=== PATIENT | female | born 1995 | race Caucasian/White ===

== ENCOUNTER 2017-07-14 16:00 | Emergency (ER) | payer OTHER, SELFPAY ==
--- OUTSIDE RECORDS SUMMARY | 2017-07-14 16:02 | XMS REPORT | Clinical Summary ---
:1995 Author Organization [facility] Address [address] [place] [address] Care Team Providers Name Role Phone Asked, No Pcp Primary Care Provider Unavailable Allergies Active Allergy Reactions Severity Noted Date Comments Penicillins Shortness Of Breath High 08/12/2016 Current Medications Prescription Sig. Disp. Refills Start Date End Date Status metFORMIN Take 500 mg by Active (GLUCOPHAGE) 500 mg mouth 2 (two) tablet times a day with meals. ondansetron (ZOFRAN) Take 1 tablet (4 20 tablet 0 08/12/2016 Active 4 MG tablet mg total) by mouth every 8 (eight) hours as needed for nausea or vomiting for up to 20 doses. sulfamethoxazole-trim Take 2 tablets 40 tablet 0 08/12/2016 08/22/2016 ethoprim (BACTRIM DS) by mouth 2 (two) 800-160 mg per tablet times a day for 10 days. Active Problems Not on file Encounters Date Type Specialty Care Team Description 08/12/2016 Emergency Emergency Medicine Elier Torres, Cellulitis of abdominal MD wall (Primary Dx) after 07/13/2016 Social History Tobacco Use Types Packs/Day Years Used Date Current Every Day Smoker Cigarettes 0.5 Alcohol Use Drinks/Week oz/Week Comments No Sex Assigned at Date Recorded Not on file Last Filed Vital Signs Vital Sign Reading Time Taken Blood Pressure 124/70 08/12/2016 9:23 AM CDT Pulse 83 08/12/2016 9:23 AM CDT Temperature 36.6 C (97.9 F) 08/12/2016 9:23 AM CDT Respiratory Rate 18 08/12/2016 9:23 AM CDT Oxygen Saturation 97% 08/12/2016 9:23 AM CDT Inhaled Oxygen Concentration - - Weight 129 kg (285 lb) 08/12/2016 9:22 AM CDT Height 170.2 cm (5' 7") 08/12/2016 9:22 AM CDT Body Mass Index 44.64 08/12/2016 9:22 AM CDT Plan of Treatment Not on file Results Not on fileafter 07/13/2016
[2017-07-14 17:04] LABS: Absolute Lymphocytes (CBC) 2.9 K/uL (0.7-4.9); Absolute Monocytes 0.9 K/uL (0.1-1.3); Absolute Neutrophil 8.8 K/uL (1.8-8.0); Basophils % 0.7 % (0-1.3); Eosinophils % 0.8 % (0-4.4); Hematocrit 40.5 % (36.0-45.0); Lymphocytes % 22.5 % (15.3-44.8); MCH 27.3 pg (27.0-35.0); MCV 82.9 fL (80-100); MPV 8.2 fL (7.6-11.3); RBC Red Blood Cell Count 4.88 M/uL (3.86-4.86)
[2017-07-14 17:14] LABS: Bicarbonate 23 mEq/L (21-31); Glucose Level 85 mg/dL (65-120); Potassium 3.7 mEq/L (3.6-5.0); Sodium Level 134 mEq/L (135-145)
[2017-07-14 17:15] LABS: BUN Blood Urea Nitrogen 15 mg/dL (6-20)
[2017-07-14 18:06] LABS: Urine Blood NEGATIVE (NEG); Urine Glucose NEGATIVE (NEG); Urine Protein NEGATIVE (NEG); Urine pH 6.5 (5.0-7.0)
--- NOTE | 2017-07-14 18:22 | ER ---
Nurse's Notes [facility] Name: Lindsey Aguilar Age: 22 yrs Sex: Female : 1995 Arrival Date: 07/14/2017 Time: 16:03 Bed 26 Private MD: Diagnosis: Palpitations Presentation: 07/14 16:05 Presenting complaint: Patient states: i feel like i have palpitations since this hj morning around 12noon; reports nausea; LMP- 05/27/17; 6 weeks ;. Transition of care: patient was not received from another setting of care. Onset of symptoms was July 14, 2017. Care prior to arrival: None. 16:05 Method Of Arrival: Ambulatory hj 16:05 Acuity: GILBERTO 3 hj Triage Assessment: 16:07 General: Appears in no apparent distress. uncomfortable, Behavior is cooperative, hj appropriate for age, anxious, crying. Pain: Complains of pain in abdomen. MANAGER WOMEN: 16:08 LMP 05/27/2017 hj Historical: - Allergies: 16:07 PENICILLINS; hj - Home Meds: 16:07 Vitamin Oral [Active]; hj - PMHx: 16:07 Endometriosis; Hyperlipidemia; HYPOGLYCEMIA; Thyroid problem; hj - PSHx: 16:07 breast reduction; hj - Social history:: Smoking status: Patient/guardian denies using tobacco, recently quit. Screenin:50 Abuse screen: Denies threats or abuse. Nutritional screening: No deficits noted. kb1 Tuberculosis screening: No symptoms or risk factors identified. Fall Risk None identified. Assessment: 16:50 General: Appears in no apparent distress. Behavior is calm, cooperative. Pain: Denies kb1 pain. Neuro: Level of Consciousness is awake, alert, obeys commands, Oriented to person, place, time, situation. Cardiovascular: Reports syncope, intermittent palpitations, chest heaviness. Respiratory: Reports shortness of breath on exertion Airway is patent. GI: No signs and/or symptoms were reported involving the gastrointestinal system. : No signs and/or symptoms were reported regarding the genitourinary system. 17:42 Reassessment: Patient appears in no apparent distress at this time. Patient and/or kb1 family updated on plan of care and expected duration. Pain level reassessed. Patient is alert, oriented x 3, equal unlabored respirations, skin warm/dry/pink. 18:35 Reassessment: Patient appears in no apparent distress at this time. Patient and/or kb1 family updated on plan of care and expected duration. Pain level reassessed. Patient is alert/active/playful, equal unlabored respirations, skin warm/dry/pink. Vital Signs: 16:08 BP 144 / 91; Pulse 98; Resp 18; Temp 98.2(TE); Pulse Ox 98% on R/A; Weight 137.44 kg; hj Height 5 ft. 7 in. (170.18 cm); Pain 5/10; 17:43 BP 129 / 52; Pulse 89; Resp 18; Pulse Ox 97% on R/A; kb1 19:17 BP 137 / 83; Pulse 84; Resp 18; Pulse Ox 98% ; kb1 16:08 Body Mass Index 47.46 (137.44 kg, 170.18 cm) ED Course: 16:03 Patient arrived in ED. rg4 16:06 Triage completed. 16:07 Arm band placed on right wrist. 16:35 Deshawn Sim NP is [facility]. pm1 16:35 Edwin Nuñez MD is Attending Physician. pm1 16:35 Nora Barraza RN is Primary Nurse. kb1 16:50 Patient has correct armband on for positive identification. Bed in low position. Call kb1 light in reach. Side rails up X 1. patient monitor on. Pulse ox on. NIBP on. 16:50 No provider procedures requiring assistance completed. Inserted saline lock: 20 gauge kb1 in right antecubital area, using aseptic technique. Blood collected. 17:31 EKG done, by pet care technician. reviewed by Deshawn Sim NP. at1 19:18 IV discontinued, intact, bleeding controlled, No redness/swelling at site. Pressure kb1 dressing applied. Administered Medications: No medications were administered Outcome: 18:22 Discharge ordered by MD. pm1 19:18 Discharged to home ambulatory, with friend. kb1 19:18 Condition: stable 19:18 Discharge instructions given to patient, Instructed on discharge instructions, follow up and referral plans. Demonstrated understanding of instructions, follow-up care. 19:19 Patient left the ED. kb1 Signatures: Samantha petty, electron beam welding machine operator EKG Tat1 Cayetano Ramos RN RN Deshawn Sim NP JACKHAMMER OPERATOR pm1 Vale Booker rg4 Nora Barraza RN RN kb1 Corrections: (The following items were deleted from the chart) 16:07 16:05 Presenting complaint: Patient states: i feel like i have palpitations since this hj morning around 12noon; reports nausea; hj 16:10 16:08 Pulse 98bpm; Resp 18bpm; Pulse Ox 98% RA; Temp 98.2F Temporal; 137.44 kg; Height hj 5 ft. 7 in.; BMI: 47.4; Pain 5/10; hj
--- NOTE | 2017-07-14 18:22 | EDPHYS ---
Physician Documentation [facility] Name: Lindesy Aguilar Age: 22 yrs Sex: Female : 1995 Arrival Date: 07/14/2017 Time: 16:03 Bed 26 Private MD: ED Physician Edwin Nuñez HPI: 07/14 17:00 This 22 yrs old Female presents to ER via Ambulatory with complaints of pm1 Palpitations. 17:00 The patient presents with a history of irregular heart beat. Context: The symptoms pm1 occur at rest, with anxiety. Onset: The symptoms/episode began/occurred today, at 12:00. Duration: The patient or guardian reports a single episode, that is now resolved. Modifying factors: The symptoms are aggravated by. Associated signs and symptoms: Pertinent positives: anxiety, nausea, Pertinent negatives: chest pain, cough, fever, SOB, vomiting. Severity of symptoms: in the emergency department the symptoms have resolved. The patient has experienced similar episodes in the past, a few times. PROJECT HIRE: 16:08 LMP 05/27/2017 hj Historical: - Allergies: 16:07 PENICILLINS; hj - Home Meds: 16:07 Vitamin Oral [Active]; hj - PMHx: 16:07 Endometriosis; Hyperlipidemia; HYPOGLYCEMIA; Thyroid problem; hj - PSHx: 16:07 breast reduction; hj - Social history:: Smoking status: Patient/guardian denies using tobacco, recently quit. ROS: 17:00 Constitutional: Negative for fever, chills, and weight loss, Eyes: Negative for injury, pm1 pain, redness, and discharge, ENT: Negative for injury, pain, and discharge, Neck: Negative for injury, pain, and swelling, Respiratory: Negative for shortness of breath, cough, wheezing, and pleuritic chest pain, Back: Negative for injury and pain, : Negative for injury, bleeding, discharge, and swelling, MS/Extremity: Negative for injury and deformity, Skin: Negative for injury, rash, and discoloration, Neuro: Negative for headache, weakness, numbness, tingling, and seizure. 17:00 Cardiovascular: Positive for palpitations. 17:00 Abdomen/GI: Positive for nausea, Negative for abdominal pain, vomiting, diarrhea. Exam: 17:00 Constitutional: This is a well developed, well nourished patient who is awake, alert, pm1 and in no acute distress. Head/Face: Normocephalic, atraumatic. Eyes: Pupils equal round and reactive to light, extra-ocular motions intact. Lids and lashes normal. Conjunctiva and sclera are non-icteric and not injected. Cornea within normal limits. Periorbital areas with no swelling, redness, or edema. ENT: Nares patent. No nasal discharge, no septal abnormalities noted. Tympanic membranes are normal and external auditory canals are clear. Oropharynx with no redness, swelling, or masses, exudates, or evidence of obstruction, uvula midline. Mucous membranes moist. Neck: Trachea midline, no thyromegaly or masses palpated, and no cervical lymphadenopathy. Supple, full range of motion without nuchal rigidity, or vertebral point tenderness. No Meningismus. Chest/axilla: Normal chest wall appearance and motion. Nontender with no deformity. No lesions are appreciated. Cardiovascular: Regular rate and rhythm with a normal S1 and S2. No gallops, murmurs, or rubs. Normal PMI, no JVD. No pulse deficits. Respiratory: Lungs have equal breath sounds bilaterally, clear to auscultation and percussion. No rales, rhonchi or wheezes noted. No increased work of breathing, no retractions or nasal flaring. Abdomen/GI: Soft, non-tender, with normal bowel sounds. No distension or tympany. No guarding or rebound. No evidence of tenderness throughout. Back: No spinal tenderness. No costovertebral tenderness. Full range of motion. Skin: Warm, dry with normal turgor. Normal color with no rashes, no lesions, and no evidence of cellulitis. MS/ Extremity: Pulses equal, no cyanosis. Neurovascular intact. Full, normal range of motion. Neuro: Awake and alert, GCS 15, oriented to person, place, time, and situation. Cranial nerves II-XII grossly intact. Motor strength 5/5 in all extremities. Sensory grossly intact. Cerebellar exam normal. Normal gait. Vital Signs: 16:08 BP 144 / 91; Pulse 98; Resp 18; Temp 98.2(TE); Pulse Ox 98% on R/A; Weight 137.44 kg; hj Height 5 ft. 7 in. (170.18 cm); Pain 5/10; 17:43 BP 129 / 52; Pulse 89; Resp 18; Pulse Ox 97% on R/A; kb1 19:17 BP 137 / 83; Pulse 84; Resp 18; Pulse Ox 98% ; kb1 16:08 Body Mass Index 47.46 (137.44 kg, 170.18 cm) hj MDM: 16:35 Patient medically screened. pm1 18:21 Data reviewed: vital signs. Data interpreted: Pulse oximetry: on room air is 97 %. pm1 Interpretation: normal. Counseling: I had a detailed discussion with the patient and/or guardian regarding: the historical points, exam findings, and any diagnostic results supporting the discharge/admit diagnosis, lab results, radiology results, the need for outpatient follow up, to return to the emergency department if symptoms worsen or persist or if there are any questions or concerns that arise at home. 07/14 16:43 Order name: CBC with Diff; Complete Time: 17:17 pm1 07/14 16:43 Order name: Basic Metabolic Panel; Complete Time: 17:17 pm1 07/14 16:43 Order name: EKG; Complete Time: 16:43 pm1 07/14 17:16 Order name: TSH; Complete Time: 18:21 pm1 07/14 17:40 Order name: Urine Dipstick--Ancillary (enter results); Complete Time: 18:21 ag 07/14 17:40 Order name: Urine --Ancillary (enter results); Complete Time: 18:21 ag 07/14 16:43 Order name: Urine Test (obtain specimen); Complete Time: 17:40 pm1 07/14 16:43 Order name: Cardiac monitoring; Complete Time: 16:48 pm1 07/14 16:43 Order name: EKG - Nurse/Tech; Complete Time: 17:20 pm1 07/14 16:43 Order name: IV Saline Lock; Complete Time: 16:48 pm1 07/14 16:43 Order name: Labs collected and sent; Complete Time: 16:48 pm1 07/14 16:43 Order name: O2 Per Protocol; Complete Time: 16:48 pm1 07/14 16:43 Order name: O2 Sat Monitoring; Complete Time: 16:48 pm1 07/14 16:43 Order name: Urine Dipstick-Ancillary (obtain specimen); Complete Time: 17:42 pm1 Administered Medications: No medications were administered Disposition: 07/15 10:34 Co-signature as Attending Physician, Edwin Nuñez MD I agree with the assessment and carson plan of care. Disposition: 07/14/17 18:22 Discharged to Home. Impression: Palpitations. - Condition is Stable. - Discharge Instructions: Palpitations. - Medication Reconciliation Form, Thank You Letter form. - Follow up: Emergency Department; When: As needed; Reason: Worsening of condition. Follow up: Private Physician; When: 2 - 3 days; Reason: Recheck today's complaints, Continuance of care, Re-evaluation by your physician. - Problem is new. - Symptoms have improved. Signatures: Dispatcher [employer] EDMS Edwin Nuñez MD MD cha Joaquin, Henry, RN RN Deshawn Qureshi NP INSPECTOR [employer]SEM[employer] pm1 Nora Barraza RN RN kb1
--- NOTE | 2017-07-14 19:06 | EKG ---
Test Date: 2017-07-14 Test Time: 17:12:34 Barrel Dedenting Machine Operator: JAD MEASUREMENT RESULTS: Intervals: Rate: 75 TX: 166 QRSD: 88 QT: 392 QTc: 437 [place]: P: 57 TX: 166 QRS: 37 T: 25 INTERPRETIVE STATEMENTS: Normal sinus rhythm with sinus arrhythmia Cannot rule out Anterior infarct, age undetermined Abnormal ECG Compared to ECG 04/26/2017 02:05:18 Myocardial infarct finding now present Electronically Signed On 07-14-17 19:05:43 CDT by Duncan Guerra
== END 2017-07-14 19:19 | disposition home or self-care (01) ==
LOC: ER 16:00
DX: R00.2 Palpitations (principal); Z3A.01 Less than 8 weeks gestation of pregnancy; Z88.0 Allergy status to penicillin
CPT/HCPCS: 36415; 80048; 81003; 81025; 84443; 85025; 93005; 99284

== ENCOUNTER 2018-04-04 12:51 | Observation (INO) | payer OTHER ==
--- OUTSIDE RECORDS SUMMARY | 2018-04-04 12:53 | XMS REPORT | Summary of Care ---
:1995 Author Name KARINA Rios, BRANDEN Address Unavailable Unavailable , Care Team Providers Name Role Phone KARINA Rios, DANNIE Unavailable Unavailable MAXIM Rios, MERYL Unavailable Unavailable SAHIL Rios, GLORIA Unavailable Unavailable SUE Rios, YARELY Badillo Unavailable Unavailable Mateusz SHUKLA, Troy Unavailable Unavailable KARINA SHUKAL [place], [facility] Unavailable Unavailable Unavailable Unavailable Unavailable Functional Status Name Dates Details Functional status health issues are not documented Status: Name Dates Details Cognitive status health issues are not documented Status: Problems Name Dates Details Swelling of knee (719.06, M25.469) Status: Active Nutritional counseling (V65.3, Z71.3) Status: Active Abnormal glucose tolerance in (648.80, O99.810) Status: Active Chronic headache (784.0, R51) Status: Active Knee pain, left (719.46, M25.562) Status: Active Biceps tendinitis of right shoulder (726.12, M75.21) Status: Active RAVI positive (795.79, R76.8) Status: Active (V22.2, Z34.90) Status: Active Post-traumatic osteoarthritis of right knee (715.26, M17.31) Status: Active Chronic pain of right knee (719.46, M25.561) Status: Active Elevated BP without diagnosis of hypertension (796.2, R03.0) Status: Active Encounter for supervision of normal (V22.1, Z34.90) Status: Active Obese (278.00, E66.9) Status: Active Chronic right shoulder pain (719.41, M25.511) Status: Active Impingement syndrome of right shoulder (726.2, M75.41) Status: Active exam (V24.2, Z39.2) Status: Active Post-operative state (V45.89, Z98.890) Status: Active Depression (311, F32.9) Status: Active Medications Name Dates Details Albuterol Sulfate (2.5 MG/3ML) 0.083% Inhalation Nebulization Solution Refills: 0 R.N. Start : 02-Nov-2017 Active Butalbital-Acetaminophen 50-325 MG Oral Tablet TAKE 1 TABLET EVERY 3-4 HOURS NEEDED FOR COMFORT. Quantity: 30 Refills: 2 MAXIM Rios SHETH Start : 02-Nov-2017 Active Vitafol Ultra 29-0.6-0.4-200 MG Oral Capsule TAKE 1 CAPSULE BY MOUTH DAILY Quantity: 30 Refills: 6 GLORIA BAXTER M.D. Start : 02-Dec-2017 Active PredniSONE 5 MG Oral Tablet TAKE 1 TABLET BY MOUTH EVERY DAY PRN JOINT PAIN IF OKAY WITH YOUR CLINICAL ATHLETIC INSTRUCTOR. Quantity: 30 Refills: 0 BRANDEN FONSECA M.D. Start : 30-Jan-2018 Active Sertraline HCl - 25 MG Oral Tablet TAKE 1 TABLET DAILY. Quantity: 30 Refills: 3 YARELY ROGERS M.D. Start : 18-Jan-2018 Active Plus Iron 29-1 MG Oral Tablet TAKE 1 TABLET DAILY. Quantity: 30 Refills: 6 YARELY ROGERS M.D. Start : 13-Mar-2018 Active Citalopram Hydrobromide 10 MG Oral Tablet TAKE 1 TABLET DAILY. Quantity: 30 Refills: 3 YARELY ROGERS M.D. Start : 27-Mar-2018 Active Allergies and Adverse Reactions Name Dates Details Penicillins (Allergy) Status: Active Past Medical History Name Dates Details History of asthma (V12.69, Z87.09) Status: Resolved History of Gastric ulcer (531.90, K25.9) Status: Resolved History of type 2 diabetes mellitus (V12.29, Z86.39) Status: Resolved Procedures Procedure Dates Details History of Breast reduction Completed Immunization Name Dates Details Tdap (Boostrix) #1 on: 15-Dec-2017 Lot #: [id number] Fluzone Quadrivalent 0.5 ML Intramuscular Suspension #1 on: Jan-2018 Lot #: [id number] Family History Name Dates Details Family history of hypertension (V17.49, Z82.49) Status: Active Name Dates Details Family history of cerebrovascular accident (CVA) (V17.1, Z82.3) Status: Active Family history of diabetes mellitus (V18.0, Z83.3) Status: Active Family history of hypertension (V17.49, Z82.49) Status: Active Social History Name Dates Details - Status: Name Dates Details Never smoker Vital Signs Date Test Result Details [id number] BP Systolic 129 mm[Hg] Status: Comments: Location: RUE; Position: Sitting BP Diastolic 86 mm[Hg] Status: Comments: Location: RUE; Position: Sitting Height 67 in Status: Weight 333.25 lb Status: Body Mass Index Calculated 52.19 kg/m2 Status: Body Surface Area Calculated 2.51 m2 Status: Heart Rate 105 /min Status: Results Date Description Value Details [id number] XRAY Shoulder series [id number] Shoulder series SEE NOTES Comments: Exam: Right Shoulder series DXClinical Indication: - m25.511 chronic right shoulder pain.Comparison: None.FINDINGS:The 3 views of the shoulder show normal alignment at the glenohumeral joint.There are no fractures or dislocations. Mild degenerative changes areappreciated along the distal aspect of the dorsal surface of the right acromionprocess, lateral to the right acromioclavicular joint.The acrom ioclavicular joint and coracoclavicular spaces are intact. Theacromion and coracoid processes appear unremarkable. The subacromial space isunremarkable. The visualized scapula and clavicle are unremarka ble. There areno radiopaque foreign bodies or soft tissue swelling.If there is further concern, MRI of the shoulder may be performed for completeassessment.IMPRESSION:1. No radiographic evidence of acut e fractures or dislocations of the rightshoulder.2. Mild degenerative changes appreciated along the distal aspect of the dorsalsurface of the right acromion process, lateral to the right acromioclavicul arjoint. This may be secondary to tendinous injury of the right deltoid and/ortrapezius muscles. Correlate clinically and with patient history. Consider MRIevaluation of the shoulder for further evaluat ion, as clinically indicated.SL: [id number]--Ueiu by: Michael Camacho DODictated Date/time: 03/27/18 15:25Electronically Signed by: Michael Camacho DO 03/27/1815:30FINAL REPORT [id number] XRAY Knee 1-2 Views Bilateral [id number] Knee 1-2 Views Bilateral SEE NOTES Comments: Clinical Indication: - m25.561 chronic pain of right knee;Comparison: NoneFINDINGS:The 4 views of the bilateral knees show normal alignment without fractures ordislocations. Vacuum phenomenon is noted within the right lateral tibiofemoralknee compartment.The medial and lateral tibiofemoral compartments and patellofemoral compartmentare unremarkable. There is no knee region soft tissue swelling. Hoffa 's fat padregion is unremarkable. There are no joint bodies. There is no joint effusion.There are no radiopaque foreign bodies.If there is further concern, recommend MRI for complete assessment.IMPRESSI ON:1. No radiographic evidence of acute fractures or dislocation of the bilateralknees.2. Vacuum phenomenon within the right lateral tibiofemoral knee compartment.This is of no clinical significance and considered a normal variant.SL: [id number]--Anpp by: Michael Camacho DODictated Date/time: 03/27/18 15:31Electronically Signed by: Michael Camacho DO 03/27/1815:36FINAL REPORT Plan of Care Name Dates Details Planned Observations Planned Goals not documented Planned Encounters Appointment; BRANDEN FONSECA M.D. On: 26-Apr-2018 14:30 Interventions Provided Discussion/SummaryDear Ms. JIANG, Your studies look pretty good. You have mild degenerative changes along one of the bones of your shoulder, possibly from prior trauma. Sincerely, Dr. Fonseca Instructions Name Dates Details Instructions not documented Encounters Appointment; SHAKILA THOMPSON M.D. On: 02-Nov-2017 14:00 Encounter Diagnosis: Problem not documented Appointment; CLINICAL ATHLETIC INSTRUCTOR, ROOM3 On: 23-Nov-2017 13:00 Encounter Diagnosis: Problem not documented Appointment; MERYL PAN M.D. On: 23-Nov-2017 14:00 Encounter Diagnosis: Problem not documented Appointment; EDUCATION, CLINICAL ATHLETIC INSTRUCTOR On: 15-Dec-2017 13:30 Encounter Diagnosis: Problem not documented Appointment; TROY BUTTS M.D. On: 15-Dec-2017 14:30 Encounter Diagnosis: Problem not documented Appointment; , PROVIDER On: 15-Dec-2017 15:30 Encounter Diagnosis: Problem not documented Appointment; GLORIA BAXTER M.D. On: 23-Dec-2017 13:00 Encounter Diagnosis: Problem not documented Appointment; BRANDEN FONSECA M.D. On: 26-Dec-2017 13:00 Encounter Diagnosis: Problem not documented Appointment; FEDERICO RAMIREZ M.D. On: 03-Jan-2018 9:30 Encounter Diagnosis: Problem not documented Appointment; CLINICAL ATHLETIC INSTRUCTOR, ROOM3 On: 06-Jan-2018 13:00 Encounter Diagnosis: Problem not documented Appointment; GLORIA BAXTER M.D. On: 06-Jan-2018 13:30 Encounter Diagnosis: Problem not documented Appointment; FEDERICO RAMIREZ M.D. On: 10-Jan-2018 9:30 Encounter Diagnosis: Problem not documented Appointment; , PROVIDER On: 18-Jan-2018 13:00 Encounter Diagnosis: Problem not documented Appointment; ELDON WELLER M.D. On: 18-Jan-2018 14:00 Encounter Diagnosis: Problem not documented Appointment; ELDON WELLER M.D. On: 01-Feb-2018 14:30 Encounter Diagnosis: Problem not documented Appointment; CLINICAL ATHLETIC INSTRUCTOR, ROOM3 On: 06-Feb-2018 13:30 Encounter Diagnosis: Problem not documented Appointment; CLINICAL ATHLETIC INSTRUCTOR, ROOM4 On: 13-Feb-2018 11:30 Encounter Diagnosis: Problem not documented Appointment; LUIS MCGARRY M.D. On: 13-Feb-2018 13:30 Encounter Diagnosis: Problem not documented Appointment; CLINICAL ATHLETIC INSTRUCTOR, ROOM1 On: 20-Feb-2018 13:45 Encounter Diagnosis: Problem not documented Appointment; LUIS MCGARRY M.D. On: 20-Feb-2018 15:45 Encounter Diagnosis: Problem not documented Appointment; EDUCATION, POST On: 13-Mar-2018 11:00 Encounter Diagnosis: Problem not documented
--- OUTSIDE RECORDS SUMMARY | 2018-04-04 12:53 | XMS REPORT | Continuity of Care Document ---
:1995 Author Organization Interface Problems Problem Status Onset Classification Date Comments Source Date Reported INDUCTION Active [address] ELEVATED Active [address] [facility] LABOR Active [address] [facility] Discharge 09/11/2015 [facility] Diagnosis: 6 Acute vaginitis OTHER Active [place] [id number] [facility] Discharge 08/24/2014 [facility] Diagnosis: 5 Cough Discharge 08/24/2014 [facility] Diagnosis: 5 Fever SOB, COUGHING Active [facility] 5 Medications Medication Details Route Status Patient Ordering Order Source Instructions Provider Date Metronidazole 500 mg=1 Active 500 MG Oral tab, PO, 016 [place] Tablet [Flagyl] BID, X 7 day, # 14 tab, 0 Refill(s) Zithromax 1,000 mg, 1 Inactive pkt, Route: 016 [place] PO, Drug form: PCKT, ONCE, Dosing Weight 127.273, kg, Priority: STAT, Start date: 09/08/15 14:37:00 CDT, Stop date: 09/08/15 14:37:00 CDTNotes: (Same As: Zithromax) Take 1 hour before or 2 hours after meal Rocephin 250 mg, Inactive Route: IM, 016 [place] Drug form: PDR/INJ, ONCE, Dosing Weight 127.273, kg, Priority: STAT, Start date: 09/08/15 14:36:00 CDT, Stop date: 09/08/15 14:36:00 CDTNotes: (Same As: Rocephin) Tramadol 50 mg, 1 Inactive tab, Route: 016 [place] PO, Drug form: TAB, ONCE, Dosing Weight 127.273, kg, > 50 kg, Priority: STAT, Start date: 09/08/15 14:30:00 CDT, Stop date: 09/08/15 14:30:00 CDTNotes: Not to exceed 400mg/day. (Same As: Ultram) Morphine 4 mg, 2 mL, Inactive Route: IVP, 016 [place] Drug form: INJ, ONCE, Dosing Weight 127.273, kg, Priority: STAT, Start date: 09/08/15 13:39:00 CDT, Stop date: 09/08/15 13:39:00 CDTNotes: (Same as:MORPhine Sulfate) Ondansetron 4 mg, 2 mL, Inactive Route: IVP, 016 [place] Drug form: INJ, ONCE, Dosing Weight 127.273, kg, Priority: STAT, Start date: 09/08/15 13:39:00 CDT, Stop date: 09/08/15 13:39:00 CDTNotes: (Same as: Zofran) MEDICATION WASTE Product Size: 4 mg Product Wasted: ___ mg Saline Flush 10 mL, Inactive 0.9% Route: IVP, [address] [place] [address] Drug Form: INJ, Dosing Weight 127.273, kg, PRN, PRN Line Flush, Start date: 09/08/15 13:39:00 CDT, Duration: 30 day, Stop date: 10/08/15 13:38:00 CDTNotes: (Same as: BD Posiflush) Azithromycin 5 250 mg, PO, Active Day Dose Pack Daily, Take 015 [place] 250 mg oral 2 tablets by tablet mouth the first day then 1 tablet by mouth days 2-5, X 5 day, # 6 tab, 0 Refill(s)Spe cial Instructions : Take 2 tablets by mouth the first day then 1 tablet by mouth days 2-5 Allergies, Adverse Reactions, Alerts Substance Category Reaction Severity Reaction Status Date Comments Source type Reported penicillins Assertion Drug Active allergy [place] Immunizations Immunization Date Given Site Status Last Updated Comments Source Results Order Name Results Value Reference Date Interpretation Comments Source Range Shoulder Shoulder Exam: Right Shoulder series DX 03/27 - OPID series DX series - [place] Clinical Indication: - m25.511 chronic right shoulder pain. Comparison: None. Read by: Michael Camacho DO Dictated Date/time: 03/27/18 15:25 Electronically Signed by: Michael Camacho DO 03/27/18 15:30 FINAL REPORT FINDINGS: The 3 views of the shoulder show normal alignment at the glenohumeral joint. There are no fractures or dislocations. Mild degenerative changes are appreciated along the distal aspect of the dorsal surfa ce of the right acromion process, lateral to the right acromioclavicular joint. The acromioclavicular joint and coracoclavicular spaces are intact. The acromion and coracoid processes appear unremarkable. The subacromial space is unremarkable. The visualized scapula and clavicle ar e unremarkable. There are no radiopaque foreign bodies or soft tissue swelling. If there is further concern, MRI of the shoulder may be performed for complete assessment. IMPRESSION: 1. No radiographic evidence of acute fractures or dislocations of the right shoulder. 2. Mild degenerative changes appreciated along the distal aspect of the dorsal surface of the right acromion process, lateral to the right acromioclavicular joint. This may be secondary to tendinous inj ury of the right deltoid and/or trapezius muscles. Correlate clinically and with patient history. Consider MRI evaluation of the shoulder for further evaluation, as clinically indicated. SL: [id number] Knee 1-2 Knee 1-2 Clinical Indication: - m25.561 chronic pain of right knee ; 03/27 - OPID Views Views /2018 - [place] Bilateral Bilateral DX DX Comparison: None Read by: Michael Camacho DO Dictated Date/time: 03/27/18 15:31 Electronically Signed by: Michael Camacho DO 03/27/18 15:36 FINAL REPORT FINDINGS: The 4 views of the bilateral knees show normal alignment without fractures or dislocations. Vacuum phenomenon is noted within the right lateral tibiofemoral knee compartment. The medial and lateral tibiofemoral compartments and patellofemoral compartment are unremarkable. There is no knee region soft tissue swelling. Hoffa's fat pad region is unremarkable. There are no joint bodies. There is no joint effusion. There are no radiopaque foreign bodies. If there is further concern, recommend MRI for complete assessment. IMPRESSION: 1. No radiographic evidence of acute fractures or dislocation of the bilateral knees. 2. Vacuum phenomenon within the right lateral tibiofemoral knee compartment. This is of no clinical significance and considered a normal variant. SL: [id number] MOLECULAR C Negative Negative 09/07 DIAGNOSTIC trachomatis [place] by Amp Det *NA* (APTIMA) (09/08/15 2:19 PM) MOLECULAR Source Endocervix 09/07 DIAGNOSTIC APTIMA [place] *NA* (09/08/15 2:19 PM) MOLECULAR Source Endocervix 09/07 DIAGNOSTIC APT [place] *NA* (09/08/15 2:19 PM) MOLECULAR N gonorrhea Negative Negative 09/07 DIAGNOSTIC by Amp Det [place] (APTIMA) *NA* (09/08/15 2:19 PM) URINE AND UA Color Yellow Yellow 09/07 STOOL [place] *NA* (09/08/15 2:19 PM) URINE AND UA Leuk Est Negative Negative 09/07 STOOL [place] (09/08/15 2:19 PM) URINE AND UA Protein Negative Negative 09/07 STOOL [place] (09/08/15 2:19 PM) URINE AND UA pH 6.0 5.0 - 8.0 09/07 STOOL [place] URINE AND UA 0.2 EU/dL 0.1 - 1.0 09/07 STOOL Urobilinogen [place] URINE AND UA Glucose Negative Negative 09/07 STOOL [place] (09/08/15 2:19 PM) URINE AND UA Spec Grav >=1.030 <=1.030 09/07 STOOL [place] *ABN* (09/08/15 2:19 PM) URINE AND UA Turbidity Clear Clear 09/07 STOOL [place] (09/08/15 2:19 PM) URINE AND UA Nitrite Negative Negative 09/07 STOOL [place] (09/08/15 2:19 PM) URINE AND UA Blood Small Negative 09/07 STOOL [place] *ABN* (09/08/15 2:19 PM) URINE AND UA Bili Negative Negative 09/07 STOOL [place] *NA* (09/08/15 2:19 PM) URINE AND UA Ketones Trace Negative 09/07 STOOL [place] *ABN* (09/08/15 2:19 PM) URINE AND UA WBC None Seen None Seen 09/07 STOOL [place] (09/08/15 2:19 PM) URINE AND UA Sq Epi Few /LPF Few /LPF 09/07 [place] URINE AND UA RBC 0-2 /HPF 0 - 2 09/07 [place] URINE AND UA Bacteria None Seen None Seen 09/07 STOOL [place] (09/08/15 2:19 PM) URINE CHEM U Preg Negative Negative 09/07 [place] (09/08/15 2:19 PM) Vital Signs Vital Sign Value Date Comments Source Systolic (mm Hg) 148 09/08/2015 [facility] Diastolic (mm Hg) 88 09/08/2015 [facility] Respitory Rate 18 09/08/2015 [facility] Heart Rate 72 09/08/2015 [facility] Temperature Oral (F) 98.2 F 09/08/2015 [facility] Systolic (mm Hg) 154 09/08/2015 [facility] Diastolic (mm Hg) 90 09/08/2015 [facility] Heart Rate 74 09/08/2015 [facility] Respitory Rate 18 09/08/2015 [facility] Temperature Oral (F) 98.0 F 09/08/2015 [facility] Height 167.64 cm 09/08/2015 [facility] Weight 127.273 09/08/2015 [facility] BMI Calculated 45.29 09/08/2015 [facility] Systolic (mm Hg) 132 08/21/2014 [facility] Diastolic (mm Hg) 74 08/21/2014 [facility] Heart Rate 70 08/21/2014 [facility] Respitory Rate 14 08/21/2014 [facility] Temperature Oral (F) 98.4 F 08/21/2014 [facility] Systolic (mm Hg) 141 08/21/2014 [facility] Diastolic (mm Hg) 86 08/21/2014 [facility] Respitory Rate 16 08/21/2014 [facility] Heart Rate 87 08/21/2014 [facility] Temperature Oral (F) 98.4 F 08/21/2014 [facility] Weight 124.091 08/21/2014 [facility] Encounters Location Location Encounter Encounter Reason Attending ADM DC Status Source Details Type Number For Provider Date Date Visit [facility] [place] [id number] Dick Cesta 08/21 08/21 [facility] [facility] [place] [id number] Nadim 09/07 09/07 [facility] Mandaen /2015 [facility] Procedures Procedure Code Date Perfomer Comments Source
--- OUTSIDE RECORDS SUMMARY | 2018-04-04 12:53 | XMS REPORT | Clinical Summary ---
:1995 Author Organization [facility] Address [address] [place] [address] Care Team Providers Name Role Phone Asked, No Pcp Primary Care Provider Unavailable Allergies Active Allergy Reactions Severity Noted Date Comments Penicillins Shortness Of Breath High 08/12/2016 Medications Medication Sig Dispensed Refills Start Date End Date Status metFORMIN (GLUCOPHAGE) Take 500 mg by 0 Active 500 mg tablet mouth 2 (two) times a day with meals. ondansetron (ZOFRAN) 4 Take 1 tablet (4 20 tablet 0 08/12/2016 Active MG tablet mg total) by mouth every 8 (eight) hours as needed for nausea or vomiting for up to 20 doses. Active Problems Not on file Social History Tobacco Use Types Packs/Day Years Used Date Current Every Day Smoker Cigarettes 0.5 Alcohol Use Drinks/Week oz/Week Comments No Sex Assigned at Date Recorded Not on file Job Start Date Occupation Industry Not on file Not on file Not on file Travel History Travel Start Travel End No recent travel history available. Last Filed Vital Signs Not on file Plan of Treatment Not on file Results Not on fileafter 04/03/2017 Advance Directives Patient has advance care planning documents on file. For more information, please contact:[facility] [place] [address]
[2018-04-04 14:19] LABS: Absolute Lymphocytes (CBC) 1.9 K/uL (0.7-4.9); Absolute Monocytes 0.5 K/uL (0.1-1.3); Absolute Neutrophil 5.9 K/uL (1.8-8.0); Basophils % 0.9 % (0-1.3); Hematocrit 37.3 % (36.0-45.0); Lymphocytes % 22.5 % (15.3-44.8); MPV 8.7 fL (7.6-11.3); Monocytes % 5.6 % (3.3-12.3); RBC Red Blood Cell Count 4.67 M/uL (3.86-4.86)
[2018-04-04] MEDS ORDERED: ONDANSETRON 4 MG/2 ML VIAL ONE (14:22)
[2018-04-04] MEDS ORDERED: MORPHINE 4 MG/ML SYR ONE ×2 (14:22→14:45)
[2018-04-04 14:34] LABS: ALT/SGPT 39 U/L (12-78); AST/SGOT 28 U/L (15-37); Albumin 3.7 g/dL (3.4-5.0); Alkaline Phosphatase 94 U/L (45-117); BUN Blood Urea Nitrogen 13 mg/dL (7-18); Bicarbonate 24 mmol/L (21-32); Bilirubin Direct 0.1 mg/dL (0-0.2); Bilirubin Total 0.3 mg/dL (0.2-1.0); Glucose Level 100 mg/dL (74-106); Lipase 125 U/L (73-393); Protein, Total 7.1 g/dL (6.4-8.2); Sodium Level 141 mmol/L (136-145)
[2018-04-04 14:57] LABS: Urine Bacteria >50 /HPF (<20); Urine RBC <5 /HPF (NONE SEEN)
[2018-04-04 14:58] LABS: Urine Culture Reflex Order NOT NEEDED
--- NOTE | 2018-04-04 15:50 | RAD REPORT ---
EXAM DESCRIPTION: CT - Abdomen Pelvis W Contrast - 04/04/2018 3:36 pm CLINICAL HISTORY: Abdominal pain with vomiting COMPARISON: none. TECHNIQUE: Computed axial tomography of the abdomen pelvis was obtained. 100 cc Isovue-300 was admin istered intravenously. Oral contrast was not requested which limits evaluation of bowel. All CT scans are performed using dose optimization technique as appropriate and may include automated exposure control or mA/KV adjustment according to patient size. FINDINGS: The liver, spleen, pancreas, adrenal and kidneys appear unremarkable. There is no evidence of diverticulitis. Appendix is borderline enlarged. Stranding within the adjacent fat is not seen 5.4 centimeter left ovarian cyst without significant free fluid. Tiny umbilical hernia IMPRESSION: 5.4 centimeter left ovarian cyst without significant free fluid. Follow up ultrasound in couple months recommended to assess stability/resolution Borderline enlargement of the appendix is equivocal for early appendicitis
[2018-04-04] MEDS ORDERED: LIDOCAINE VISCOUS 2% SOLN 15 ML UDC ONE (16:19)
[2018-04-04] MEDS ORDERED: MAGNE/ALUM HYDROXD 30 ML UCUP ONE (16:19)
--- NOTE | 2018-04-04 16:37 | EDPHYS ---
Physician Documentation [facility] Name: Lindsey Aguilar Age: 22 yrs Sex: Female : 1995 Arrival Date: 04/04/2018 Time: 12:59 Bed 16 Private MD: ED Physician Alex Lundy HPI: 04/04 21:25 This 22 yrs old Female presents to ER via Wheelchair with complaints of tw4 Abdominal Pain. 21:25 The patient presents with abdominal pain in the periumbilical area. Onset: The tw4 symptoms/episode began/occurred today. The symptoms do not radiate. Associated signs and symptoms: Pertinent positives: vomiting. The symptoms are described as sharp. Modifying factors: The symptoms are alleviated by nothing, the symptoms are aggravated by nothing. The patient has not experienced similar symptoms in the past. 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 - Social history:: Smoking status: Patient/guardian denies using tobacco. - Ebola Screening: : Patient negative for fever greater than or equal to 101.5 degrees Fahrenheit, and additional compatible Ebola Virus Disease symptoms Patient denies exposure to infectious person Patient denies travel to an Ebola-affected area in the 21 days before illness onset No symptoms or risks identified at this time. ROS: 21:25 Constitutional: Negative for fever, chills, and weight loss, Eyes: Negative for injury, tw4 pain, redness, and discharge, Cardiovascular: Negative for chest pain, palpitations, and edema, Respiratory: Negative for shortness of breath, cough, wheezing, and pleuritic chest pain. 21:25 MS/Extremity: Negative for injury and deformity, Skin: Negative for injury, rash, and discoloration, Neuro: Negative for headache, weakness, numbness, tingling, and seizure. 21:25 Abdomen/GI: Positive for abdominal pain, nausea and vomiting, nausea, vomiting, and diarrhea, nausea, vomiting, Negative for diarrhea, constipation, anorexia, dysphagia, rectal pain. Exam: 21:25 Head/Face: Normocephalic, atraumatic. Chest/axilla: Normal chest wall appearance and tw4 motion. Nontender with no deformity. No lesions are appreciated. Cardiovascular: Regular rate and rhythm with a normal S1 and S2. No gallops, murmurs, or rubs. Normal PMI, no JVD. No pulse deficits. Respiratory: Lungs have equal breath sounds bilaterally, clear to auscultation and percussion. No rales, rhonchi or wheezes noted. No increased work of breathing, no retractions or nasal flaring. 21:25 MS/ Extremity: Pulses equal, no cyanosis. Neurovascular intact. Full, normal range of motion. Neuro: Awake and alert, GCS 15, oriented to person, place, time, and situation. Cranial nerves II-XII grossly intact. Motor strength 5/5 in all extremities. Sensory grossly intact. Cerebellar exam normal. Normal gait. 21:25 Constitutional: The patient appears in obvious distress, moderately distressed, in obvious pain. 21:25 Abdomen/GI: Inspection: abdomen appears normal, Bowel sounds: diminished, Palpation: moderate abdominal tenderness, in all quadrants, Liver: no appreciated palpable abnormalities. Vital Signs: 13:46 BP 134 / 72; Pulse 79; Resp 20 S; Temp 97.6; Pulse Ox 99% on R/A; Weight 151.95 kg; iw Height 5 ft. 4 in. (162.56 cm); Pain 10/10; 14:33 BP 151 / 117; Pulse 81; Resp 20; Temp 98.9; Pulse Ox 99% ; mh5 14:46 BP 130 / 73; sv 16:18 BP 132 / 65; Pulse 74; Resp 20; Temp 97.9; Pulse Ox 100% ; mh5 13:46 Body Mass Index 57.50 (151.95 kg, 162.56 cm) iw MDM: 13:47 Patient medically screened. tw4 21:25 Differential diagnosis: appendicitis, bowel obstruction, Cholelithiasis, tw4 diverticulitis, Dysmenorrhea, Ectopic , Endometriosis, gastritis, GI Bleed, non-specific abd pain, Ovarian Torsion. Data reviewed: vital signs, nurses notes. Counseling: I had a detailed discussion with the patient and/or guardian regarding: the historical points, exam findings, and any diagnostic results supporting the discharge/admit diagnosis, lab results, radiology results. Physician consultation: Champ Dawson MD regarding admission, to the operating room, need to come to ED to see patient, and will see patient in ED, immediately. ED course: Pt underwent lap appy in the OR by Dr Yanez. 04/04 13:25 Order name: Basic Metabolic Panel; Complete Time: 15:56 tw 04/04 15:56 Interpretation: Normal except: CL 109. [facility] 04/04 13:25 Order name: CBC with Diff; Complete Time: 15:56 [facility] 04/04 15:56 Interpretation: Normal except: MCV 79.9; RDW 16.6. [facility] 04/04 13:25 Order name: Creatinine for Radiology [facility] 04/04 13:25 Order name: Hepatic Function; Complete Time: 15:56 [facility] 04/04 15:56 Interpretation: Within normal limits. [facility] 04/04 13:25 Order name: Lipase; Complete Time: 15:56 [facility] 04/04 15:56 Interpretation: Within normal limits: LIP 125. [facility] 04/04 13:38 Order name: Urine Microscopic Only [facility] 04/04 13:25 Order name: IV Saline Lock; Complete Time: 14:11 [facility] 04/04 13:38 Order name: Urine Microscopic Only; Complete Time: 15:56 EDOH 04/04 15:56 Interpretation: Normal except: UBACT >50; SQEPI 20-50; UWBC 10-20. [facility] 04/04 14:09 Order name: CT Abd/Pelvis - W/Contrast; Complete Time: 15:56 [facility] 04/04 16:39 Order name: Urine Dipstick--Ancillary (enter results) 04/04 16:39 Order name: Urine --Ancillary (enter results) 04/04 13:25 Order name: Labs collected and sent; Complete Time: 14:12 [facility] 04/04 13:38 Order name: Urine Test (obtain specimen); Complete Time: 14:40 tw4 Administered Medications: 14:33 Drug: Zofran 4 mg Route: IVP; Site: left antecubital; sv 15:00 Follow up: Response: No adverse reaction sv 14:40 Drug: morphine 2 mg Route: IVP; Site: left antecubital; sv 15:00 Follow up: Response: No adverse reaction sv 15:25 Drug: morphine 2 mg Route: IVP; Site: left antecubital; sv 15:30 Follow up: Response: No adverse reaction sv 16:17 Drug: GI Cocktail without - (Maalox Suspension 30 ml, Lidocaine Liquid 2 % 15 sv ml) Route: PO; 16:30 Follow up: Response: No adverse reaction sv Disposition: 04/04/18 16:36 Hospitalization ordered by Champ Dawson for Inpatient Admission. Preliminary diagnosis is Acute appendicitis with generalized peritonitis. - Bed requested for Telemetry/MedSurg (Inpatient). - Status is Inpatient Admission. sv - Condition is Fair. - Problem is new. - Symptoms have improved. UTI on Admission? No Signatures: Dispatcher [employer] EDDiann García RN RN sv Williams, Irene, RN RN Alex Lundy MD MD tw4 Corrections: (The following items were deleted from the chart) 17: 16:36 Hospitalization Ordered by Champ Dawson MD for Inpatient Admission. Preliminary sv diagnosis is Acute appendicitis with generalized peritonitis. Bed requested for Telemetry/MedSurg (Inpatient). Status is Inpatient Admission. Condition is Fair. Problem is new. Symptoms have improved. UTI on Admission? No. tw4
--- NOTE | 2018-04-04 16:37 | ER ---
Nurse's Notes [facility] Name: Lindsey Aguilar Age: 22 yrs Sex: Female : 1995 Arrival Date: 04/04/2018 Time: 12:59 Bed 16 Private MD: Diagnosis: Acute appendicitis with generalized peritonitis Presentation: 04/04 13:39 Presenting complaint: Patient states: abd pain today, vomiting. Transition of care: iw patient was not received from another setting of care. Onset of symptoms was April 04, 2018. Risk Assessment: Do you want to hurt yourself or someone else? Patient reports no desire to harm self or others. Initial Sepsis Screen: Does the patient meet any 2 criteria? Does the patient have a suspected source of infection? No. Patient's initial sepsis screen is negative. Care prior to arrival: None. 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 - Social history:: Smoking status: Patient/guardian denies using tobacco. - Ebola Screening: : Patient negative for fever greater than or equal to 101.5 degrees Fahrenheit, and additional compatible Ebola Virus Disease symptoms Patient denies exposure to infectious person Patient denies travel to an Ebola-affected area in the 21 days before illness onset No symptoms or risks identified at this time. Screenin:05 Abuse screen: Denies threats or abuse. Denies injuries from another. Nutritional sv screening: No deficits noted. Tuberculosis screening: No symptoms or risk factors identified. Fall Risk None identified. Assessment: 14:00 General: Appears in no apparent distress. uncomfortable, obese, well developed, sv Behavior is cooperative, appropriate for age, anxious, restless. Pain: Complains of pain in epigastric area Pain currently is 10 out of 10 on a pain scale. Neuro: Level of Consciousness is awake, alert, obeys commands, Oriented to person, place, time, situation, Moves all extremities. Full function Gait is steady. Respiratory: Respiratory effort is even, unlabored, Respiratory pattern is regular, symmetrical. GI: Abdomen is obese, Abd is soft X 4 quads Abdomen is tender to palpation in epigastric area. Derm: Skin is pink, warm \T\ dry. 14:33 Reassessment: Patient appears in no apparent distress at this time. No changes from sv previously documented assessment. Patient and/or family updated on plan of care and expected duration. Pain level reassessed. Patient is alert, oriented x 3, equal unlabored respirations, skin warm/dry/pink. 15:25 Reassessment: Patient appears in no apparent distress at this time. No changes from sv previously documented assessment. Patient and/or family updated on plan of care and expected duration. Pain level reassessed. Patient is alert, oriented x 3, equal unlabored respirations, skin warm/dry/pink. 16:15 Reassessment: Patient appears in no apparent distress at this time. Patient and/or sv family updated on plan of care and expected duration. Pain level reassessed. Patient is alert, oriented x 3, equal unlabored respirations, skin warm/dry/pink. Pain has returned. 17:24 Reassessment: Patient appears in no apparent distress at this time. No changes from sv previously documented assessment. Patient and/or family updated on plan of care and expected duration. Pain level reassessed. Patient is alert, oriented x 3, equal unlabored respirations, skin warm/dry/pink. Vital Signs: 13:46 BP 134 / 72; Pulse 79; Resp 20 S; Temp 97.6; Pulse Ox 99% on R/A; Weight 151.95 kg; iw Height 5 ft. 4 in. (162.56 cm); Pain 10/10; 14:33 BP 151 / 117; Pulse 81; Resp 20; Temp 98.9; Pulse Ox 99% ; mh5 14:46 BP 130 / 73; sv 16:18 BP 132 / 65; Pulse 74; Resp 20; Temp 97.9; Pulse Ox 100% ; mh5 13:46 Body Mass Index 57.50 (151.95 kg, 162.56 cm) iw ED Course: 12:59 Patient arrived in ED. mr 13:25 Alex Lundy MD is Attending Physician. tw4 13:39 Triage completed. iw 13:42 Diann Cedeno, CESIA is Primary Nurse. sv 13:48 Arm band placed on. iw 14:05 Patient has correct armband on for positive identification. Placed in gown. Bed in low sv position. Call light in reach. Side rails up X 1. Adult w/ patient. Door closed. Head of bed elevated. 14:05 Initial lab(s) drawn, by me, sent to lab. Inserted saline lock: 20 gauge in left sv antecubital area, using aseptic technique. Blood collected. Flushed left antecubital with 5 ml normal saline. 14:40 Urine Microscopic Only Sent. sv 15:36 CT Abd/Pelvis - W/Contrast In Process Unspecified. EDMS 16:35 Champ Dawson MD is Hospitalizing Provider. tw4 16:41 No provider procedures requiring assistance completed. Patient admitted, IV remains in sv place. intact. Administered Medications: 14:33 Drug: Zofran 4 mg Route: IVP; Site: left antecubital; sv 15:00 Follow up: Response: No adverse reaction sv 14:40 Drug: morphine 2 mg Route: IVP; Site: left antecubital; sv 15:00 Follow up: Response: No adverse reaction sv 15:25 Drug: morphine 2 mg Route: IVP; Site: left antecubital; sv 15:30 Follow up: Response: No adverse reaction sv 16:17 Drug: GI Cocktail without - (Maalox Suspension 30 ml, Lidocaine Liquid 2 % 15 sv ml) Route: PO; 16:30 Follow up: Response: No adverse reaction sv Outcome: 16:36 Decision to Hospitalize by Provider. tw4 17:25 Admitted to OR accompanied by nurse, family with patient, via stretcher, with chart. sv 17:25 Condition: stable 17:25 Instructed on the need for admit. 17:25 Patient left the ED. sv Signatures: Dispatcher [employer] EDMS Diann Cedeno RN RN sv Rivera, Mary mr Williams, Irene, CESIA CALLAWAY Jenny Beard [facility] Alex Lundy MD MD tw4 Corrections: (The following items were deleted from the chart) 16:29 15:25 morphine 4 mg IVP in left antecubital sv sv
[2018-04-04] MEDS ORDERED: Ringers Lactate 1,000 ML IV ONE ×2 (17:37→18:21)
[2018-04-04] MEDS ORDERED: BUPIVACA 0.25%/EPI 0.0005% MDV 50 ML VIAL ONE (17:39)
--- NOTE | 2018-04-04 17:40 | HP ---
Date of Admission: 04/04/2018 Brief History Of Present Illness: The patient is a 22-year-old female, who presents to [facility] with 1-day history of periumbilical abdominal pain, which is sharp, stabbing, and very severe. It is associated with some nausea and vomiting and subjective fever and chills. She states she has n ot had similar episodes before in the past. She is post in February for her first child. She had no complications related to this. She was in her normal state of health until this occurred. The pain was 10/10 in intensity. She is unable to tolerate any p.o. Her last p.o. was approximate ly 9 a.m. attempted, but she states she vomited up immediately and was unable to tolerate. As such, she came to the hospital with the above-stated complaints. Past Medical History: Significant for endometriosis, hyperlipidemia, hypoglycemia, thyroid problems, depression, asthma. Past Surgical History: Includes , breast reduction. Allergies: PENICILLIN, WHICH CAUSES HIVES. Home Medications: Citalopram only and occasional albuterol inhaler p.r.n. Social History: She denies smoking, alcohol, recreational drug use. She is currently breast-feeding . Review of Systems: A 10-point review of systems other than HPI, denies. Physical Examination: Vital Signs: At the time of my examination, her blood pressure 134/72, pulse 79, respiratory rate 20 , temperature 97.9. She is 5 feet 4 inches, 151 kg. General: She is awake, alert, oriented. Psychiatric: She is appropriate, conversive. HEENT: She is normocephalic. Sclerae anicteric. Mucous membranes moist. Oropharynx clear. She ap pears to be in some [id number]-[id number]-iluxvrnx distress. Chest: Normal expansion and excursion. Cardiovascular: Regular rate and rhythm. Pulmonary: Clear to auscultation bilaterally. Abdomen: Soft with positive right lower quadrant and suprapubic tenderness to palpation. Her abdome n is very obese and focality of exam is difficult due to her body habitus. Extremities: No clubbing, cyanosis, or edema. Skin: Warm and dry. Laboratory Data: Reveals a white blood count of 8.4, hemoglobin of 12.6, hematocrit of 37.3, platele t count is 282. Her sodium 141, potassium 4.0, chloride 109, carbon dioxide 24, BUN 13, creatinine 0 .6, glucose is 100, total bilirubin 0.3, direct component 0.1, AST 28, ALT 39, alkaline phosphatase i s 94, and lipase 125. Her UA showed 10-20 white blood cells, 20-50 squamous cells, and urine bacteri a greater than 50. She had a CT scan performed of the abdomen and pelvis, which was officially read as a 5.4 cm left ovarian cyst without significant free fluid, tiny umbilical hernia, and borderline e nlargement of the appendix was equivocal for early appendicitis. The appendix is borderline large, i s stranding within the adjacent fat, not seen currently. Assessment And Plan: This is a 22-year-old female who comes in with possible early appendicitis. 1.IV fluid hydration. 2.Antibiotic coverage. 3.I have explained risks, benefits, and alternatives of diagnostic laparoscopy with appendectomy, po ssible open, and associated procedures. I have included the risks, benefits, alternatives of this, i ncluding but not limited to bleeding, infection, damage to surrounding tissue, need for further opera ting procedures. The patient agrees to proceed as indicated. MARCIE/TREE Voice ID: [id number]
[2018-04-04] MEDS ORDERED: SUCCINYLCHOLINE 20 MG/ML (10 ML) IV ONE (17:41)
[2018-04-04] MEDS ORDERED: MIDAZOLAM HCL 2 MG/2 ML INJ ONE (17:43)
[2018-04-04] MEDS ORDERED: ROCURONIUM 50 MG/5 ML VIAL IV ONE (17:43)
[2018-04-04] MEDS ORDERED: PROPOFOL 200 MG/20 ML VIAL IV ONE (17:43)
[2018-04-04] MEDS ORDERED: FENTANYL CITR 100 MCG/2 ML ONE (17:43)
--- NOTE | 2018-04-04 18:47 | P.OP ---
Preoperative diagnosis: Appendicitis Postoperative diagnosis: Appendicitis Primary procedure: Laparoscopic Appendectomy Secondary procedure: Excision of Endometrioma Anesthesia: GETA + Local Estimated blood loss: <2cc Specimen: Endometrioma from LLQ abdominal wall, vermiform appendix Findings: severe endometriosis, mild appendicits, endometriomas of abd wall, L ovary Complications: None Transferred to: Recovery Room Condition: Good
[2018-04-04] MEDS ORDERED: ERTAPENEM SODIUM 1 GM VIAL ONE (18:48)
[2018-04-04] MEDS ORDERED: NEOSTIGMINE 1 MG/ML -5 ML SYRINGE ONE (18:51)
[2018-04-04] MEDS ORDERED: GLYCOPYRROLATE 0.2 MG/ML SYR ONE (18:51)
[2018-04-04] MEDS ORDERED: ONDANSETRON 4 MG/2 ML VIAL IV PRN (18:52)
[2018-04-04] MEDS ORDERED: HYDROCODONE/APAP 10/325 TAB PO PRN (18:52)
[2018-04-04] MEDS ORDERED: NA CHLORIDE 0.9% 100 ML IV ONE (19:08)
[2018-04-04] MEDS ORDERED: KETOROLAC 30 MG/ML INJ ONE (19:17)
--- NOTE | 2018-04-04 19:19 | OP ---
Date of Procedure: 04/04/2018 Surgeon: Champ Dawson MD, Preoperative Diagnosis: Acute appendicitis. Postoperative Diagnosis: Acute appendicitis. Procedures Performed: 1.Laparoscopic appendectomy. 2.Excision of endometrioma from left lower abdominal wall. Anesthesia: General endotracheal plus local with 0.25% Marcaine. Estimated Blood Loss: Less than 2 cc. Specimen: Endometrial from left lower quadrant abdominal wall and vermiform appendix. Findings: 1.Severe endometriosis covering the abdominal wall, ovaries, and much of the adnexa bilaterally in a ddition to the uterus. 2.Additionally, there was mild appendicitis. 3.There were small endometriomas of the abdominal wall, particularly on the left lower quadrant. 4.The left ovary appeared enlarged and somewhat cystic. Complications: None. Disposition: Transferred to recovery room in good condition. Procedure In Detail: After informed consent was obtained, the patient was brought to the operating r oom, prepped in the usual sterile fashion. After adequate anesthesia was achieved, an infraumbilical area was anesthetized with 0.25% Marcaine, sharply incised, and a 5-mm optical trocar was introduced in the abdomen without evidence of complication. Insufflation was obtained to 15 mmHg at this time. There was no injury to vital structures upon entry of the abdomen. The abdomen was then inspected for another area of entry. The suprapubic region was identified. There were some scar tissues to th e anterior abdominal wall stuck to an endometrioma from the omentum. This was not in the direct path of the midline. It was slightly off to the left of midline. I therefore placed a suprapubic port a fter appropriate anesthetizing, incising the skin under direct visualization without evidence of comp lication. The umbilical trocar was then up-sized to 12 mm under direct visualization without evidenc e of complication. Additional trocar was chosen to left lower quadrant. This was similarly anesthet ized and sharply incised and a 5-mm trocar was introduced in the abdomen without evidence of complica tion. The LigaSure device was then used to take the omentum off the endometrioma, which was stuck to the anterior abdominal wall. There was some hemorrhagic component to this. I therefore removed the endometrioma and sent it off for pathologic examination of the left lower quadrant of the abdominal wall. It was less than 1 cm in size. I then turned my attention to the appendix, after the patient was placed in the head down, right side up position. I grasped the appendix, which was found to be m ild early appendicitis. I created a mesoappendiceal window with the [place] retractor and fired an Endo BLAIR 35 blue load across the base of the appendix with good approximation of tissues. The LigaSu re was then used to take the mesoappendix down without evidence of complication. Good hemostasis was achieved at this time. The appendix was then placed in an EndoCatch bag and removed through the umb ilical trocar. Reinsufflation was obtained at this time and the area was inspected. There was no bl eeding from the surgical sites and the staple line appeared to be good and intact without any leakage . The abdomen was then copiously irrigated and suctioned out until completely dry until all murky fl uid was removed. There was some free pelvic fluid and in the perihepatic spaces, and these were all suctioned out until completely clear, and the abdomen was inspected once again, and there was good he mostasis. No additional hemostatic maneuvers were required, and the endometriosis was once again vis ualized at this time and found to be quite significant. I then put the patient in neutral position a nd removed the umbilical trocar, closed the umbilical trocar site with an 0 Vicryl in interrupted fas hion with a Sonu-Shanthi suture passer with good approximation of tissues. All skin incisions wer e then irrigated at this time, and the abdomen was completely desufflated under direct visualization without evidence of complication. All trocars were then removed. Skin incisions were copiously irri gated once again and dried completely and all skin incisions were closed with a 4-0 Monocryl in a run jael fashion. Dermabond placed over the top. The patient tolerated the procedure well without evidence of complications, transferred to the PACU in good condition. All counts were c orrect at the end of the case. MARCIE/TREE Voice ID: [id number] Report ID: [id number]
[2018-04-04] MEDS: MORPHINE 2 MG/ML SYR IV PRN (22:02)
[2018-04-04 22:14] LABS: Urine Blood TRACE (NEG); Urine Glucose NEGATIVE (NEG); Urine Protein NEGATIVE (NEG); Urine Specific Gravity 1.015 (1.005-1.030); Urine pH 5.5 (5.0-7.0)
[2018-04-05] MEDS: MORPHINE 2 MG/ML SYR IV PRN (02:18)
[2018-04-05] MEDS ORDERED: MORPHINE 4 MG/ML SYR IV PRN (08:34)
== END 2018-04-05 10:55 | disposition home or self-care (01) ==
LOC: ER 12:51 → 4TH 18:16
PROVIDERS: ADMIT Surgery; ATTEND Surgery
PROC: 0UDB8ZX Extraction of Endometrium, Via Natural or Artificial Opening Endoscopic, Diagnostic (ICD-10-PCS; 2018-04-04)
PROC: 0DTJ4ZZ Resection of Appendix, Percutaneous Endoscopic Approach (ICD-10-PCS; principal; 2018-04-04 18:00)
DX: K35.80 Unspecified acute appendicitis (principal); N80.1 Endometriosis of ovary; N80.0 Endometriosis of uterus; N80.8 Other endometriosis; E78.5 Hyperlipidemia, unspecified; F32.9 Major depressive disorder, single episode, unspecified; Z88.0 Allergy status to penicillin
CPT/HCPCS: 36415; 74177; 80048; 80076; 81003; 81015; 81025; 83690; 85025; 88304; 88305; 96374; 96375; 99285; G0378; J0330; J1335; J2250; J2270; J2405; J2704; J2710; J3010; Q9967

== ENCOUNTER 2018-04-28 19:35 | Emergency (ER) | payer OTHER ==
--- OUTSIDE RECORDS SUMMARY | 2018-04-28 19:37 | XMS REPORT | Clinical Summary ---
:1995 Author Organization [facility] Address [address] [place] [address] Care Team Providers Name Role Phone Asked, [...] Not on file Results Not on fileafter 04/27/2017 Advance Directives Patient has advance care planning documents on file. For more information, please contact:[facility] [place] [address]
--- OUTSIDE RECORDS SUMMARY | 2018-04-28 19:38 | XMS REPORT | Continuity of Care Document ---
:1995 Author Organization Interface Problems Problem Status Onset Classification Date Comments Source Date Reported INDUCTION Active [address] ELEVATED Active [address] Center LABOR Active [address] Center Discharge 09/11/2015 [facility] Diagnosis: 6 Acute vaginitis OTHER Active [place] [id number] [facility] Discharge 08/24/2014 [facility] Diagnosis: 5 Cough Discharge 08/24/2014 [facility] Diagnosis: 5 Fever SOB, COUGHING Active [facility] 5 Medications Medication Details Route Status Patient Ordering Order Source Instructions Provider Date Metronidazole 500 mg=1 Active 500 MG Oral tab, PO, 016 [place] Tablet [Flagyl] BID, X 7 day, # 14 tab, 0 Refill(s) Zithromax 1,000 mg, 1 Inactive pkt, Route: 016 [place] PO, Drug form: PCKT, ONCE, Dosing Weight 127.273, kg, Priority: STAT, Start date: 09/08/15 14:37:00 CDT, Stop date: 09/08/15 14:37:00 CDTNotes: (Same As: Zithromax) Take 1 hour before or 2 hours after meal Rocephin 250 mg, Inactive Route: IM, 016 [place] Drug form: PDR/INJ, ONCE, Dosing Weight 127.273, kg, Priority: STAT, Start date: 09/08/15 14:36:00 CDT, Stop date: 09/08/15 14:36:00 CDTNotes: (Same As: Rocephin) Tramadol 50 mg, 1 Inactive tab, Route: 016 [place] PO, Drug form: TAB, ONCE, Dosing Weight 127.273, kg, > 50 kg, Priority: STAT, Start date: 09/08/15 14:30:00 CDT, Stop date: 09/08/15 14:30:00 CDTNotes: Not to exceed 400mg/day. (Same As: Ultram) Morphine 4 mg, 2 mL, Inactive Route: IVP, 016 [place] Drug form: INJ, ONCE, Dosing Weight 127.273, kg, Priority: STAT, Start date: 09/08/15 13:39:00 CDT, Stop date: 09/08/15 13:39:00 CDTNotes: (Same as:MORPhine Sulfate) Ondansetron 4 mg, 2 mL, Inactive Route: IVP, 016 [place] Drug form: INJ, ONCE, Dosing Weight 127.273, kg, Priority: STAT, Start date: 09/08/15 13:39:00 CDT, Stop date: 09/08/15 13:39:00 CDTNotes: (Same as: Zofran) MEDICATION WASTE Product Size: 4 mg Product Wasted: ___ mg Saline Flush 10 mL, Inactive 0.9% Route: IVP, [address] [place] [address] Drug Form: INJ, Dosing Weight 127.273, kg, [...] 03/27 - [facility] series DX series - [place] Clinical Indication: - m25.511 chronic right shoulder [...] for further evaluation, as clinically indicated. SL: [id number] Knee 1-2 Knee 1-2 Clinical Indication: - m25.561 chronic pain of right knee ; 03/27 - [facility] Views Views /2018 - [place] Bilateral Bilateral DX DX Comparison: None Read [...] significance and considered a normal variant. SL: [id number] MOLECULAR C Negative Negative 09/07 DIAGNOSTIC trachomatis [place] by Amp Det *NA* (APTIMA) (09/08/15 2:19 PM) MOLECULAR Source Endocervix 09/07 DIAGNOSTIC APTIMA [place] *NA* (09/08/15 2:19 PM) MOLECULAR Source Endocervix 09/07 DIAGNOSTIC APT [place] *NA* (09/08/15 2:19 PM) MOLECULAR N gonorrhea Negative Negative 09/07 DIAGNOSTIC by Amp Det [place] (APTIMA) *NA* (09/08/15 2:19 PM) URINE AND UA Color Yellow Yellow 09/07 STOOL [place] *NA* (09/08/15 2:19 PM) URINE AND UA Leuk Est Negative Negative 09/07 STOOL [place] (09/08/15 2:19 PM) URINE AND UA Protein Negative Negative 09/07 STOOL [place] (09/08/15 2:19 PM) URINE AND UA pH 6.0 5.0 - 8.0 09/07 STOOL [place] URINE AND UA 0.2 EU/dL 0.1 - 1.0 09/07 STOOL Urobilinogen [place] URINE AND UA Glucose Negative Negative 09/07 STOOL [place] (09/08/15 2:19 PM) URINE AND UA Spec Grav >=1.030 <=1.030 09/07 STOOL [place] *ABN* (09/08/15 2:19 PM) URINE AND UA Turbidity Clear Clear 09/07 STOOL [place] (09/08/15 2:19 PM) URINE AND UA Nitrite Negative Negative 09/07 STOOL [place] (09/08/15 2:19 PM) URINE AND UA Blood Small Negative 09/07 STOOL [place] *ABN* (09/08/15 2:19 PM) URINE AND UA Bili Negative Negative 09/07 STOOL [place] *NA* (09/08/15 2:19 PM) URINE AND UA Ketones Trace Negative 09/07 STOOL [place] *ABN* (09/08/15 2:19 PM) URINE AND UA WBC None Seen None Seen 09/07 STOOL [place] (09/08/15 2:19 PM) URINE AND UA Sq Epi Few /LPF Few /LPF 09/07 [place] URINE AND UA RBC 0-2 /HPF 0 - 2 09/07 [place] URINE AND UA Bacteria None Seen None Seen 09/07 STOOL [place] (09/08/15 2:19 PM) URINE CHEM U Preg Negative Negative 09/07 [place] (09/08/15 2:19 PM) Vital Signs Vital Sign Value Date Comments Source Systolic (mm Hg) 148 09/08/2015 [facility] Diastolic (mm Hg) 88 09/08/2015 [facility] Respitory Rate 18 09/08/2015 [facility] Heart Rate 72 09/08/2015 [facility] Temperature Oral (F) 98.2 F 09/08/2015 [facility] Systolic (mm Hg) 154 09/08/2015 [facility] Diastolic (mm Hg) 90 09/08/2015 [facility] Heart Rate 74 09/08/2015 [facility] Respitory Rate 18 09/08/2015 [facility] Temperature Oral (F) 98.0 F 09/08/2015 [facility] Height 167.64 cm 09/08/2015 [facility] Weight 127.273 09/08/2015 [facility] BMI Calculated 45.29 09/08/2015 [facility] Systolic (mm Hg) 132 08/21/2014 [facility] Diastolic (mm Hg) 74 08/21/2014 [facility] Heart Rate 70 08/21/2014 [facility] Respitory Rate 14 08/21/2014 [facility] Temperature Oral (F) 98.4 F 08/21/2014 [facility] Systolic (mm Hg) 141 08/21/2014 [facility] Diastolic (mm Hg) 86 08/21/2014 [facility] Respitory Rate 16 08/21/2014 [facility] Heart Rate 87 08/21/2014 [facility] Temperature Oral (F) 98.4 F 08/21/2014 [facility] Weight 124.091 08/21/2014 [facility] Encounters Location Location Encounter Encounter Reason Attending ADM DC Status Source Details Type Number For Provider Date Date Visit [facility] [place] [id number] Dick Cesta 08/21 08/21 [facility]2014 [facility] [place] [id number] Nadim 09/07 09/07 [facility] Procedures Procedure Code Date Perfomer Comments Source
--- OUTSIDE RECORDS SUMMARY | 2018-04-28 19:38 | XMS REPORT ---
:1995 Author Organization [facility] Address [address] [place] [address] Care Team Providers Name Role Phone Unavailable Unavailable Unavailable Payers Payer Name Policy Type Policy Number Effective Date Expiration Date Problems This patient has no known problems. Allergies, Adverse Reactions, Alerts Allergy Name Allergy Status Severity Reaction(s) Onset Inactive Treating Comments Type Date Date Clinician Penicillins DA Active SV 2018-03 00:00:0 0 No Known DA Active U 2015-09 -02 00:00:0 0 Medications This patient has no known medications.
--- OUTSIDE RECORDS SUMMARY | 2018-04-28 19:38 | XMS REPORT | Summary of Care ---
:1995 Author Name KIRSTIE Rios, JIA Hernandez [place] Physicians Unavailable , Care Team Providers Name Role Phone KARINA Rios, BRANDEN Unavailable Unavailable MAXIM Rios, SHETH Unavailable Unavailable SAHIL Rios, GLORIA Unavailable Unavailable BECKIE Rios, TROY Unavailable Unavailable SUE Rios, YARELY Badillo Unavailable Unavailable Beckie SHUKLA, Troy Unavailable Unavailable KARINA SHUKLA [place], BRANDEN Unavailable Unavailable TRACY SHUKLA [place], JIA Ta Unavailable Unavailable Unavailable Unavailable Unavailable Functional Status [...] of right shoulder (726.2, M75.41) Status: Active Post-operative state (V45.89, Z98.890) Status: Active Depression (311, F32.9) Status: Active Follow up (V67.9, Z09) Status: Active Endometriosis (617.9, N80.9) Status: Active Medications Name Dates Details Albuterol Sulfate (2.5 MG/3ML) 0.083% Inhalation Nebulization Solution Refills: 0 Start : 02-Nov-2017 Active Butalbital-Acetaminophen 50-325 MG Oral Tablet TAKE 1 TABLET EVERY 3-4 HOURS NEEDED FOR COMFORT. Quantity: 30 Refills: 2 MERYL PAN M.D. Start : 02-Nov-2017 Active Vitafol Ultra 29-0.6-0.4-200 MG Oral Capsule TAKE 1 CAPSULE BY MOUTH DAILY Quantity: 30 Refills: 6 GLORIA BAXTER M.D. Start : 02-Dec-2017 Active PredniSONE 5 MG Oral Tablet TAKE 1 TABLET BY MOUTH EVERY DAY PRN JOINT PAIN IF OKAY WITH YOUR ECOSYSTEM ECOLOGY PROFESSOR. Quantity: 30 Refills: 0 BRANDEN COLLINS M.D. Start : 30-Jan-2018 Active Sertraline HCl [...] YARELY ROGERS M.D. Start : 27-Mar-2018 Active Lupron Depot (3-Month) 11.25 MG Intramuscular Kit USE DIRECTED. Quantity: 1 Refills: 0 TROY BUTTS M.D. Start : 27-Apr-2018 Active Allergies and Adverse Reactions Name Dates Details Penicillins (Allergy) Status: Active Past Medical History Name Dates Details History of asthma (V12.69, Z87.09) Status: Resolved History of Gastric ulcer (531.90, K25.9) Status: Resolved History of exam (V24.2, Z39.2) Status: Resolved History of type 2 diabetes mellitus (V12.29, Z86.39) Status: Resolved Procedures Procedure Dates Details History of Breast reduction Completed Immunization Name Dates Details Tdap (Boostrix) #1 on: 15-Dec-2017 Lot #: [id number] Fluzone Quadrivalent 0.5 ML Intramuscular Suspension #1 on: Jan-2018 Lot #: [id number] Family History Name Dates Details Family history of hypertension (V17.49, Z82.49) Status: Active Name Dates Details Family history of cerebrovascular accident (CVA) (V17.1, Z82.3) Status: Active Family history of diabetes mellitus (V18.0, Z83.3) Status: Active Family history of hypertension (V17.49, Z82.49) Status: Active Social History Name Dates Details - Status: Name Dates Details Never smoker Vital Signs Date Test Result Details [id number] BP Systolic 132 mm[Hg] Status: Comments: Location: RUE; Position: Sitting BP Diastolic 93 mm[Hg] Status: Comments: Location: RUE; Position: Sitting Heart Rate 96 /min Status: Height 67 in Status: Weight 324 lb Status: Body Mass Index Calculated 50.75 kg/m2 Status: Body Surface Area Calculated 2.48 m2 Status: Temperature 98.6 f Status: Comments: Method: Oral Results Date Description Value Details Results not documented Plan of Care Name Dates Details Planned Observations Planned Goals not documented Planned Encounters Appointment; BRANDEN COLLINS M.D. On: 01-May-2018 11:00 Interventions Provided Medication ChangesLupron Depot (3-Month) 11.25 MG Intramuscular Kit - StartDiscussion/SummaryPt is a 22yo PMH of endometriosis, Depression, and ASCUS.1. Endometriosis- dxed in 2011, has not improved after trial of depo and OCPs- patient with documented endometriosis and endometrioma seen during C/ S and after appendectomy on 04/09- during appendectomy on 04/09 endometrioma removed, she was found to have residual disease after resection- she continues to endorse daily pain despite using T4 and ibuprofen- recommend treatment with 6 months of Lupron and then consider add back therapy with norethindrone after 6 months if pain is improved- counseled patient on side effects of Lupron including mood swings, hot flashes, bone loss, hair loss, vaginal dryness, patient understood risk and would like to move forward with plan- patient is not currently breast feeding- will send rx for Lupron and inbox Summer2. ASCUS- ASCUS HPV neg-For repeat + cotesting in 3 yrs.Dispo: RTC in 4 weeks fu of JENIFER TaveraGY2. Instructions Name Dates Details Instructions not documented Encounters Appointment; SHAKILA THOMPSON M.D. On: 02-Nov-2017 14:00 Encounter Diagnosis: Problem not documented Appointment; ECOSYSTEM ECOLOGY PROFESSOR, ROOM3 On: 23-Nov-2017 13:00 Encounter Diagnosis: Problem not documented Appointment; MERYL PAN M.D. On: 23-Nov-2017 14:00 Encounter Diagnosis: Problem not documented Appointment; EDUCATION, ECOSYSTEM ECOLOGY PROFESSOR On: 15-Dec-2017 13:30 Encounter Diagnosis: Problem not documented Appointment; TROY BUTTS M.D. On: 15-Dec-2017 14:30 Encounter Diagnosis: Problem not documented Appointment; , PROVIDER On: 15-Dec-2017 15:30 Encounter Diagnosis: Problem not documented Appointment; GLORIA BAXTER M.D. On: 23-Dec-2017 13:00 Encounter Diagnosis: Problem not documented Appointment; BRANDEN COLLINS M.D. On: 26-Dec-2017 13:00 Encounter Diagnosis: Problem not documented Appointment; FEDERICO RAMIREZ M.D. On: 03-Jan-2018 9:30 Encounter Diagnosis: Problem not documented Appointment; ECOSYSTEM ECOLOGY PROFESSOR, ROOM3 On: 06-Jan-2018 13:00 Encounter Diagnosis: Problem [...] 14:30 Encounter Diagnosis: Problem not documented Appointment; ECOSYSTEM ECOLOGY PROFESSOR, ROOM3 On: 06-Feb-2018 13:30 Encounter Diagnosis: Problem not documented Appointment; ECOSYSTEM ECOLOGY PROFESSOR, ROOM4 On: 13-Feb-2018 11:30 Encounter Diagnosis: Problem not documented Appointment; LUIS MCGARRY M.D. On: 13-Feb-2018 13:30 Encounter Diagnosis: Problem not documented Appointment; ECOSYSTEM ECOLOGY PROFESSOR, ROOM1 On: 20-Feb-2018 13:45 Encounter Diagnosis: Problem not documented Appointment; LUIS MCGARRY M.D. On: 20-Feb-2018 15:45 Encounter Diagnosis: Problem not documented Appointment; EDUCATION, POST On: 13-Mar-2018 11:00 Encounter Diagnosis: Problem not documented Appointment; BRANDEN COLLINS M.D. On: 26-Apr-2018 14:30 Encounter Diagnosis: Problem not documented Appointment; ELDON WELLER M.D. On: 27-Apr-2018 15:00 Encounter Diagnosis: Problem not documented
[2018-04-28 20:19] LABS: Urine Blood NEGATIVE (NEG); Urine Glucose NEGATIVE (NEG); Urine Protein NEGATIVE (NEG)
--- NOTE | 2018-04-28 20:34 | ER ---
Nurse's Notes [facility] Name: Lindsey Aguilar Age: 22 yrs Sex: Female : 1995 Arrival Date: 04/28/2018 Time: 19:37 Bed 30 Private MD: Diagnosis: Cutaneous abscess of abdominal wall Presentation: 04/28 19:43 Presenting complaint: Patient states: pt had c-secion on 02/22/18 then appy on 04/04/18 ak1 with the wound "opening up" from the appy on Tuesday. pt called Dr. Dawson office, he was unable to see her until Tuesday. Transition of care: patient was not received from another setting of care. Onset of symptoms is unknown. Risk Assessment: Do you want to hurt yourself or someone else? Patient reports no desire to harm self or others. Initial Sepsis Screen: Does the patient meet any 2 criteria? No. Patient's initial sepsis screen is negative. Does the patient have a suspected source of infection? No. Patient's initial sepsis screen is negative. Care prior to arrival: None. 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 - Social history:: Smoking status: Patient/guardian denies using tobacco. - Ebola Screening: : No symptoms or risks identified at this time. Screenin:07 Abuse screen: Denies threats or abuse. Denies injuries from another. Nutritional mg2 screening: No deficits noted. Tuberculosis screening: No symptoms or risk factors identified. Fall Risk None identified. Assessment: 20:04 General: Appears in no apparent distress. comfortable, Behavior is calm, cooperative. mg2 Pain: Complains of pain in periumbilical area Pain does not radiate. Pain currently is 2 out of 10 on a pain scale. Quality of pain is described as aching, Pain began gradually, Is intermittent. Neuro: Level of Consciousness is awake, alert, obeys commands, Oriented to person, place, time, situation. Cardiovascular: Capillary refill < 3 seconds Patient's skin is warm and dry. Respiratory: Airway is patent Respiratory effort is even, unlabored, Respiratory pattern is regular, symmetrical. GI: No signs and/or symptoms were reported involving the gastrointestinal system. : Urine is clear. EENT: No signs and/or symptoms were reported regarding the EENT system. Derm: Skin is intact, is healthy with good turgor, Skin is pink, warm \\T\\ dry. normal, Wound noted periumbilical area Wound is post-op wound. Musculoskeletal: No signs and/or symptoms reported regarding the musculoskeletal system. 20:51 Reassessment: Patient appears in no apparent distress at this time. Patient and/or mg2 family updated on plan of care and expected duration. Pain level reassessed. Patient is alert, oriented x 3, equal unlabored respirations, skin warm/dry/pink. Vital Signs: 19:45 BP 139 / 79; Pulse 96; Resp 18; Temp 97.9(TE); Pulse Ox 97% on R/A; Weight 147.42 kg ak1 (R); Height 5 ft. 6 in. (167.64 cm) (R); Pain 7/10; 20:51 BP 129 / 78; Pulse 90; Resp 18; Pulse Ox 100% on R/A; Pain 0/10; mg2 19:45 Body Mass Index 52.46 (147.42 kg, 167.64 cm) ak1 ED Course: 19:37 Patient arrived in ED. am2 19:44 Triage completed. ak1 19:45 Arm band placed on Patient placed in an exam room, on a stretcher, Patient notified of ak1 wait time. 19:51 Jey Negrete MD is Attending Physician. gs 19:56 Zane Albarran, CESIA is Primary Nurse. mg2 20:08 No provider procedures requiring assistance completed. Patient did not have IV access mg2 during this emergency room visit. 20:10 Patient has correct armband on for positive identification. mg2 20:33 Champ Dawson MD is Referral Physician. gs Administered Medications: No medications were administered Outcome: 20:33 Discharge ordered by . gs 20:52 Discharged to home ambulatory, with family. mg2 20:52 Condition: stable 20:52 Discharge instructions given to patient, family, Instructed on discharge instructions, follow up and referral plans. medication usage, Demonstrated understanding of instructions, follow-up care, medications, Prescriptions given X 1. 20:54 Patient left the ED. mg2 Signatures: Janet Bermudez, RN RN ak1 Samantha Sethi am2 Jey Negrete MD MD Zane Albarran RN RN mg2
--- NOTE | 2018-04-28 20:34 | EDPHYS ---
Physician Documentation [facility] Name: Lindsey Aguilar Age: 22 yrs Sex: Female : 1995 Arrival Date: 04/28/2018 Time: 19:37 Bed 30 Private MD: ED Physician Jey Negrete HPI: 04/28 20:13 This 22 yrs old Female presents to ER via Ambulatory with complaints of gs Incisional Pain, Incisional Drainage. 20:13 the patient presents with a swollen area of the umbilical area. Description: The gs affected area is small, draining, erythematous. Onset: The symptoms/episode began/occurred gradually. Possible cause(s): surgical incision. Associated signs and symptoms: Pertinent negatives: fever. Modifying factors: the symptoms are aggravated by touching. Severity of symptoms: At their worst the symptoms were mild, in the emergency department the symptoms are unchanged. The patient has experienced a previous episode. 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 - Social history:: Smoking status: Patient/guardian denies using tobacco. - Ebola Screening: : No symptoms or risks identified at this time. ROS: 20:13 All other systems are negative. gs Exam: 20:13 Constitutional: The patient appears alert, awake, uncomfortable. gs 20:23 Chest/axilla: Normal chest wall appearance and motion. Nontender with no deformity. gs No lesions are appreciated. Cardiovascular: Regular rate and rhythm with a normal S1 and S2. No gallops, murmurs, or rubs. Normal PMI, no JVD. No pulse deficits. Respiratory: Lungs have equal breath sounds bilaterally, clear to auscultation and percussion. No rales, rhonchi or wheezes noted. No increased work of breathing, no retractions or nasal flaring. Back: No spinal tenderness. No costovertebral tenderness. Full range of motion. 20:23 Abdomen/GI: Palpation: abdomen is soft and non-tender, in all quadrants. 20:23 Skin: umbilical incision small opening at bottom clear drainage, minimal cellulitis. Vital Signs: 19:45 BP 139 / 79; Pulse 96; Resp 18; Temp 97.9(TE); Pulse Ox 97% on R/A; Weight 147.42 kg ak1 (R); Height 5 ft. 6 in. (167.64 cm) (R); Pain 7/10; 20:51 BP 129 / 78; Pulse 90; Resp 18; Pulse Ox 100% on R/A; Pain 0/10; mg2 19:45 Body Mass Index 52.46 (147.42 kg, 167.64 cm) ak1 MDM: 20:05 Patient medically screened. 20:23 Data reviewed: vital signs, nurses notes. 04/28 20:13 Order name: Urine Dipstick--Ancillary (enter results); Complete Time: 20:22 mw2 04/28 20:13 Order name: Urine --Ancillary (enter results); Complete Time: 20:22 mw2 Administered Medications: No medications were administered Disposition: 04/28/18 20:33 Discharged to Home. Impression: Cutaneous abscess of abdominal wall. - Condition is Stable. - Discharge Instructions: Skin Abscess. - Prescriptions for Keflex 500 mg Oral Capsule - take 1 capsule by ORAL route every 8 hours for 7 days; 28 capsule. - Medication Reconciliation Form, Thank You Letter, Antibiotic Education, Prescription Opioid Use form. - Follow up: Champ Dawson MD; When: 2 - 3 days; Reason: Re-evaluation by your physician. Signatures: Dispatcher [employer] EDID Janet Bermudez RN RN ak1 Jey Negrete MD MD Zane Albarran RN RN mg2 Corrections: (The following items were deleted from the chart) 20:54 20:33 04/28/2018 20:33 Discharged to Home. Impression: Cutaneous abscess of abdominal mg2 wall. Condition is Stable. Forms are Medication Reconciliation Form, Thank You Letter, Antibiotic Education, Prescription Opioid Use. Follow up: Champ Dawson; When: 2 - 3 days; Reason: Re-evaluation by your physician.
== END 2018-04-28 20:54 | disposition home or self-care (01) ==
LOC: ER 19:35
DX: L02.211 Cutaneous abscess of abdominal wall (principal); E07.9 Disorder of thyroid, unspecified; Z88.0 Allergy status to penicillin
CPT/HCPCS: 81003; 81025

== ENCOUNTER 2018-09-13 20:04 | Emergency (ER) | payer OTHER, SELFPAY ==
--- OUTSIDE RECORDS SUMMARY | 2018-09-13 20:07 | XMS REPORT | Clinical Summary ---
:1995 Author Organization [facility] Address [address] [place] [address] Care Team Providers Name Role Phone Asked, [...] Not on file Results Not on fileafter 09/12/2017 Advance Directives Patient has advance care planning documents on file. For more information, please contact:[facility] [place] [address]
--- OUTSIDE RECORDS SUMMARY | 2018-09-13 20:08 | XMS REPORT | Continuity of Care Document ---
:1995 Author Organization Interface Problems Problem Status Onset Classification Date Comments Source Date Reported M25.561 - PAIN Active 05/04/19 [facility] IN RIGHT KNEE 19 Fabio [facility] INDUCTION Active 02/21/[address] Center Other specified 12/22/19 07/04/2018 [facility] Medical related Center conditions, third trimester Elevated blood 12/16/19 07/04/2018 [facility] pressure reading [address] [place] [address] Center ELEVATED BLOOD Active 12/16/19 [facility] PRESSURES Medical Center ELEVATED BLOOD Active 12/16/[address] Center LABOR Active 10/10/[address] Resolved 05/27/19 Problem 07/04/2018 [facility] 09/08/19 09/11/2015 Maira Diagnosis: Acute 16 vaginitis OTHER Active 09/08/19 [facility] 16 [place] Discharge 08/22/19 08/24/2014 Diagnosis: Cough [address] [place] Discharge 08/22/19 08/24/2014 Diagnosis: Fever [address] [place] SOB, COUGHING Active 08/18/19 [address] [place] Elevated 07/04/2018 [facility] blood-pressure Medical reading, without Center diagnosis of hypertension Maternal care 07/04/2018 [facility] for transverse Medical and oblique lie, Center not applicable or unspecified Diseases of the 07/04/2018 [facility] respiratory Medical system Center complicating , third trimester Mild persistent 07/04/2018 [facility] asthma, Medical uncomplicated Center Obesity 07/04/2018 [facility] complicating Medical , third Center trimester Morbid obesity 07/04/2018 [facility] due to excess Medical calories Center Body mass index 07/04/2018 [facility] 50-59.9 , adult Medical Center Personal history 07/04/2018 [facility] nicotine Medical dependence Center 28 weeks 07/04/2018 [facility] gestation of Medical Center Asthma Resolved Problem 07/04/2018 [facility] Root canal space Resolved Problem 07/04/2018 OPIKeyon [facility] Morbid obesity Resolved Problem 07/04/2018 [facility] Medications Medication Details Route Status Patient Ordering Order Source Instructions Provider Date Acetaminophen 1 tab, Inactive [place] 325 MG / Route: PO, 018 Medical butalbital 50 Drug Form: Center MG / Caffeine TAB, Dosing 40 MG Oral Weight 155, Tablet [Esgic] kg, ONCE, Start date: 12/15/17 18:53:00 CDT, Stop date: 12/15/17 18:53:00 CDTNotes: (acetaminoph en-butalbita l-caffeine 325-50-40mg) Do not exceed 4 gm/day of acetaminophe n. (Same as: Esgic, Fioricet) 1 Plus 1 tab, PO, No Longer [facility] 1 oral tablet Daily, # 30 Active 018 Medical tab, 0 Center Refill(s) Metronidazole 500 mg=1 Active 500 MG Oral tab, PO, 016 [place] Tablet [Flagyl] BID, X 7 day, # 14 tab, 0 Refill(s) Zithromax 1,000 mg, 1 Inactive pkt, Route: 016 [facility] PO, Drug form: PCKT, ONCE, Dosing Weight 127.273, kg, Priority: STAT, Start date: 09/08/15 14:37:00 CDT, Stop date: 09/08/15 14:37:00 CDTNotes: (Same As: Zithromax) Take 1 hour before or 2 hours after meal Rocephin 250 mg, Inactive Route: IM, 016 [facility] Drug form: PDR/INJ, ONCE, Dosing Weight 127.273, kg, Priority: STAT, Start date: 09/08/15 14:36:00 CDT, Stop date: 09/08/15 14:36:00 CDTNotes: (Same As: Rocephin) Tramadol 50 mg, 1 Inactive tab, Route: 016 [facility] PO, Drug form: TAB, ONCE, Dosing Weight 127.273, kg, > 50 kg, Priority: STAT, Start date: 09/08/15 14:30:00 CDT, Stop date: 09/08/15 14:30:00 CDTNotes: Not to exceed 400mg/day. (Same As: Ultram) Morphine 4 mg, 2 mL, Inactive Route: IVP, 016 [facility] Drug form: INJ, ONCE, Dosing Weight 127.273, kg, Priority: STAT, Start date: 09/08/15 13:39:00 CDT, Stop date: 09/08/15 13:39:00 CDTNotes: (Same as:MORPhine Sulfate) Ondansetron 4 mg, 2 mL, Inactive Route: IVP, 016 [facility] Drug form: INJ, ONCE, Dosing Weight 127.273, kg, Priority: STAT, Start date: 09/08/15 13:39:00 CDT, Stop date: 09/08/15 13:39:00 CDTNotes: (Same as: Zofran) MEDICATION WASTE Product Size: 4 mg Product Wasted: ___ mg Saline Flush 10 mL, Inactive 0.9% Route: IVP, [employer] [facility] Drug Form: INJ, Dosing Weight 127.273, kg, [...] Reaction Status Date Comments Source type Reported penicillins< Assertion Drug Active pt states [facility] sup>1</sup> allergy her Medical reaction=y Center [place] infection penicillins Assertion Drug Active allergy [place] Immunizations Immunization Date Given Site Status Last Comments Source Updated pneumococcal 02/26/2018 Left completed [place] [facility] 23-valent vaccine [facility]id [facility] Results Order Name Results Value Reference Date Interpretation Comments Source Range Shoulder Shoulder Exam: Right Shoulder series DX 03/27 - [facility] series DX series DX /2018 - [place] Clinical Indication: - m25.511 chronic right shoulder [...] for further evaluation, as clinically indicated. SL: [id number] Knee 1-2 Knee 1-2 Clinical Indication: - m25.561 chronic pain of right knee ; 03/27 - [facility] Views Views /2017 - [place] Bilateral Bilateral DX DX Comparison: None Read [...] significance and considered a normal variant. SL: [id number] URINE AND UA Bacteria Few /HPF None Seen 12/15 [facility] /[address] [place] [address] URINE AND UA RBC null 0 - 2 12/[address] URINE AND UA WBC 2 /HPF 0 - 5 12/[address] URINE AND UA Nitrite Negative Negative 12/[address] (12/15/17 6:38 PM) [place] URINE AND UA Leuk Est Negative Negative 12/[address] (12/15/17 6:38 PM) [place] URINE AND UA Sq Epi Many /LPF Few /LPF 12/[address] URINE AND UA Blood Negative Negative 12/[address] (12/15/17 6:38 PM) [place] URINE AND UA Bili Negative Negative 12/15 [facility] [address] [place] [address] *NA* [place] (12/15/17 6:38 PM) URINE AND UA Mucus Few /LPF None Seen 12/15 [facility] /[facility] /[address] [place] [address] URINE AND UA Glucose Negative Negative 12/15 [facility] mg/dL mg/dL [address] [place] [address] URINE AND UA Ketones Negative Negative 12/15 [facility] mg/dL mg/dL /[address] [place] [address] URINE AND UA Protein Negative Negative 12/15 [facility] mg/dL mg/dL [address] [place] [address] URINE AND UA Spec Grav 1.010 <=1.030 12/[address] URINE AND UA pH 6.0 5.0 - 8.0 12/[address] URINE AND UA Color Yellow Yellow 12/[address] *NA* [place] (12/15/17 6:38 PM) URINE AND UA Turbidity Slight Clear 12/[address] *ABN* [place] (12/15/17 6:38 PM) URINE AND UA <=1.0 0.1 - 1.0 12/15 [facility] Urobilinogen mg/dL /[address] [place] [address] URINE CHEM U Prot/Creat 0.14 12/[address] URINE CHEM U Protein 9.6 mg/dL 12/[address] URINE CHEM U Creatinine 70.90 12/15 [facility] mg/dL [address] CHEM PANEL eGFR 151 12/15 Result Comment: The eGFR is calculated using the CKD-EPI formula. In most young, healthy individuals the eGFR will be >90 mL/ min/1.73m2. The eGFR declines with age. An eGFR of 60-89 may be normal in [facility] mL/min/1.7 some populations, particularly the elderly, for whom the CKD-EPI formula has not been extensively validated. Use of the eGFR is not recommended in the following populations: [address] Individuals with unstable creatinine concentrations, including patients and those with serious co-morbid conditions. Patients with extremes in muscle mass or diet. The data above are obtained from the National Kidney Disease Education Program (NKDEP) which additionally recommends that when the eGFR is used in patients with extremes of body mass index for purposes of drug dosing, the eGFR should be multiplied by the estimated BMI. CHEM PANEL Potassium 3.7 meq/L 3.5 - 5.1 12/15 [facility] [address] [place] [address] CHEM PANEL Chloride Lvl 105 meq/L 95 - 109 12/[address] CHEM PANEL CO2 22 meq/L 24 - 32 12/[address] CHEM PANEL Sodium Lvl 138 meq/L 135 - 145 12/[address] CHEM PANEL Bili Total 0.2 mg/dL 0.2 - 1.3 12/[address] CHEM PANEL AST 9 unit/L 0 - 37 12/[address] CHEM PANEL Alk Phos 78 unit/L 39 - 136 12/[address] CHEM PANEL Total 6.6 g/dL 6.4 - 8.4 12/15 [facility] Protein [address] CHEM PANEL Albumin Lvl 2.8 g/dL 3.5 - 5.0 12/[address] CHEM PANEL Calcium Lvl 8.4 mg/dL 8.5 - 10.5 12/[address] CHEM PANEL ALT 16 unit/L 0 - 65 12/[address] CHEM PANEL BUN 6 mg/dL 7 - 22 12/[address] CHEM PANEL Creatinine 0.37 mg/dL 0.50 - 12/15 [facility] Lvl 1.40 [facility] CHEM PANEL Glucose Lvl 66 mg/dL 70 - 99 12/15 [facility] CHEM PANEL Globulin 3.8 g/dL 2.7 - 4.2 12/15 [facility] CHEM PANEL A/G Ratio 0.7 0.7 - 1.6 12/15 [facility] CHEM PANEL AGAP 14.7 meq/L 10.0 - 12/15 20.0 [facility] CHEM PANEL B/C Ratio 16 6 - 25 12/[address] [place] [address] HEMATOLOGY Platelet 261 K/CMM 133 - 450 12/15 [facility] HEMATOLOGY MPV 9.7 fL 7.4 - 10.4 12/[address] [place] [address] HEMATOLOGY Hct 34.8 % 36.0 - 12/15 [facility] 48.0 [facility] HEMATOLOGY MCH 26.6 pg 27.0 - 12/15 [facility] 31.0 [facility] HEMATOLOGY MCV 81.5 fL 80.0 - 12/15 [facility] 98.0 [facility] HEMATOLOGY WBC 14.4 K/CMM 3.7 - 10.4 12/15 [facility] HEMATOLOGY Hgb 11.4 g/dL 12.0 - 12/15 [facility] 16.0 [facility] HEMATOLOGY RBC 4.27 M/CMM 4.20 - 12/15 [facility] 5.40 [facility] HEMATOLOGY RDW 15.2 % 11.5 - 12/15 [facility] 14.5 [facility] HEMATOLOGY MCHC 32.7 g/dL 32.0 - 12/15 36.0 [facility] HEMATOLOGY Neutrophils 10.7 K/CMM 1.5 - 8.1 12/15 [facility] # [facility] HEMATOLOGY Segs 74.7 % 45.0 - 12/15 [facility] 75.0 [facility] HEMATOLOGY Monocytes 6.7 % 2.0 - 12.0 12/15 [facility] [address] [place] [address] HEMATOLOGY Eosinophils 0.6 % 0.0 - 4.0 12/15 [facility] [address] [place] [address] HEMATOLOGY Lymphocytes 17.5 % 20.0 - 09 [facility] 40.0 [facility] HEMATOLOGY Basophils 0.5 % 0.0 - 1.0 12/15 [facility] /[address] [place] [address] HEMATOLOGY Eosinophils 0.1 K/CMM 0.0 - 0.5 12/[address] HEMATOLOGY Basophils # 0.1 K/CMM 0.0 - 0.2 12/[address] HEMATOLOGY Lymphocytes 2.5 K/CMM 1.0 - 5.5 12/[address] HEMATOLOGY Monocytes # 1.0 K/CMM 0.0 - 0.8 12/[address] MOLECULAR C Negative Negative 09/07 DIAGNOSTIC trachomatis [place] by Amp Det *NA* (APTIMA) (09/08/15 2:19 PM) MOLECULAR Source [employer]ix 09/07 DIAGNOSTIC APTIMA [facility] *NA* (09/08/15 2:19 PM) MOLECULAR Source [employer] 09/07 DIAGNOSTIC APTIMA [facility] *NA* (09/08/15 2:19 PM) MOLECULAR N gonorrhea Negative Negative 09/07 DIAGNOSTIC by Amp Det [place] (APTIMA) *NA* (09/08/15 2:19 PM) URINE AND UA Color Yellow Yellow 09/07 STOOL [facility] *NA* (09/08/15 2:19 PM) URINE AND UA Leuk Est Negative Negative 09/07 [facility] [place] (09/08/15 2:19 PM) URINE AND UA Protein Negative Negative 09/07 [facility] (09/08/15 2:19 PM) URINE AND UA pH 6.0 5.0 - 8.0 09/07 [facility] URINE AND UA 0.2 EU/dL 0.1 - 1.0 09/07 [facility] Urobilinogen [place] URINE AND UA Glucose Negative Negative 09/07 [facility] (09/08/15 2:19 PM) URINE AND UA Spec Grav >=1.030 <=1.030 09/07 [facility] *ABN* (09/08/15 2:19 PM) URINE AND UA Turbidity Clear Clear 09/07 [facility] (09/08/15 2:19 PM) URINE AND UA Nitrite Negative Negative 09/07 [facility] [place] (5/30/16 2:19 PM) URINE AND UA Blood Small Negative 09/07 [place] *ABN* (09/08/15 2:19 PM) URINE AND UA Bili Negative Negative 09/07 [place] *NA* (09/08/15 2:19 PM) URINE AND UA Ketones Trace Negative 09/07 [place] *ABN* (09/08/15 2:19 PM) URINE AND UA WBC None Seen None Seen 09/07 [place] (09/08/15 2:19 PM) URINE AND UA Sq Epi Few /LPF Few /LPF 09/07 [place] URINE AND UA RBC 0-2 /HPF 0 - 2 09/07 [facility] URINE AND UA Bacteria None Seen None Seen 09/07 [place] (09/08/15 2:19 PM) URINE CHEM U Preg Negative Negative 09/07 [place] (09/08/15 2:19 PM) Vital Signs Vital Sign Value Date Comments Source Respitory Rate 20 12/16/2017 [facility] Systolic (mm Hg) 133 12/16/2017 [facility] Diastolic (mm Hg) 89 12/16/2017 [facility] Temperature Oral (F) 98 F 12/16/2017 [facility] BMI Calculated 53.52 12/15/2017 [facility] Weight 155 12/15/2017 [facility] Height 170.18 cm 12/15/2017 [facility] Respitory Rate 20 12/15/2017 [facility] Systolic (mm Hg) 123 12/15/2017 [facility] Diastolic (mm Hg) 80 12/15/2017 [facility] Temperature Oral (F) 99.0 F 12/15/2017 [facility] Respitory Rate 20 12/15/2017 [facility] Systolic (mm Hg) 115 12/15/2017 [facility] Diastolic (mm Hg) 80 12/15/2017 [facility] Height 170.18 cm 12/15/2017 [facility] BMI Calculated 53.52 12/15/2017 [facility] Weight 155 12/15/2017 [facility] Systolic (mm Hg) 148 09/08/2015 [facility] Diastolic (mm Hg) 88 09/08/2015 [facility] Respitory Rate 18 09/08/2015 [facility] Heart Rate 72 09/08/2015 [facility] Temperature Oral (F) 98.2 F 09/08/2015 [facility] Systolic (mm Hg) 154 09/08/2015 [facility] Diastolic (mm Hg) 90 09/08/2015 [facility] Heart Rate 74 09/08/2015 [facility] Respitory Rate 18 09/08/2015 [facility] Temperature Oral (F) 98.0 F 09/08/2015 [facility] Height 167.64 cm 09/08/2015 [facility] Weight 127.273 09/08/2015 [facility] BMI Calculated 45.29 09/08/2015 [facility] Systolic (mm Hg) 132 08/21/2014 [facility] Diastolic (mm Hg) 74 08/21/2014 [facility] Heart Rate 70 08/21/2014 [facility] Respitory Rate 14 08/21/2014 [facility] Temperature Oral (F) 98.4 F 08/21/2014 [facility] Systolic (mm Hg) 141 08/21/2014 [facility] Diastolic (mm Hg) 86 08/21/2014 [facility] Respitory Rate 16 08/21/2014 [facility] Heart Rate 87 08/21/2014 [facility] Temperature Oral (F) 98.4 F 08/21/2014 [facility] Weight 124.091 08/21/2014 [facility] Encounters Location Location Encounter Encounter Reason Attending ADM DC Status Source Details Type Number For Provider Date Date Visit [facility] [place] [id number] Dick Thurstonta 08/21 08/21 [facility] Emergency /2014 [facility] [place] [id number] Abiodun Cheondoism 09/07 09/07 [facility] Emergency /2015 [facility] Emergency [id number] Karina Ocasio 12/15 12/16 [facility] /2017 [facility] Outpt Diag [id number] Farok 05/11 05/12 [facility] [place]aly[place] /2018 [facility] Procedures Procedure Code Date Perfomer Comments Source Breast reduction [id number] [facility] Root canal [id number] [facility] procedure [facility] Breast reduction [id number] [facility] Root canal [id number] [facility]
--- OUTSIDE RECORDS SUMMARY | 2018-09-13 20:08 | XMS REPORT | Summary of Care ---
:1995 Author Organization [facility] Address [address] [place] [id number] Encounter HQ Kelin(VON) [phone] Date(s): 12/15/17 - 12/15/[address] Professional Services provided by [facility] [place] [address]- Encounter Diagnosis Elevated blood pressure reading (Discharge Diagnosis) - 12/15/17 Other specified related conditions, third trimester (Final) - 12/20/17 Elevated blood-pressure reading, without diagnosis of hypertension (Final) - Maternal care for transverse and oblique lie, not applicable or unspecified ( Final) - Diseases of the respiratory system complicating , third trimester ( Final) - Mild persistent asthma, uncomplicated (Final) - Obesity complicating , third trimester (Final) - Morbid (severe) obesity due to excess calories (Final) - Body mass index (BMI) 50-59.9 , adult (Final) - Personal history of nicotine dependence (Final) - 28 weeks gestation of (Final) - Discharge Disposition: Home or Self Care Attending Physician: Karina Ocasio MD Vital Signs Most recent to oldest [Reference 1 2 3 Range]: Height 170.18 cm 170.18 cm (12/15/17 6:37 PM) (12/15/17 5:29 PM) Temperature Oral [96.4-99.1 DegF] 98 DegF 99.0 DegF (12/15/17 8:25 PM) (12/15/17 6:00 PM) Blood Pressure [90-140/60-90 mmHg] 133/89 mmHg 123/80 mmHg 115/80 mmHg (12/15/17 8:25 PM) (12/15/17 6:00 PM) (12/15/17 5:45 PM) Respiratory Rate [14-20 BRMIN] 20 BRMIN 20 BRMIN 20 BRMIN (12/15/17 8:25 PM) (12/15/17 6:00 PM) (12/15/17 5:45 PM) Weight 155 kg 155 kg (12/15/17 6:37 PM) (12/15/17 5:29 PM) Body Mass Index 53.52 m2 53.52 m2 (12/15/17 6:37 PM) (12/15/17 5:29 PM) Problem List Condition Effective Dates Status Health Status Informant Asthma(Confirmed) Resolved Root canal space Resolved perforation(Confirmed) Morbid obesity(Confirmed) Resolved (Confirmed) 05/27/17 - 02/22/18 Resolved Allergies, Adverse Reactions, Alerts Substance Reaction Severity Status penicillins1 Active 1pt states her reaction=yeast infection Medications Esgic 325 mg-50 mg-40 mg oral tablet 1 tab, Route: PO, Drug Form: TAB, Dosing Weight 155, kg, ONCE, Start date: 12/15 18:53:00 CDT, Stop date: 12/15/17 18:53:00 CDT Notes: (mltsgcjniilue-fqifwupavb-oxhzbycs 325-50-40mg) Do not exceed 4 gm/day of acetaminophen. (Same as: Esgic, Fioricet) Start Date: 12/15/17 Stop Date: 12/15/17 Status: CompletedPrenatal 1 Plus 1 oral tablet 1 tab, PO, Daily, # 30 tab, 0 Refill(s) Start Date: 12/15/17 Stop Date: 02/25/18 Status: Discontinued Results ELECTROLYTES Most recent to oldest [Reference Range]: 1 Sodium Lvl [135-145 mEq/L] 138 mEq/L (12/15/17 6:26 PM) Potassium Lvl [3.5-5.1 mEq/L] 3.7 mEq/L (12/15/17 6:26 PM) Chloride Lvl [95-109 mEq/L] 105 mEq/L (12/15/17 6:26 PM) CO2 [24-32 mEq/L] 22 mEq/L *LOW* (12/15/17 6:26 PM) AGAP [10.0-20.0 mEq/L] 14.7 mEq/L (12/15/17 6:26 PM) CHEM PANEL Most recent to oldest [Reference Range]: 1 Creatinine Lvl [0.50-1.40 mg/dL] 0.37 mg/dL *LOW* (12/15/17 6:26 PM) eGFR 151 mL/min/1.73m2 1 *NA* (12/15/17 6:26 PM) BUN [7-22 mg/dL] 6 mg/dL *LOW* (12/15/17 6:26 PM) B/C Ratio [6-25] 16 (12/15/17 6:26 PM) Glucose Lvl [70-99 mg/dL] 66 mg/dL *LOW* (12/15/17:26 PM) Total Protein [6.4-8.4 g/dL] 6.6 g/dL (12/15/17 6:26 PM) Albumin Lvl [3.5-5.0 g/dL] 2.8 g/dL *LOW* (12/15/17 6:26 PM) Globulin [2.7-4.2 g/dL] 3.8 g/dL (12/15/17 6:26 PM) A/G Ratio [0.7-1.6] 0.7 (12/15/17 6:26 PM) Calcium Lvl [8.5-10.5 mg/dL] 8.4 mg/dL *LOW* (12/15/17 6:26 PM) ALT [0-65 unit/L] 16 unit/L (12/15/17 6:26 PM) AST [0-37 unit/L] 9 unit/L (12/15/17 6:26 PM) Alk Phos [39-136 unit/L] 78 unit/L (12/15/17 6:26 PM) Bili Total [0.2-1.3 mg/dL] 0.2 mg/dL (12/15/17 6:26 PM) 1Result Comment: The eGFR is calculated using the CKD-EPI formula. In most young , healthy individualsthe eGFR will be >90 mL/min/1.73m2. The eGFR declines with age. An eGFR of 60-89 may be normal insome populations, particularly the elderly, for whom the CKD-EPI formula has not been extensively validated. Use of the eGFR is not recommended in the following populations: Individuals with unstable creatinine concentrations, including patients and those with serious co-morbid conditions. Patients with extremes in muscle mass or diet. The data above are obtained from the National Kidney Disease Education Program ( NKDEP) which additionally recommends that when the eGFR is used in patients with extremes of body mass index for purposesof drug dosing, the eGFR should be multiplied by the estimated BMI.URINE CHEM Most recent to oldest [Reference Range]: 1 U Creatinine 70.90 mg/dL *NA* (12/15/17 6:38 PM) U Protein 9.6 mg/dL *NA* (12/15/17 6:38 PM) U Prot/Creat 0.14 *NA* (12/15/17 6:38 PM) URINE AND STOOL Most recent to oldest [Reference Range]: 1 UA Turbidity [Clear] Slight *ABN* (12/15/17 6:38 PM) UA Color [Yellow] Yellow *NA* (12/15/17 6:38 PM) UA pH [5.0-8.0] 6.0 (12/15/17 6:38 PM) UA Spec Grav [<=1.030] 1.010 (12/15/17 6:38 PM) UA Glucose [Negative mg/dL] Negative mg/dL *NA* (12/15/17 6:38 PM) UA Blood [Negative] Negative (12/15/17 6:38 PM) UA Ketones [Negative mg/dL] Negative mg/dL *NA* (12/15/17 6:38 PM) UA Protein [Negative mg/dL] Negative mg/dL (12/15/17 6:38 PM) UA Urobilinogen [0.1-1.0 mg/dL] <=1.0 mg/dL *NA* (12/15/17 6:38 PM) UA Bili [Negative] Negative *NA* (12/15/17 6:38 PM) UA Leuk Est [Negative] Negative (12/15/17 6:38 PM) UA Nitrite [Negative] Negative (12/15/17 6:38 PM) UA WBC [0-5 /HPF] 2 /HPF (12/15/17 6:38 PM) UA RBC [0-2 /HPF] <1 /HPF (12/15/17 6:38 PM) UA Bacteria [None Seen /HPF] Few /HPF *NA* (12/15/17 6:38 PM) UA Sq Epi [Few /LPF] Many /LPF *ABN* (12/15/17 6:38 PM) UA Mucus [None Seen /LPF] Few /LPF *NA* (12/15/17 6:38 PM) HEMATOLOGY Most recent to oldest [Reference Range]: 1 WBC [3.7-10.4 K/CMM] 14.4 K/CMM *HI* (12/15/17 6:26 PM) RBC [4.20-5.40 M/CMM] 4.27 M/CMM (12/15/17 6:26 PM) Hgb [12.0-16.0 g/dL] 11.4 g/dL *LOW* (12/15/17 6:26 PM) Hct [36.0-48.0 %] 34.8 % *LOW* (12/15/17 6:26 PM) MCV [80.0-98.0 fL] 81.5 fL (12/15/17 6:26 PM) MCH [27.0-31.0 pg] 26.6 pg *LOW* (12/15/17 6:26 PM) MCHC [32.0-36.0 g/dL] 32.7 g/dL (12/15/17 6:26 PM) RDW [11.5-14.5 %] 15.2 % *HI* (12/15/17 6:26 PM) MPV [7.4-10.4 fL] 9.7 fL (12/15/17 6:26 PM) Platelet [133-450 K/CMM] 261 K/CMM (12/15/17 6:26 PM) Segs [45.0-75.0 %] 74.7 % (12/15/17 6:26 PM) Lymphocytes [20.0-40.0 %] 17.5 % *LOW* (12/15/17 6:26 PM) Monocytes [2.0-12.0 %] 6.7 % (12/15/17 6:26 PM) Eosinophils [0.0-4.0 %] 0.6 % (12/15/17 6:26 PM) Basophils [0.0-1.0 %] 0.5 % (12/15/17 6:26 PM) Neutrophils # [1.5-8.1 K/CMM] 10.7 K/CMM *HI* (12/15/17 6:26 PM) Lymphocytes # [1.0-5.5 K/CMM] 2.5 K/CMM (12/15/17 6:26 PM) Monocytes # [0.0-0.8 K/CMM] 1.0 K/CMM *HI* (12/15/17 6:26 PM) Eosinophils # [0.0-0.5 K/CMM] 0.1 K/CMM (12/15/17 6:26 PM) Basophils # [0.0-0.2 K/CMM] 0.1 K/CMM (12/15/17 6:26 PM) Immunizations Given and Recorded Vaccine Date Status Refusal Reason pneumococcal 23-valent vaccine 02/25/18 Given Procedures Procedure Date Related Diagnosis Body Site Status Breast reduction Completed Root canal procedure Completed Social History Social History Type Response Smoking Status Never smoker; Exposure to Tobacco Smoke None; Cigarette Smoking Last 365 Days No; Reg Smoking Cessation Counseling No entered on: 02/20/18 Assessment and Plan No data available for this section
--- OUTSIDE RECORDS SUMMARY | 2018-09-13 20:09 | XMS REPORT | Summary of Care ---
:1995 Author Name KARINA Rios, CARENANTHONY Address Unavailable Unavailable , Care Team Providers Name Role Phone KARINA Rios, DANNIE Unavailable Unavailable SAHIL Rios, GLORIA Unavailable Unavailable BECKIE Rios, TROY Unavailable Unavailable SUE Rios, YARELY Badillo Unavailable Unavailable Beckie SHUKLA, Troy Unavailable Unavailable KARINA SHUKLA ME, BRANDEN Unavailable Unavailable TRACY SHUKLA ME, JIA Ta Unavailable Unavailable Unavailable Unavailable Unavailable [...] R76.8) Status: Active (V22.2, Z34.90) Status: Active Elevated BP without diagnosis of hypertension (796.2, R03.0) Status: Active Encounter for supervision of normal (V22.1, Z34.90) Status: Active Obese (278.00, E66.9) Status: Active Post-operative state (V45.89, Z98.890) Status: Active Depression (311, F32.9) Status: Active Follow up (V67.9, Z09) Status: Active Endometriosis (617.9, N80.9) Status: Active Chronic pain of right knee (719.46, M25.561) Status: Active Chronic right shoulder pain (719.41, M25.511) Status: Active Anemia (285.9, D64.9) Status: Active Post-traumatic osteoarthritis of right knee (715.26, M17.31) Status: Active Impingement syndrome of right shoulder (726.2, M75.41) Status: Active Medications Name Dates Details Albuterol Sulfate (2.5 MG/3ML) 0.083% Inhalation Nebulization Solution Refills: 0 R.N. Start : 02-Nov-2017 Active Vitafol Ultra 29-0.6-0.4-200 MG Oral Capsule TAKE 1 CAPSULE BY MOUTH DAILY Quantity: 30 Refills: 6 GLORIA BAXTER M.D. Start : 02-Dec-2017 Active Plus Iron 29-1 MG Oral Tablet TAKE 1 TABLET DAILY. Quantity: 30 Refills: 6 YARELY ROGERS M.D. Start : 13-Mar-2018 Active Citalopram Hydrobromide 10 MG Oral Tablet TAKE 1 TABLET DAILY. Quantity: 30 Refills: 3 YARELY ROGERS M.D. Start : 27-Mar-2018 Active Lupron Depot (3-Month) 11.25 MG Intramuscular Kit USE DIRECTED. Quantity: 1 Refills: 0 TROY BUTTS M.D. Start : 27-Apr-2018 Active TraMADol HCl - 50 MG Oral Tablet TAKE 1 TABLET EVERY 8 HOURS NEEDED. Quantity: 90 Refills: 0 KARINA Rios, BRANDEN Start : 04-May-2018 Active Naproxen 500 MG Oral Tablet TAKE 1 TABLET EVERY 12 HOURS WITH FOOD NEEDED. Quantity: 60 Refills: 0 KARINA Rios, CARENOKDenis Start : 05-May-2018 Active Allergies and Adverse Reactions Name Dates Details Penicillins (Allergy) Status: Active Past Medical History Name Dates Details History of asthma (V12.69, Z87.09) Status: Resolved History of Gastric ulcer (531.90, K25.9) Status: Resolved History of exam (V24.2, Z39.2) Status: Resolved History of type 2 diabetes mellitus (V12.29, Z86.39) Status: Resolved Procedures Procedure Dates Details MR Knee wo contrast [id number] Date: 02-May-2018 MR Shoulder wo contrast [id number] Date: 02-May-2018 History of Breast reduction Completed Immunization Name Dates Details Tdap (Boostrix) #1 on: 15-Dec-2017 Lot #: [id number] Fluzone Quadrivalent 0.5 ML Intramuscular Suspension #1 on: Jan-2018 Lot #: [id number] Family History Name Dates Details Family history of hypertension (V17.49, Z82.49) Status: Active Name Dates Details Family history of cerebrovascular accident (CVA) (V17.1, Z82.3) Status: Active Family history of diabetes mellitus (V18.0, Z83.3) Status: Active Family history of hypertension (V17.49, Z82.49) Status: Active Social History Name Dates Details - Status: Name Dates Details Never smoker Vital Signs Date Test Result Details [id number] BP Systolic 125 mm[Hg] Status: Comments: Location: E; Position: Sitting BP Diastolic 84 mm[Hg] Status: Comments: Location: E; Position: Sitting Weight 326 lb Status: Temperature 98.2 f Status: Comments: Method: Oral Heart Rate 91 /min Status: Respiration Rate 16 /min Status: [id number] BP Systolic 132 mm[Hg] Status: Comments: Location: E; Position: Sitting BP Diastolic 93 mm[Hg] Status: Comments: Location: [facility]; Position: Sitting Weight 324 lb Status: Temperature 98.6 f Status: Comments: Method: Oral Heart Rate 96 /min Status: Height 67 in Status: Body Mass Index Calculated 50.75 kg/m2 Status: Body Surface Area Calculated 2.48 m2 Status: Results Date Description Value Details [id number] [QLH] CBC (INCLUDES DIFF/PLT) WBC 7.6 {K/CMM} Range: 3.7-10.4 RBC 4.70 {M/CMM} Range: 4.20-5.40 Hgb 12.4 g/dl Range: 12.0-16.0 Hct 38.3 % Range: 36.0-48.0 MCV 81.4 fL Range: 80.0-98.0 MCH 26.4 pg (Below low threshold) Range: 27.0-31.0 MCHC 32.4 g/dl Range: 32.0-36.0 RDW 15.9 % (Above high threshold) Range: 11.5-14.5 Platelet 341 {K/CMM} Range: 133-450 Mean Platelet Volume 9.5 fL Range: 7.4-10.4 [id number] [QL] Differential Segmented Neutrophils 62.5 % Range: 45.0-75.0 Monocytes 6.5 % Range: 2.0-12.0 Lymphocytes 29.5 % Range: 20.0-40.0 Eosinophils 1.3 % Range: 0.0-4.0 Basophils 0.2 % Range: 0.0-1.0 Segs-Bands # 4.7 {K/CMM} Range: 1.5-8.1 Lymphocytes # 2.2 {K/CMM} Range: 1.0-5.5 Monocytes # 0.5 {K/CMM} Range: 0.0-0.8 Eosinophils # 0.1 {K/CMM} Range: 0.0-0.5 Plan of Care Name Dates Details Planned Observations Planned Goals not documented Planned Encounters Appointment; BRANDEN FONSECA M.D. On: 01-Jun-2018 15:00 Interventions Provided Medication ChangesNaproxen 500 MG Oral Tablet - StartDiscussion/SummaryDear Ms. JIANG, The following studies were unremarkable. Your anemia has resolved, which is good news. I've ordered naproxen, but be careful with it: stop it JEY in case of any signs of bleeding or black stools or stomach pain or other concerning symptoms. Sincerely, Dr. Fonseca Instructions Name Dates Details Instructions not documented Encounters Appointment; SHAKILA THOMPSON M.D. On: 02-Nov-2017 14:00 Encounter Diagnosis: Problem not documented Appointment; D[facility]ETING CONSULTANT, ROOM3 On: 23-Nov-2017 13:00 Encounter Diagnosis: Problem not documented Appointment; MERYL PAN M.D. On: 23-Nov-2017 14:00 Encounter Diagnosis: Problem not documented Appointment; EDUCATION, D[facility] MARK[facility]ING CONSULTANT On: 15-Dec-2017 13:30 Encounter Diagnosis: Problem not [...] 9:30 Encounter Diagnosis: Problem not documented Appointment; DIG[facility] MARKETING CONSULTANT, ROOM3 On: 06-Jan-2018 13:00 Encounter Diagnosis: Problem [...] 14:30 Encounter Diagnosis: Problem not documented Appointment; DIGITAL MARKETING CONSULTANT, ROOM3 On: 06-Feb-2018 13:30 Encounter Diagnosis: Problem not documented Appointment; DIGITAL MARKETING CONSULTANT, ROOM4 On: 13-Feb-2018 11:30 Encounter Diagnosis: Problem not documented Appointment; LUIS MCGARRY M.D. On: 13-Feb-2018 13:30 Encounter Diagnosis: Problem not documented Appointment; DIGITAL MARKETING CONSULTANT, ROOM1 On: 20-Feb-2018 13:45 Encounter Diagnosis: Problem not documented Appointment; LUIS MCGARRY M.D. On: 20-Feb-2018 15:45 Encounter Diagnosis: Problem not documented Appointment; EDUCATION, POST On: 13-Mar-2018 11:00 Encounter Diagnosis: Problem not documented Appointment; BRANDEN FONSECA M.D. On: 26-Apr-2018 14:30 Encounter Diagnosis: Problem not documented Appointment; ELDON WELLER M.D. On: 27-Apr-2018 15:00 Encounter Diagnosis: Problem not documented Appointment; BRANDEN FONSECA M.D. On: 02-May-2018 9:30 Encounter Diagnosis: Problem not documented
--- OUTSIDE RECORDS SUMMARY | 2018-09-13 20:09 | XMS REPORT ---
:1995 [facility] Address [address] [place] [address] Care Team Providers Name Role Phone Unavailable [...]
[2018-09-13 21:07] LABS: Urine Blood NEGATIVE (NEG); Urine Glucose NEGATIVE (NEG); Urine Protein NEGATIVE (NEG)
[2018-09-13 21:27] LABS: Urine Bacteria <20 /HPF (<20); Urine Culture Reflex Order NOT NEEDED; Urine RBC NONE SEEN /HPF (NONE SEEN)
[2018-09-13 21:27] LABS: Absolute Lymphocytes (CBC) 1.9 K/uL (0.7-4.9); Absolute Monocytes 0.4 K/uL (0.1-1.3); Basophils % 0.5 % (0-1.3); Eosinophils % 1.4 % (0-4.4); Hematocrit 39.4 % (36.0-45.0); Lymphocytes % 29.5 % (15.3-44.8); MPV 8.6 fL (7.6-11.3); Monocytes % 5.8 % (3.3-12.3)
[2018-09-13] MEDS ORDERED: DIPHENHYDRAMINE 50 MG/ML VIAL ONE (21:30)
[2018-09-13] MEDS ORDERED: KETOROLAC 30 MG/ML INJ ONE (21:30)
[2018-09-13] MEDS ORDERED: METOCLOPRAMIDE 10 MG/2mL INJ ONE (21:30)
[2018-09-13] MEDS ORDERED: NA CHLORIDE 0.9% 1,000 ML ONE (21:31)
[2018-09-13 21:44] LABS: ALT/SGPT 28 U/L (12-78); AST/SGOT 15 U/L (15-37); Albumin 3.6 g/dL (3.4-5.0); Alkaline Phosphatase 86 U/L (45-117); BUN Blood Urea Nitrogen 9 mg/dL (7-18); Bicarbonate 27 mmol/L (21-32); Bilirubin Direct < 0.1 mg/dL (0-0.2); Bilirubin Total 0.3 mg/dL (0.2-1.0); Glucose Level 104 mg/dL (74-106); Lipase 140 U/L (73-393); Protein, Total 7.1 g/dL (6.4-8.2); Sodium Level 142 mmol/L (136-145)
--- NOTE | 2018-09-13 22:02 | ER ---
Nurse's Notes [facility] Name: Lindsey Aguilar Age: 23 yrs Sex: Female : 1995 Arrival Date: 09/13/2018 Time: 20:07 Bed 6 Private MD: Diagnosis: Diarrhea, unspecified;Generalized abdominal pain;flank pain Presentation: 09/13 20:22 Presenting complaint: Patient states: I think I am having kidney problems. I had blood ed1 in my urine about 3 days ago. I also have a headache. Pt presents phone with long list of symptoms. Transition of care: patient was not received from another setting of care. Onset of symptoms was September 10, 2018. Risk Assessment: Do you want to hurt yourself or someone else? Patient reports no desire to harm self or others. Initial Sepsis Screen: Does the patient meet any 2 criteria? No. Patient's initial sepsis screen is negative. Does the patient have a suspected source of infection? No. Patient's initial sepsis screen is negative. Care prior to arrival: None. 20:22 Method Of Arrival: Ambulatory ed1 20:22 Acuity: GILBERTO 3 ed1 Triage Assessment: 20:25 General: Appears uncomfortable, Behavior is calm, cooperative. Pain: Complains of pain ed1 in low back area Pain currently is 6 out of 10 on a pain scale. at worst was 8 out of 10 on a pain scale. Musculoskeletal: Circulation, motion, and sensation intact. Range of motion: intact in all extremities, Swelling absent. ASPARAGUS CUTTER: 20:25 LMP N/A - Irregular menses ed1 Historical: - Allergies: 20:25 PENICILLINS; ed1 - Home Meds: 20:25 Vitamin Oral once daily [Active]; ed1 - PMHx: 20:25 "Liver Problems"; Depression; Endometriosis; Hyperlipidemia; HYPOGLYCEMIA; Thyroid ed1 problem; - PSHx: 20:25 Appendectomy; ; Breast reduction; ed1 - Immunization history:: Adult Immunizations up to date. - Social history:: Smoking status: Patient/guardian denies using tobacco. - Ebola Screening: : Patient negative for fever greater than or equal to 101.5 degrees Fahrenheit, and additional compatible Ebola Virus Disease symptoms Patient denies exposure to infectious person Patient denies travel to an Ebola-affected area in the 21 days before illness onset No symptoms or risks identified at this time. Screenin:37 Abuse screen: Denies threats or abuse. Denies injuries from another. Nutritional cc3 screening: No deficits noted. Tuberculosis screening: No symptoms or risk factors identified. Fall Risk Ambulatory Aid- None/Bed Rest/Nurse Assist (0 pts). Gait- Normal/Bed Rest/Wheelchair (0 pts) Mental Status- Oriented to own ability (0 pts). Assessment: 20:37 General: Appears in no apparent distress. uncomfortable, Behavior is calm, cooperative, cc3 appropriate for age. Pain: Complains of pain in back and low back area, headache Quality of pain is described as aching. Neuro: Level of Consciousness is awake, alert, obeys commands, Oriented to person, place, time, situation, Appropriate for age Reports headache in entire. Cardiovascular: Denies chest pain, Patient's skin is warm and dry. Respiratory: Airway is patent Respiratory effort is even, unlabored, Respiratory pattern is regular, symmetrical. GI: Abdomen is round obese. : Reports urinary problem. EENT: No signs and/or symptoms were reported regarding the EENT system. Derm: generalized dry wound scars. Musculoskeletal: Circulation, motion, and sensation intact. Range of motion: intact in all extremities. 21:18 Reassessment: Patient appears in no apparent distress at this time. Patient and/or cc3 family updated on plan of care and expected duration. Pain level reassessed. Patient is alert, oriented x 3, equal unlabored respirations, skin warm/dry/pink. 22:10 Reassessment: Patient appears in no apparent distress at this time. Patient and/or cc3 family updated on plan of care and expected duration. Pain level reassessed. Patient is alert, oriented x 3, equal unlabored respirations, skin warm/dry/pink. JESSIE Burns discharged the patient home, no prescription given. IV cannula removed and patient left ER vitally stable and ambulatory with her . Patient denies pain at this time. Patient states feeling better. Patient states symptoms have improved. Vital Signs: 20:25 BP 140 / 99; Pulse 94; Resp 17; Temp 98.4; Pulse Ox 95% on R/A; Weight 158.76 kg; ed1 Height 5 ft. 6 in. (167.64 cm); Pain 6/10; 21:49 BP 133 / 99; Pulse 72; Resp 17 S; Pulse Ox 100% on R/A; cc3 22:05 BP 130 / 87; Pulse 75; Resp 16 S; Pulse Ox 98% on R/A; Pain 0/10; cc3 20:25 Body Mass Index 56.49 (158.76 kg, 167.64 cm) ed1 ED Course: 20:07 Patient arrived in ED. mr 20:24 Triage completed. ed1 20:25 Estef[facility] Burns [facility] kb 20:25 Alex Lundy MD is Attending Physician. kb 20:25 Arm band placed on left wrist. ed1 20:37 Vanessa Rodriguez is Primary Nurse. cc3 20:37 Patient has correct armband on for positive identification. Placed in gown. Bed in low cc3 position. Call light in reach. Side rails up X 1. Pulse ox on. NIBP on. 21:18 Inserted saline lock: 20 gauge in right antecubital area, using aseptic technique. ar5 Blood collected. 22:10 No provider procedures requiring assistance completed. IV discontinued, intact, cc3 bleeding controlled, No redness/swelling at site. Pressure dressing applied. Administered Medications: 21:20 Drug: NS 0.9% 1000 ml Route: IV; Rate: 1000 ml; Site: right antecubital; cc3 22:10 Follow up: Response: No adverse reaction; IV Status: Completed infusion; IV Intake: cc3 1000ml 21:20 Drug: Reglan 10 mg Route: IVP; Site: right antecubital; cc3 22:10 Follow up: Response: No adverse reaction; Pain is decreased; Nausea is decreased cc3 21:24 Drug: TORadol 30 mg Route: IVP; Site: right antecubital; cc3 22:10 Follow up: Response: No adverse reaction; Pain is decreased cc3 21:28 Drug: Benadryl 12.5 mg Route: IVP; Site: right antecubital; cc3 22:10 Follow up: Response: No adverse reaction; Marked relief of symptoms cc3 Intake: 22:10 IV: 1000ml; Total: 1000ml. cc3 Outcome: 22:01 Discharge ordered by . kb 22:10 Discharged to home ambulatory, with family. cc3 22:10 Condition: stable 22:10 Discharge instructions given to patient, Instructed on discharge instructions, follow up and referral plans. Demonstrated understanding of instructions, follow-up care. 22:12 Patient left the ED. cc3 Signatures: Estefany Burns, KANNAN JENKINS-Karen Cannon Erika RN RN ed1 Vanessa Rodriguez cc3 Misty [place] ar5
--- NOTE | 2018-09-13 22:02 | EDPHYS ---
Physician Documentation [facility] Name: Lindsey Aguilar Age: 23 yrs Sex: Female : 1995 Arrival Date: 09/13/2018 Time: 20:07 Bed 6 Private MD: ED Physician Alex Lundy HPI: 09/13 22:21 This 23 yrs old Female presents to ER via Ambulatory with complaints of Back kb Pain, Abdominal Pain, Urinary Problem. 22:21 The patient complains of pain in the left flank and right flank. The pain does not kb radiate. Onset: The symptoms/episode began/occurred 4 day(s) ago. Modifying factors: The symptoms are alleviated by nothing. the symptoms are aggravated by nothing. Associated signs and symptoms: Pertinent positives: diarrhea, dizziness, urinary frequency, headache, nausea. Severity of pain: At its worst the pain was moderate in the emergency department the pain is unchanged. The patient has not experienced similar symptoms in the past. The patient has not recently seen a physician. Pt reports abd pain, diarrhea, nausea, headache, photophobia, urinary frequency, and flank pain since Tuesday. States "My grandpa had kidney problems so I think that is what it is." Pt denies any medical history. 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 - Social history:: Smoking status: Patient/guardian denies using tobacco. - Ebola Screening: : Patient negative for fever greater than or equal to 101.5 degrees Fahrenheit, and additional compatible Ebola Virus Disease symptoms Patient denies exposure to infectious person Patient denies travel to an Ebola-affected area in the 21 days before illness onset No symptoms or risks identified at this time. ROS: 22:20 ENT: Negative for injury, pain, and discharge, Neck: Negative for injury, pain, and kb swelling, Cardiovascular: Negative for chest pain, palpitations, and edema, Respiratory: Negative for shortness of breath, cough, wheezing, and pleuritic chest pain, MS/Extremity: Negative for injury and deformity, Skin: Negative for injury, rash, and discoloration. 22:20 Constitutional: Positive for chills, fatigue, malaise. 22:20 Abdomen/GI: Positive for abdominal pain, nausea, diarrhea. 22:20 : Positive for flank pain, urinary frequency. 22:20 Neuro: Positive for headache. Exam: 22:20 Constitutional: This is a well developed, well nourished patient who is awake, alert, kb and in no acute distress. Head/Face: Normocephalic, atraumatic. ENT: Nares patent. No nasal discharge, no septal abnormalities noted. Tympanic membranes are normal and external auditory canals are clear. Oropharynx with no redness, swelling, or masses, exudates, or evidence of obstruction, uvula midline. Mucous membranes moist. Neck: Trachea midline, no thyromegaly or masses palpated, and no cervical lymphadenopathy. Supple, full range of motion without nuchal rigidity, or vertebral point tenderness. No Meningismus. Chest/axilla: Normal chest wall appearance and motion. Nontender with no deformity. No lesions are appreciated. Cardiovascular: Regular rate and rhythm with a normal S1 and S2. No gallops, murmurs, or rubs. Normal PMI, no JVD. No pulse deficits. Respiratory: Lungs have equal breath sounds bilaterally, clear to auscultation and percussion. No rales, rhonchi or wheezes noted. No increased work of breathing, no retractions or nasal flaring. Abdomen/GI: Soft, non-tender, with normal bowel sounds. No distension or tympany. No guarding or rebound. No evidence of tenderness throughout. Skin: Warm, dry with normal turgor. Normal color with no rashes, no lesions, and no evidence of cellulitis. MS/ Extremity: Pulses equal, no cyanosis. Neurovascular intact. Full, normal range of motion. Neuro: Awake and alert, GCS 15, oriented to person, place, time, and situation. Cranial nerves II-XII grossly intact. Motor strength 5/5 in all extremities. Sensory grossly intact. Cerebellar exam normal. Normal gait. 22:20 Back: CVA tenderness, that is moderate, is noted bilaterally. Vital Signs: 20:25 BP 140 / 99; Pulse 94; Resp 17; Temp 98.4; Pulse Ox 95% on R/A; Weight 158.76 kg; ed1 Height 5 ft. 6 in. (167.64 cm); Pain 6/10; 21:49 BP 133 / 99; Pulse 72; Resp 17 S; Pulse Ox 100% on R/A; cc3 22:05 BP 130 / 87; Pulse 75; Resp 16 S; Pulse Ox 98% on R/A; Pain 0/10; cc3 20:25 Body Mass Index 56.49 (158.76 kg, 167.64 cm) ed1 MDM: 20:34 Patient medically screened. kb 22:19 Data reviewed: vital signs, nurses notes. Data interpreted: Pulse oximetry: on room air kb is 98 %. Interpretation: normal. Counseling: I had a detailed discussion with the patient and/or guardian regarding: the historical points, exam findings, and any diagnostic results supporting the discharge/admit diagnosis, lab results, the need for outpatient follow up, a family practitioner, to return to the emergency department if symptoms worsen or persist or if there are any questions or concerns that arise at home. 09/13 21:01 Order name: Urine Dipstick--Ancillary (enter results); Complete Time: 21:07 mw2 09/13 21:01 Order name: Urine --Ancillary (enter results); Complete Time: 21:07 mw2 09/13 21:02 Order name: Basic Metabolic Panel; Complete Time: 21:47 kb 09/13 21:02 Order name: CBC with Diff; Complete Time: 21:27 kb 09/13 21:02 Order name: Hepatic Function; Complete Time: 21:47 kb 09/13 20:16 Order name: Urine Dipstick-Ancillary (obtain specimen); Complete Time: 20:57 tw4 09/13 20:16 Order name: Urine Test (obtain specimen); Complete Time: 20:57 tw4 09/13 21:02 Order name: Lipase; Complete Time: 21:47 kb 09/13 21:16 Order name: Urine Microscopic Only; Complete Time: 21:27 kb 09/13 21:02 Order name: IV Saline Lock; Complete Time: 21:25 kb 09/13 21:02 Order name: Labs collected and sent; Complete Time: 21:26 kb Administered Medications: 21:20 Drug: NS 0.9% 1000 ml Route: IV; Rate: 1000 ml; Site: right antecubital; cc3 22:10 Follow up: Response: No adverse reaction; IV Status: Completed infusion; IV Intake: cc3 1000ml 21:20 Drug: Reglan 10 mg Route: IVP; Site: right antecubital; cc3 22:10 Follow up: Response: No adverse reaction; Pain is decreased; Nausea is decreased cc3 21:24 Drug: TORadol 30 mg Route: IVP; Site: right antecubital; cc3 22:10 Follow up: Response: No adverse reaction; Pain is decreased cc3 21:28 Drug: Benadryl 12.5 mg Route: IVP; Site: right antecubital; cc3 22:10 Follow up: Response: No adverse reaction; Marked relief of symptoms cc3 Disposition: 09/14 04:15 Co-signature as Attending Physician, Alex Lundy MD I agree with the assessment and tw4 plan of care. Disposition: 09/13/18 22:01 Discharged to Home. Impression: Diarrhea, unspecified, Generalized abdominal pain, flank pain. - Condition is Stable. - Discharge Instructions: Food Choices to Help Relieve Diarrhea, Adult, Abdominal Pain, Adult, [id number], Diarrhea, Adult, [id number], Flank Pain, [id number]. - Medication Reconciliation Form, Thank You Letter, Antibiotic Education, Prescription Opioid Use form. - Follow up: Emergency Department; When: As needed; Reason: Worsening of condition. Follow up: Private Physician; When: 2 - 3 days; Reason: Recheck today's complaints, Continuance of care, Re-evaluation by your physician. Signatures: Dispatcher [employer] [facility] Estefany Burns, RAG COLLECTOR-C RAG COLLECTOR-Ree Ryan RN RN ed1 Alex Lundy MD MD tw4 Vanessa Rodriguez cc3 Corrections: (The following items were deleted from the chart) 09/13 21:06 20:19 URINALYSIS+U.LAB.BRZ ordered. [facility] 22:12 22:01 09/13/2018 22:01 Discharged to Home. Impression: Diarrhea, unspecified; cc3 Generalized abdominal pain; flank pain. Condition is Stable. Forms are Medication Reconciliation Form, Thank You Letter, Antibiotic Education, Prescription Opioid Use. Follow up: Emergency Department; When: As needed; Reason: Worsening of condition. Follow up: Private Physician; When: 2 - 3 days; Reason: Recheck today's complaints, Continuance of care, Re-evaluation by your physician. kb
== END 2018-09-13 22:12 | disposition home or self-care (01) ==
LOC: ER 20:04
DX: R19.7 Diarrhea, unspecified (principal); R10.84 Generalized abdominal pain; Z88.0 Allergy status to penicillin
CPT/HCPCS: 36415; 80048; 80076; 81003; 81015; 81025; 83690; 85025; 96361; 96374; 96375; 99284; J2765; J7030

== ENCOUNTER 2019-09-25 22:46 | Emergency (ER) | payer SELFPAY ==
--- OUTSIDE RECORDS SUMMARY | 2019-09-25 22:48 | XMS REPORT | Clinical Summary ---
:1995 Author Organization [facility] Address [address] [place] [address] Care Team Providers Name Role Phone Asked, Pcp Primary Care Provider Unavailable Allergies Active [...] Not on file Results Not on fileafter 09/24/2018 Advance Directives For more information, please contact: [phone] Type Date Recorded Patient Manager Membership Explanati on Advance Directives, Living Will and Medical Power of Editor [employer]
--- OUTSIDE RECORDS SUMMARY | 2019-09-25 22:50 | XMS REPORT | Continuity of Care Document ---
:1995 Author Organization [employer] Care Team Providers Name Role Phone [employer] Unavailable Un available Problems Problem Status Onset Classification Date Comments Sourc e Date Reported M25.561 - PAIN Active 05/04/19 OP ID IN RIGHT KNEE 19 Geoff curiel, WES Mccarthy Other specified 04/01/20 10/15/2018 [facility] 18 [place] related conditions, unspecified trimester Gestational 03/04/20 09/14/2018 [place] [facility] [-induc 18 Med ical ed] hypertension Oli ter without significant proteinuria, complicating childbirth INDUCTION Active 02/21/[address] Other specified 12/22/19 07/04/2018 [facility] Medical related Center conditions, third trimester Elevated 12/16/19 07/04/2018 [facility] blood-pressure 18 Medic al reading, without Oli ter diagnosis of hypertension ELEVATED BLOOD [place] 12/16/19 [place] [address] [place] [address] LABOR Active 10/10/[address] Patient Resolved 05/27/19 Problem 11/29/2018 [place] [id number] [facility], (finding) Speedy Woodward Discharge 09/08/19 09/11/2015 Geoff curiel Diagnosis: Acute 16 vaginitis OTHER Active 09/08/19 [facility] 16 [place] Discharge 08/22/19 08/24/2014 Diagnosis: Cough 15 Garima theast Discharge 08/22/19 08/24/2014 Diagnosis: Fever 15 [place] the[place] SOB, COUGHING Active 08/18/19 [address] Asthma Resolved Problem 11/29/2018 [facility] (disorder) [facility], Speedy Woodward Disease of Resolved Problem 11/29/2018 [facility] periapical Medical tissues of tooth Oli ter, (disorder) Speedy Woodward Morbid obesity Resolved Problem 11/29/2018 Kiera velasquez (disorder) Medical [place], Speedy [place] Pain in right 10/15/2018 OP ID knee [place] Bicipital 10/15/2018 OPID tendinitis, [place] right shoulder Pain in right 10/15/2018 OP ID shoulder [place] 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 Other chronic 10/15/2018 OP ID pain [place] Abnormal 10/15/2018 OPID findings on [place] diagnostic imaging of limbs Weeks of 10/15/2018 OPID gestation of [place] not specified Maternal care 07/04/2018 [place] for transverse Medic al and oblique lie, Oli ter not applicable or unspecified Diseases of the 07/04/2018 [facility] respiratory Medical system Center complicating , third trimester Mild persistent 07/04/2018 [facility] asthma, Medical uncomplicated Center Obesity 07/04/2018 [facility] complicating Medical , third Oli ter trimester Morbid (severe) 09/14/2018 [facility] obesity due to Medic al excess calories Cent er Body mass index 07/04/2018 [facility] (BMI) 50-59.9 , [facility] adult Center Personal history 09/14/2018 [facility] of nicotine Medical dependence Center 28 weeks 07/04/2018 [facility] gestation of Medical Center 38 weeks 09/14/2018 [facility] gestation of Medical Center Single live [facility]/14[facility] Obesity 09/14/2018 [facility] complicating Medical childbirth Center Other mental 09/14/2018 [facility] as disorders Medical complicating Center childbirth Major depressive 09/14/2018 [facility] disorder, single Med ical episode, Center unspecified Abnormality in 09/14/2018 [place] heart rate Med ical and rhythm Center complicating labor and delivery Mild 09/14/2018 [facility] intermittent Medical asthma, Center uncomplicated Diseases of the 09/14/2018 [facility] respiratory Medical system Center complicating childbirth Maternal care 09/14/2018 [place] for high head at Med ical term, not Center applicable or unspecified Maternal 09/14/2018 [facility] exhaustion Medical complicating Center labor and delivery Other immediate 09/14/2018 [facility] Medical hemorrhage Center Maternal care 09/14/2018 [place] for other Medical abnormalities of Oli ter pelvic organs, third trimester Endometriosis of 09/14/2018 [facility] ovary Medical Center Medications Medication Details Route Status Patient Ordering Order Source Instructions Provider Date Docusate Sodium 100 mg = 1 cap, Active [place] 100 MG Oral PO, BID, PRN 2018 Medical Capsule Constipation, # Center 60 cap, 3 Refill(s) 1 tab, PO, Active [place] Multivitamins Daily, # 30 2018 Medica l with Folic Acid tab, 3 Center 0.8 mg oral Refill(s) tablet ferrous sulfate 325 mg = 1 tab, Active [place] 325 MG Oral PO, BID, # 60 2018 Medica l Tablet tab, 3 Center Refill(s) tramadol 100 mg = 2 tab, [place] Longer [place] hydrochloride 50 PO, Q6H, PRN Active 2018 Me dical MG Oral Tablet Pain Score Center 7-10, # 20 tab, 0 Refill(s) ibuprofen 600 mg 600 mg = 1 tab, No Longer 02/25 [place] oral tablet PO, Q6Hnow, # Active 2018 Medica l 40 tab, 0 Center Refill(s) 1 tab, Route: No Longer [facility] loren Multivitamins PO, Drug Form: Active 2017 Med ical oral tablet TAB, Dosing Center Weight 159.545, kg, Daily, Start date: 02/23/18 9:00:00 ASSURANCE ASSOCIATE, Duration: 30 day, Stop date: 03/24/18 9:00:00 ASSURANCE ASSOCIATE Ancef 3 gm, 150 mL, No Longer [place] Route: IV, Drug Active 2017 Medical form: INJ, Center [id number], Dosing Weight 159.545, kg, Start date: 02/22/18 19:30:00 ASSURANCE ASSOCIATE, Duration: 3 doses or times, Stop date: 02/23/18 11:30:00 ASSURANCE ASSOCIATE, ABX Indication: Surgical Prophylaxis sugammadex (ANES) Route: IV, Drug Inactive 02/22 [place] form: BRANDIN, 2018 Medical ONCE, Stop Center date: 02/22/18 13:02:00 ASSURANCE ASSOCIATE M-M-R II Notes: (Same No Longer [place] as: M-M-R II) Active 2018 Medical (measles-mumps- Center rubella virus vaccine 0.5 ml INJ VL) WASTE: F/P - Red; E -Red GIVE PRIOR TO DISCHARGE Ibuprofen Notes: (Same No Longer Andreaa s as: Motrin) "Do Active 2018 Medical Not Crush" Center Take with food. Methergine Notes: (Same No Longer [place] as as:Methergine) Active 2017 Medical [place] acetaminophen Route: IV, Drug Inactive [facility] (ANES) form: INJ, 2017 Medical ONCE, Stop Center date: 02/22/18 12:34:00 ASSURANCE ASSOCIATE hydromorphone Route: IV, Drug Inactive [facility] (ANES) + sodium form: INJ, 2017 Medic al chloride (ANES) ONCE, Stop Cente r 10 mL date: 02/22/18 12:34:00 ASSURANCE ASSOCIATE fentaNYL (ANES) Route: IV, Drug Inactive [facility] form: INJ, 2017 Medical ONCE, Stop Center date: 02/22/18 12:24:00 ASSURANCE ASSOCIATE sodium citrate Route: PO, Drug Inactive [facility] (ANES) Form: INJ, 2017 Medical ONCE, Stop Center date: 02/22/18 12:24:00 ASSURANCE ASSOCIATE famotidine (ANES) Route: IV, Drug Inactive 02/22 [facility] form: INJ, 2017 Medical ONCE, Stop Center date: 02/22/18 12:24:00 ASSURANCE ASSOCIATE metoclopramide Route: IV, Drug Inactive [facility] (ANES) form: INJ, 2017 Medical ONCE, Stop Center date: 02/22/18 12:24:00 ASSURANCE ASSOCIATE ondansetron Route: IV, Drug Inactive [facility] (ANES) form: INJ, 2017 Medical ONCE, Stop Center date: 02/22/18 12:24:00 ASSURANCE ASSOCIATE midazolam (ANES) Route: IV, Drug Inactive [facility] form: SOLN, 2017 Medical ONCE, Stop Center date: 02/22/18 12:24:00 ASSURANCE ASSOCIATE rocuronium (ANES) Route: IV, Drug Inactive 02/22 [facility] form: INJ, 2017 Medical ONCE, Stop Center date: 02/22/18 12:19:00 ASSURANCE ASSOCIATE albuterol (ANES) Route: Inactive [place] as INHALATION, 2017 Medical Drug form: Center AERO/A, ONCE, Stop date: 02/22/18 12:19:00 ASSURANCE ASSOCIATE Cytotec Notes: (Same Inactive [facility] as:Cytotec) 2018 Medical Take with food Center tranexamic acid Route: IV, Drug Inactive [place] (ANES) 100 mg form: INJ, 2018 Medical Start date: Center 02/22/18 12:11:00 ASSURANCE ASSOCIATE, Stop date: 02/22/18 13:11:00 ASSURANCE ASSOCIATE Naloxone Notes: Same as No Longer [place] as Narcan Active [address] [place] [address] Center Hydromorphone Notes: (Same No Longer [place] as: Dilaudid) Active 2018 Medical conc = 0.5 Center mg/ml Hydromorphone PALEOBOTANIST Dose: ;Delay: ;Basal: zolpidem Notes: (Same No Longer [place] As: Ambien) Active 2018 Medical Center Tramadol Notes: Not to [place] exceed Active 2017 Medical 400mg/day. Center (Same As: Ultram) Docusate Notes: (Same No Longer [place] as: Colace) (Do Active 2017 Medical Not Crush) Center Bisacodyl Notes: (Same [place] Longer [place] As: Dulcolax, Active 2017 [facility]) Center Oxytocin 30 unit, 500 No Longer [place] mL, Rate: 42 Active 2017 Medical ml/hr, Infuse Center over: 11.9 hr, Dosing Weight 159.545, kg, Route: IV, Total Volume: 500 mL, Start date: 02/22/18 12:01:00 ASSURANCE ASSOCIATE, Duration: 2 day, Stop date: 02/24/18 12:00:00 ASSURANCE ASSOCIATE, Replace Every: 11.9 hr Benzocaine / Notes: Cepacol No Longer [place] Menthol lozenges Active 2018 Medical Dispense 1 box Center = 16 lozenges (Same As: Cepacol Lozenges) lanolin topical Notes: (Same No Longer H [place] cream as:Lanolin) Active 2018 Medical Center Simethicone Notes: (Same [place] as: Mylicon) Active 2018 Medical Center Acetaminophen Notes: Do not No Longer [place] exceed 4 Active 2018 Medical gm/day. (Same Center as: Tylenol) Lactated Ringers 1,000 mL, Rate: No Longer 02/22 [place] IV 1,000 mL 100 ml/hr, Active 2017 Medical Infuse over: 10 Center hr, Route: IV, Dosing Weight 159.545 kg, Total Volume: 1,000, Start date: 02/22/18 12:01:00 ASSURANCE ASSOCIATE, Duration: 30 day, Stop date: 03/24/18 12:00:00 ASSURANCE ASSOCIATE, 2.82, m2 succinylcholine Route: IV, Drug Inactive [place] (ANES) form: INJ, 2017 Medical ONCE, Stop Center date: 02/22/18 11:49:00 ASSURANCE ASSOCIATE lidocaine (ANES) Route: IV, Drug Inactive [place] form: INJ, 2017 Medical ONCE, Stop Center date: 02/22/18 11:49:00 ASSURANCE ASSOCIATE propofol (ANES) Route: IV, Drug Inactive [place] form: INJ, 2017 Medical ONCE, Stop Center date: 02/22/18 11:49:00 ASSURANCE ASSOCIATE azithromycin Route: IV, Drug Inactive [place] (ANES) 500 mg form: INJ, 2017 Medical Start date: Center 02/22/18 11:46:00 ASSURANCE ASSOCIATE, Stop date: 02/22/18 12:46:00 ASSURANCE ASSOCIATE tranexamic acid Route: IV, Drug Inactive [place] (ANES) form: INJ, 2017 Medical ONCE, Stop Center date: 02/22/18 11:44:00 ASSURANCE ASSOCIATE dexamethasone Route: IV, Drug Inactive H [place] (ANES) form: INJ, 2017 Medical ONCE, Stop Center date: 02/22/18 11:44:00 ASSURANCE ASSOCIATE phenylephrine Route: IV, Drug Inactive H [place] (ANES) form: INJ, 2017 Medical ONCE, Stop Center date: 02/22/18 11:44:00 ASSURANCE ASSOCIATE ceFAZolin (ANES) Route: IV, Drug Inactive [place] form: INJ, 2017 Medical ONCE, Stop Center date: 02/22/18 11:23:00 ASSURANCE ASSOCIATE methylergonovine Route: IM, Drug Inactive [place] (ANES) form: INJ, 2017 Medical ONCE, Stop Center date: 02/22/18 11:03:00 ASSURANCE ASSOCIATE carboprost (ANES) Route: IM, Drug Inactive 02/22 [place] form: INJ, 2017 Medical ONCE, Stop Center date: 02/22/18 11:03:00 ASSURANCE ASSOCIATE Lactated Ringers Route: IV, Inactive Tess Injection IV Total Volume: 2018 Medic al (ANES) 1000 mL 1,000, Start Cent er date: 02/22/18 10:29:00 ASSURANCE ASSOCIATE, Stop date: 02/22/18 11:29:00 ASSURANCE ASSOCIATE Cefazolin 3 gm, 150 mL, Inactive [place] pimentel Route: IVPB, 2017 Medical Drug form: INJ, Center ONCALL, Dosing Weight 159.545, kg, Start date: 02/22/18 10:00:00 ASSURANCE ASSOCIATE, Duration: 1 doses or times, ABX Indication: Surgical Prophylaxis Azithromycin Notes: (Same In[place] As: Zithromax 2018 Medical IV) Center Morphine Notes: (Same Inactive [place] as:MORPhine 2018 Medical Sulfate) Center Ondansetron Notes: (Same Inactive [place] as as: Zofran) 2018 Medical MEDICATION Center WASTE Product Size: 4 mg Product Wasted: ___ mg Pepcid Notes: (Same No Longer [place] as: Pepcid) Can Active 2018 Medical be dilute in Center 5-10cc NS IVP: Slow IV push over at least 2 minutes. Acetaminophen 650 mg, Route: Inactive [place] PO, ONCE, 2018 Medical Dosing Weight Center 159.545, kg, Priority: STAT, Start date: 02/21/18 20:23:00 ASSURANCE ASSOCIATE, Stop date: 02/21/18 20:23:00 ASSURANCE ASSOCIATE, .. Oxytocin 30 unit, 500 No Longer [place] mL, Rate: Active [facility] Medical Titrate, Dosing Center Weight 159.545, kg, Route: IV, Total Volume: 500 mL, Start date: 02/21/18 9:26:00 ASSURANCE ASSOCIATE, Duration: 2 day, Stop date: 02/23/18 9:25:00 ASSURANCE ASSOCIATE, Replace Every: 24 hr Remove - Notes: Vaginal Inactive [place] pimentel dinoprostone insert: to be 2018 Medic al (Cervidil) insert removed 1 hour Center prior to oxytocin administration or 12 hours after insertion. [place] Notes: (Same No Longer [place] As: Ambien) Active 2018 Medical Center Tylenol Notes: Do not Inactive [place] exceed 4 2018 Medical gm/day. (Same Center as: Tylenol) Cervidil Notes: (Same Inactive [place] as: Cervidil) 2018 [facility] Center Famotidine Notes: (Same No Longer [place] as as: Pepcid) Can Active [facility] Medical be dilute in Center 5-10cc NS IVP: Slow IV push over at least 2 minutes. Misoprostol Notes: (Same [place] Long[place] as:Cytotec) Active 2018 Medical Take with food Center Methylergonovine Notes: (Same No Longer [place] as:Methergine) Active [address] [place] [address] Citric Acid / Notes: (Same No Longer [place] sodium citrate As: Bicitra, Active [address] [place] [address] Cytra-2) Sodium Center citrate-citric acid (500-334 mg/5 mL): 1 mL contains sodium 1 mEq/mL and bicarbonate 1 mEq/mL Carboprost Notes: (Same No Longer [place] as As: Hemabate) Active [address] [place] [address] Center Lidocaine Notes: No Longer [place] Hydrochloride 10 Preservative Active [address] [place] [address] dical MG/ML Injectable free. 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 Calcium Chloride 1,000 mL, 1,000 Inactive [place] 0.0014 MEQ/ML / ml/hr, Infuse 2018 Me dical Potassium Over: 1 hr, Center Chloride 0.004 Route: IV, MEQ/ML / Sodium 1,000, Drug Chloride 0.103 form: INJ, MEQ/ML / Sodium ONCE, Dosing Lactate 0.028 Weight 159.545 MEQ/ML Injectable kg, Start date: Solution 02/20/18 17:18:00 ASSURANCE ASSOCIATE, Stop date: 02/20/18 17:18:00 ASSURANCE ASSOCIATE, Bolus for regional anesthesia per unit routine Lactated Ringers 1,000 mL, Rate: No Longer 02/20 [place] IV 1,000 mL 125 ml/hr, Active 2017 Medical Infuse over: 8 Center hr, Route: IV, Dosing Weight 159.545 kg, Total Volume: 1,000, Start date: 02/20/18 17:18:00 ASSURANCE ASSOCIATE, Duration: 30 day, Stop date: 03/22/18 17:17:00 ASSURANCE ASSOCIATE, 2.82, m2 Oxytocin 30 unit, 500 No Longer [place] mL, Rate: 42 Active 2017 Medical ml/hr, Infuse Center over: 11.9 hr, Dosing Weight 159.545, kg, Route: IV, Total Volume: 500 mL, Start date: 02/20/18 17:18:00 ASSURANCE ASSOCIATE, Duration: 2 day, Stop date: 02/22/18 17:17:00 ASSURANCE ASSOCIATE, Replace Every: 11.9 hr Acetaminophen 325 Notes: In[place] MG / butalbital (acetaminophen- 2018 Medical 50 MG / Caffeine butalbital-caff Center 40 MG Oral Tablet eine [Esgic] 325-50-40mg) Do not exceed 4 gm/day of acetaminophen. (Same as: Esgic, Fioricet) 1 Plus 1 1 tab, PO, No Longer 09/06/ M H [place] oral tablet Daily, # 30 Active 2017 Medical tab, 0 Center Refill(s) Metronidazole 500 500 mg = 1 tab, Active [place] Oral Tablet PO, BID, X 7 2015 [place] [Flagyl] day, # 14 tab, 0 Refill(s) Zithromax Notes: (Same Inactive As: Zithromax) [place] Take 1 hour before or 2 hours after meal Rocephin Notes: (Same Inactive 09/07/ As: Rocephin) 2015 [place] Tramadol Notes: Not to Inactive exceed 2015 [place] 400mg/day. (Same As: Ultram) Morphine Notes: (Same Inactive as:MORPhine 2015 [place] Sulfate) Ondansetron Notes: (Same Inactive as: Zofran) 2015 [place] MEDICATION WASTE Product Size: 4 mg Product Wasted: ___ mg Saline Flush 0.9% Notes: (Same Inactive as: BD 2015 [place] Posiflush) Azithromycin 5 Special Active Day Dose Pack 250 Instructions: 2014 [place] mg oral tablet Take 2 tablets by mouth the first day then 1 tablet by mouth days 2-5 Allergies, Adverse Reactions, Alerts Substance Category Reaction Severity Reaction Status Date Comments S ource type Reported penicillins< Assertion Drug Active pt states OPID sup>1</sup> allergy her [place] reaction = yeast infection penicillins Assertion Drug Active allergy [place] Immunizations Immunization Date Site Status Last Comments Source Given Updated pneumococcal Left completed Madi [facility] s 23-valent vaccine 8 deltoid [facility], Speedy Woodward WES Mccarthy Results Order Name Results Value Reference Date Interpretation Comments Garima rce Range HEMATOLOGY Hct 26.8 36.0 - 02/24 [place] 48.0 [facility] HEMATOLOGY MCV 79.3 80.0 - 02/24 [place] 98.0 [facility] HEMATOLOGY MPV 9.2 7.4 - 10.4 02/24 [facility] HEMATOLOGY MCH 26.1 27.0 - 02/24 [place] 31.0 [facility] HEMATOLOGY Platelet 221 133 - 450 02/24 [facility] HEMATOLOGY MCHC 33.0 32.0 - 02/24 [place] 36.0 [facility] HEMATOLOGY RDW 16.2 11.5 - 02/24 [place] 14.5 [facility] HEMATOLOGY Hgb 8.8 12.0 - 02/24 [place] 16.0 2018 [facility] HEMATOLOGY WBC 12.5 3.7 - 10.4 02/24 [facility] HEMATOLOGY RBC 3.38 4.20 - 02/24 [place] 5.40 /2018 [facility] HEMATOLOGY Neutrophils 9.5 1.5 - 8.1 02/24 [place] # [facility] HEMATOLOGY Eosinophils 1.4 0.0 - 4.0 02/24 [place] /2017 [facility] HEMATOLOGY Lymphocytes 2.1 1.0 - 5.5 02/24 [place] [facility] HEMATOLOGY Monocytes # 0.6 0.0 - 0.8 02[place] [facility] HEMATOLOGY Eosinophils 0.2 0.0 - 0.5 02/24 [place] # [facility] HEMATOLOGY Basophils 0.4 0.0 - 1.0 02/24 [facility] HEMATOLOGY Monocytes 4.6 2.0 - 12.0 02/24 [facility] HEMATOLOGY Segs 76.4 45.0 - 02/24 [place] 75.0 2018 [facility] HEMATOLOGY Lymphocytes 17.2 20.0 - 02/24 [place] 40.0 [facility] HEMATOLOGY Hgb 9.4 12.0 - 02/23 [place] 16.0 [facility] HEMATOLOGY WBC 19.7 3.7 - 10.4 02/23 [facility] HEMATOLOGY RBC 3.73 4.20 - 02/23 [place] 5.40 [facility] HEMATOLOGY MCHC 31.8 32.0 - 02/23 [place] 36.0 [facility] HEMATOLOGY Platelet 203 133 - 450 02/23 [facility] HEMATOLOGY RDW 16.0 11.5 - 02/23 [place] 14.5 [facility] HEMATOLOGY MPV 9.9 7.4 - 10.4 02/23 [facility] HEMATOLOGY Hct 29.5 36.0 - 02/23 [place] 48.0 [facility] HEMATOLOGY MCV 79.2 80.0 - 02/23 [place] 98.0 /2018 [facility] HEMATOLOGY MCH 25.2 27.0 - 02/23 [place] 31.0 2018 [facility] HEMATOLOGY Lymphocytes 2.3 1.0 - 5.5 02/[place] [facility] HEMATOLOGY Basophils 0.1 0.0 - 1.0 02/23 [facility] HEMATOLOGY Neutrophils 16.0 1.5 - 8.1 02/23 [place] # [facility] HEMATOLOGY Monocytes # 1.4 0.0 - 0.8 02/23 [place] [facility] HEMATOLOGY Segs 81.5 45.0 - 02/23 [place] 75.0 2018 Medical Center HEMATOLOGY Lymphocytes 11.4 20.0 - 02/23 [place] 40.0 2018 [facility] HEMATOLOGY Plt Morph Normal 02/23 [facility] (02/23/18 5:23 AM) [facility] HEMATOLOGY Monocytes 7.0 2.0 - 12.0 02/23 [facility] HEMATOLOGY Hypochrom 1+ None Seen 02/22 [facility] (02/22/18 4:04 PM) [facility] HEMATOLOGY Segs 93.1 45.0 - 02/22 [place] 75.0 [facility] HEMATOLOGY Lymphocytes 3.4 20.0 - 02/22 [place] 40.0 [facility] HEMATOLOGY Monocytes 3.4 2.0 - 12.0 02/22 [facility] HEMATOLOGY Basophils 0.1 0.0 - 1.0 02/22 [facility] HEMATOLOGY Monocytes # 0.9 0.0 - 0.8 02/22 [place] /2017 [facility] HEMATOLOGY Lymphocytes 0.9 1.0 - 5.5 02/22 [place] # /2017 [facility] HEMATOLOGY Neutrophils 23.7 1.5 - 8.1 02/22 [place] # /2017 [facility] HEMATOLOGY Plt Morph Normal 02/22 [facility] (02/22/18 4:04 PM) [facility] HEMATOLOGY MPV 9.9 7.4 - 10.4 02/22 [facility] HEMATOLOGY MCHC 32.3 32.0 - 02/22 [place] 36.0 [facility] HEMATOLOGY RDW 15.8 11.5 - 02/22 [place] 14.5 [facility] HEMATOLOGY Platelet 198 133 - 450 02/22 [facility] HEMATOLOGY MCH 25.7 27.0 - 02/22 [place] 31.0 [facility] HEMATOLOGY MCV 79.3 80.0 - 02/22 [place] 98.0 [facility] HEMATOLOGY Hct 34.1 36.0 - 02/22 [place] 48.0 [facility] HEMATOLOGY WBC 25.4 3.7 - 10.4 02/22 [facility] HEMATOLOGY Hgb 11.0 12.0 - 02/22 [place] 16.0 [facility] HEMATOLOGY RBC 4.30 4.20 - 02/22 [place] 5.40 [facility] URINE CHEM U Prot/Creat 0.18 02/21 [facility] URINE CHEM U Protein 17.6 02/21 [facility] URINE CHEM U Creatinine 98.00 02/21 [facility] [address] [place] [address] CHEM PANEL eGFR 134 02/20 Result [facility] Comment: The Medical eGFR is Center calculated using the CKD-EPI formula. In most young, healthy individuals the eGFR will be >90 mL/min/1.73m2 . The eGFR declines with age. An eGFR of 60-89 may be normal in some populations, particularly the elderly, for whom the CKD-EPI formula has not been extensively validated. Use of the eGFR is not recommended in the following populations:< br/>
Lisa viduals with unstable creatinine concentration s, including patients and those with serious co-morbid conditions.<b r/>
Patie nts with extremes in muscle mass or diet.

The data above are obtained from the National Kidney Disease Education Program (NKDEP) which additionally recommends that when the eGFR is used in patients with extremes of body mass index for purposes of drug dosing, the eGFR should be multiplied by the estimated BMI. CHEM PANEL B/C Ratio 15 6 - 25 02/[address] CHEM PANEL Globulin 3.9 2.7 - 4.2 02/[address] CHEM PANEL A/G Ratio 0.8 0.7 - 1.6 02/[address] CHEM PANEL Creatinine 0.53 0.50 - 02/20 [facility] Lvl 1.40 [facility] CHEM PANEL Potassium 4.1 3.5 - 5.1 02/20 [facility] CHEM PANEL Sodium Lvl 139 135 - 145 02/[address] CHEM PANEL ALT 17 0 - 65 02/[address] CHEM PANEL Alk Phos 153 39 - 136 02/[address] CHEM PANEL AST 21 0 - 37 02/[address] CHEM PANEL AGAP 15.1 10.0 - 02/20 [place] 20.0 [facility] CHEM PANEL Bili Total 0.2 0.2 - 1.3 02/[address] CHEM PANEL Calcium Lvl 8.6 8.5 - 10.5 02/20 [facility] CHEM PANEL CO2 21 24 - 32 02/[address] CHEM PANEL Albumin Lvl 3.0 3.5 - 5.0 02/20 [facility] CHEM PANEL Total 6.9 6.4 - 8.4 02/20 [facility] Protein [facility] CHEM PANEL Chloride Lvl 107 95 - 109 02/20 [place] [facility] CHEM PANEL Glucose Lvl 64 70 - 99 02/20 [place] [facility] CHEM PANEL BUN 8 7 - 22 02/20 [facility] [address] [place] [address] BLOOD BANK ABO/Rh O POS 02/20 [facility] RESULTS [facility] BLOOD BANK Antibody Negative 02/20 [facility] RESULTS Scrn (02/20/18 5:43 PM) /2017 [facility] HEMATOLOGY Eosinophils 0.2 0.0 - 4.0 02/20 [place] [facility] IMMUNOLOGY HIV. Negative Negative 02/20 [place] *NA* [facility] [facility] (02/20/18 5:43 PM) Cente r IMMUNOLOGY Treponemal Non-Reactive Non 02/20 [place] [facility] (02/20/18 5:43 PM) Cente r IMMUNOLOGY Hep Bs Ag Negative Negative 02/20 [place] *NA* [facility] (02/20/18 5:43 PM) Cente r URINE AND UA Bacteria Few /HPF None [place]en 12[place] /2017 [facility] URINE AND UA RBC <1 0 - 2 12/15 [facility] STOOL /[address] [place] [address] URINE AND UA WBC 2 0 - 5 12/15 [facility] STOOL /[address] [place] [address] URINE AND UA Nitrite Negative Negative 12/15 [facility] STOOL (12/15/17 6:38 PM) /[address] [place] [address] URINE AND UA Leuk Est Negative Negative 12/15 [facility] STOOL (12/15/17 6:38 PM) /[address] [place] [address] URINE AND UA Sq Epi Many /LPF Few /LPF 12/15 [facility] STOOL [address] [place] [address] URINE AND UA Blood Negative Negative 12/15 [facility] STOOL (12/15/17 6:38 PM) /[address] [place] [address] URINE AND UA Bili Negative Negative 12/15 [facility] STOOL *NA* [facility] (12/15/17 6:38 PM) Center URINE AND UA Mucus Few /LPF None Seen 12/15 [place] STOOL /LPF /[address] [place] [address] URINE AND UA Glucose Negative Negative 12/15 [facility] STOOL mg/dL mg/dL /2017 [facility] URINE AND UA Ketones Negative Negative 12/15 [facility] mg/dL mg/dL /2017 [facility] URINE AND UA Protein Negative Negative 12/15 [facility] mg/dL mg/dL [facility] URINE AND UA Spec Grav 1.010 <=1.030 12/15 [facility] URINE AND UA pH 6.0 5.0 - 8.0 12/15 [facility] [address] [place] [address] URINE AND UA Color Yellow Yellow 12/15 [facility] *NA* /2017 [facility] (12/15/17 6:38 PM) [place] URINE AND UA Turbidity Slight Clear 12/15 [facility] *ABN* /2017 [facility] (12/15/17 6:38 PM) [place] URINE AND UA <=1.0 0.1 - 1.0 12/15 [facility] Urobilinogen mg/dL [facility] URINE CHEM U Prot/Creat 0.14 12/15 [facility] URINE CHEM U Protein 9.6 12/15 [facility] URINE CHEM U Creatinine 70.90 12/15 [facility] CHEM PANEL eGFR 151 12/15 [facility] Comment: [facility] eGFR is Center calculated using the CKD-EPI formula. In most young, healthy individuals the eGFR will be >90 mL/min/1.73m2 . The eGFR declines with age. An eGFR of 60-89 may be normal in some populations, particularly the elderly, for whom the CKD-EPI formula has not been extensively validated. Use of the eGFR is not recommended in the following populations:< br/>
Lisa viduals with unstable creatinine concentration s, including patients and those with serious co-morbid conditions.<b r/>
Patie nts with extremes in muscle mass or diet.

The data above are obtained from the National Kidney Disease Education Program (NKDEP) which additionally recommends that when the eGFR is used in patients with extremes of body mass index for purposes of drug dosing, the eGFR should be multiplied by the estimated BMI. CHEM PANEL Potassium 3.7 3.5 - 5.1 12/15 [facility] CHEM PANEL Chloride Lvl 105 95 - 109 12[place] [facility] CHEM PANEL CO2 22 24 - 32 12/15 [facility] CHEM PANEL Sodium Lvl 138 135 - 145 12/[address] [place] [address] CHEM PANEL Bili Total 0.2 0.2 - 1.3 12/[address] CHEM PANEL AST 9 0 - 37 12/[address] CHEM PANEL Alk Phos 78 39 - 136 12/[address] CHEM PANEL Total 6.6 6.4 - 8.4 12/15 [facility] Protein [facility] CHEM PANEL Albumin Lvl 2.8 3.5 - 5.0 12[place]2017 [facility] CHEM PANEL Calcium Lvl 8.4 8.5 - 10.5 12/15 [place] /2017 [facility] CHEM PANEL ALT 16 0 - 65 12/[address] CHEM PANEL BUN 6 7 - 22 12/[address] CHEM PANEL Creatinine 0.37 0.50 - 12/15 [place] Lvl 1.40 /2017 [facility] CHEM PANEL Glucose Lvl 66 70 - 99 12/[address] CHEM PANEL Globulin 3.8 2.7 - 4.2 12/[address] CHEM PANEL A/G Ratio 0.7 0.7 - 1.6 12/[address] CHEM PANEL AGAP 14.7 10.0 - 12/15 [place] 20.0 [facility] CHEM PANEL B/C Ratio 16 6 - 25 12/[address] HEMATOLOGY Platelet 261 133 - 450 12/[address] HEMATOLOGY MPV 9.7 7.4 - 10.4 12/[address] HEMATOLOGY Hct 34.8 36.0 - 12/15 [place] 48.0 [facility] HEMATOLOGY MCH 26.6 27.0 - 12/15 [place] 31.0 [facility] HEMATOLOGY MCV 81.5 80.0 - 12/15 [place] 98.0 [facility] HEMATOLOGY WBC 14.4 3.7 - 10.4 12/[address] HEMATOLOGY Hgb 11.4 12.0 - 12/15 [place] 16.0 [facility] HEMATOLOGY RBC 4.27 4.20 - 12/15 [place] 5.40 /2017 [facility] HEMATOLOGY RDW 15.2 11.5 - 12/15 [place] 14.5 [facility] HEMATOLOGY MCHC 32.7 32.0 - 09/06 [place] 36.0 /2017 [facility] HEMATOLOGY Neutrophils 10.7 1.5 - 8.1 12/15 [place] # /2018 [facility] HEMATOLOGY Segs 74.7 45.0 - 12/15 [place] 75.0 /2017 [facility] HEMATOLOGY Monocytes 6.7 2.0 - 12.0 12/15 [facility] /2018 [facility] HEMATOLOGY Eosinophils 0.6 0.0 - 4.0 12/15 [facility] HEMATOLOGY Lymphocytes 17.5 20.0 - 12/15 [place] 40.0 /2018 [facility] HEMATOLOGY Basophils 0.5 0.0 - 1.0 12/15 [facility] /2018 [facility] HEMATOLOGY Eosinophils 0.1 0.0 - 0.5 12/15 [facility] # /2018 [facility] HEMATOLOGY Basophils # 0.1 0.0 - 0.2 12/15 [facility] s /2018 [facility] HEMATOLOGY Lymphocytes 2.5 1.0 - 5.5 12/15 [facility] s # /2018 [facility] HEMATOLOGY Monocytes # 1.0 0.0 - 0.8 12/15 [facility] s /2018 [facility] MOLECULAR C Negative Negative 09/07 DIAGNOSTIC trachomatis *NA* /2015 [place] by [facility] (09/08/15 2:19 PM) (APTIMA) MOLECULAR Source Endocervix 09/07 DIAGNOSTIC [place]TIMA *NA* /2015 [place] (09/08/15 2:19 PM) MOLECULAR Source Endocervix 09/07 DIAGNOSTIC APTIMA *NA* /2015 [place] (09/08/15 2:19 PM) MOLECULAR N gonorrhea Negative Negative 09/07 DIAGNOSTIC by [facility] *NA* /2015 [place] (APTIMA) (09/08/15 2:19 PM) URINE AND UA Color Yellow Yellow 09/07 STOOL *NA* /2015 [place] (09/08/15 2:19 PM) URINE AND UA Leuk Est Negative Negative 09/07 [place] (09/08/15 2:19 PM) /[place] URINE AND UA Protein Negative Negative 09/07 STOOL (09/08/15 2:19 PM) /2015 [place] URINE AND UA pH 6.0 5.0 - 8.0 09/07 STOOL /2015 [place] URINE AND UA 0.2 0.1 - 1.0 09/07 STOOL Urobilinogen /2015 [place] URINE AND UA Glucose Negative Negative 09/07 [place] (09/08/15 2:19 PM) [place] URINE AND UA Spec Grav >=1.030 <=1.030 09/07 STOOL *ABN* /2015 [place] (09/08/15 2:19 PM) URINE AND UA Turbidity Clear Clear 09/07 STO[place] (09/08/15 2:19 PM) [place] URINE AND UA Nitrite Negative Negative 09/07 [facility] (09/08/15 2:19 PM) [place] URINE AND UA Blood Small Negative 09/07 STOOL *ABN* /2015 [place] (09/08/15 2:19 PM) URINE AND UA Bili Negative Negative 09/07 [facility] *NA* /2015 [place] (09/08/15 2:19 PM) URINE AND UA Ketones Trace Negative 09/07 [facility] *ABN* /2015 [place] (09/08/15 2:19 PM) URINE AND UA WBC None Seen None Seen 09/07 [facility] (09/08/15 2:19 PM) [place] URINE AND UA Sq Epi Few /LPF Few /LPF 09/07 STOOL /2015 [place] URINE AND UA RBC 0-2 /HPF 0 - 2 09/07 STOOL /2015 [place] URINE AND UA Bacteria None Seen None Seen 09/07 STOOL (09/08/15 2:19 PM) [place] URINE CHEM U Preg Negative Negative 09/07 (09/08/15 2:19 PM) [place] Pathology Reports No Data Provided for This Section Diagnostic Reports Report Value Date Source Knee 1-2 Views Clinical Indication: - m25.561 chronic pain of right knee; 03/27/2018 [facility] [place] Bilateral DX Comparison: None FINDINGS: The 4 views of the bilateral knees show normal alignment without fractures or dislocations. Vacuum phenomenon is noted within the right lateral tibiofemoral knee compartment. The medial and lateral tibio femoral compartments and patellofemoral compartment are unremarkable. There is no knee region soft tissue swelling. Hoffa's fat pad region is unremarkable. There are no joint bodies. There is n o joint effusion. There are no radiopaque foreign bodies. If there is further concern, recommend MRI for c omplete assessment. IMPRESSION: 1. No radiographic evidence of acute fractures or dislocation of the bilateral knees. 2. Vacuum phenomenon within the right lateral tibiofemoral knee compartment. This is of no clinical significance and considered a normal variant. SL: [id number] Shoulder series DX Exam: Right Shoulder series DX 03/27/2018 [facility] Clinical Indication: - m25.511 chronic right sh oulder pain. Comparison: None. FINDINGS: The 3 views of the shoulder show normal alignment at the glenohumeral joint. There are no fractures or dislocations. Mild degenerative changes are appreciated along the distal aspect of the dorsal surfa ce of the right acromion pro cess, lateral to the right acromioclavicular joint. The [...] tendinous inj ury of the right deltoid and /or trapezius muscles. Correlate clinically and with patient history. Consider MRI evaluation of the shoulder for further evaluation, as clinically indicated. SL: [id number] Consultation Notes No Data Provided for This Section Discharge Summaries No Data Provided for This Section History and Physicals No Data Provided for This Section Vital Signs Vital Sign Value Date Comments Source Respitory Rate 18 02/25/2018 [facility] Heart Rate 88 02/25/2018 [facility] Temperature Oral (F) 98.7 F 02/25/2018 [facility] Systolic (mm Hg) 105 02/25/2018 [facility] Diastolic (mm Hg) 71 02/25/2018 [facility] Respitory Rate 18 02/25/2018 [facility] Systolic (mm Hg) 112 02/25/2018 [facility] Diastolic (mm Hg) 78 02/25/2018 [facility] [place] [facility] Temperature Oral (F) 98.0 F 02/25/2018 [facility] Heart Rate 75 02/25/2018 [facility] Systolic (mm Hg) 122 02/25/2018 [facility] Diastolic (mm Hg) 83 02/25/2018 [facility] Temperature Oral (F) 97.7 F 02/25/2018 [facility] Respitory Rate 18 02/25/2018 [facility] Heart Rate 88 02/25/2018 [facility] Height 172.72 cm 02/20/2018 [facility] BMI Calculated 53.48 02/20/2018 [facility] Weight 159.545 02/20/2018 [facility] Respitory Rate 20 12/16/2017 [facility] Systolic (mm Hg) 133 12/16/2017 [facility] Diastolic (mm Hg) 89 12/16/2017 [facility] Temperature Oral (F) 98 F 12/16/2017 [facility] BMI Calculated 53.52 12/15/2017 [facility] Weight 155 12/15/2017 [facility] Height 170.18 cm 12/15/2017 [facility] Respitory Rate 20 12/15/2017 [facility] Systolic (mm Hg) 123 12/15/2017 [facility] Center Diastolic (mm Hg) 80 12/15/2017 [facility] Temperature Oral (F) 99.0 F 12/15/2017 [facility] Respitory Rate 20 12/15/2017 [facility] Center Systolic (mm Hg) 115 12/15/2017 [facility] Center Diastolic (mm Hg) 80 12/15/2017 [facility] [place] [facility] Height 170.18 cm 12/15/2017 [facility] BMI Calculated 53.52 12/15/2017 [facility] Weight 155 12/15/2017 [facility] Systolic (mm Hg) 148 09/08/2015 [facility] Diastolic (mm Hg) 88 09/08/2015 [place] Respitory Rate 18 09/08/2015 [place] Heart Rate 72 09/08/2015 [place] Temperature Oral (F) 98.2 F 09/08/2015 [facility] [place] Systolic (mm Hg) 154 09/08/2015 [facility] Diastolic (mm Hg) 90 09/08/2015 [place] Heart Rate 74 09/08/2015 [facility] Respitory Rate 18 09/08/2015 [facility] Temperature Oral (F) 98.0 F 09/08/2015 [facility] Height 167.64 cm 09/08/2015 [facility] Weight 127.273 09/08/2015 [facility] BMI Calculated 45.29 09/08/2015 [place] Systolic (mm Hg) 132 08/21/2014 [place] Diastolic (mm Hg) 74 08/21/[address] Heart Rate 70 08/21/2014 [place] Respitory Rate 14 08/21/2014 [facility] Temperature Oral (F) 98.4 F 08/21/2014 [place] Systolic (mm Hg) 141 08/21/2014 [place] Diastolic (mm Hg) 86 08/21/[address] Respitory Rate 16 08/21/2014 [place] Heart Rate 87 08/21/2014 [facility] Temperature Oral (F) 98.4 F 08/21/2014 [place] Weight 124.091 08/21/2014 [facility] Encounters Location Location Encounter Encounter Reason Attending ADM DC Stat us Source Details Type Number For Provider Date Date Visit [facility] [place] [id number] Dick Odell 08/21 08/21 [facility] Emergency /2014 Natacha as [facility] [place] [id number] Abiodun Moravian 09/07 09/07 [facility] Emergency /[address] [facility] Emergency [id number] Karina Ocasio 12/15 12/16 [facility] [place] /2017 [facility] Inpatient [id number] Justine 02/20 02/26 [facility] [place] Hilaria /2017 [facility] Outpt Diag [id number] [facility] 03/27 03/28 [facility] [place] /2017 [facility] Outpt Diag [id number] [facility] 05/11 05/12 [facility] [place] /2018 [facility] Procedures Procedure Code Date Perfomer Comments Source Breast reduction [id number] [facility], [facility] Root canal [id number] [facility], [facility], [facility] Assessment and Plan Assessment and Plan Date Source Extracted from:Title: OB Inpatient Progress Note * 02/26/2018 [facility] Author: Claribel Wetzel MD Date: 02/25/18 Impression and Plan Assessment: 22 yo with morbid obesity, gHTN, mild intermittent asthma, on POD#2 s/p PLTCS 2/2 AOD, c/b PPH doing well. Plan: 1. POD#2 - AFVSS - GI/: Roc[place] regular diet. Voiding Freely, UOP adequate - SCDs in place - Pain well controlled 2. PPH - etiology: uterine atony - Heme: Hgb 11.8 EBL 1300 cc 11.0 (4 hr post-op)-->9.4-->8.8, stable, no s/sx of anemia; DC home on Fe+colace - Medications given: 2g TXA, methergine 0.2 mg, misoprostol 1000 mcg LA - s/p Bakri balloon, minimal lochia 3.Rh+ / Rb imm /Br Urban/ BCM: considering Mirena IUD, s/p counseling/ Male desires circ 4. gHTN - 1 mild range BP in clinic and 2 mild range BPs during labo r - preE panel neg, UPCR 0.18 - BP normal to mild range. 5. Mild intermittent asthma - well controlled - Albuterol PRN - No h/o hospitalization or intubation 6. Arthralgias - s/p consult by rheum - suspect biceps tendontits/plantar fascitis and knee swelli ng - On prednisone 5mg PRN, pt has only used this once - +RAVI - other serologies negative - Complement neg 7. Depression - diagnosed this - On Sertraline 25 mg QD - mood stable - No SI/HI - For SW pp - 1 wk mood check - states she is followed by psych 8. ASCUS Pap - ASCUS HPV neg -For repeat + cotesting in 3 yrs. Dispo: Plan for DC home Claribel Wetzel PGY-1 OBGYN Extracted from:Title: APMS Consult Note Author: Carie Barraza MD Date: 02/23/18 Basic Information Referral source: Juana Mckinney MD. Reason for consultation: Complex Acute Pain Chief Complaint c/s, abdominal pain History of Present Illness 22yo woman G1PO @ 38w3d w/ morbid obesit y, depression, chronic TODD, and HTN at term, who received b/l QL single shot blocks for a primary c/s on 02/22/18. APMS consulted for block management and post-op pain management. Histories Past Medical History: Resolved Asthma ([id number]): Resolved. Morbid obesity (045470435): Resolved. Root canal space perforation (6950166830): Resolved. Family History: Hypertension Grandparent Type 2 diabetes mellitus Grandparent Procedure history: Breast reduction ([id number]). Root canal procedure ([id number]). Social History Social and Psychosocial Habits Tobacco 12/15/2017 Use: Former smoker Exposure to Tobacco Smoke None Cigarette Smoking Last 365 Days No Reg Smoking Cessation Counseling No 02/20/2018 Use: Never smoker Exposure to Tobacco Smoke None Cigarette Smoking Last 365 Days No Reg Smoking Cessation Counseling No . Health Status Allergies: Allergic Reactions (Selected) Severity Not Documented Penicillins- No reactions were documented., Allergies (1) Active Reaction penicillins None Documented Current medications: (Selected) Inpatient Medications Ordered Lactated Ringers IV 1,000 mL: 100 ml/hr, IV, Stop: 03/24/18 12:00:00 ASSURANCE ASSOCIATE M-M-R II: 0.5 mL, SUB-Q, ONCALL Methergine: 0.2 mg, 1 mL, IM, ONCALL Pepcid: 10 mg, 1 mL, IVP, Q12H, PRN: Heartburn Multivitamins oral tablet: 1 tab, PO, Daily acetaminophen: 650 mg, 2 tab, PO, Q4H, PRN: Other -See Comme nt benzocaine-menthol topical: 1 lozenge, PO, PRN, PRN: Sore Th roat bisacodyl: 10 mg, 1 supp, LA, PRN, PRN: Other -See Comment docusate: 100 mg, 1 cap, PO, BID, PRN: Constipation ibuprofen: 600 mg, 1 tab, PO, Q6Hnow lanolin topical cream: 1 appl, TOP, PRN, PRN: Other -See Com ment naloxone: 0.04 mg, 0.1 mL, IVP, Q2MIN, PRN: Narcotic Reversa l oxytocin 30 units in NS 500ml (Titrate) IV 30 unit: 42 ml/hr, IV, Stop: 02/24/18 12:00:00 ASSURANCE ASSOCIATE simethicone: 160 mg, 2 tab, PO, Q8H, PRN: Gas tramadol: 100 mg, 2 tab, PO, Q6H, PRN: Pain Score 7-10 tramadol: 50 mg, 1 tab, PO, Q4H, PRN: Pain Score 4-6 zolpidem: 5 mg, 1 tab, PO, Bedtime, PRN: Insomnia Documented Medications Documented 1 Plus 1 oral tablet: 1 tab, PO, Daily, 30 tab, 0 R efill(s), Medications (17) Active Scheduled: (4) ibuprofen 600 mg TAB 600 mg 1 tab, PO, Q6Hnow lalxmjx-smfsu-rulnxjn virus vaccine 0.5 ml INJ 0.5 mL, SUB- Q, ONCALL methylergonovine 0.2 mg/1 ml INJ AMP 0.2 mg 1 mL, IM, ONCAL L multivitamin w/FA 0.8 mg Tab 1 tab, PO, Daily Continuous: (2) Lactated Ringers 1,000 mL 1,000 mL, IV, 100 ml/hr oxytocin 30 units/NS 500 ml 30 unit 30 unit 500 mL, IV, 42 ml/hr PRN: (11) acetaminophen 325 mg TABLET 650 mg 2 tab, PO, Q4H benzocaine-menthol 15 mg-3.6 mg Lozenges 16's 1 lozenge, PO , PRN bisacodyl 10 mg rect SUPP 10 mg 1 supp, LA, PRN docusate sodium 100 mg CAP 100 mg 1 cap, PO, BID famotidine 20 mg/2 ml INJ VL 10 mg 1 mL, IVP, Q12H lanolin - 30 gm top OIN 1 appl, TOP, PRN naloxone 0.4 mg/ml 1ml INJ vial 0.04 mg 0.1 mL, IVP, Q2MIN simethicone 80 mg CHEW 160 mg 2 tab, PO, Q8H traMADol 50 mg TAB 50 mg 1 tab, PO, Q4H traMADol 50 mg TAB 100 mg 2 tab, PO, Q6H zolpidem 5 mg TAB 5 mg 1 tab, PO, Bedtime Problem list: All Problems / SNOMED CT [id number] / Confirmed, Active Problems (1) Review of Systems Constitutional: Negative. Cardiovascular: Negative. Ear/Nose/Mouth/Throat: Negative. Respiratory: Negative. Gastrointestinal: Negative. Musculoskeletal: Muscle pain. Neurologic: Alert and oriented X4. Psychiatric: Negative except as documented in history of pr esent illness. Endocrine: Negative except as documented in history of pres ent illness. Hematology/Lymphatics: Negative. Physical Examination VS/Measurements Vital Signs (last 24 hrs) Last Charted _ Temp Oral 97.5 DegF (FEB 23:) Heart Rate Peripheral 84 bpm (FEB 23) Resp Rate 18 BRMIN (FEB 23) SBP 114 mmHg (FEB 23) DBP 75 mmHg (FEB 23:) SpO2 98 % (FEB 23:) General: Alert and oriented, No acute distress. Eye: Pupils are equal, round and reactive to light. HENT: Normocephalic. Respiratory: Respirations are non-labored, Symmetrical ches t wall expansion. Cardiovascular: Normal peripheral perfusion. Musculoskeletal Normal range of motion. Normal strength. Integumentary: Warm, [place]. Neurologic: Alert, Oriented, Normal sen jessica, Normal motor function, No focal deficits. Cognition and Speech: Oriented, Speech clear and coherent. Psychiatric: Cooperative, Appropriate mood and affect. Review / Management Results review: Labs (Last four charted values) WBC H 19.7 (FEB 09 5) H 25.4 (FEB 22) H 13.1 (FEB 20) Hgb L 9.4 (FEB 23 ) L 11.0 (FEB 22) L 11.8 (FEB 20) Hct L 29.5 (FEB 09 5) L 34.1 (FEB 22) 36.2 (FEB 20) Plt 203 (FEB 23) 198 (FEB 22) 228 (FEB 20) Na 139 (FEB 20) K 4.1 (FEB 20) CO2 L 21 (FEB 20) Cl 107 (FEB 20) Cr 0.53 (FEB 20) BUN 8 (FEB 20) Glucose Random L 64 (FEB 20) Ca 8.6 (FEB 20) . Chest x-ray results ECG interpretation Impression and Plan Diagnosis Orders Education and Follow-up: Counseled : Regarding treatment, Regarding medications. 22yo woman G1PO @ 38w3d w/ morbid obesit y, depression, chronic TODD, and HTN at term, who received b/l QL single shot blocks for a primary c/s on 02/22/18. APMS consulted for block management and post-op pain management. APMS recs: -Blocks have worn off appropriately without residual motor or sensory deficits -Pain well controlled -Continue pain management per primary team -APMS will sign off at this time Please call [phone] with questions/concerns. Addendum by Eyal Peralta MD on 02/23/2018 12:56 I have personally evaluated this patient and discussed the plan of care with this resident. I have reviewed the note below and agree with the history, examination findings, assessment and plan. Extracted from:Title: Clinical Document Author: Dorothy Cabrera MD Date: 02/20/18 CC: Here for delivery LMP: 05/27/17 CONNIE: 03/03/18 GA: 38w3d HPI: 22 yo at 38w3d by rep 18 wk so no c/w 25w ISAAC [place] with morbid obesity, depression, chronic TODD, h/o ASCUS pap who was sent from clinic for IOL 2/2 elevated BP at term. PNC: [facility]WC since PNLs: O+/neg, H/H 11.4/33.1, Rub Imm, RP R NR, Hpe B neg, HIV neg, GCT 131/ 111, 3T HIV neg, GBS neg, 3T Hgb 11.0/33.0 U/S: ISAAC [place] @ 25w: Br/Post/DVP 6.9/EFW 22%ile, Anatomy wnl, mal e. 32w: C/Post/ DVP 5.1: EFW 38%ile. 36w: C/Post/ DVP 4.3/ EFW 2978g 87%ile. BPP 88 ObHx: G1 GynHx: 8/irreg q2-3mo/ 7d. Denies STIs +ASCUS pap, HPV neg PMH: Chronic joint pain, Asthma, Obesity, Depression PSH: Denies Meds: Sertraline, Prednisone prn, PNV, Albuterol Prn All: PCN SHx: Neg x3 FHx: T2DM/Htn- Mat GF Vitals and Temp: Vitals Tmp(F) Pulse BP RR SpO2 FIO2 02/20 16:45 98.3 93 130/72 -- --- --- 24 Hr Tmax: 98.3F (36.83c) at 02/20 16:4 5 Vital Signs are the last 5 in the past 48 hours. SVE: fi/th/hi FHTs: 130/ mod shawn/+ accels/-decels [place]: q2-3 min BSUS: c/ right lat/ 3170g A/P: 22 yo at 38w3d by rep 18 wk so no c/w 25w MFM sono with morbid obesity, depression, chronic TODD, h/o ASCUS pap who was sent from clinic for IOL 2/2 elevated BP and TODD at term. 1. IOL MBS 0, pelvis adequate - proceed with IOL. method differed to night teaam 2. GBS neg/3THIV neg 3. FHT Cat 1 4. Elevated BP - Mild range BP with TODD not resolved with PO tylenol or Mg. - has had TODD's throughout 2nd trimester of - meds previously helped but not now - denies blurry vision, N/V or RUQ pain - preE panel sent 4. c/ right lat/ 3170g BSUS 36 wk M sono: C/post EFW 2978g 57%ile 5. Mild intermittent asthma - well controlled - Albuterol PRN - No h/o hospitalizaiton or intubation 6. Arthralgias - s/p consult by rheum - suspect biceps tendontits/plantar fascitis and knee swelli ng - On prednisone 5mg PRN, pt has only used this once - +RAVI - other serologies negative - Complement neg 7. Depression - diagnosed this - On Sertraline 25 mg QD - mood stable - No SI/HI - For SW pp - 1 wk mood check - states she is followed by psych 8. ASCUS Pap - ASCUS HPV neg -For repeat + cotesting in 3 yrs. 9. Br/Epi/ BCM- Declines/ Accepts Transfusion/ Circ- Ye s Pedro Beyer PGY1 OBGYN [place] [facility] FELLOW ADDENDUM I agree with the above H&P as written by Dr. Priya pimentel A/P: Ms. Aguilar is a 22 yo at 38w3d b y rep 18 wk sono c/w 25w MFM sono with morbid obesity, depression, chronic TODD for IOL 2/2 elevated BP . 1. IOL: Pt with adequate pelvis, walker score of 0. Would recommend ripening cervix with cervidil. 2. Elevated BP: Pt noted tohave mild ran ge BP in clinic, and reported previous mild range BP in prior visit per documentation in allscript. denies preE symptoms, except reports minimal headache, will administer pain medications and reevaluate. 3. Mild intermittent asthma: Denies any hx of intubations/ho spitalizations. 4. Depression: on sertraline. Dx in . Denies any SI /HI. 5. C/post placenta/2978 g 6. GBS neg/3THIV neg Dispo: Admit to L&D for IOL 2/2 mild ran ge BP and headache (concern for ghtn vs pree w SF) D/W and dispositioned with Dr. Nellie Garay MD, PGYV Labor Attending Note Pt seen and discussed with [facility] Fellow Dr Ashleigh Garay, agree with above. Will admit pt for IOL. -Dorothy Sanderson mD Plan of Care No Data Provided for This Section Social History Social History Date Source Social History TypeResponse 02/20/2018 [facility] [place] Smoking Status Never smoker; Exposure to Tobacco Smoke None; Cigarette Smoking Last 365 Days No; Reg Smoking Cessation Counseling No entered on: 02/20/18 Social History TypeResponse 02/20/2018 [facility] [place] Smoking Status Never smoker; Exposure to Tobacco Smoke None; Cigarette Smoking Last 365 Days No; Reg Smoking Cessation Counseling No entered on: 02/20/18 Social History TypeResponse 02/20/2018 [facility] Smoking Status Never smoker; Exposure to Tobacco Smoke None; Cigarette Smoking Last 365 Days No; Reg Smoking Cessation Counseling No entered on: 02/20/18 Social History TypeResponse 09/08/2015 [facility] Smoking Status Never smoker; Exposure to Tobacco Smoke None; Cigarette Smoking Last 365 Days No; Reg Smoking Cessation Counseling No Social History TypeResponse 08/21/2014 [facility] Smoking Status Never smoker; Exposure to Tobacco Smoke None; Cigarette Smoking Last 365 Days No; Reg Smoking Cessation Counseling No Family History No Data Provided for This Section Advance Directives No Data Provided for This Section Functional Status No Data Provided for This Section
--- OUTSIDE RECORDS SUMMARY | 2019-09-25 22:53 | XMS REPORT | Continuity of Care Document ---
:1995 Author Organization [facility] t Address [address] [place] [address] Care Team Providers Name Role Phone Asked, Pcp Primary Care Physician Unavailable MARIAN Attending Clinician Unavailable Marian Attending Clinician NITHIN Attending Clinician Unavailable EDUCATION Attending Clinician Unavailable Eneida Manrique Attending Clinician MALGORZATA Attending Clinician Unavailable VESSEL SLAGMAN Attending Clinician Unavailable VESSEL SLAGMAN Attending Clinician Unavailable VESSEL SLAGMAN Attending Clinician Unavailable Attending Clinician Unavailable RAMIREZ Attending Clinician Unavailable BAXTER Attending Clinician Unavailable Maciej Ocasio Attending Clinician FRAN Attending Clinician Unavailable EDUCATION Attending Clinician Unavailable LE Attending Clinician Unavailable DONNA Attending Clinician Unavailable Jamal Snow Attending Clinician Israel Odell Attending Clinician Eneida Manrique Admitting Clinician Payers Payer Name Policy Type Policy Number Effective Date Expiration Date S ource Problems Condition Condition Condition Status Onset Resolution Last Treating Co mments Source Name Details Category Date Date Treatment Clinician Date M25.561 - Diagnosis Active 2018-07-22 Memoria PAIN IN -24 15:50:00 l RIGHT KNEE M25.561 00:01: Her perez - PAIN IN 00 RIGHT KNEE Active 05/04/2018 Spe[facility] Whaley INDUCTION Diagnosis Active 2017-042018-02-21 Memoria 1-12 15:09:00 l 00:00: Sonu INDUCTION 00 Active 02/20/2018 [facility] ELEVATED Diagnosis Active 2018-07-05 Speedy tsai BLOOD 12-15 15:44:00 l PRESSURES ELEVATED 00:00: Her perez BLOOD 00 PRESSURES Active 12/15/2017 [facility] LABOR Diagnosis Active 2018-02-18 Mem oria 10-09 23:12:00 l LABOR 00:00: [place] 00 Active 10/09/2017 [facility] OTHER Diagnosis Active 2015-09-08 Mem oria 09-07 14:25:00 l OTHER 00:00: [place] 00 Active 09/08/2015 [facility] [place] SOB, Diagnosis Active 2014-08-21 Mem oria COUGHING 08-17 18:25:00 l SOB, 19:00: [place] COUGHING 00 Active 08/17/2014 [place] Problem Active [facility] [place] [facility] ans Abnormal Abnormal Problem Active Unive rs glucose glucose [place] tolerance tolerance [place] Chronic Chronic Problem Active Univers headache headache [facility] [place] [facility] ans Chronic Chronic Problem Active Univers pain of pain of [place] right [place] right knee [place] Swelling Swelling Problem Active Unive rs of knee of knee [facility] [place] [facility] ans Obese Obese Problem Active Univers [facility] [place] [facility] ans Elevated Elevated Problem Active Unive rs BP without BP without it y of diagnosis diagnosis [place] of of Physici hypertensi hypertensi an s on on History of History of Problem Resolve Univers asthma asthma d [facility] [place] [facility] ans History of History of Problem Resolve Univers Gastric Gastric d ity of ulcer ulcer [place] Physici ans History of History of Problem Resolve Univers type 2 type 2 d ity of diabetes diabetes [place] mellitus mellitus Physic i ans Biceps Biceps Problem Active Univers tendinitis tendinitis it y of of right of right [place] shoulder shoulder Physic i ans Chronic Chronic Problem Active Univers right right ity of shoulder shoulder [place] pain pain Physici ans RAVI RAVI Problem Active Univers positive positive [facility] [place] [facility] ans 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 [place]oarthr [place] it[place] of [place] of Physici right knee right knee an s Impingemen Impingemen Problem Active U nivers t syndrome t syndrome it y of of right of right [place] shoulder shoulder Physic i ans History of History of Problem Resolve Univers d it y of exam exam [place] Physici ans Post-opera Post-opera Problem Active U nivers tive state tive state it y of [place] [facility] ans Depression Depression Problem Active U nivers [facility] [place] [facility] Endometrio Endometrio Problem Active U nivers sis sis [facility] [place] [facility] Anemia Anemia Problem Active [facility] [place] [facility] Follow up Follow up Problem Active Uni [facility] [place] [facility] Pain in Problem 2018-10-15 Papi ata right knee 11:13:33 l Pain in Sonu right knee 10/15/2018 [facility] B[facility] Problem 2018-10-15 Me moria tendinitis 11:13:33 l , right Sonu shoulder Bicipital tendinitis , right shoulder 10/15/2018 [facility] Pain in Problem 2018-10-15 Papi ata right 11:13:33 l shoulder Pain in Sandra nn right shoulder 10/15/2018 [facility] Impingemen Problem 2018-10-15 M emoria t syndrome 11:13:33 l of right Sonu shoulder Impingemen t syndrome of right shoulder 10/15/2018 [facility] Other Problem 2018-10-15 Memor ia chronic 11:13:33 l pain Other [place] chronic pain 9 MARYANKeyon Rao Abnormal Problem 2018-10-15 Mem oria findings 11:13:33 l on Abnormal Tal n diagnostic findings imaging of on limbs diagnostic imaging of limbs 10/15/2018 [facility] Weeks of Problem 2018-10-15 Mem oria gestation 11:13:33 l of Weeks of Tal n gestation not of specified not specified 10/15/2018 [facility] Maternal Problem 2018-07-04 Mem oria care for 15:45:36 l transverse Maternal He rmann and care for oblique transverse lie, not and applicable oblique or lie, not unspecifie applicable d or unspecifie d 07/04/2018 [facility] Diseases Problem 2018-07-04 Mem oria of the 15:45:36 l respirator Diseases He rmann y system of the complicati respirator ng y system , complicati third ng trimester , third trimester 07/04/2018 [facility] 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:36 l asthma, Mild Sonu uncomplica persistent henrietta asthma, uncomplica henrietta 07/04/2018 [facility] Obesity Problem 2018-07-04 Papi ata complicati 15:45:36 l ng Obesity [place] , complicati third ng trimester , third trimester 07/04/2018 [facility] Morbid Problem 2018-09-14 Memor ia (severe) 14:08:49 l obesity Morbid [place] due to (severe) excess obesity calories due to excess calories 09/14/2018 [facility] Body mass Problem 2018-07-04 Me moria index 15:45:36 l (BMI) Body [place] 50-59.9 , mass index adult (BMI) 50-59.9 , adult 07/04/2018 [facility] Personal Problem 2018-09-14 Mem oria history of 14:08:49 l nicotine Personal Herm feliberto dependence history of nicotine dependence 09/14/2018 [facility] 28 weeks Problem 2018-07-04 Mem oria gestation 15:45:36 l of 28 weeks Tal n gestation of 07/04/2018 [facility] 38 weeks Problem 2018-09-14 Mem oria gestation 14:08:49 l of 38 weeks Tal n gestation of 09/14/2018 [facility] Single Problem 2018-09-14 Memor ia live 14:08:49 l Single Sonu live 09/14/2018 [facility] Obesity Problem 2018-09-14 Papi ata complicati 14:08:49 l ng Obesity [place] childbirth complicati ng childbirth 09/14/2018 [facility] Other Problem 2018-09-14 Memor ia mental 14:08:49 l disorders Other Tal n complicati mental ng disorders childbirth complicati ng childbirth 09/14/2018 [facility] Major Problem 2018-09-14 Memor ia depressive 14:08:49 l disorder, Major Tal n single depressive episode, disorder, unspecifie single d episode, unspecifie d 09/14/2018 [facility] Abnormalit Problem 2018-09-14 M emoria y in 14:08:49 l heart rate Tal n and rhythm Abnormalit complicati y in ng labor heart rate and and rhythm delivery complicati ng labor and delivery 09/14/2018 [facility] Mild Problem 2018-09-14 Memor ia intermitte 14:08:49 l nt asthma, Mild Tal n uncomplica intermitte henrietta nt asthma, uncomplica henrietta 09/14/2018 [facility] Diseases Problem 2018-09-14 Mem oria of the 14:08:49 l respirator Diseases He rmann y system of the complicati respirator ng y system childbirth complicati ng childbirth 09/14/2018 [facility] Maternal Problem 2018-09-14 Mem oria care for 14:08:49 l high head Maternal Her perez at term, care for not high head applicable at term, or not unspecifie applicable d or unspecifie d 09/14/2018 [facility] Maternal Problem 2018-09-14 Mem oria exhaustion 14:08:49 l complicati Maternal He rmann ng labor exhaustion and complicati delivery ng labor and delivery 09/14/2018 [facility] Other Problem 2018-09-14 Memor ia immediate 14:08:49 l Other Sandra nn hemorrhage immediate hemorrhage 09/14/2018 [facility] Maternal Problem 2018-09-14 Mem oria care for 14:08:49 l other Maternal Tal n abnormalit care for ies of other pelvic abnormalit organs, ies of third pelvic trimester organs, third trimester 09/14/2018 [facility] Endometrio Problem 2018-09-14 M emoria sis of 14:08:49 l ovary [place] Endometrio sis of ovary 09/14/2018 [facility] Asthma Problem Resolve 2018-11-29 Papi ata (disorder) d 11:49:16 l Asthma Sonu (disorder) Resolved Problem 11/29/2018 [facility] Spe[facility] [place] Disease of Problem Resolve 2018-11-29 Memoria periapical d 11:49:16 l tissues of Disease Her perez tooth of (disorder) periapical tissues of tooth (disorder) Resolved Problem 11/29/2018 [facility] Speedy [place] Morbid Problem Resolve 2018-11-29 Papi ata obesity d 11:49:16 l (disorder) Morbid Herm feliberto obesity (disorder) Resolved Problem 11/29/2018 [facility], Speedy [place] [facility] Other Problem 2017-042018-10-15 2018-10-15 M emoria specified 06-02 11:13:33 11:13:33 l Other 05:08: Tal n related specified 26 conditions , related unspecifie conditions d , trimester unspecifie d trimester 04/01/2018 10/15/2018 [facility] Gestationa Problem 2017-042018-09-14 2018-09-14 Memoria l -24 14:08:49 14:08:49 l [ 03:47: Tal n -induced] Gestationa 33 hypertensi l on without [ significan -induced] t hypertensi proteinuri on without a, significan complicati t ng proteinuri childbirth a, complicati ng childbirth 03/04/2018 09/14/2018 [facility] Other Problem 2018-07-04 2018-07-04 M emoria specified 12-21 15:45:36 15:45:36 l Other 03:23: Tal n related specified 36 conditions , third related trimester conditions , third trimester 12/21/2017 07/04/2018 [facility] Elevated Problem 2018-07-04 2018-07-04 Memoria blood-pres 12-15 15:45:36 15:45:36 l sure Elevated 05:00: Tal n reading, blood-pres 00 without sure diagnosis reading, of without hypertensi diagnosis on of hypertensi on 12/15/2017 07/04/2018 [facility] Discharge Problem 2015-09-11 2015-09-11 Memoria Diagnosis: 09-07 00:35:57 00:35:57 l Acute 05:00: [place] vaginitis Discharge 00 Diagnosis: Acute vaginitis 09/08/2015 09/11/2015 [facility] Discharge Problem 2014-08-24 2014-08-24 Memoria Diagnosis: 08-21 05:56:49 05:56:49 l Cough 05:00: [place] Discharge 00 Diagnosis: Cough 08/21/2014 08/24/2014 [facility] Discharge Problem 2014-08-24 2014-08-24 Memoria Diagnosis: 08-21 05:56:49 05:56:49 l Fever 05:00: Sonu Discharge 00 Diagnosis: Fever 08/21/2014 08/24/2014 [facility] Allergies, Adverse Reactions, Alerts Allergy Allergy Status Severity Reaction(s) Onset Inactive Treating Comm ents Source Name Type Date Date Clinician Penicill DA Active SV 2017-04 [facility] [place] Penicill Propensi Active [facility] [place] ins ty to Breath 04 Methodi adverse 00:00: st reaction 00 s to drug No Known DA Active U [facility] Allergie 6 [facility] 00:[facility]: [facility] [place] Penicill drug Active Univers ins allergy [facility] [place] [facility] penicill penicill Active Memori a ins<sup> ins<sup> l 1</sup> 1</sup> Sonu penicill penicill Active Memori a ins ins l Sonu Family History Family Member Diagnosis Comments Start Date Stop Date Source Grandfather Family history of Univer sity of cerebrovascular [place] Phy s[facility] accident (CVA) Grandfather Family history of Univer sity of diabetes mellitus [place] P hys[facility] Grandfather Family history of Univer sity of hypertension [place] Phys[facility] ians Grandmother Family history of Univer sity of hypertension [place] [facility] i[facility] Social History Social Habit Start Date Stop Date Quantity Comments Source History of tobacco Cigarette Smoker [place] use [facility] [place] [facility] Cigarettes smoked 2016-08-12 2016-08-12 [place] current (pack per 00:00:00 00:00:[address] ) - Reported Alcohol intake 2016-08-12 2016-08-12 [facility] 00:00:00 00:00:00 non-drinker of [facility] alcohol (finding) Smoking Status Start Date Stop Date Source Current every day smoker 2016-08-12 00:00:00 Alex hein [facility] Social History [facility] Medications Ordered Filled Start Stop Current Ordering Indication Dosage Frequency Signature Comments Components Source Medication Medication Date Date Medication? Clinician (SIG) Name Name Naproxen Naproxen Yes FAROKH Q12H TAKE 1 U nivers 500 MG Oral 500 MG Oral 1-25 JAMALYARIA TABLET ity of Tablet Tablet 00:00: M.D. EVERY 12 [place] 00 HOURS WITH Physici FOOD ans NEEDED. traMADol traMADol Yes FAROKH Q8H TAKE 1 U nivers HCl - 50 MG HCl - 50 MG 1-24 JAMALYARIA TABLET ity of Oral Tablet Oral Tablet 00:00: M.D. EVERY 8 [place] 00 HOURS Physici NEEDED. ans Lupron Lupron Yes CHIKARA USE Univ ers Depot Depot -17 FOSTER-RET DIRECTED. it y of (3-Month) (3-Month) 00:00: TIG M.D. [place] 11.25 MG 11.25 MG 00 Physici Intramuscul Intramuscul a ns ar Kit ar Kit Citalopram Citalopram 2017-04 Yes YARELY 1 QD TAKE 1 Univers Hydrobromid Hydrobromid 2-17 SUE M.D. TABLET ity of e 10 MG e 10 MG 00:00: DAILY. [place] Oral Tablet Oral Tablet 00 P hysici ans 2017-04 Yes YARELY 1 QD TAKE 1 Univers Plus Iron Plus Iron 2-03 SUE M.D. TABLET ity of 29-1 MG 29-1 MG 00:00: DAILY. [place] Oral Tablet Oral Tablet 00 P hysici ans Docusate 2017-04 Yes 100 mg = 1 Mem oria Sodium 100 1-17 cap, PO, l MG Oral 13:26: BID, PRN Tal n Capsule 00 Constipati on, # 60 cap, 3 Refill(s) 2017-04 Yes 1 tab, PO, Mem oria Multivitami 1-17 Daily, # l ns with 13:26: 30 tab, 3 Sandra nn Folic Acid 00 Refill(s) 0.8 mg oral tablet ferrous 2017-04 Yes 325 mg = 1 Papi ata sulfate 325 1-17 tab, PO, l MG Oral 13:26: BID, # 60 Sandra nn Tablet 00 tab, 3 Refill(s) tramadol 2017-04 No 100 mg = 2 Mem oria hydrochlori 1-17 tab, PO, l de 50 MG 13:26: Q6H, PRN Sandra nn Oral Tablet 00 Pain Score 7-10, # 20 tab, 0 Refill(s) ibuprofen 2017-04 No 600 mg = 1 Me moria 600 mg oral 1-17 tab, PO, l tablet 13:26: Q6Hnow, # Tal n 00 40 tab, 0 Refill(s) 2017-04 No 1 tab, Memoria Multivitami 1-15 Route: PO, l ns oral 15:00: Drug Form: Herm feliberto tablet 00 TAB, Dosing Weight 159.545, kg, Daily, Start date: 02/23/18 9:00:00 [employer], Duration: 30 day, Stop date: 03/24/18 9:00:00 [employer] Ancef 2017-04 No 3 gm, 150 Memoria 1-15 mL, Route: l 01:30: IV, Drug [place] 00 form: INJ, ABXQ8H, Dosing Weight 159.545, kg, Start date: 02/22/18 19:30:00 [employer], Duration: 3 doses or times, Stop date: 02/23/18 11:30:00 [employer], ABX Indication : Surgical Prophylaxi s sugammadex 2017-04 No Route: IV, M emoria (ANES) -14 Drug form: l 19:02: SOLN, [place] 00 ONCE, Stop date: 02/22/18 13:02:00 [employer] M-M-R II 2017-04 No Notes: Memoria 1-14 (Same as: l 19:00: M-M-R II) [place] 00 (measles-m umps-rubel la virus vaccine 0.5 ml INJ VL) WASTE: F/P - Red; E -Red GIVE PRIOR TO DISCHARGE Ibuprofen 2017-04 No Notes: Memori a -14 (Same as: l 19:00: Motrin) [place] 00 "Do Not Crush" Take with food. Methergine 2017-04 No Notes: Memor ia -14 (Same l 19:00: as:Metherg Sonu 00 ine) acetaminoph 2017-04 No Route: IV, Memoria en (ANES) -14 Drug form: l 18:34: INJ, ONCE, Sonu 00 Stop date: 02/22/18 12:34:00 [employer] hydromorpho 2017-04 No Route: IV, Memoria ne (ANES) + -14 Drug form: l sodium 18:34: INJ, ONCE, Sandra nn chloride 00 Stop date: (ANES) 10 02/22/18 mL 12:34:00 [employer] fentaNYL 2017-04 No Route: IV, Mem oria (ANES) -14 Drug form: l 18:24: INJ, ONCE, Sonu 00 Stop date: 02/22/18 12:24:00 [employer] sodium 2017-04 No Route: PO, Memor ia citrate -14 Drug Form: l (ANES) 18:24: INJ, ONCE, Sandra Stop date: 02/22/18 12:24:00 [employer] famotidine 2017-04 No Route: IV, M emoria (ANES) 1-14 Drug form: l 18:24: INJ, ONCE, Sonu 00 Stop date: 02/22/18 12:24:00 [employer] metoclopram 2017-04 No Route: IV, Memoria kylie (ANES) -14 Drug form: l 18:24: INJ, ONCE, Sonu 00 Stop date: 02/22/18 12:24:00 [employer] ondansetron 2017-04 No Route: IV, Memoria (ANES) -14 Drug form: l 18:24: INJ, ONCE, Stop date: 02/22/18 12:24:00 [employer] midazolam 2017-04 No Route: IV, Me moria (ANES) -14 Drug form: l 18:24: SOLN, ONCE, Stop date: 02/22/18 12:24:00 [employer] rocuronium 2017-04 No Route: IV, M emoria (ANES) 1-14 Drug form: l 18:19: INJ, ONCE, Stop date: 02/22/18 12:19:00 [employer] albuterol 2017-04 No Route: Memori a (ANES) -14 INHALATION l 18:19: , Drug form: AERO/A, ONCE, Stop date: 02/22/18 12:19:00 [employer] Cytotec 2017-04 No Notes: Memoria -14 (Same l 18:12: as:Cytotec [place] 00 ) Take with food tranexamic 2017-04 No Route: IV, M emoria acid (ANES) 1-14 Drug form: l 100 mg 18:11: INJ, Start Sandra date: 02/22/18 12:11:00 [employer], Stop date: 02/22/18 13:11:00 [employer] Naloxone 2017-04 No Notes: Memoria 1-14 Same as l 18:08: Narcan Hydromorpho 2017-04 No Notes: Papi ata ne -14 (Same as: l 18:08: Dilaudid) conc = 0.5 mg/ml Hydromorph one [employer] Dose: ;Delay: ;Basal: zolpidem 2017-04 No Notes: Memoria -14 (Same As: l 18:01: Ambien) Tramadol 2017-04 No Notes: Not Mem oria 04-24 to exceed l 18:01: 400mg/day. [place] 00 (Same As: Ultram) Docusate 2017-04 No Notes: Memoria 14 (Same as: l 18:01: Colace) (Do Not Crush) Bisacodyl 2017-04 No Notes: Memori a -14 (Same As: l 18:01: Dulcolax, Bisco-Lax) Oxytocin 2017-04 No 30 unit, Memor ia -14 500 mL, l 18:01: Rate: 42 Sonu 00 ml/hr, Infuse over: 11.9 hr, Dosing Weight 159.545, kg, Route: IV, Total Volume: 500 mL, Start date: 02/22/18 12:01:00 [employer], Duration: 2 day, Stop date: 02/24/18 12:00:00 [employer], Replace Every: 11.9 hr Benzocaine 2017-04 No Notes: Memor ia / Menthol 04-24 Cepacol l 18:01: lozenges Dispense 1 box = 16 lozenges (Same As: Cepacol Lozenges) lanolin 2017-04 No Notes: Memoria topical 04-24 (Same l cream 18:01: as:Lanolin Tal n ) Simethicone 2017-04 No Notes: Papi ata -14 (Same as: l 18:01: Mylicon) Acetaminoph 2017-04 No Notes: Do M emoria en 04-24 not exceed l 18:01: 4 gm/day. Sonu (Same as: Tylenol) Lactated 2017-04 No 1,000 mL, Papi ata Ringers IV 04-24 Rate: 100 l 1,000 mL 18:01: ml/hr, Infuse over: 10 hr, Route: IV, Dosing Weight 159.545 kg, Total Volume: 1,000, Start date: 02/22/18 12:01:00 [employer], Duration: 30 day, Stop date: 03/24/18 12:00:00 [employer], 2.82, m2 succinylcho 2017-04 No Route: IV, Memoria line (ANES) - Drug form: l 17:49: INJ, ONCE, Stop date: 02/22/18 11:49:00 [employer] lidocaine 2017-04 No Route: IV, Me moria (ANES) 1-14 Drug form: l 17:49: INJ, ONCE, Stop date: 02/22/18 11:49:00 [employer] propofol 2017-04 No Route: IV, Mem oria (ANES) 1-14 Drug form: l 17:49: INJ, ONCE, Stop date: 02/22/18 11:49:00 [employer] azithromyci 2017-04 No Route: IV, Memoria n (ANES) - Drug form: l 500 mg 17:46: INJ, Start date: 02/22/18 11:46:00 [employer], Stop date: 02/22/18 12:46:00 [employer] tranexamic 2017-04 No Route: IV, M emoria acid (ANES) 1-14 Drug form: l 17:44: INJ, ONCE, Stop date: 02/22/18 11:44:00 [employer] dexamethaso 2017-04 No Route: IV, Memoria ne (ANES) 1-14 Drug form: l 17:44: INJ, ONCE, Stop date: 02/22/18 11:44:00 [employer] phenylephri 2017-04 No Route: IV, Memoria ne (ANES) 1-14 Drug form: l 17:44: INJ, ONCE, Stop date: 02/22/18 11:44:00 [employer] ceFAZolin 2017-04 No Route: IV, Me moria (ANES) 1-14 Drug form: l 17:23: INJ, ONCE, Stop date: 02/22/18 11:23:00 [employer] methylergon 2017-04 No Route: IM, Memoria ovine 1-14 Drug form: l (ANES) 17:03: INJ, ONCE, Sandra nn 00 Stop date: 02/22/18 11:03:00 [employer] carboprost 2017-04 No Route: IM, M emoria (ANES) 1-14 Drug form: l 17:03: INJ, ONCE, Sonu 00 Stop date: 02/22/18 11:03:00 [employer] Lactated 2017-04 No Route: IV, Mem oria Ringers 1-14 Total l Injection 16:29: Volume: Sandra nn IV (ANES) 00 1,000, 1000 mL Start date: 02/22/18 10:29:00 [employer], Stop date: 02/22/18 11:29:00 [employer] Cefazolin 2017-04 No 3 gm, 150 Mem oria 1-14 mL, Route: l 16:00: IVPB, Drug Sonu form: INJ, ONCALL, Dosing Weight 159.545, kg, Start date: 02/22/18 10:00:00 [employer], Duration: 1 doses or times, ABX Indication : Surgical Prophylaxi s Azithromyci 2017-04 No Notes: Papi ata n -14 (Same As: l 16:00: Zithromax Sonu 00 IV) Morphine 2017-04 No Notes: Memoria 1-14 (Same l 15:53: as:MORPhin [place] 00 e Sulfate) Ondansetron 2017-04 No Notes: Papi ata 1-14 (Same as: l 15:53: Zofran) [place] 00 MEDICATION WASTE Product Size: 4 mg Product Wasted: ___ mg Pepcid 2017-04 No Notes: Memoria 1-14 (Same as: l 06:43: Pepcid) Sonu 00 Can be dilute in 5-10cc NS IVP: Slow IV push over at least 2 minutes. Acetaminoph 2017-04 No 650 mg, Mem oria en 1-14 Route: PO, l 02:23: ONCE, [place] 00 Dosing Weight 159.545, kg, Priority: STAT, Start date: 02/21/18 20:23:00 [employer], Stop date: 02/21/18 20:23:00 [employer], .. Oxytocin 2017-04 No 30 unit, Memor ia 1-13 500 mL, l 15:26: Rate: [place] 00 Titrate, Dosing Weight 159.545, kg, Route: IV, Total Volume: 500 mL, Start date: 02/21/18 9:26:00 [employer], Duration: 2 day, Stop date: 02/23/18 9:25:00 [employer], Replace Every: 24 hr Remove - 2017-04 No Notes: Memoria dinoproston 1-13 Vaginal l e 14:00: insert: to [place] (Cervidil) 00 be removed insert 1 hour prior to oxytocin administra tion or 12 hours after insertion. Ambien 2017-04 No Notes: Memoria 1-13 (Same As: l 04:10: Ambien) Sonu 00 Tylenol 2017-04 No Notes: Do Memor ia 1-13 not exceed l 02:41: 4 gm/day. Sonu (Same as: Tylenol) Cervidil 2017-04 No Notes: Memoria 1-13 (Same as: l 01:36: Cervidil) Famotidine 2017-04 No Notes: Memor ia 1-13 (Same as: l 00:00: Pepcid) Can be dilute in 5-10cc NS IVP: Slow IV push over at least 2 minutes. Misoprostol 2017-04 No Notes: Papi ata 1-13 (Same l 00:00: as:Cytotec ) Take with food Methylergon 2017-04 No Notes: Papi ata ovine 1-13 (Same l 00:00: as:Metherg ine) Citric Acid 2017-04 No Notes: Papi ata / sodium 1-13 (Same As: l citrate 00:00: Tal [place] 00 Cytra-2) Sodium citrate-ci tric acid (500-334 mg/5 mL): 1 mL contains sodium 1 mEq/mL and bicarbonat e 1 mEq/mL Carboprost 2017-04 No Notes: Memor ia 1-13 (Same As: l 00:00: Hemabate) Lidocaine 2017-04 No Notes: Memori a Hydrochlori 1-12 Preservati l de 10 MG/ML 23:18: ve free. He rmann Injectable 00 (Same as: Solution Xylocaine MPF) Terbutaline 2017-04 No Notes: Papi ata 1-12 DO NOT l 23:18: USE IN VESSEL [place]AG[place] AREA (Same As: Brethine) Ondansetron 2017-04 No Notes: Papi ata -12 (Same as: l 23:18: Zofran) MEDICATION WASTE Product Size: 4 mg Product Wasted: ___ mg Butorphanol 2017-04 No Notes: Papi ata -12 (Same As: l 23:18: Stadol) Ibuprofen 2017-04 No Notes: Memori a -12 (Same as: l 23:18: Motrin) "Do Not Crush" Take with food. Calcium 2017-04 No 1,000 mL, Memor ia Chloride -12 1,000 l 0.0014 23:18: ml/hr, [place] MEQ/ML / 00 Infuse Potassium Over: 1 Chloride hr, Route: 0.004 IV, 1,000, MEQ/ML / Drug form: Sodium INJ, ONCE, Chloride Dosing 0.103 Weight MEQ/ML / 159.545 Sodium kg, Start Lactate date: 0.028 02/20/18 MEQ/ML 17:18:00 Injectable [employer], Stop Solution date: 02/20/18 17:18:00 [employer], Bolus for regional anesthesia per unit routine Lactated 2017-04 No 1,000 mL, Papi ata Ringers IV 12 Rate: 125 l 1,000 mL 23:18: ml/hr, [place] 00 Infuse over: 8 hr, Route: IV, Dosing Weight 159.545 kg, Total Volume: 1,000, Start date: 02/20/18 17:18:00 [employer], Duration: 30 day, Stop date: 03/22/18 17:17:00 [employer], 2.82, m2 Oxytocin 2017-04 No 30 unit, Memor ia 1-12 500 mL, l 23:18: Rate: 42 Sonu 00 ml/hr, Infuse over: 11.9 hr, Dosing Weight 159.545, kg, Route: IV, Total Volume: 500 mL, Start date: 02/20/18 17:18:00 [employer], Duration: 2 day, Stop date: 02/22/18 17:17:00 [employer], Replace Every: 11.9 hr Acetaminoph No Notes: Papi ata en 325 MG / 9-06 (acetamino l butalbital 23:53: phen-butal H ermann 50 MG / 00 bital-caff Caffeine 40 eine MG Oral 325-50-40m Tablet g) Do not [Esgic] exceed 4 gm/day of acetaminop hen. (Same as: Esgic, Fioricet) 1 No 1 tab, PO, M emoria Plus 1 oral -06 Daily, # l tablet 23:36: 30 tab, 0 Tal n 00 Refill(s) Vitafol Vitafol Yes GLORIA TAKE 1 Univ ers Ultra Ultra 8-24 BAXTER CAPSULE BY ity of 29-0.6-0.4- 29-0.6-0.4- 00:00: M.D. MOUTH [place] 200 MG Oral 200 MG Oral 00 DAILY Physici Capsule Capsule ans Albuterol Albuterol Yes Uni vers Sulfate Sulfate 7-25 ity of (2.5 (2.5 00:00: [place] MG/3ML) MG/3ML) 00 Physici 0.083% 0.083% ans Inhalation Inhalation Nebulizatio Nebulizatio n Solution n Solution metFORMIN Yes 500mg Q.5D Take 500 Alex ston (GLUCOPHAGE 5-04 mg by Methodi ) 500 mg 09:25: mouth 2 st tablet 02 (two) times a day with meals. ondansetron Yes 4mg Q8H Take 1 [place] (ZOFRAN) 4 5-04 tablet (4 Meth melvin MG tablet 00:00: mg total) st 00 by mouth every 8 (eight) hours as needed for nausea or vomiting for up to 20 doses. Metronidazo Yes 500 mg = 1 Memoria le 500 MG 5-30 tab, PO, l Oral Tablet 19:53: BID, X 7 He rmann [Flagyl] 00 day, # 14 tab, 0 Refill(s) Zithromax No Notes: Memori a 5-30 (Same As: l 19:37: Zithromax) Sonu 00 Take 1 hour before or 2 hours after meal Rocephin No Notes: Memoria 5-30 (Same As: l 19:36: Rocephin) [place] 00 Tramadol No Notes: Not Mem oria 5-30 to exceed l 19:30: 400mg/day. Sonu 00 (Same As: Ultram) Morphine No Notes: Memoria 5-30 (Same l 18:39: as:MORPhin e Sulfate) Ondansetron No Notes: Papi ata -30 (Same as: l 18:39: Zofran) Sonu 00 MEDICATION WASTE Product Size: 4 mg Product Wasted: ___ mg Saline No Notes: Memoria Flush 0.9% -30 (Same as: l 18:39: BD Sonu 00 Posiflush) Azithromyci Yes Special Mem oria n 5 Day 08-21 Instructio l Dose Pack 23:46: ns: Take 2 He rmann 250 mg oral 00 tablets by tablet mouth the first day then 1 tablet by mouth days 2-5 Immunizations Ordered Filled Date Status Comments Source Immunization Name Immunization Name Tdap (Boostrix) 2017-12-[address] [facility] y of 16:47:00 [place] [facility] ns Fluzone Unknown Completed [facility] Quadrivalent 0.5 ML [place] [facility] Intramuscular Suspension Vital Signs Vital Name Observation Time Observation Value Comments Source BP Systolic 2018-05-02 125 mm[Hg] Location: [facility] :36:00 Position: [place] Physician s Sitting BP Diastolic 2018-05-02 84 mm[Hg] Location: [facility] :36:00 Position: [place] Physician s Sitting Weight 2018-05-02 326 [lb_av] :36:00 [place] Physician s Temperature 2018-05-02 98.2 [degF] Method: Oral of :36:00 [place] Physician s Heart Rate 2018-05-02 91 /min [facility] 09:36:00 [place] Physician s Respiration Rate 2018-05-02 16 /min [facility] 09:36:00 [place] Physician s BP Systolic 2018-04-27 132 mm[Hg] Location: [facility] 14:40:00 Position: [place] Physician s Sitting BP Diastolic 2018-04-27 93 mm[Hg] Location: [facility] 14:40:00 Position: [place] Physician s Sitting Heart Rate 2018-04-27 96 /min [facility] 14:40:00 [place] Physician s Height 2018-04-27 67 [in_us] University 14:40:00 [place] Physician s Weight 2018-04-27 324 [lb_av] University of 14:40:00 [place] Physician s Body Mass Index 2018-04-27 50.75 kg/m2 University o f Calculated 14:40:00 [place] Physician s Temperature 2018-04-27 98.6 [degF] Method: Oral University 14:40:00 [place] Physician s BP Systolic 2018-03-13 129 mm[Hg] Location: [facility]; [facility] 11:41:00 Position: [place] Physician s Sitting BP Diastolic 2018-03-13 86 mm[Hg] Location: [facility]; [facility] 11:41:00 Position: [place] Physician s Sitting Height 2018-03-13 67 [in_us] University 11:41:00 [place] Physician s Weight 2018-03-13 333.25 [lb_av] University 11:41:00 [place] Physician s Body Mass Index 2018-03-13 52.19 kg/m2 University o f Calculated 11:41:00 [place] Physician s Heart Rate 2018-03-13 105 /min University 11:41:00 [place] Physician s Respitory Rate 2018-02-25 [facility] 22:30:00 Heart Rate 2018-02-25 [facility] 22:30:00 Temperature Oral 2018-02-25 98.7 F [facility] (F) 22:30:00 Systolic (mm Hg) 2018-02-25 [facility] 22:30:00 Diastolic (mm Hg) 2018-02-25 [facility] 22:30:00 Respitory Rate 2018-02-25 [facility] 18:46:00 Systolic (mm Hg) 2018-02-25 [facility] 18:46:00 Diastolic (mm Hg) 2018-02-25 [facility] 18:46:00 Temperature Oral 2018-02-25 98.0 F [facility] (F) 18:46:00 Heart Rate 2018-02-25 [facility] 18:46:00 Systolic (mm Hg) 2018-02-25 [facility] 14:02:00 Diastolic (mm Hg) 2018-02-25 [facility] 14:02:00 Temperature Oral 2018-02-25 97.7 F [facility] (F) 14:02:00 Respitory Rate 2018-02-25 [facility] 14:02:00 Heart Rate 2018-02-25 Olamide Parada n 14:02:00 Height 2018-02-20 172.72 cm Olamide Parada n 22:05:00 BMI Calculated 2018-02-20 [facility] Herm [place] 22:05:00 Weight 2018-02-20 Olamide Parada n 22:05:00 BP Systolic 2018-02-20 105 mm[Hg] Location: [facility]; [facility] 14:01:00 Position: [place] Physician s Sitting BP Diastolic 2018-02-20 61 mm[Hg] Location: [facility]; [facility] 14:01:00 Position: [place] Physician s Sitting Height 2018-02-20 67 [in_us] University of 14:01:00 [place] Physician s Weight 2018-02-20 351 [lb_av] University of 14:01:00 [place] Physician s Body Mass Index 2018-02-20 54.97 kg/m2 University o f Calculated 14:01:00 [place] Physician s Heart Rate 2018-02-20 96 /min University of 14:01:00 [place] Physician s BP Systolic 2018-02-13 94 mm[Hg] Location: [facility]; [place] of 13:15:00 Position: [place] Physician s Sitting BP Diastolic 2018-02-13 62 mm[Hg] Location: [facility]; [facility] 13:15:00 Position: [place] Physician s Sitting Height 2018-02-13 67 [in_us] University of 13:15:00 [place] Physician s Weight 2018-02-13 344.375 [lb_av] University o f 13:15:00 [place] Physician s Body Mass Index 2018-02-13 53.94 kg/m2 University o f Calculated 13:15:00 [place] Physician s Heart Rate 2018-02-13 97 /min University of 13:15:00 [place] Physician s BP Systolic 2018-02-01 113 mm[Hg] University of 14:48:00 [place] Physician s BP Diastolic 2018-02-01 71 mm[Hg] University of 14:48:00 [place] Physician s Height 2018-02-01 67 [in_us] University of 14:48:00 [place] Physician s Weight 2018-02-01 346 [lb_av] University of 14:48:00 [place] Physician s Body Mass Index 2018-02-01 54.19 kg/m2 University o f Calculated 14:48:00 [place] Physician s Heart Rate 2018-02-01 93 /min University of 14:48:00 [place] Physician s BP Systolic 2018-01-18 107 mm[Hg] Location: [facility]; [facility] :17:00 Position: [place] Physician s Sitting BP Diastolic 2018-01-18 72 mm[Hg] Location: [facility]; [facility] 14:17:00 Position: [place] Physician s Sitting Height 2018-01-18 67 [in_us] University of 14:17:00 [place] Physician s Weight 2018-01-18 340.25 [lb_av] University of 14:17:00 [place] Physician s Body Mass Index 2018-01-18 53.29 kg/m2 University o f Calculated 14:17:00 [place] Physician s Heart Rate 2018-01-18 108 /min [place] of 14:17:00 [place] Physician s BP Systolic 2018-01-10 124 mm[Hg] Location: [facility]; [facility] 09:53:00 Position: [place] Physician s Sitting BP Diastolic 2018-01-10 75 mm[Hg] Location: [facility]; [facility] 09:53:00 Position: [place] Physician s Sitting Height 2018-01-10 67 [in_us] University of 09:53:00 [place] Physician s Weight 2018-01-10 345.0 [lb_av] University of 09:53:00 [place] Physician s Body Mass Index 2018-01-10 54.03 kg/m2 University o f Calculated 09:53:00 [place] [facility]ician s Heart Rate 2018-01-10 103 /min Location: [facility] 09:53:00 Carotid; [place] Physician s BP Systolic 2018-01-06 124 mm[Hg] [facility] 13:55:00 [place] Physician s BP Diastolic 2018-01-06 77 mm[Hg] University 13:55:00 [place] [facility] s Height 2018-01-06 67 [in_us] University of 13:55:00 [place] [facility] s Weight 2018-01-06 344 [lb_av] University of 13:55:00 [place] Physician s Body Mass Index 2018-01-06 53.88 kg/m2 University o f Calculated 13:55:00 [place] [facility] s Heart Rate 2018-01-06 94 /min University of 13:55:00 [place] Physician s BP Systolic 2018-01-03 122 mm[Hg] Location: [facility]; [facility] 09:53:00 Position: [place] Physician s Sitting BP Diastolic 2018-01-03 80 mm[Hg] Location: [place]; [facility] 09:53:00 Position: [place] Physician s Sitting Height 2018-01-03 67 [in_us] [facility] 09:53:00 [place] [facility]ician s Weight 2018-01-03 345.3 [lb_av] [facility] 09:53:00 [place] [facility]ician s Body Mass Index 2018-01-03 54.08 kg/m2 University o f Calculated 09:53:00 [place] Physician s Heart Rate 2018-01-03 102 /min Location: R [facility] 09:53:00 Carotid; [place] Physician s BP Systolic 2017-12-26 135 mm[Hg] Location: [place]; [facility] 13:06:00 Position: [place] Physician s Sitting BP Diastolic 2017-12-26 76 mm[Hg] Location: [facility]; [facility] 13:06:00 Position: [place] Physician s Sitting Weight 2017-12-26 347 [lb_av] [facility] 13:06:00 [place] Physician s Temperature 2017-12-26 97.9 [degF] Method: Oral University 13:06:00 [place] [facility] s Heart Rate 2017-12-26 93 /min [facility] 13:06:00 [place] [facility]ician s Respiration Rate 2017-12-26 21 /min [facility] 13:06:00 [place] Physician s BP Systolic 2017-12-23 121 mm[Hg] Location: [facility]; [facility] 13:10:00 Position: [place] Physician s Sitting BP Diastolic 2017-12-23 81 mm[Hg] Location: [place]; [facility] 13:10:00 Position: [place] Physician s Sitting Height 2017-12-23 67 [in_us] [facility] 13:10:00 [place] [facility]ician s Weight 2017-12-23 339 [lb_av] [facility] 13:10:00 [place] [facility]ician s Body Mass Index 2017-12-23 53.1 kg/m2 University o f Calculated 13:10:00 [place] [facility] s Heart Rate 2017-12-23 114 /min [facility] 13:10:00 [place] [facility] s Respitory Rate 2017-12-16 [facility] 01:25:00 Systolic (mm Hg) 2017-12-16 [facility] 01:25:00 Diastolic (mm Hg) 2017-12-16 [facility] 01:25:00 Temperature Oral 2017-12-16 98 F [facility] (F) 01:25:00 BMI Calculated 2017-12-15 [facility] 23:37:00 Weight 2017-12-15 [facility] 23:37:00 Height 2017-12-15 170.18 cm [facility] 23:37:00 Respitory Rate 2017-12-15 [facility] 23:00:00 Systolic (mm Hg) 2017-12-15 [facility] 23:00:00 Diastolic (mm Hg) 2017-12-15 [facility] 23:00:00 Temperature Oral 2017-12-15 99.0 F [facility] (F) 23:00:00 Respitory Rate 2017-12-15 [facility] 22:45:00 Systolic (mm Hg) 2017-12-15 [facility] 22:45:00 Diastolic (mm Hg) 2017-12-15 [facility] 22:45:00 Height 2017-12-15 170.18 cm Olamide Beltranan n 22:29:00 BMI Calculated 2017-12-15 [facility] 22:29:00 Weight 2017-12-15 Olamide Beltranan n 22:29:00 BP Systolic 2017-12-15 133 mm[Hg] Location: [facility] 15:25:00 Position: [place] Physician s Sitting BP Diastolic 2017-12-15 82 mm[Hg] Location: [facility] 15:25:00 Position: [place] Physician s Sitting Height 2017-12-15 67 [in_us] University of 15:25:00 [place] [facility] s Weight 2017-12-15 343 [lb_av] University of 15:25:00 [place] [facility] s Body Mass Index 2017-12-15 53.72 kg/m2 University o f Calculated 15:25:00 [place] [facility] s Heart Rate 2017-12-15 103 /min University of 15:25:00 [place] [facility]ician s BP Systolic 2017-11-23 132 mm[Hg] Location: [facility] 14:19:00 Position: [place] Physician s Sitting BP Diastolic 2017-11-23 81 mm[Hg] Location: [facility] 14:19:00 Position: [place] Physician s Sitting Height 2017-11-23 67 [in_us] University of 14:19:00 [place] [facility]ician s Weight 2017-11-23 337 [lb_av] [facility] :19:00 [place] [facility] s Body Mass Index 2017-11-23 52.78 kg/m2 University o f Calculated 14:19:00 [place] [facility] s Heart Rate 2017-11-23 109 /min [facility] 14:19:00 [place] Physician s BP Systolic 2017-11-02 110 mm[Hg] [facility] :11:00 [place] Physician s BP Diastolic 2017-11-02 69 mm[Hg] [facility] :11:00 [place] [facility] s Height 2017-11-02 67 [in_us] [facility] :11:00 [place] Physician s Weight 2017-11-02 332 [lb_av] [facility] :11:00 [place] [facility]ician s Body Mass Index 2017-11-02 52 kg/m2 University o f Calculated 14:11:00 [place] [facility] s Heart Rate 2017-11-02 89 /min [facility] :11:00 [place] [facility] s Systolic (mm Hg) 2015-09-08 [facility] 20:55:00 Diastolic (mm Hg) 2015-09-08 [facility] 20:55:00 Respitory Rate 2015-09-08 [facility] 20:55:00 Heart Rate 2015-09-08 [facility] 20:55:00 Temperature Oral 2015-09-08 98.2 F [facility] (F) 20:55:00 Systolic (mm Hg) 2015-09-08 [facility] 17:36:00 Diastolic (mm Hg) 2015-09-08 [facility] 17:36:00 Heart Rate 2015-09-08 [facility] 17:36:00 Respitory Rate 2015-09-08 [facility] 17:36:00 Temperature Oral 2015-09-08 98.0 F [facility] (F) 17:36:00 Height 2015-09-08 167.64 cm [facility] 17:36:00 Weight 2015-09-08 [facility] 17:36:00 BMI Calculated 2015-09-08 [facility] 17:36:00 Systolic (mm Hg) 2014-08-21 [facility] 23:55:00 Diastolic (mm Hg) 2014-08-21 [facility] 23:55:00 Heart Rate 2014-08-21 [facility] 23:55:00 Respitory Rate 2014-08-21 [facility] 23:55:00 Temperature Oral 2014-08-21 98.4 F [facility] (F) 23:55:00 Systolic (mm Hg) 2014-08-21 [facility] 22:36:00 Diastolic (mm Hg) 2014-08-21 [facility] 22:36:00 Respitory Rate 2014-08-21 Olamide Beltran feliberto 22:36:00 Heart Rate 2014-08-21 Olamide Beltranan n 22:36:00 Temperature Oral 2014-08-21 98.4 F Olamide Pisano rmann (F) 22:36:00 Weight 2014-08-21 Olamide Parada n 22:36:00 Procedures Procedure Date / Time Performing Clinician Source Performed [QLH] CBC (INCLUDES 2018-05-02 00:00:00 [facility] DIFF/PLT) Physicians MR Knee wo contrast 2018-05-02 00:00:00 [facility] [id number] Physicians MR Shoulder wo contrast 2018-05-02 00:00:00 [facility] [id number] Physicians XRAY Shoulder series 2018-03-24 00:00:00 [facility] [id number] Physicians [QH] HIV AB, HIV 1/2, 2018-02-01 00:00:00 [facility] EIA, WITH REFLEXES Physicians [QH] STREPTOCOCCUS, 2018-02-01 00:00:00 [facility] GROUP B CULTURE (Genital Physici ans Strep Screen) [QLH] CBC (INCLUDES 2018-02-01 00:00:00 [facility] DIFF/PLT) Physicians [QLH] RPR 2018-02-01 00:00:00 [place] [facility] [place] [facility] [QLH] THYROID PEROXIDASE 2017-12-28 00:00:00 [facility] ANTIBODIES Physicians [QLH] COMPLEMENT 2017-12-28 00:00:00 [facility] COMPONENT C4C Physicians [QLH] COMPLEMENT 2017-12-28 00:00:00 [facility] COMPONENT C3C Physicians [QLH] RAVI PANEL, 2017-12-26 00:00:00 [facility] COMPREHENSIVE Physicians [QLH] RHEUMATOID FACTOR 2017-12-26 00:00:00 [facility] Physicians [QH] CYCLIC 2017-12-26 00:00:00 [place] [facility] [place] CITRULLINATED PEPTIDE Physicians (CCP) AB (IGG) [QLH] CBC (INCLUDES 2017-12-26 00:00:00 [facility] DIFF/PLT) Physicians [QLH] C-REACTIVE PROTEIN 2017-12-26 00:00:00 [facility] Physicians [QLH] SED RATE BY 2017-12-26 00:00:00 [facility] MODIFIED WESTERGREN Physicians [QLH] URIC ACID 2017-12-26 00:00:00 [facility] Physicians [QLH] HEPATITIS C 2017-12-26 00:00:00 [facility] ANTIBODY Physicians [QH] HEPATITIS B SURFACE 2017-12-26 00:00:00 [facility] ANTIGEN W/REFL CONFIRM Physician s XRAY Knee 1-2 Views 2017-12-26 00:00:00 [facility] Bilateral [id number] Physicians [QLH] URINALYSIS, 2017-12-23 00:00:00 [facility] COMPLETE Physicians [QLH] CULTURE, URINE, 2017-12-23 00:00:00 [facility] ROUTINE Physicians [QLH] CBC (INCLUDES 2017-12-15 00:00:00 [facility] DIFF/PLT) Physicians [QLH] GLUCOSE, 2017-12-15 00:00:00 [facility] GESTATIONAL SCREEN Physicians (50G)-130 CUTOFF [QH] PROTEIN, TOTAL 2017-12-15 00:00:00 [facility] W/CREAT, RANDOM URINE Physicians [QLH] CMP W/EGFR 2017-12-15 00:00:00 [facility] Physicians [QLH] GLUCOSE TOLERANCE 2017-11-07 00:00:00 [facility] TEST, 4 SPECIMENS Physicians [QLH] GLUCOSE, 2017-11-02 00:00:00 [facility] GESTATIONAL SCREEN Physicians (50G)-130 CUTOFF . [facility] - PAP w/reflex 2017-11-02 00:00:00 [facility] HPV Physicians . [facility] - Affirm VPIII 2017-11-02 00:00:00 [facility] (BV Panel) Physicians [H] Obstetrics Panel 2017-11-02 00:00:00 [facility] (includes CBCw/Diff,RPR, Physici ans HbsAg,RubIgG,Type and Screen) [QH] HIV AB, HIV 1/2, 2017-11-02 00:00:00 [facility] EIA, WITH REFLEXES Physicians [QLH] CULTURE, URINE, 2017-11-02 00:00:00 [facility] ROUTINE Physicians [QLH] URINALYSIS, 2017-11-02 00:00:00 [facility] COMPLETE Physicians History of Breast [facility] [place] reduction Physicians Root canal procedure [facility] Plan of Care Planned Activity Planned Date Details Comments Source Diagnostic Test 2018-05-02 MR Knee wo contrast [facility] Pending 00:00:00 [id number] [code = Physicians 83788] Diagnostic Test 2018-05-02 MR Shoulder wo [facility] Pending 00:00:00 contrast 69905 Physicians [code = 67031] Diagnostic Test 2018-05-02 MR Knee wo contrast [facility] Pending 00:00:00 95169 [code = Physicians 49797] Diagnostic Test 2018-05-02 MR Shoulder wo [facility] Pending 00:00:00 contrast 76425 Physicians [code = 84701] Diagnostic Test 2017-11-09 [[facility]] GLUCOSE [facility] Pending 00:00:00 TOLERANCE TEST, 4 Physicians SPECIMENS [code = [QL] GLUCOSE TOLERANCE TEST, 4 SPECIMENS] Encounters Start End Encounter Admission Attending Care Care Encounter Source Date/Time Date/Time Type Type Clinicians Facility Department ID 2018-06-01 2018-06-01 AppointSIMON Herrera [facility] [id number] Univers 15:00:00 15:00:00 t; Zuly OTERO M.D., FAROKH, Physic i M.D. ans 2018-05-11 2018-05-11 Outpatient Jamalyaria, [id number] 1. [id number] 17:00:00 23:59:00 Branden [id number] 5.35 2018-05-11 2018-05-11 Outpatient Jamalyaria, [id number]. [id number]. 1. [id number] 17:00:00 23:59:00 Branden [id number] 5.35 2018-05-02 2018-05-02 AppointSIMON Herrera [place] [id number] Univers 09:30:00 09:30:00 t; Kayla OTERO M.D. Specialty Andrea as , eZ OTERO i MAngel ans 2018-04-27 2018-04-27 Appointmen SIMON WELLERaire [id number] Univers 15:00:00 15:00:00 t; ELDON WELLER, Women's ity Blanca COLÓN [place] Tess Rios Physici ans 2018-04-26 2018-04-26 Appointmen MARIAN, SIMON UTP [id number] Univers 14:30:00 14:30:00 t; Zuly OTERO M.D., FAROKH, Physic i M.D. ans 2018-03-27 2018-03-27 Outpatient Marian, MHOIP OIP [id number] 14:37:00 23:59:00 [facility] 00 2018-03-13 2018-03-13 Appointmen SIMON GREENE [place] [id number] Univers 11:00:00 11:00:00 t; POST ity of EDUCATION, [place] POST Physici ans 2018-02-20 2018-02-25 Outpatient Hilaria, [facility] [id number] 14:55:00 19:00:00 Justine Monique 13 2018-02-20 2018-02-20 Appointmen SIMON MCGARRY [place] [id number] Univers 15:45:00 15:45:00 t; jassi SMITH M.D. [place] Shara SMITH M.[facility]. [facility] 2018-02-20 2018-02-20 Appointmen VESSEL SLAGMAN, SIMON MONTES [id number] Univers 13:45:00 13:45:00 t; VESSEL SLAGMAN, ROOM1 ity of ROOM1 [place] Physici ans 2018-02-13 2018-02-13 AppointSIMON Myles [place] [id number] Univers 13:30:00 13:30:00 t; jassi SMITH M.D. [place] Shara SMITH M.D. ans 2018-02-13 2018-02-13 Appointjacob VESSEL SLAGMAN, SIMON MONTES [id number] Univers 11:30:00 11:30:00 t; VESSEL SLAGMAN, ROOM4 ity of ROOM4 [place] Physici ans 2018-02-06 2018-02-06 Appointmen VESSEL SLAGMAN, SIMON MONTES [id number] Univers 13:30:00 13:30:00 t; VESSEL SLAGMAN, ROOM3 ity of ROOM3 [place] Physici ans 2018-02-01 2018-02-01 Appointmen SIMON WELLER [place] [id number] Univers 14:30:00 14:30:00 t; ELDON WELLER ity of RACHEL, M.D. [facility].Bipin Physici ans 2018-01-18 2018-01-18 Appointmen SIMON WELLER [place] [id number] Univers 14:00:00 14:00:00 t; ELDON WELLER ity of RACHEL, M.D. [facility].D. Physici ans 2018-01-18 2018-01-18 Appointmen , [facility] Women's [id number] Univers 13:00:00 13:00:00 t; PROVIDER Center jassi lujan , [facility] Physici ans 2018-01-10 2018-01-10 Appointmen SIMON RAMIREZ Rheumatolog [id number] Univers 09:30:00 09:30:00 t; FEDERICO RAMIREZ y ity o f FILEMON, M.D. [place] Blanca Physici ans 2018-01-06 2018-01-06 Appointmen SIMON BAXTER [place] [id number] Univers 13:30:00 13:30:00 t; Blanca CASTRO y of Tess BAXTER Physici M.D. ans 2018-01-06 2018-01-06 Appointmen VESSEL SLAGMAN [facility] [id number] Univers 13:00:00 13:00:00 t; VESSEL SLAGMAN, ROOM3 ity of ROOM3 [place] Physici ans 2018-01-03 2018-01-03 Appointmen SIMON RAMIREZ Rheumatolog [id number] Univers 09:30:00 09:30:00 t; FEDERICO RAMIREZ y ity o f FILEMON, M.D. [facility] ans 2017-12-26 2017-12-26 Appointmen SIMON COLLINS Milmay [id number] Univers 13:00:00 13:00:00 t; Kayla OTERO-Speci it y of MARIAN Rios [address] BRANDEN velasquez Physic i M.D. ans 2017-12-23 2017-12-23 Appointmen [facility] Womens [id number] Univers 13:00:00 13:00:00 t; Blanca CASTRO [place] it y [place], [place] Shara CASTRO M.D. ans 2017-12-15 2017-12-15 Outpatient [facility] [id number] 17:26:00 20:42:00 Karina 02 Tynese 2017-12-15 2017-12-15 Appointmen , [facility] [id number] Univers 15:30:00 15:30:00 t; PROVIDER Women's ity o f , [facility] PROVIDER Physic ans 2017-12-15 2017-12-15 Appointmen FOSTER-RETT [facility] [place] [id number] Univers 14:30:00 14:30:00 t; , ity of FOSTER-RET Taylor SIMMONS M.D. Physici CHIKARA, ans M.D. 2017-12-15 2017-12-15 Appointmen EDUCATION, [facility] [place] [id number] Univers 13:30:00 13:30:00 t; VESSEL SLAGMAN ity of [place], [place] [facility] 2017-11-23 2017-11-23 Appointmen MERYL PAN [facility] [place] [id number] Univers 14:00:00 14:00:00 t; Blanca PAN Blanca SHETH [facility] [place] 2017-11-23 2017-11-23 Appointmen VESSEL SLAGMAN, [facility] [id number] Univers 13:00:00 13:00:00 t; VESSEL SLAGMAN, ROOM3 ity of ROOM3 [facility] [place] 2017-11-02 2017-11-02 Appointmen SHAKILA THOMPSON [facility] [place] [id number] Univers 14:00:00 14:00:00 t; Blanca THOMPSON Tess JHAVERI M.D. [facility] 2015-09-08 2015-09-08 Outpatient ZOILA SnowPL [id number] 12:29:00 17:00:00 Abiodun Berry 2014-08-21 2014-08-21 Outpatient Dick Odell IE [id number] 17:33:00 18:59:00 [place] 00 Results Test Description Test Time Test Comments Results Result Comments Source [[facility]] CBC (INCLUDES DIFF/PLT) 2018-05-02 10:20:01 Test Item Value Reference Range Interpretation Comme nts WBC (test code = 6690-2) 7.6 {K/CMM} 3.7-10.4 RBC (test code = 789-8) 4.70 {M/CMM} 4.20-5.40 Hgb (test code = 718-7) 12.4 g/dl 12.0-16.0 Hct (test code = 53146-0) 38.3 % 36.0-48.0 MCV (test code = 787-2) 81.4 fL 80.0-98.0 MCH; Below Low Threshold (test code = 785-6) 26.4 pg 27.0-31.0 MCHC (test code = 786-4) 32.4 g/dl 32.0-36.0 RDW; Above High Threshold (test code = 788-0) 15.9 % 11.5-14. 5 Platelet (test code = 88500-3) 341 {K/CMM} 133-450 Mean Platelet Volume (test code = 95018-2) 9.5 fL 7.4-10.4 [facility]] Ddyitovsuvvt2489-01-05 10:20:01 Test Item Value Reference Range Interpretation Comments Segmented Neutrophils (test code 62.5 % 45.0-75.0 = 80419-9) Monocytes (test code = 35585-3) 6.5 % 2.0-12.0 Lymphocytes (test code = 09793-4) 29.5 % 20.0-40.0 Eosinophils (test code = 58948-1) 1.3 % 0.0-4.0 Basophils (test code = 706-2) 0.2 % 0.0-1.0 Segs-Bands # (test code = 4.7 {K/CMM} 1.5-8.1 73287-7) Lymphocytes # (test code = 2.2 {K/CMM} 1.0-5.5 27605-1) Monocytes # (test code = 66158-8) 0.5 {K/CMM} 0.0-0.8 Eosinophils # (test code = 0.1 {K/CMM} 0.0-0.5 05174-3) [facility] [id number] 14:54:00Exam: Right Shoulder series DXClinical Indication: - m25.511 chronic right shoulder pain.Comparison: None.FINDINGS:The 3 views of the shoulder show normal alignment at the glenohumeral joint.There are no fractures or dislocations. Mild degenerative changes areappreciated along the distal aspect of the dorsal surface of the right acromionprocess, lateral to the right acromioclavicular joint.The acromioclavicular joint and coracoclavicular spaces are intact. Theacromion and coracoid processes appearunremarkable. The subacromial space isunremarkable. The visualized scapula and clavicle are unremarkable. There areno radiopaque foreign bodies or soft tissue swelling.If there is further concern, MRI of the shoulder may be performed for completeassessment.IMPRESSION:1. No radiographic evidence of acute fractures or dislocations of the rightshoulder.2. Mild degenerative changes appreciated along the distal aspect of the dorsalsurface of the right acromion process, lateral to the right acromioclavicularjoint. This may be secondary to tendinous injury of the right deltoid and/ortrapezius muscles. Correlate clinically and with patient history. Consider MRIevaluation of the shoulder for further evaluation, as clinically indicated.SL: [id number]--Tmlw by: Michael Camacho DODictated Date/time: 03/27/18 15:25Electronically Signed by: Michael Camacho DO 03/27/1815:30FINAL REPORTUnU[facility] PhysiciansXRAY Knee 1-2 Views Bilateral [id number] 14:54:00Clinical Indication: - m25.561 chronic pain of right knee;Comparison: NoneFINDINGS:The 4 views of the bilateral knees show normal alignment without fractures ordislocations. Vacuum phenomenon is notedwithin the right lateral tibiofemoralknee compartment.The medial and lateral tibiofemoral compartments and patellofemoral compartmentare unremarkable. There is no knee region soft tissue swelling. Hoffa's fat padregion is unremarkable. There are no joint bodies. There is no joint effusion.There are noradiopaque foreign bodies.If there is further concern, recommend MRI for complete assessment.IMPRESSION:1. No radiographic evidence of acute fractures or dislocation of the bilateralknees.2. Vacuum phenomenon within the right lateral tibiofemoral knee compartment.This is of no clinical significance and considered a normal variant.SL: [id number]--Csge by: Michael Camacho DODictated Date/time: 03/27/18 15:31Electronically Signed by: Michael Camacho DO 03/27/1815:36FINAL REPORTUnUtah Valley Hospital SejgtvesktTKDKGYBVTA3751-69-46 21:49:0026.8[facility] DuzkkalNUVDGJOPNH2228-05-43 21:49:0079.3[facility] QkncjgySSEVXOZBYU3313-35-83 21:49:009.2[facility] XUIPKLKCXO8818-11-97 21:49:00 Test Item Value Reference Range Interpretation Comments MCH (test code = MCH) 26.1 pg 27.0-31.0 [facility] BlfizhrZGWHDXAKJC4028-84-18 21:49:22781Xqwimobj HermannHEMATOLOGY 2018-02-24 21:49:0033.0[facility] EtqekqkTOCEUMIEIS9809-83-79 21:49:0016.2[facility] EbuqrzxLERUASPUYC2263-64-57 21:49:008.8[facility] HeuejuhJROZSKCKER7797-39-45 21:49:0012.5[facility] QylgdvaOIASJEJVKL0274-52-81 21:49:003.38[facility] EGBIOUZWXX5528-37-78 21:49:009.5[facility] PrgyixlMACMUWGMFI0916-82-84 21:49:001.4 [facility] FvwxuhyGCRSVAMMWX5464-87-82 21:49:002.1[facility] HermannHEMATOLOGY 2018-02-24 21:49:000.6[facility] UnkvoflCZTQNDUKVR8840-52-55 21:49:000.2[facility] IemamqcWDWFLMVFLI1390-07-92 21:49:000.4[facility] MgfywwaKXJQNMPSTD0812-87-06 21:49:004.6[facility] YbwnbetKLMPFQQUDL9854-43-99 21:49:0076.4[facility] TRLTUGYKYY5300-93-57 21:49:0017.2[facility] PvpgwwvTPGUBRRWND9387-49-25 11:23:00 9.4[facility] IgdawkpEQPUQSPARI9337-93-48 11:23:0019.7[facility] HermannHEMATOLOGY 2018-02-23 11:23:003.73[facility] BrhankbXDIZVLNSPY6962-94-45 11:23:0031.8[facility] GdskwbhCCCVPCKTXZ5732-18-38 11:23:32169Ytsqjser XukvkspKIQCXFFVAQ1026-37-27 11:23:0016.0[facility] RzuwchsTTOWVEFEYX0544-31-20 11:23:009.9[facility] BZQIHLJQJV9695-08-76 11:23:0029.5[facility] QvfjefbEIALXFJBUV3036-71-26 11:23:00 79.2[facility] XleebmxYSLDIRVLCK8885-10-68 11:23:00 Test Item Value Reference Range Interpretation Comments MCH (test code = MCH) 25.2 pg 27.0-31.0 [facility] PqxtfogFECMOMJYPO4594-62-60 11:23:002.3[facility] HermannHEMATOLOGY 2018-02-23 11:23:000.1[facility] KujajkvYPZNZPDYIS0330-45-99 11:23:0016.0[facility] XhnegmaOIQRULOESG6010-01-55 11:23:001.4[facility] MbjvgnfWBJUFTKIRP3959-80-38 11:23:0081.5[facility] BnnrolbXXHMBHRDIY1517-13-49 11:23:0011.4[facility] KXKYOQOWDH9275-20-03 11:23:00Normal (02/23/18 5:23 AM)[facility]annHEMATOLOGY 2018-02-23 11:23:007.0[facility] OqoxwubYEKMLRWBTU9378-58-62 22:04:001+ (02/22/18 4:04 PM)[facility] GdsxnseJVWSAWELUB9919-45-91 22:04:0093.1[facility] BYYPLUTJCU3229-64-37 22:04:003.4[facility] DpdyroeRDTTPVXASD6757-09-80 22:04:003.4 [facility] ClscdaqJSKKRNBPYF3443-97-97 22:04:000.1[facility] HermannHEMATOLOGY 2018-02-22 22:04:000.9[facility] XrsyyehLFIOKGXNFS2473-16-07 22:04:000.9[facility] BttbneqYGYXLDFREQ3454-66-05 22:04:0023.7[facility] TtqdikqWGSHXXRWJY0964-37-80 22:04:00Normal (02/22/18 4:04 PM)[facility] OgdggsvDALQHUHSSM1466-20-13 22:04:00 9.9[facility] QzxbgxbWFAVZPPROT2351-55-03 22:04:0032.3[facility] HermannHEMATOLOGY 2018-02-22 22:04:0015.8[facility] EbtuhthYAZCLOVQCH3794-38-87 22:04:73051Opvfwjwr WkqkvxvOMUYTRUMUC1773-61-17 22:04:00 Test Item Value Reference Range Interpretation Comments MCH (test code = MCH) 25.7 pg 27.0-31.0 [facility] WoaudpdDPVDWNMOGO7880-35-32 22:04:0079.3[facility] HermannHEMATOLOGY 2018-02-22 22:04:0034.1[facility] SvyuzoiDFEXIMHNLY7322-92-73 22:04:0025.4[facility] UilhxiaRGDZZTHSAV8976-07-02 22:04:0011.0[facility] WqdjnvtCXMYAGMPFU1754-20-09 22:04:004.30[facility] HermannURINE XQHG4638-50-21 00:23:00 Test Item Value Reference Range Interpretation Comments U Prot/Creat (test code = U 0.18 1 Prot/Creat) [facility]ann[facility] WHVD8328-64-72 00:23:0017.6[facility]annURINE CHEM 2018-02-21 00:23:0098.00[facility] HermannCHEM OLUHA5852-94-08 23:44:03057Rvmwgjcc HermannCHEM SWYCS4623-96-29 23:44:00 Test Item Value Reference Range Interpretation Comments B/C Ratio (test code = B/C Ratio) 15 1 6-25 [facility] HermannCHEM CCUTL9674-53-06 23:44:003.9[facility] HermannCHEM PANEL 2018-02-20 23:44:00 Test Item Value Reference Range Interpretation Comments A/G Ratio (test code = A/G Ratio) 0.8 1 0.7-1.6 [facility]annCHEM SQAGP3798-29-40 23:44:000.53[facility] HermannCHEM PANEL 2018-02-20 23:44:004.1[facility] HermannCHEM BFWLL6053-76-55 23:44:92521Ooukvacv HermannCHEM ROAZG7117-17-08 23:44:0017[facility] HermannCHEM DFVGW8534-33-81 23:44:55910Dxjmoomz HermannCHEM MVUBN9168-01-54 23:44:0021[facility] HermannCHEM KNUJQ8082-50-26 23:44:0015.1[facility] HermannCHEM GCRUC7639-72-06 23:44:000.2 [facility] HermannCHEM NPSVD2559-20-60 23:44:008.6[facility] HermannCHEM PANEL 2018-02-20 23:44:0021[facility] HermannCHEM AUNSF1191-40-78 23:44:003.0[facility] HermannCHEM RHFBJ9100-61-33 23:44:006.9[facility] HermannCHEM JVFSM3437-23-01 23:44:56619Wmpdzjug HermannCHEM JLJTG0388-63-13 23:44:0064[facility] HermannCHEM SAPQZ7435-13-76 23:44:008[facility] HermannBLOOD BANK NLCQRYB4581-32-83 23:43:00 Negative (02/20/18 5:43 PM)[facility] LztfkekYMQMKBMFNK0350-23-02 23:43:000.2 [facility] GhxqzrzAJWCNECZOI1598-05-05 23:43:00Negative *NA*(02/20/18 5:43 PM) [facility] ZlkiqauGQFXPLLTVL0641-43-55 23:43:00Non-Reactive *NA*(02/20/18 5:43 PM) [facility] HjourlaBQODTYTYQT9241-81-37 23:43:00Negative *NA*(02/20/18 5:43 PM) [facility]] CBC (INCLUDES DIFF/PLT)2018-02-01 15:17:01 Test Item Value Reference Range Interpretation Comments WBC; Above High Threshold (test 10.6 {K/CMM} 3.7-10.4 code = 6690-2) RBC; Below Low Threshold (test 4.11 {M/CMM} 4.20-5.40 code = 789-8) Hgb; Below Low Threshold (test 11.0 g/dl 12.0-16.0 code = 718-7) Hct; Below Low Threshold (test 33.0 % 36.0-48.0 code = 15322-0) MCV (test code = 787-2) 80.3 fL 80.0-98.0 MCH; Below Low Threshold (test 26.8 pg 27.0-31.0 code = 785-6) MCHC (test code = 786-4) 33.4 g/dl 32.0-36.0 RDW; Above High Threshold (test 15.5 % 11.5-14.5 code = 788-0) Platelet (test code = 05009-0) 237 {K/CMM} 133-450 Mean Platelet Volume (test code 9.9 fL 7.4-10.4 = 26199-8) [facility][] HIV AB, HIV 1/2, EIA, WITH CQFIYRGW2035-88-80 15:17:01 Test Item Value Reference Range Interpretation Comments HIV Ag/Ab 4th Gen Negative Negative HIV test r esults should be (test code = considered posi tive only 20246-5) when both the s creening andthe confirma tory tests are positive. A negative confirmatory te st in patientswith a positive screening test does not exclude HIV inf ection. If clincallywarran henrietta, an HIV RNA quantitativ e test should be order ed. [facility]] [id number] 15:17:01 Test Item Value Reference Range Interpretation Comments RPR (test code = 53145-8) Non-Reactive Non-Reactive [facility][] STREPTOCOCCUS, GROUP B CULTURE (Genital Strep Screen)2018-02-01 15:17:01 Test Item Value Reference Range Interpretation Comments FINAL REPORT (test No Beta-Hemolytic code = FINAL REPORT) Streptococci Isolated [facility]] Phjszfutvcyp0262-24-91 15:17:01 Test Item Value Reference Range Interpretation Comments Segmented Neutrophils; Above High 77.8 % 45.0-75.0 Threshold (test code = 00053-2) Monocytes (test code = 80686-4) 5.8 % 2.0-12.0 Lymphocytes; Below Low Threshold 15.6 % 20.0-40.0 (test code = 24830-2) Eosinophils (test code = 04285-5) 0.6 % 0.0-4.0 Basophils (test code = 706-2) 0.2 % 0.0-1.0 Segs-Bands #; Above High 8.2 {K/CMM} 1.5-8.1 Threshold (test code = 37246-8) Lymphocytes # (test code = 1.7 {K/CMM} 1.0-5.5 84136-8) Monocytes # (test code = 27842-0) 0.6 {K/CMM} 0.0-0.8 Eosinophils # (test code = 0.1 {K/CMM} 0.0-0.5 65797-3) [facility]] CBC (INCLUDES DIFF/PLT)2017-12-26 14:43:01 Test Item Value Reference Range Interpretation Comments WBC; Above High Threshold (test 14.3 {K/CMM} 3.7-10.4 code = 6690-2) RBC; Below Low Threshold (test 4.10 {M/CMM} 4.20-5.40 code = 789-8) Hgb; Below Low Threshold (test 11.0 g/dl 12.0-16.0 code = 718-7) Hct; Below Low Threshold (test 33.4 % 36.0-48.0 code = 09132-2) MCV (test code = 787-2) 81.3 fL 80.0-98.0 MCH; Below Low Threshold (test 26.8 pg 27.0-31.0 code = 785-6) MCHC (test code = 786-4) 33.0 g/dl 32.0-36.0 RDW; Above High Threshold (test 15.1 % 11.5-14.5 code = 788-0) Platelet (test code = 16896-8) 267 {K/CMM} 133-450 Mean Platelet Volume (test code 9.7 fL 7.4-10.4 = 57425-6) [facility]] Vtbvlicqgsls1141-34-82 14:43:01 Test Item Value Reference Range Interpretation Comments Segmented Neutrophils (test code 75.0 % 45.0-75.0 = 49414-1) Monocytes (test code = 78440-3) 7.4 % 2.0-12.0 Lymphocytes; Below Low Threshold 16.8 % 20.0-40.0 (test code = 74875-7) Eosinophils (test code = 0.6 % 0.0-4.0 67645-6) Basophils (test code = 706-2) 0.2 % 0.0-1.0 Segs-Bands #; Above High 10.7 {K/CMM} 1.5-8.1 Threshold (test code = 95254-0) Lymphocytes # (test code = 2.4 {K/CMM} 1.0-5.5 44011-4) Monocytes #; Above High 1.1 {K/CMM} 0.0-0.8 Threshold (test code = 84863-4) Eosinophils # (test code = 0.1 {K/CMM} 0.0-0.5 90088-0) [facility]] SED RATE BY MODIFIED TUXDGFDXGO1527-46-44 14:43:01 Test Item Value Reference Range Interpretation Comments Sedimentation Rate; Above High 28 {mm/hr} 0-20 Threshold (test code = 64526-5) [facility][] HEPATITIS B SURFACE ANTIGEN W/REFL CONFIRM 2017-12-26 14:43:01 Test Item Value Reference Range Interpretation Comments Hepatitis B Surface Antigen (test Negative Negative code = 5195-3) [facility]] HEPATITIS C EBDZHORF1753-31-70 14:43:01 Test Item Value Reference Range Interpretation Comments Hepatitis C Antibody (test code = Negative 12940-6) [facility]] RHEUMATOID RUNAHX2136-70-90 14:43:01 Test Item Value Reference Range Interpretation Comments Rheumatoid Factor Quantitative (test <10 0-20 code = 77551-0) [facility]] URIC [id number] 14:43:01 Test Item Value Reference Range Interpretation Comments Uric Acid (test code = 3084-1) 2.6 mg/dl 2.5-7.0 [facility]] C-REACTIVE YGPIHNU8695-01-27 14:43:01 Test Item Value Reference Range Interpretation Comments CRP (test code = CRP) 19.6 mg/L <=2.9 [facility][] CYCLIC CITRULLINATED PEPTIDE (CCP) AB (IGG) 2017-12-26 14:43:01 Test Item Value Reference Range Interpretation Comments Cyclic Citrulline Peptide Antibody <0.5 <=2.9 (test code = 49399-2) [facility]] RAVI PANEL, EQRTVOBSRMBCE3522-40-09 14:43:01 Test Item Value Reference Range Interpretation Comments Antinuclear Antibody Screen; Positive Negative A Abnormal (test code = 08795-7) [facility][] Antinuclear Antibody Zrpcb6991-66-86 14:43:01 Test Item Value Reference Range Interpretation Comments RAVI Titer; Abnormal (test code = 1:40 Negative A 5048-4) [facility]] SJOGRENS ANTIBODIES (SS-A,SS-B)2017-12-26 14:43:01 Test Item Value Reference Range Interpretation Comments SS-A (Ro) Antibody (test code = 5351-2) <0.2 <=0.9 SS-b (La) Antibody (test code = 5353-8) <0.2 <=0.9 [facility][] RURAL SOCIOLOGIST JQXBOHSN1109-79-34 14:43:01 Test Item Value Reference Range Interpretation Comments RURAL SOCIOLOGIST Ab (test code = RURAL SOCIOLOGIST Ab) <0.2 <=0.9 [facility]] SM OUBLYIJE5054-81-79 14:43:01 Test Item Value Reference Range Interpretation Comments Sm Ab (test code = 21431-9) <0.2 <=0.9 [facility]] DNA (DS) [id number] 14:43:01 Test Item Value Reference Range Interpretation Comments DNA Antibody (Double-stranded) (test Negative Negative code = 5131-8) [facility] THYROID PEROXIDASE AYCZGPTCLI3927-86-30 14:43:01 Test Item Value Reference Range Interpretation Comments Thyroid Peroxidase (TPO) Antibody (test <28 <=60 code = 81109-8) [facility]] COMPLEMENT COMPONENT [id number] 14:43:01 Test Item Value Reference Range Interpretation Comments C3 Complement (test code = 4485-9) 155 mg/dl 88-201 [facility]] COMPLEMENT COMPONENT [id number] 14:43:01 Test Item Value Reference Range Interpretation Comments C4 Complement (test code = 4498-2) 29 mg/dl 16-47 [facility][] Antinuclear Antibody Idocohdssujkaz3676-52-87 14:43:01Pattern appears Mixed Speckled and [facility]olarUn[facility]] URINALYSIS, [id number] 14:17:01 Test Item Value Reference Range Interpretation Comments UA Turbidity; Abnormal (test code Slight Clear A = 62167-0) UA Spec Grav (test code = 5810-7) 1.012 <=1.030 UA pH (test code = 5803-2) 6.0 5.0-8.0 UA Protein (test code = 74543-8) Negative Negative UA Glucose (test code = 56260-8) Negative Negative UA Ketones (test code = 14482-8) Negative Negative UA Bili (test code = 5770-3) Negative Negative UA Blood (test code = 5794-3) Negative Negative UA Nitrite (test code = 5802-4) Negative Negative UA Leuk Est; Abnormal (test code = Trace Negative A 5799-2) UA RBC (test code = 89918-8) <1 0-2 UA WBC (test code = 51960-9) 1 {/HPF} 0-5 UA Bacteria (test code = 15598-8) Occasional None Seen UA Mucus (test code = 8247-9) Few None Seen UA Sq Epi; Abnormal (test code = Many Few A 46544-0) UA Color (test code = 5778-6) Yellow UROBILINOGEN (test code = 51135-1) <=1.0 0.1-1.0 [facility]] CULTURE, URINE, [id number] 14:17:01 Test Item Value Reference Range Interpretation Comments FINAL REPORT (test code <10,000 CFU/mL Skin = FINAL REPORT) K[facility] AND [id number] 23:38:00<1[facility] BIHTG8959-22-27 23:38:002[facility] AND STOOL 2017-12-15 23:38:00Negative (12/15/17 6:38 PM)[facility] STOOL 2017-12-15 23:38:00Negative (12/15/17 6:38 PM)[facility] STOOL 2017-12-15 23:38:00Negative (12/15/17 6:38 PM)[facility] STOOL 2017-12-15 23:38:00Negative *NA*(12/15/17 6:38 PM)[facility] STOOL 2017-12-15 23:38:00 Test Item Value Reference Range Interpretation Comments UA Spec Grav (test code = UA Spec 1.010 1 Grav) [facility] AND [id number] 23:38:00 Test Item Value Reference Range Interpretation Comments UA pH (test code = UA pH) 6.0 1 5.0-8.0 [facility] AND CIUSL1832-66-16 23:38:00Yellow *NA*(12/15/17 6:38 PM) [facility] AND IXGRV5838-93-47 23:38:00Slight *ABN*(12/15/17 6:38 PM) [facility] [id number] 23:38:00 Test Item Value Reference Range Interpretation Comments U Prot/Creat (test code = U 0.14 1 Prot/Creat) [facility] VEPE1819-81-60 23:38:009.6[facility] CHEM 2017-12-15 23:38:0070.90[facility] HermannCHEM EOGUA2942-74-96 23:26:50951Pytbfkez HermannCHEM CSTLU9438-08-74 23:26:003.7[facility] HermannCHEM BWOPM0840-02-42 23:26:54334Rfwksesr HermannCHEM OLSFI1214-06-64 23:26:0022[facility] HermannCHEM YVIDQ8183-28-29 23:26:93893Uettsydj HermannCHEM BWQPQ1136-72-03 23:26:000.2 [facility]annCHE[facility] YEPUU7832-53-31 23:26:009[facility]annCHEM PANEL 2017-12-15 23:26:0078[facility] HermannCHEM ORQBM7300-14-41 23:26:006.6[facility]annCHEM FZCGS5754-35-50 23:26:002.8[facility]annCHEM CFOKK3350-27-24 23:26:008.4[facility]annCHEM DAETQ1000-36-05 23:26:0016[facility] HermannCHEM DNEXC8418-90-75 23:26:006[facility]annCHEM RYFYJ6933-35-29 23:26:000.37 [facility] HermannCHEM GBSPL0261-22-08 23:26:0066[facility] HermannCHEM PANEL 2017-12-15 23:26:003.8[facility]annCHEM RJKYP3588-29-00 23:26:00 Test Item Value Reference Range Interpretation Comments A/G Ratio (test code = A/G Ratio) 0.7 1 0.7-1.6 [facility] HermannCHEM UGCNE2508-89-42 23:26:0014.7[facility] HermannCHEM PANEL 2017-12-15 23:26:00 Test Item Value Reference Range Interpretation Comments B/C Ratio (test code = B/C Ratio) 16 1 6-25 [facility] GdwdheaGOEGEXEXIH7374-89-57 23:26:94092Dnvmxfif HermannHEMATOLOGY 2017-12-15 23:26:009.7[facility] NwonfnaGWRASARBEW0173-26-45 23:26:0034.8[facility] EvzmrtaORTQIIVUTA4467-18-98 23:26:00 Test Item Value Reference Range Interpretation Comments MCH (test code = MCH) 26.6 pg 27.0-31.0 [facility] RmmtcrbSUFDMAVXXK8790-73-43 23:26:0081.5[facility] HermannHEMATOLOGY 2017-12-15 23:26:0014.4[facility] DeymtcwKUTCDYHHUS2829-00-10 23:26:0011.4[facility] GkdzpctZLWXSNBBXL9211-11-14 23:26:004.27[facility] NnvhnchKBWXEAJLSE4534-30-35 23:26:0015.2[facility] UylxegpSXZVDINQJO4081-30-32 23:26:0032.7[facility] IKUFKWXZSO9014-55-15 23:26:0010.7[facility] LlhymzkGNRSLBOJOL5927-55-89 23:26:00 74.7[facility] AbdflpnEVJUDOQLJJ6291-27-84 23:26:006.7[facility] HermannHEMATOLOGY 2017-12-15 23:26:000.6[facility] KgpmadbNBISHEAAZU2991-13-60 23:26:0017.5[facility] DzrwzdzYEDSTGIYDO4535-55-12 23:26:000.5[facility] QzwogabDJFFVVOOTR5136-20-53 23:26:000.1[facility] IweoocfFSTHOFDXLY8589-83-18 23:26:000.1[facility] HLQHXTISMA7286-74-36 23:26:002.5[facility] LckhsfhAPIFRQTGKH7174-30-99 23:26:001.0 [facility]] CBC (INCLUDES DIFF/PLT)2017-12-15 17:02:01 Test Item Value Reference Range Interpretation Comments WBC; Above High Threshold (test 14.8 {K/CMM} 3.7-10.4 code = 6690-2) RBC (test code = 789-8) 4.22 {M/CMM} 4.20-5.40 Hgb; Below Low Threshold (test 11.2 g/dl 12.0-16.0 code = 718-7) Hct; Below Low Threshold (test 34.3 % 36.0-48.0 code = 06885-1) MCV (test code = 787-2) 81.3 fL 80.0-98.0 MCH; Below Low Threshold (test 26.6 pg 27.0-31.0 code = 785-6) MCHC (test code = 786-4) 32.7 g/dl 32.0-36.0 RDW; Above High Threshold (test 14.6 % 11.5-14.5 code = 788-0) Platelet (test code = 55285-9) 327 {K/CMM} 133-450 Mean Platelet Volume (test code 9.6 fL 7.4-10.4 = 30596-7) [facility]] CMP [id number] 17:02:01 Test Item Value Reference Range Interpretation Comments Glucose Lvl; 111 mg/dl 70-99 Adult reference range Above High values reflect the Threshold (test clinical neo delinesof the code = 2345-7) [employer]. Sodium Level 138 {mEq/l} 135-145 (test code = 2951-2) Potassium Level 3.9 {mEq/l} 3.5-5.1 (test code = 2823-3) Chloride Level 105 {mEq/l} 95-109 (test code = 2075-0) Carbon Dioxide; 21 {mEq/l} 24-32 Below Low Threshold (test code = 8-9) AGAP (test code = 15.9 {mEq/l} 10.0-20.0 53205-4) Creatinine Lvl; 0.40 mg/dl 0.50-1.40 Below Low Threshold (test code = 2160-0) Blood Urea 8 mg/dl 7-22 Nitrogen (test code = 3094-0) BUN/Creatinine 20 6-25 Ratio (test code = 3097-3) Total Protein; 6.2 g/dl 6.4-8.4 Below Low Threshold (test code = 2885-2) Albumin Lvl; 3.0 g/dl 3.5-5.0 Below Low Threshold (test code = 1751-7) Globulin (test 3.2 g/dl 2.7-4.2 code = 21259-4) A/G Ratio (test 0.9 0.7-1.6 code = 1759-0) Calcium Level 8.7 mg/dl 8.5-10.5 Total (test code = 57347-6) ALT (test code = 17 u/l 0-65 3-4) AST (test code = 10 u/l 0-37 41788-5) Bili Total (test 0.2 mg/dl 0.2-1.3 code = 1974-2) Alk Phos (test 82 u/l 39-136 code = 1783-0) eGFR (test code = 147 The eGFR i s calculated 26673-7) {ML/MIN/1.7} using the CKD-E PI formula. In mos t young, healthyindividu als the eGFR will be >9 0 mL/min/1.73m2. The eGFR declines with a ge. AneGFR of 60-89 may be normal in some population s, particularly th e elderly, forwhom the CKD -EPI formula has not been extensively rozina idated. Use of the eGFR isnot recommended in the following populations:Ind ividuals with unstable c reatinine concentrations, including patient s and those with seri ous co-morbid conditions.Tata ents with extremes in mus junior mass or diet.The rachid a above are obtained fr om the National Kidney Disease Education Progr am(NKDEP) which linh corrigan recommends that when the eGFR is used in patientswith ex tremes of body mass index for purposes of camron g dosing, the eGFR should be multiplied by t he estimated BMI. [facility]] GLUCOSE, GESTATIONAL SCREEN (50G)-130 CUTOFF 2017-12-15 17:02:01 Test Item Value Reference Range Interpretation Comments Glucose Challenge (test code = 111.0 mg/dl <=140.0 1504-0) [facility]] [id number] 17:02:01 Test Item Value Reference Range Interpretation Comments Segmented Neutrophils; Above 76.9 % 45.0-75.0 High Threshold (test code = 73276-3) Monocytes (test code = 39109-9) 6.7 % 2.0-12.0 Lymphocytes; Below Low Threshold 15.7 % 20.0-40.0 (test code = 98924-9) Eosinophils (test code = 0.6 % 0.0-4.0 29835-7) Basophils (test code = 706-2) 0.1 % 0.0-1.0 Segs-Bands #; Above High 11.4 {K/CMM} 1.5-8.1 Threshold (test code = 32177-0) Lymphocytes # (test code = 2.3 {K/CMM} 1.0-5.5 85190-7) Monocytes #; Above High 1.0 {K/CMM} 0.0-0.8 Threshold (test code = 12015-1) Eosinophils # (test code = 0.1 {K/CMM} 0.0-0.5 49716-7) [facility][H] Obstetrics Panel (includes CBCw/Diff,RPR, HbsAg,RubIgG,Type and Screen)2017-11-02 15:52:01 Test Item Value Reference Range Interpretation Comments WBC; Above High 11.4 {K/CMM} 3.7-10.4 Threshold (test code = 6690-2) RBC; Below Low 4.08 {M/CMM} 4.20-5.40 Threshold (test code = 789-8) Hgb; Below Low 11.4 g/dl 12.0-16.0 Threshold (test code = 717-9) Hct; Below Low 33.1 % 36.0-48.0 Threshold (test code = 26308-5) MCV (test code = 81.2 fL 80.0-98.0 787-2) MCH (test code = 28.1 pg 27.0-31.0 30721-0) MCHC (test code = 34.5 g/dl 32.0-36.0 786-4) RDW; Above High 14.6 % 11.5-14.5 Threshold (test code = 788-0) Platelet (test code = 293 {K/CMM} 133-450 777-3) MPV (test code = 9.2 fL 7.4-10.4 27823-4) Segs; Above High 77.0 % 45.0-75.0 Threshold (test code = 89306-8) Monocytes # (test 0.5 {K/CMM} 0.0-0.8 code = 32791-1) Lymphocytes (test 17.9 % 20.0-40.0 code = Lymphocytes) Eosinophils (test 0.6 % 0.0-4.0 code = Eosinophils) Basophils (test code 0.2 % 0.0-1.0 = 81442-4) Segs-Bands #; Above 8.8 {K/CMM} 1.5-8.1 High Threshold (test code = 57143-5) Lymphocytes # (test 2.0 {K/CMM} 1.0-5.5 code = 54970-4) Eosinophils # (test 0.1 {K/CMM} 0.0-0.5 code = 60288-1) ABORH (test code = O POS 882-1) AB Screen (test code Negative = 890-4) Hep Bs Ag (test code Negative Negative = 5195-3) Rubella IgG (test 133.2 {IU/ml} >=10.0 Reference Range: code = 46232-2) Immune >= 10 IU/mL RPR (test code = Non-Reactive Non-Reactive 66760-9) [facility]] GLUCOSE, GESTATIONAL SCREEN (50G)-130 CUTOFF 2017-11-02 15:52:01 Test Item Value Reference Range Interpretation Comments Glucose Challenge (test code = 131.0 mg/dl <=140.0 1504-0) [facility][] HIV AB, HIV 1/2, EIA, WITH [id number] 15:52:01 Test Item Value Reference Range Interpretation Comments HIV Ag/Ab 4th Gen Negative Negative HIV test r esults should be (test code = considered posi tive only 99304-1) when both the s creening andthe confirma tory tests are positive. A negative confirmatory te st in patientswith a positive screening test does not exclude HIV inf ection. If clincallywarran henrietta, an HIV RNA quantitativ e test should be order ed. [facility]] URINALYSIS, [id number] 15:52:01 Test Item Value Reference Range Interpretation Comments UA Turbidity (test code = 20711-5) Clear Clear UA Spec Grav (test code = 5810-7) 1.010 <=1.030 UA pH (test code = 5803-2) 8.0 5.0-8.0 UA Protein (test code = 41598-2) Negative Negative UA Glucose (test code = 20168-2) Negative Negative UA Ketones (test code = 29300-5) Negative Negative UA Bili (test code = 5770-3) Negative Negative UA Blood (test code = 5794-3) Negative Negative UA Nitrite (test code = 5802-4) Negative Negative UA Leuk Est; Abnormal (test code = Small Negative A 5799-2) UA WBC (test code = 69910-4) <1 0-5 UA Bacteria (test code = 64796-1) Occasional None Seen UA Mucus (test code = 8247-9) Few None Seen UA Sq Epi; Abnormal (test code = Many Few A 94758-1) UA Color (test code = 5778-6) Ltyellow UROBILINOGEN (test code = 62847-8) <=1.0 0.1-1.0 [facility]] CULTURE, URINE, [id number] 15:52:01 Test Item Value Reference Range Interpretation Comments FINAL REPORT (test code 50,000 - 100,000 = FINAL REPORT) CFU/mL Skin Kira [facility]. [facility] - PAP w/reflex [id number] 00:00:00 Test Item Value Reference Range Interpretation Comments PAP w/reflex HPV REPORT (test See Comment code = PAP w/reflex HPV REPORT) [facility] [id number] 19:19:00Negative *NA*(09/08/15 2:19 PM)[facility] [id number] 19:19:00 Endocervix *NA*(09/08/15 2:19 PM)[facility] [id number] 19:19:00Endocervix *NA*(09/08/15 2:19 PM)[facility] 2015-09-08 19:19:00Negative *NA*(09/08/15 2:19 PM)[facility] 2015-09-08 19:19:00Yellow *NA*(09/08/15 2:19 PM)[facility] 2015-09-08 19:19:00Negative (09/08/15 2:19 PM)[facility] 2015-09-08 19:19:00Negative (09/08/15 2:19 PM)[facility] 2015-09-08 19:19:00 Test Item Value Reference Range Interpretation Comments UA pH (test code = UA pH) 6.0 1 5.0-8.0 [facility] [id number] 19:19:000.2[facility] [id number] 19:19:00Negative (09/08/15 2:19 PM)[facility] [id number] 19:19:00>=1.030 *ABN*(09/08/15 2:19 PM)[facility] [id number] 19:19:00Clear (09/08/15 2:19 PM)[facility] [id number] 19:19:00Negative (09/08/15 2:19 PM)[facility] [id number] 19:19:00Small *ABN*(09/08/15 2:19 PM)[facility] [id number] 19:19:00Negative *NA*(09/08/15 2:19 PM)[facility] [id number] 19:19:00Trace *ABN*(09/08/15 2:19 PM)[facility] [id number] 19:19:00None Seen (09/08/15 2:19 PM)[facility] [id number] 19:19:00None Seen (09/08/15 2:19 PM)[facility] 2015-09-08 19:19:00Negative (09/08/15 2:19 PM)[facility]
[2019-09-25] MEDS ORDERED: LEVALBUTEROL 1.25 MG/3 ML NEB ONE (23:15)
[2019-09-26 00:03] LABS: Absolute Lymphocytes (CBC) 2.3 K/uL (0.7-4.9); Basophils % 0.3 % (0-1.3); Hematocrit 41.1 % (36.0-45.0); Lymphocytes % 44.3 % (15.3-44.8); MPV 9.3 fL (7.6-11.3); RBC Red Blood Cell Count 5.09 M/uL (3.86-4.86)
[2019-09-26 00:17] LABS: BUN Blood Urea Nitrogen 10 mg/dL (7-18); Bicarbonate 23 mmol/L (21-32); Glucose Level 111 mg/dL (74-106); Potassium 3.5 mmol/L (3.5-5.1); Sodium Level 140 mmol/L (136-145); Troponin (Emerg Dept Use Only) < 0.02 ng/mL (0.0-0.045)
--- NOTE | 2019-09-26 01:58 | EDPHYS ---
Physician Documentation [facility] Name: Lindsey Aguilar Age: 24 yrs Sex: Female : 1995 Arrival Date: 09/25/2019 Time: 22:48 Bed 4 Private MD: ED Physician Cedrick Carpio HPI: 09/24 23:48 This 24 yrs old Female presents to ER via Wheelchair with complaints of rn Breathing Difficulty, Chest Pain. 23:48 The patient has shortness of breath at rest, with light activity. Onset: The rn symptoms/episode began/occurred 3 day(s) ago. Duration: The symptoms are intermittent. The patient's shortness of breath is aggravated by exertion, light activity. Severity of symptoms: At their worst the symptoms were moderate in the emergency department the symptoms are unchanged. The patient has experienced similar episodes in the past. The patient has not recently seen a physician. Reports felt sick 1.5 weeks ago, with fever and malaise, did not seek care, now for last 3 days increased sob and chest pain. Chest pain heavy when takes deep breath, states "used to have asthma", and "quit smoking". No abd pain/vomiting/diarrhea/rash/sick contacts. . Historical: - Allergies: 22:59 PENICILLINS; ll1 - PMHx: 22:59 "Liver Problems"; Depression; Endometriosis; Hyperlipidemia; HYPOGLYCEMIA; Thyroid ll1 problem; - PSHx: 22:59 Appendectomy; ; Breast reduction; ll1 - Immunization history:: Adult Immunizations up to date. - Social history:: Smoking status: Patient/guardian denies using tobacco, the patient reports quitting approximately 1 years ago, Patient/guardian denies using alcohol, street drugs, tobacco products. - Family history:: not pertinent. - Hospitalizations: : No recent hospitalization is reported. ROS: 23:48 Constitutional: + fever, neg for weight loss Eyes: Negative for injury, pain, redness, rn and discharge, ENT: Negative for injury, pain, and discharge, Neck: Negative for injury, pain, and swelling, Cardiovascular: Negative for palpitations, and edema, Respiratory: Negative for cough Abdomen/GI: Negative for abdominal pain, nausea, vomiting, diarrhea, and constipation, MS/Extremity: Negative for injury and deformity, Skin: Negative for injury, rash, and discoloration, Neuro: Negative for headache, numbness, tingling, and seizure. Exam: 23:48 Constitutional: Overweight female, hyperventilating, was not hyperventilating when rn arrived and walked into ER per triage. Head/Face: Normocephalic, atraumatic. ENT: MMM, no stridor Cardiovascular: Regular rate and rhythm. No pulse deficits. Respiratory: + tachypnea, no retractions, no wheezing, clear and equal breath sounds bilaterally. Abdomen/GI: soft, non-tender Skin: Warm, dry MS/ Extremity: Pulses equal, no cyanosis. Neuro: Awake and alert, GCS 15, oriented to person, place, time, and situation. Cranial nerves II-XII grossly intact. Motor strength 5/5 in all extremities. Sensory grossly intact. Cerebellar exam normal. Vital Signs: 22:57 BP 152 / 113; Pulse 93; Resp 24; Temp 98.4; Pulse Ox 100% ; Pain 7/10; ll1 23:45 BP 162 / 88; Pulse 77; Resp 22; Pulse Ox 100% ; ea 09/25 00:31 BP 147 / 89; Pulse 92; Resp 22; Pulse Ox 98% ; ea 01:55 BP 159 / 96; Pulse 94; Resp 20; Pulse Ox 99% on R/A; ea MDM: 09/24 22:49 Patient medically screened. rn 09/25 01:56 Differential diagnosis: Bronchitis pneumonia, Pneumothorax reactive airway disease, rn COVID. Data reviewed: vital signs, nurses notes, lab test result(s), EKG, radiologic studies, CT scan, plain films, and as a result, I will discharge patient. Counseling: I had a detailed discussion with the patient and/or guardian regarding: the historical points, exam findings, and any diagnostic results supporting the discharge/admit diagnosis, lab results, radiology results, the need for outpatient follow up, to return to the emergency department if symptoms worsen or persist or if there are any questions or concerns that arise at home. Response to treatment: the patient's symptoms have markedly improved after treatment, and as a result, I will discharge patient. Special discussion: I discussed with the patient/guardian in detail that at this point there is no indication for admission to the hospital. It is understood, however, that if the symptoms persist or worsen the patient needs to return immediately for re-evaluation. ED course: Pt improved, breathing back to baseline, states breathing "much better", CT PE protocol neg for acute PE, shows nonspecific interstitial inflammation, given story of fever and feeling sick, will treat as interstitial pneumonia. She states that she has multiple family members with similar symptoms, so possibly viral infection. . 09/24 22:57 Order name: COVID-19 09/24 22:57 Order name: Flu 09/24 22:57 Order name: Strep 09/24 22:57 Order name: Procalcitonin 09/24 22:57 Order name: Blood Culture Adult (2) 09/24 22:57 Order name: CBC with Diff; Complete Time: 00:23 09/24 22:57 Order name: Basic Metabolic Panel; Complete Time: 00:23 09/24 22:57 Order name: Troponin (emerg Dept Use Only); Complete Time: 00:23 09/24 22:57 Order name: D-Dimer; Complete Time: 00:23 09/24 22:58 Order name: [facility] 09/24 22:58 Order name: Influenza Screen (A ; Complete Time: 01:02 [facility] 09/24 22:58 Order name: Group A Streptococcus Rapid Sc; Complete Time: 01:02 [facility] 09/24 22:58 Order name: Procalcitonin; Complete Time: 01:02 [facility] 09/25 00:54 Order name: Throat Culture [facility] 09/24 22:57 Order name: CXR XRAY 09/24 22:57 Order name: Droplet/Contact Precautions; Complete Time: 23:55 09/24 22:57 Order name: Labs collected and sent; Complete Time: 23:55 09/24 22:57 Order name: O2 Per Protocol; Complete Time: 23:33 09/24 22:57 Order name: IV Start; Complete Time: 23:55 09/24 22:57 Order name: EKG; Complete Time: 22:58 09/24 22:57 Order name: EKG - Nurse/Tech; Complete Time: 23:33 09/25 00:23 Order name: CT Chest For PE Angio rn Administered Medications: 09/24 23:47 Drug: Xopenex 1.25 mg Route: Inhalation; ea 09/25 02:11 Drug: LevaQUIN 500 mg Route: PO; ea 02:11 Follow up: Response: Medication administered at discharge. ea Disposition: 09/26/19 01:58 Discharged to Home. Impression: Pneumonia, unspecified organism. - Condition is Stable. - Discharge Instructions: Community-Acquired Pneumonia, Adult. - Prescriptions for Levaquin 500 mg Oral Tablet - take 1 tablet by ORAL route once daily for 7 days; 7 tablet. Albuterol Sulfate 90 mcg/actuation - inhale 1-2 puff by INHALATION route every 4-6 hours; 1 Inhaler. - Medication Reconciliation Form, Thank You Letter, Antibiotic Education, Prescription Opioid Use form. - Follow up: Private Physician; When: As needed; Reason: Recheck today's complaints, Re-evaluation by your physician. - Problem is an ongoing problem. - Symptoms have improved. Signatures: Dispatcher [employer] EDMS Cedrick Carpio MD MD rn Antunez, Elena, RN RN ea Lewis, Lynsay, RN RN ll1 Corrections: (The following items were deleted from the chart) 02:13 01:58 09/26/2019 01:58 Discharged to Home. Impression: Pneumonia, unspecified organism. ea Condition is Stable. Forms are Medication Reconciliation Form, Thank You Letter, Antibiotic Education, Prescription Opioid Use. Follow up: Private Physician; When: As needed; Reason: Recheck today's complaints, Re-evaluation by your physician. Problem is an ongoing problem. Symptoms have improved. rn
--- NOTE | 2019-09-26 01:58 | ER ---
Nurse's Notes [facility] Name: Lindsey Aguilar Age: 24 yrs Sex: Female : 1995 Arrival Date: 09/25/2019 Time: 22:48 Bed 4 Private MD: Diagnosis: Pneumonia, unspecified organism Presentation: 09/24 22:57 Chief complaint: Patient states: CP and SOB for 10 days. States her fever was 101.1 the ll1 first three days, no fever since. SOB with any exertion. Coronavirus screen: Surgical mask placed on patient. Patient moved to private room, placed in contact and droplet isolation with eye protection until further assessment. Patient reports a cough. Patient reports shortness of breath or difficulty breathing. Patient reports a measured and/or subjective temperature greater than 100.4F. Patient denies travel on a cruise ship or to a country the [facility] currently lists as an affected area. Patient denies contact with known and/or suspected case of COVID-19. Ebola Screen: Patient denies travel to an Ebola-affected area in the 21 days before illness onset. Initial Sepsis Screen: Does the patient meet any 2 criteria? RR > 20 per min. HR > 90 bpm. Yes Does the patient have a suspected source of infection? Yes: Productive cough/pneumonia. Risk Assessment: Do you want to hurt yourself or someone else? Patient reports no desire to harm self or others. Onset of symptoms was September 15, 2019. 22:57 Method Of Arrival: Wheelchair ll1 22:57 Acuity: GILBERTO 3 ll1 Triage Assessment: 23:45 General: Appears uncomfortable. Respiratory: Reports shortness of breath Onset: The ea symptoms/episode began/occurred 3 days ago, the patient has mild shortness of breath. Historical: - Allergies: 22:59 PENICILLINS; ll1 - PMHx: 22:59 "Liver Problems"; Depression; Endometriosis; Hyperlipidemia; HYPOGLYCEMIA; Thyroid ll1 problem; - PSHx: 22:59 Appendectomy; ; Breast reduction; ll1 - Immunization history:: Adult Immunizations up to date. - Social history:: Smoking status: Patient/guardian denies using tobacco, the patient reports quitting approximately 1 years ago, Patient/guardian denies using alcohol, street drugs, tobacco products. - Family history:: not pertinent. - Hospitalizations: : No recent hospitalization is reported. Screenin:44 Abuse screen: Denies threats or abuse. Nutritional screening: No deficits noted. ea Tuberculosis screening: No symptoms or risk factors identified. Fall Risk None identified. Assessment: 23:42 General: Appears uncomfortable, Behavior is restless. Pain: Complains of pain in chest. ea Pain: Aggravated by deep breaths. Neuro: Level of Consciousness is awake, alert, obeys commands, Oriented to person, place, time, situation. Cardiovascular: Patient's skin is warm and dry. Respiratory: Airway is patent Respiratory effort is even, shallow, Respiratory pattern is tachypnea Breath sounds are clear bilaterally. GI: Abdomen is obese. Derm: Skin is pink, warm \\T\\ dry. 09/25 00:31 Reassessment: Patient and/or family updated on plan of care and expected duration. Pain ea level reassessed. Patient is alert, oriented x 3, equal unlabored respirations, skin warm/dry/pink. Patient states symptoms have improved. 01:54 Reassessment: Patient and/or family updated on plan of care and expected duration. Pain ea level reassessed. Patient is alert, oriented x 3, equal unlabored respirations, skin warm/dry/pink. Provider updating pt on plan of care. 02:11 Reassessment: Patient and/or family updated on plan of care and expected duration. Pain ea level reassessed. Patient is alert, oriented x 3, equal unlabored respirations, skin warm/dry/pink. Discharge instruction given to patient, verbalized the understanding of instruction. pt left ED ambulatory accompanied by family. Vital Signs: 09/24 22:57 BP 152 / 113; Pulse 93; Resp 24; Temp 98.4; Pulse Ox 100% ; Pain 7/10; ll1 23:45 BP 162 / 88; Pulse 77; Resp 22; Pulse Ox 100% ; ea 09/25 00:31 BP 147 / 89; Pulse 92; Resp 22; Pulse Ox 98% ; ea 01:55 BP 159 / 96; Pulse 94; Resp 20; Pulse Ox 99% on R/A; ea ED Course: 09/24 22:48 Patient arrived in ED. cl3 22:49 Cedrick Carpio MD is Attending Physician. rn 22:59 Triage completed. ll1 22:59 Arm band placed on. ll1 23:05 Adrienne Arellano, RN is Primary Nurse. ea 23:28 CXR XRAY In Process Unspecified. EDMS 23:38 Inserted saline lock: 20 gauge in left antecubital area, using aseptic technique. Blood ea collected. 23:44 Patient has correct armband on for positive identification. Bed in low position. Call ea light in reach. Side rails up X 1. equipment monitor phototypesetting on. Pulse ox on. NIBP on. 23:47 COVID-19 Sent. ea 23:47 Flu Sent. ea 23:48 Strep Sent. ea 09/25 01:21 CT Chest For PE Angio In Process Unspecified. EDMS 02:00 IV discontinued, intact, bleeding controlled, No redness/swelling at site. Pressure ea dressing applied. 02:12 No provider procedures requiring assistance completed. ea Administered Medications: 09/24 23:47 Drug: Xopenex 1.25 mg Route: Inhalation; ea 09/25 02:11 Drug: LevaQUIN 500 mg Route: PO; ea 02:11 Follow up: Response: Medication administered at discharge. ea Outcome: 01:58 Discharge ordered by . rn 02:13 Discharged to home ea 02:13 Condition: stable 02:13 Discharge instructions given to patient, Instructed on discharge instructions, follow up and referral plans. medication usage, Demonstrated understanding of instructions, follow-up care, medications, Prescriptions given X 2. 02:13 Patient left the ED. ea Addendum: 09/28/2019 17:50 Addendum: Other Pt notified of positive COVID results by Dr. Harmon via telephone. h b Signatures: Dispatcher [employer] EDNV Cedrick Carpio MD MD rn Baxter, Heather, RN RN Adrienne Arellano RN Kristi Washington ea cl3 Gerald Briggs RN RN ll1
[2019-09-26] MEDS ORDERED: levoFLOXacin 500 MG TAB ONE (02:11)
[2019-09-26 02:25] VITALS: TEMP 98.4
[2019-09-26 02:29] VITALS: BP 159/96; O2SAT 99
--- NOTE | 2019-09-26 06:25 | EKG ---
Test Date: 2019-09-25 Test Time: 23:08:11 Maintenance Planner: NEIL MEASUREMENT RESULTS: Intervals: Rate: 93 CA: 164 QRSD: 94 QT: 380 QTc: 472 [place]: P: 51 CA: 164 QRS: 19 T: 8 INTERPRETIVE STATEMENTS: Normal sinus rhythm Normal ECG Compared to ECG 07/14/2017 17:12:34 Sinus arrhythmia no longer present Myocardial infarct finding no longer present Electronically Signed On 09-26-19 06:24:16 CDT by Brendan Collier
--- NOTE | 2019-09-26 08:40 | RAD REPORT ---
EXAM DESCRIPTION: RAD - Chest Single View - 09/25/2019 11:28 pm CLINICAL HISTORY: Chest pain;Dyspnea Chest pain. COMPARISON: Chest Single View dated 04/26/2017; CHEST PA AND LAT 2 VIEW dated 07/16/2014; CHEST PA AND LAT 2 VIEW dated 03/18/2010; Chest For Pe Angio dated 09/26/2019 FINDINGS: Portable technique limits examination quality. The lungs are grossly clear. The heart is normal in size. No displaced fractures. IMPRESSION: No acute intrathoracic process suspected.
--- NOTE | 2019-09-26 20:07 | RAD REPORT ---
EXAM DESCRIPTION: CT CHEST ANGIOGRAPHY WITH IV CONTRAST CLINICAL HISTORY: Chest pain; Dyspnea TECHNIQUE: Contiguous axial images obtained through the chest during angiographic phase following th e uneventful administration of IV contrast. Coronal reformatted images were provided. MIP reformatted images were provided. This exam was performed according to our departmental dose-optimization program, which includes autom ated exposure control, adjustment of the mA and/or kV according to patient size and/or use of iterati ve reconstruction technique. COMPARISON: No prior exams provided for comparison. FINDINGS: Diagnostic quality: There is good opacification of the pulmonary arterial tree. Motion art ifact degrades image quality and limits evaluation of segmental and subsegmental vessels. Lungs: Scattered multifocal reticular nodular opacities bilaterally. Airways are patent. Pleura: No effusion. No pneumothorax. Heart and pericardium: The heart is normal in size. No pericardial effusion. Mediastinum and wilfred: No pathologically enlarged lymph nodes. Lower neck and chest wall: Unremarkable Vessels: No pulmonary arterial filling defects. No thoracic aortic aneurysm. Upper abdomen: The liver is enlarged. Bones: Mild thoracic dextroscoliosis. No acute fracture. IMPRESSION: 1. Motion artifact degrades image quality and limits evaluation of segmental and subsegmental vessel s. No central pulmonary embolic disease. 2. Scattered multifocal reticulonodular infiltrates bilaterally. 3. Other findings as above. Electronically signed by: Twan Warren MD 09/26/2019 1:33 AM CDT Due to temporary technical issues with the PACS/Fluency reporting system, reports are being signed by the in house radiologist without review as a courtesy to ensure prompt reporting. The interpreting r adiologist is fully responsible for the content of the report.
== END 2019-09-26 02:13 | disposition home or self-care (01) ==
LOC: ER 22:46
DX: U07.1 COVID-19 (principal); J12.89 Other viral pneumonia; Z88.0 Allergy status to penicillin; Z87.891 Personal history of nicotine dependence
CPT/HCPCS: 36415; 71045; 71275; 80048; 84145; 84484; 85025; 85379; 87040; 87070; 87081; 87804; 93005; 99285; Q9967

== ENCOUNTER 2020-01-27 16:47 | Emergency (ER) | payer SELFPAY ==
--- OUTSIDE RECORDS SUMMARY | 2020-01-27 16:50 | XMS REPORT | Clinical Summary ---
:1995 Author Organization [facility] Address [address] [place] [address] Care Team Providers Name Role Phone Asked, [...] 20 doses. Active Problems Not on file Surgical History Surgery Date Site/Laterality Comments BREAST SURGERY Medical History Medical History Date Comments High cholesterol PCOS (polycystic ovarian syndrome) Social History Tobacco Use Types Packs/Day Years Used Date Current Every Day Smoker Cigarettes 0.5 Alcohol Use Drinks/Week oz/Week Comments No Sex Assigned at Date Recorded Not on file Last Filed Vital Signs Not on file Plan of Treatment Not on file Results Not on fileafter 01/26/2019 Advance Directives For more information, please contact: [phone] Type Date Recorded Patient Processing Archivist Explanati on Advance Directives, Living Will and Medical Power of Rubbish Collection Supervisor
--- OUTSIDE RECORDS SUMMARY | 2020-01-27 16:52 | XMS REPORT | Continuity of Care Document ---
:1995 Author Organization [employer] Care Team Providers Name Role Phone [employer] Unavailable Un available Problems Problem Status Onset Classification Date Comments Sourc e Date Reported M25.561 - PAIN Active 05/04/19 OP ID IN RIGHT KNEE 19 Geoff curiel, WES Mccarthy Other specified 04/01/20 10/15/2018 [facility] 18 [place] related conditions, unspecified trimester Gestational 03/04/20 09/14/2018 [place] [facility] [-induc 18 Med ical ed] hypertension Oli ter without significant proteinuria, complicating childbirth INDUCTION Active 02/21/[address] Other specified 12/22/19 07/04/2018 [facility] Medical related Center conditions, third trimester Elevated 12/16/19 07/04/2018 [facility] blood-pressure 18 Medic al reading, without Oli ter diagnosis of hypertension ELEVATED BLOOD [place] 12/16/19 [place] [address] [place] [address] LABOR Active 10/10/[address] Patient Resolved 05/27/19 Problem 11/29/2018 [place] [address] [facility], (finding) [place] [place] Discharge 09/08/19 09/11/2015 Geoff curiel Diagnosis: Acute 16 vaginitis OTHER Active 09/08/19 [facility] 16 Sonu Discharge 08/22/19 08/24/2014 Diagnosis: Cough 15 Gar[place] theast Discharge 08/22/19 08/24/2014 Diagnosis: Fever 15 [place] the[place] SOB, COUGHING Active 08/18/19 [facility] Resolved Problem 11/29/2018 [facility] (disorder) [facility], [place] Disease of Resolved Problem 11/29/2018 [facility] periapical Medical tissues of tooth Oli ter, (disorder) [place] [place] Morbid obesity Resolved Problem 11/29/2018 Kiera velasquez (disorder) Medical [place], [place] Pain in right 10/15/2018 OP ID knee [place] Bicipital 10/15/2018 [facility] tendinitis, [place] right shoulder Pain in right 10/15/2018 OP ID shoulder [place] Impingement 10/15/2018 [facility] syndrome of [place] right shoulder Other chronic 10/15/2018 OP ID pain [place] Abnormal 10/15/2018 OP[facility] findings on [place] diagnostic imaging of limbs Weeks of 10/15/2018 OP[facility] gestation of [place] d not specified Maternal care 07/04/2018 [place] for transverse Medic al and oblique lie, Oli ter not applicable or unspecified Diseases of the 07/04/2018 [facility] respiratory Medical system Center complicating , third trimester Mild persistent 07/04/2018 [facility] asthma, Medical uncomplicated Center Obesity 07/04/2018 [facility] complicating Medical , third Oli ter trimester Morbid (severe) 09/14/2018 [facility] obesity due to Medic al excess calories Cent er Body mass index 07/04/2018 [facility] (BMI) 50-59.9 , [place] adult Center Personal history 09/14/2018 [facility] of nicotine Medical dependence Center 28 weeks 07/04/2018 [facility] gestation of Medical Center 38 weeks 09/14/2018 [facility] gestation of Medical Center Single live [facility]/14/2018 [facility] Obesity 09/14/2018 [facility] complicating Medical childbirth Center Other mental 09/14/2018 [facility] as disorders Medical complicating Center childbirth Major depressive 09/14/2018 [facility] disorder, single Med ical episode, Center unspecified Abnormality in 09/14/2018 [place] heart rate Med ical and rhythm Center complicating labor and delivery Mild 09/14/2018 [facility] intermittent Medical asthma, Center uncomplicated Diseases of the 09/14/2018 [facility] respiratory Medical system Center complicating childbirth Maternal care 09/14/2018 [place] for high head at Med ical term, not Center applicable or unspecified Maternal 09/14/2018 [facility] exhaustion Medical complicating Center labor and delivery Other immediate 09/14/2018 [facility] Medical hemorrhage Center Maternal care 09/14/2018 [place] for other Medical abnormalities of Oli ter pelvic organs, third trimester Endometriosis of 09/14/2018 [facility] ovary Medical Center Medications Medication Details Route Status Patient Ordering Order Source Instructions Provider Date Docusate Sodium 100 mg = 1 cap, Active [place] 100 MG Oral PO, BID, PRN 2018 Medical Capsule Constipation, # Center 60 cap, 3 Refill(s) 1 tab, PO, Active [place] Multivitamins Daily, # 30 2018 Medica l with Folic Acid tab, 3 Center 0.8 mg oral Refill(s) tablet ferrous sulfate 325 mg = 1 tab, Active [place] 325 MG Oral PO, BID, # 60 2018 Medica l Tablet tab, 3 Center Refill(s) tramadol 100 mg = 2 tab, [place] Longer [place] hydrochloride 50 PO, Q6H, PRN Active 2018 Me dical MG Oral Tablet Pain Score Center 7-10, # 20 tab, 0 Refill(s) ibuprofen 600 mg 600 mg = 1 tab, No Longer 02/25 [place] oral tablet PO, Q6Hnow, # Active 2018 Medica l 40 tab, 0 Center Refill(s) 1 tab, Route: No Longer [facility] loren Multivitamins PO, Drug Form: Active 2017 Med ical oral tablet TAB, Dosing Center Weight 159.545, kg, Daily, Start date: 02/23/18 9:00:00 CYANIDE POT HARDENER, Duration: 30 day, Stop date: 03/24/18 9:00:00 CYANIDE POT HARDENER Ancef 3 gm, 150 mL, No Longer [place] Route: IV, Drug Active 2017 Medical form: INJ, Center [id number], Dosing Weight 159.545, kg, Start date: 02/22/18 19:30:00 CYANIDE POT HARDENER, Duration: 3 doses or times, Stop date: 02/23/18 11:30:00 CYANIDE POT HARDENER, ABX Indication: Surgical Prophylaxis sugammadex (ANES) Route: IV, Drug Inactive 02/22 [place] form: BRANDIN, 2018 Medical ONCE, Stop Center date: 02/22/18 13:02:00 CYANIDE POT HARDENER M-M-R II Notes: (Same No Longer [place] as: M-M-R II) Active 2018 Medical (measles-mumps- Center rubella virus vaccine 0.5 ml INJ VL) WASTE: F/P - Red; E -Red GIVE PRIOR TO DISCHARGE Ibuprofen Notes: (Same No Longer Andreaa s as: Motrin) "Do Active 2018 Medical Not Crush" Center Take with food. Methergine Notes: (Same No Longer [place] as as:Methergine) Active 2017 Medical [place] acetaminophen Route: IV, Drug Inactive [facility] (ANES) form: INJ, 2017 Medical ONCE, Stop Center date: 02/22/18 12:34:00 CYANIDE POT HARDENER hydromorphone Route: IV, Drug Inactive [facility] (ANES) + sodium form: INJ, 2017 Medic al chloride (ANES) ONCE, Stop Cente r 10 mL date: 02/22/18 12:34:00 CYANIDE POT HARDENER fentaNYL (ANES) Route: IV, Drug Inactive [facility] form: INJ, 2017 Medical ONCE, Stop Center date: 02/22/18 12:24:00 CYANIDE POT HARDENER sodium citrate Route: PO, Drug Inactive [facility] (ANES) Form: INJ, 2017 Medical ONCE, Stop Center date: 02/22/18 12:24:00 CYANIDE POT HARDENER famotidine (ANES) Route: IV, Drug Inactive 02/22 [facility] form: INJ, 2017 Medical ONCE, Stop Center date: 02/22/18 12:24:00 CYANIDE POT HARDENER metoclopramide Route: IV, Drug Inactive [facility] (ANES) form: INJ, 2017 Medical ONCE, Stop Center date: 02/22/18 12:24:00 CYANIDE POT HARDENER ondansetron Route: IV, Drug Inactive [facility] (ANES) form: INJ, 2017 Medical ONCE, Stop Center date: 02/22/18 12:24:00 CYANIDE POT HARDENER midazolam (ANES) Route: IV, Drug Inactive [facility] form: SOLN, 2017 Medical ONCE, Stop Center date: 02/22/18 12:24:00 CYANIDE POT HARDENER rocuronium (ANES) Route: IV, Drug Inactive 02/22 [facility] form: INJ, 2017 Medical ONCE, Stop Center date: 02/22/18 12:19:00 CYANIDE POT HARDENER albuterol (ANES) Route: Inactive [place] as INHALATION, 2017 Medical Drug form: Center AERO/A, ONCE, Stop date: 02/22/18 12:19:00 CYANIDE POT HARDENER Cytotec Notes: (Same Inactive [facility] as:Cytotec) 2018 Medical Take with food Center tranexamic acid Route: IV, Drug Inactive [place] (ANES) 100 mg form: INJ, 2018 Medical Start date: Center 02/22/18 12:11:00 CYANIDE POT HARDENER, Stop date: 02/22/18 13:11:00 CYANIDE POT HARDENER Naloxone Notes: Same as No Longer [place] as Narcan Active [address] [place] [address] Center Hydromorphone Notes: (Same No Longer [place] as: Dilaudid) Active 2018 Medical conc = 0.5 Center mg/ml Hydromorphone [employer] Dose: ;Delay: ;Basal: zolpidem Notes: (Same No Longer [place] As: Ambien) Active 2018 Medical Center Tramadol Notes: Not to [place] exceed Active 2017 Medical 400mg/day. Center (Same As: Ultram) Docusate Notes: (Same No Longer [place] as: Colace) (Do Active 2017 Medical Not Crush) Center Bisacodyl Notes: (Same [place] Longer [place] As: Dulcolax, Active 2017 [facility] Bisco-Lax) Center Oxytocin 30 unit, 500 No Longer [place] mL, Rate: 42 Active 2017 Medical ml/hr, Infuse Center over: 11.9 hr, Dosing Weight 159.545, kg, Route: IV, Total Volume: 500 mL, Start date: 02/22/18 12:01:00 CYANIDE POT HARDENER, Duration: 2 day, Stop date: 02/24/18 12:00:00 CYANIDE POT HARDENER, Replace Every: 11.9 hr Benzocaine / Notes: Cepacol No Longer [place] Menthol lozenges Active 2018 Medical Dispense 1 box Center = 16 lozenges (Same As: Cepacol Lozenges) lanolin topical Notes: (Same No Longer H [place] cream as:Lanolin) Active 2018 Medical Center Simethicone Notes: (Same [place] as: Mylicon) Active 2018 Medical Center Acetaminophen Notes: Do not No Longer [place] exceed 4 Active 2018 Medical gm/day. (Same Center as: Tylenol) Lactated Ringers 1,000 mL, Rate: No Longer 02/22 [place] IV 1,000 mL 100 ml/hr, Active 2017 Medical Infuse over: 10 Center hr, Route: IV, Dosing Weight 159.545 kg, Total Volume: 1,000, Start date: 02/22/18 12:01:00 CYANIDE POT HARDENER, Duration: 30 day, Stop date: 03/24/18 12:00:00 CYANIDE POT HARDENER, 2.82, m2 succinylcholine Route: IV, Drug Inactive [place] (ANES) form: INJ, 2017 Medical ONCE, Stop Center date: 02/22/18 11:49:00 CYANIDE POT HARDENER lidocaine (ANES) Route: IV, Drug Inactive [place] form: INJ, 2017 Medical ONCE, Stop Center date: 02/22/18 11:49:00 CYANIDE POT HARDENER propofol (ANES) Route: IV, Drug Inactive [place] form: INJ, 2017 Medical ONCE, Stop Center date: 02/22/18 11:49:00 CYANIDE POT HARDENER azithromycin Route: IV, Drug Inactive [place] (ANES) 500 mg form: INJ, 2017 Medical Start date: Center 02/22/18 11:46:00 CYANIDE POT HARDENER, Stop date: 02/22/18 12:46:00 CYANIDE POT HARDENER tranexamic acid Route: IV, Drug Inactive [place] (ANES) form: INJ, 2017 Medical ONCE, Stop Center date: 02/22/18 11:44:00 CYANIDE POT HARDENER dexamethasone Route: IV, Drug Inactive H [place] (ANES) form: INJ, 2017 Medical ONCE, Stop Center date: 02/22/18 11:44:00 CYANIDE POT HARDENER phenylephrine Route: IV, Drug Inactive H [place] (ANES) form: INJ, 2017 Medical ONCE, Stop Center date: 02/22/18 11:44:00 CYANIDE POT HARDENER ceFAZolin (ANES) Route: IV, Drug Inactive [place] form: INJ, 2017 Medical ONCE, Stop Center date: 02/22/18 11:23:00 CYANIDE POT HARDENER methylergonovine Route: IM, Drug Inactive [place] (ANES) form: INJ, 2017 Medical ONCE, Stop Center date: 02/22/18 11:03:00 CYANIDE POT HARDENER carboprost (ANES) Route: IM, Drug Inactive 02/22 [place] form: INJ, 2017 Medical ONCE, Stop Center date: 02/22/18 11:03:00 CYANIDE POT HARDENER Lactated Ringers Route: IV, Inactive [place] Injection IV Total Volume: 2018 Medic al (ANES) 1000 mL 1,000, Start Cent er date: 02/22/18 10:29:00 CYANIDE POT HARDENER, Stop date: 02/22/18 11:29:00 CYANIDE POT HARDENER Cefazolin 3 gm, 150 mL, Inactive [place] pimentel Route: IVPB, 2017 Medical Drug form: INJ, Center ONCALL, Dosing Weight 159.545, kg, Start date: 02/22/18 10:00:00 CYANIDE POT HARDENER, Duration: 1 doses or times, ABX Indication: [...] kg, Priority: STAT, Start date: 02/21/18 20:23:00 CYANIDE POT HARDENER, Stop date: 02/21/18 20:23:00 CYANIDE POT HARDENER, .. Oxytocin 30 unit, 500 No Longer [place] mL, Rate: Active [facility] Medical Titrate, Dosing Center Weight 159.545, kg, Route: IV, Total Volume: 500 mL, Start date: 02/21/18 9:26:00 CYANIDE POT HARDENER, Duration: 2 day, Stop date: 02/23/18 9:25:00 CYANIDE POT HARDENER, Replace Every: 24 hr Remove - Notes: [...] Notes: (Same Inactive [place] as: Cervidil) 2018 [facility] Center Famotidine Notes: (Same No Longer [place] as as: Pepcid) Can Active [facility] Medical be dilute in Center 5-10cc NS IVP: Slow IV push over at least 2 minutes. Misoprostol Notes: (Same [place] Longer [place] as:Cytotec) Active 2018 Medical Take with food Center Methylergonovine Notes: (Same No Longer [place] as:Methergine) Active [address] [place] [address] Citric Acid / Notes: (Same No Longer [place] sodium citrate As: Bicitra, Active [address] [place] [address] Cytra-2) Sodium Center citrate-citric acid (500-334 mg/5 mL): 1 mL contains sodium 1 mEq/mL and bicarbonate 1 mEq/mL Carboprost Notes: (Same No Longer [place] as As: Hemabate) Active [address] [place] [address] Center Lidocaine Notes: No Longer [place] Hydrochloride 10 Preservative Active [address] [place] [address] dical MG/ML Injectable free. (Same Ce nter Solution as: Xylocaine MPF) Terbutaline Notes: DO NOT No Longer [place] USE IN PAD EXTRACTOR TENDER Active [facility] Medical AREA (Same Center As: Brethine) Ondansetron Notes: (Same [place] Long[place] as: Zofran) Active [facility] Medical MEDICATION Center WASTE Product Size: 4 mg Product Wasted: ___ mg Butorphanol Notes: (Same [place] Longer [place] As: Stadol) Active [address] [place] [address] Center Ibuprofen Notes: (Same No Longer [place] as: Motrin) "Do Active [facility] Medical Not Crush" Center Take with food. Calcium Chloride 1,000 mL, 1,000 Inactive [place] 0.0014 MEQ/ML / ml/hr, Infuse 2018 Me dical Potassium Over: 1 hr, Center Chloride 0.004 Route: IV, MEQ/ML / Sodium 1,000, Drug Chloride 0.103 form: INJ, MEQ/ML / Sodium ONCE, Dosing Lactate 0.028 Weight 159.545 MEQ/ML Injectable kg, Start date: Solution 02/20/18 17:18:00 CYANIDE POT HARDENER, Stop date: 02/20/18 17:18:00 CYANIDE POT HARDENER, Bolus for regional anesthesia per unit routine Lactated Ringers 1,000 mL, Rate: No Longer 02/20 [place] IV 1,000 mL 125 ml/hr, Active 2017 Medical Infuse over: 8 Center hr, Route: IV, Dosing Weight 159.545 kg, Total Volume: 1,000, Start date: 02/20/18 17:18:00 CYANIDE POT HARDENER, Duration: 30 day, Stop date: 03/22/18 17:17:00 CYANIDE POT HARDENER, 2.82, m2 Oxytocin 30 unit, 500 No Longer [place] mL, Rate: 42 Active 2017 Medical ml/hr, Infuse Center over: 11.9 hr, Dosing Weight 159.545, kg, Route: IV, Total Volume: 500 mL, Start date: 02/20/18 17:18:00 CYANIDE POT HARDENER, Duration: 2 day, Stop date: 02/22/18 17:17:00 CYANIDE POT HARDENER, Replace Every: 11.9 hr Acetaminophen 325 Notes: [...] Notes: (Same Inactive 09/07/ As: Rocephin) 2015 [place] Tramadol Notes: Not to Inactive exceed 2015 [place] 400mg/day. (Same As: Ultram) Morphine Notes: (Same Inactive as:MORPhine 2015 [place] Sulfate) Ondansetron Notes: (Same Inactive as: Zofran) 2015 [place] MEDICATION WASTE Product Size: 4 mg Product Wasted: ___ mg Saline Flush 0.9% Notes: (Same Inactive as: BD 2015 [place] Posiflush) Azithromycin 5 Special Active Day Dose [...] Source Given Updated pneumococcal Left completed [facility] s 23-valent vaccine 8 deltoid [facility], [facility] [place] WES Mccarthy Results Order Name Results Value Reference Date Interpretation Comments Garima rce Range HEMATOLOGY Hct 26.8 36.0 - 02/24 [place] 48.0 [facility] HEMATOLOGY MCV 79.3 80.0 - 02/24 [place] 98.0 [facility] HEMATOLOGY MPV 9.2 7.4 - 10.4 02/24 [facility] HEMATOLOGY MCH 26.1 27.0 - 02/24 [place] 31.0 [facility] HEMATOLOGY Platelet 221 133 - 450 02/24 [facility] HEMATOLOGY MCHC 33.0 32.0 - 02/24 [place] 36.0 [facility] HEMATOLOGY RDW 16.2 11.5 - 02/24 [place] 14.5 [facility] HEMATOLOGY Hgb 8.8 12.0 - 02/24 [place] 16.0 2018 [facility] HEMATOLOGY WBC 12.5 3.7 - 10.4 02/24 [facility] HEMATOLOGY RBC 3.38 4.20 - 02/24 [place] 5.40 /2018 [facility] HEMATOLOGY Neutrophils 9.5 1.5 - 8.1 02/24 [place] # [facility] HEMATOLOGY Eosinophils 1.4 0.0 - 4.0 02/24 [place] /2017 [facility] HEMATOLOGY Lymphocytes 2.1 1.0 - 5.5 02/[place] # [facility] HEMATOLOGY Monocytes # 0.6 0.0 - 0.8 02/[place] [facility] HEMATOLOGY Eosinophils 0.2 0.0 - 0.5 02/24 [place] # [facility] Center HEMATOLOGY Basophils 0.4 0.0 - 1.0 02/24 [facility] Center HEMATOLOGY Monocytes 4.6 2.0 - 12.0 02/24 [facility] Center HEMATOLOGY Segs 76.4 45.0 - 02/24 [place] 75.0 2018 [facility] Center HEMATOLOGY Lymphocytes 17.2 20.0 - 02/24 [place] 40.0 [facility] Center HEMATOLOGY Hgb 9.4 12.0 - 02/23 [place] 16.0 [facility] Center HEMATOLOGY WBC 19.7 3.7 - 10.4 02/23 [facility] HEMATOLOGY RBC 3.73 4.20 - 02/23 [place] 5.40 [facility] HEMATOLOGY MCHC 31.8 32.0 - 02/23 [place] 36.0 [facility] HEMATOLOGY Platelet 203 133 - 450 02/23 [facility] HEMATOLOGY RDW 16.0 11.5 - 02/23 [place] 14.5 [facility] HEMATOLOGY MPV 9.9 7.4 - 10.4 02/23 [facility] HEMATOLOGY Hct 29.5 36.0 - 02/23 [place] 48.0 [facility] HEMATOLOGY MCV 79.2 80.0 - 02/23 [place] 98.0 /2018 [facility] HEMATOLOGY MCH 25.2 27.0 - 02/23 [place] 31.0 2018 [facility] Center HEMATOLOGY Lymphocytes 2.3 1.0 - 5.5 02/23 [place] [facility] Center HEMATOLOGY Basophils 0.1 0.0 - 1.0 02/23 [facility] HEMATOLOGY Neutrophils 16.0 1.5 - 8.1 02/23 [place] # [facility] Center HEMATOLOGY Monocytes # 1.4 0.0 - 0.8 02/23 [place] [facility] HEMATOLOGY Segs 81.5 45.0 - 02/23 [place] 75.0 2018 Medical Center HEMATOLOGY Lymphocytes 11.4 20.0 - 02/23 [place] 40.0 2018 [facility] Center HEMATOLOGY Plt Morph Normal 02/23 [facility] (02/23/18 5:23 AM) [facility] HEMATOLOGY Monocytes 7.0 2.0 - 12.0 02/23 [facility] HEMATOLOGY Hypochrom 1+ None Seen 02/22 [facility] (02/22/18 4:04 PM) [facility] HEMATOLOGY Segs 93.1 45.0 - 02/22 [place] 75.0 [facility] HEMATOLOGY Lymphocytes 3.4 20.0 - 02/22 [place] 40.0 [facility] HEMATOLOGY Monocytes 3.4 2.0 - 12.0 02/22 [facility] HEMATOLOGY Basophils 0.1 0.0 - 1.0 02/22 [facility] HEMATOLOGY Monocytes # 0.9 0.0 - 0.8 02/[place] /2017 [facility] HEMATOLOGY Lymphocytes 0.9 1.0 - 5.5 02/22 [place] # /2017 [facility] HEMATOLOGY Neutrophils 23.7 1.5 - 8.1 02/22 [place] # /2017 [facility] HEMATOLOGY Plt Morph Normal 02/22 [facility] (02/22/18 4:04 PM) [facility] HEMATOLOGY MPV 9.9 7.4 - 10.4 02/22 [facility] HEMATOLOGY MCHC 32.3 32.0 - 02/22 [place] 36.0 [facility] HEMATOLOGY RDW 15.8 11.5 - 02/22 [place] 14.5 [facility] HEMATOLOGY Platelet 198 133 - 450 02/22 [facility] HEMATOLOGY MCH 25.7 27.0 - 02/22 [place] 31.0 [facility] HEMATOLOGY MCV 79.3 80.0 - 02/22 [place] 98.0 [facility] HEMATOLOGY Hct 34.1 36.0 - 02/22 [place] 48.0 [facility] HEMATOLOGY WBC 25.4 3.7 - 10.4 02/22 [facility] HEMATOLOGY Hgb 11.0 12.0 - 02/22 [place] 16.0 [facility] HEMATOLOGY RBC 4.30 4.20 - 02/22 [place] 5.40 [facility] URINE CHEM U Prot/Creat 0.18 02/21 [facility] URINE CHEM U Protein 17.6 02/21 [facility] URINE CHEM U Creatinine 98.00 02/21 [facility] [address] [place] [address] CHEM PANEL eGFR 134 02/20 Result [facility] Comment: The Medical eGFR is Center [...] B/C Ratio 15 6 - 25 02/[address] CHEM PANEL Globulin 3.9 2.7 - 4.2 02/[address] CHEM PANEL A/G Ratio 0.8 0.7 - 1.6 02/[address] CHEM PANEL Creatinine 0.53 0.50 - 02/20 [facility] Lvl 1.40 [facility] CHEM PANEL Potassium 4.1 3.5 - 5.1 02/20 [facility] CHEM PANEL Sodium Lvl 139 135 - 145 02/[address] CHEM PANEL ALT 17 0 - 65 02/[address] CHEM PANEL Alk Phos 153 39 - 136 02/[address] CHEM PANEL AST 21 0 - 37 02/[address] CHEM PANEL AGAP 15.1 10.0 - 02/20 [place] 20.0 [facility] CHEM PANEL Bili Total 0.2 0.2 - 1.3 02/[address] CHEM PANEL Calcium Lvl 8.6 8.5 - 10.5 02/20 [facility] CHEM PANEL CO2 21 24 - 32 02/[address] CHEM PANEL Albumin Lvl 3.0 3.5 - 5.0 02/20 [facility] CHEM PANEL Total 6.9 6.4 - 8.4 02/20 [facility] Protein [facility] CHEM PANEL Chloride Lvl 107 95 - 109 02/20 [place] [facility] CHEM PANEL Glucose Lvl 64 70 - 99 02/20 [place] [facility] CHEM PANEL BUN 8 7 - 22 02/20 [facility] [address] [place] [address] BLOOD BANK ABO/Rh O POS 02/20 [facility] RESULTS [facility] BLOOD BANK Antibody Negative 02/20 [facility] RESULTS Scrn (02/20/18 5:43 PM) /2017 [facility] HEMATOLOGY Eosinophils 0.2 0.0 - 4.0 02/20 [place] [facility] IMMUNOLOGY HIV. Negative Negative 02/20 [place] *NA* [facility] (02/20/18 5:43 PM) Cente r IMMUNOLOGY Treponemal Non-Reactive Non 02/20 [place] *NA [facility] (02/20/18 5:43 PM) Cente r IMMUNOLOGY Hep Bs Ag Negative Negative 02/20 [place] *NA* [facility] (02/20/18 5:43 PM) Cente r URINE AND UA Bacteria Few /HPF None Seen 12/15 [place] STO[place] /HPF /2017 [facility] URINE AND UA RBC <1 0 - 2 12/15 [facility] STOOL /[address] [place] [address] URINE AND UA WBC 2 0 - 5 12/15 [facility] STOOL /[address] [place] [address] URINE AND UA Nitrite Negative Negative 12/15 [facility] STOOL (12/15/17 6:38 PM) /[address] [place] [address] URINE AND UA Leuk Est Negative Negative 12/15 [facility] STOOL (12/15/17 6:38 PM) /[address] [place] [address] URINE AND UA Sq Epi Many /LPF Few /LPF 12/15 [facility] STOOL [address] [place] [address] URINE AND UA Blood Negative Negative 12/15 [facility] STOOL (12/15/17 6:38 PM) /[address] [place] [address] URINE AND UA Bili Negative Negative 12/15 [facility] STOOL *NA* [facility] (12/15/17 6:38 PM) Center URINE AND UA Mucus Few /LPF None Seen 12/15 [place] STOOL /LPF /[address] [place] [address] URINE AND UA Glucose Negative Negative 12/15 [facility] STOOL mg/dL mg/dL /2017 [facility] URINE AND UA Ketones Negative Negative 12/15 [facility] mg/dL mg/dL /2017 [facility] URINE AND UA Protein Negative Negative 12/15 [facility] mg/dL mg/dL [facility] URINE AND UA Spec Grav 1.010 <=1.030 12/15 [facility] URINE AND UA pH 6.0 5.0 - 8.0 12/15 [facility] [address] [place] [address] URINE AND UA Color Yellow Yellow 12/15 [facility] *NA* /2017 [facility] (12/15/17 6:38 PM) [place] URINE AND UA Turbidity Slight Clear 12/15 [facility] *ABN* /2017 [facility] (12/15/17 6:38 PM) [place] URINE AND UA <=1.0 0.1 - 1.0 12/15 [facility] Urobilinogen mg/dL [facility] URINE CHEM U Prot/Creat 0.14 12/15 [facility] [facility] URINE CHEM U Protein 9.6 12/15 [facility] URINE CHEM U Creatinine 70.90 12/15 [facility] CHEM PANEL eGFR 151 12/15 [facility] Comment: [facility] eGFR is Center calculated using the CKD-EPI [...] PANEL Potassium 3.7 3.5 - 5.1 12/15 [facility] CHEM PANEL Chloride Lvl 105 95 - 109 12/15 [place] [facility] CHEM PANEL CO2 22 24 - 32 12/15 [facility] CHEM PANEL Sodium Lvl 138 135 - 145 12/[address] [place] [address] CHEM PANEL Bili Total 0.2 0.2 - 1.3 12/[address] CHEM PANEL AST 9 0 - 37 12/[address] CHEM PANEL Alk Phos 78 39 - 136 12/[address] CHEM PANEL Total 6.6 6.4 - 8.4 12/15 [facility] Protein [facility] CHEM PANEL Albumin Lvl 2.8 3.5 - 5.0 12/[place]2017 [facility] CHEM PANEL Calcium Lvl 8.4 8.5 - 10.5 12/15 [place] /2017 [facility] CHEM PANEL ALT 16 0 - 65 12/[address] CHEM PANEL BUN 6 7 - 22 12/[address] CHEM PANEL Creatinine 0.37 0.50 - 12/15 [place] Lvl 1.40 /2017 [facility] CHEM PANEL Glucose Lvl 66 70 - 99 12/[address] CHEM PANEL Globulin 3.8 2.7 - 4.2 12/[address] CHEM PANEL A/G Ratio 0.7 0.7 - 1.6 12/[address] CHEM PANEL AGAP 14.7 10.0 - 12/15 [place] 20.0 [facility] CHEM PANEL B/C Ratio 16 6 - 25 12/[address] HEMATOLOGY Platelet 261 133 - 450 12/[address] HEMATOLOGY MPV 9.7 7.4 - 10.4 12/[address] HEMATOLOGY Hct 34.8 36.0 - 12/15 [place] 48.0 [facility] HEMATOLOGY MCH 26.6 27.0 - 12/15 [place] 31.0 [facility] HEMATOLOGY MCV 81.5 80.0 - 12/15 [place] 98.0 [facility] HEMATOLOGY WBC 14.4 3.7 - 10.4 12/[address] HEMATOLOGY Hgb 11.4 12.0 - 12/15 [place] 16.0 [facility] HEMATOLOGY RBC 4.27 4.20 - 12/15 [place] 5.40 /2017 [facility] HEMATOLOGY RDW 15.2 11.5 - 12/15 [place] 14.5 [facility] HEMATOLOGY MCHC 32.7 32.0 - 09/06 [place] 36.0 /2017 [facility] HEMATOLOGY Neutrophils 10.7 1.5 - 8.1 12/15 [place] # /2018 [facility] HEMATOLOGY Segs 74.7 45.0 - 12/15 [place] 75.0 /2017 [facility] HEMATOLOGY Monocytes 6.7 2.0 - 12.0 12/15 [facility] /2018 [facility] HEMATOLOGY Eosinophils 0.6 0.0 - 4.0 12/15 [facility]2018 [facility] HEMATOLOGY Lymphocytes 17.5 20.0 - 12/15 [place] 40.0 /2018 [facility] HEMATOLOGY Basophils 0.5 0.0 - 1.0 12/15 [facility] /2018 [facility] HEMATOLOGY Eosinophils 0.1 0.0 - 0.5 12/15 [facility] s # /2018 [facility] HEMATOLOGY Basophils # 0.1 0.0 - 0.2 12/15 [facility] s /2018 [facility] HEMATOLOGY Lymphocytes 2.5 1.0 - 5.5 12/15 [facility] s # /2018 [facility] HEMATOLOGY Monocytes # 1.0 0.0 - 0.8 12/15 [facility] s /2018 [facility] MOLECULAR C Negative Negative 09/07 DIAGNOSTIC trachomatis *NA* /2015 [place] by Amp Det (09/08/15 2:19 PM) (APTIMA) MOLECULAR Source Endocervix 09/07 DIAGNOSTIC APTIMA *NA* /2015 [place] (09/08/15 2:19 PM) MOLECULAR Source Endocervix 09/07 DIAGNOSTIC APTIMA *NA* /2015 [place] (09/08/15 2:19 PM) MOLECULAR N gonorrhea Negative Negative 09/07 DIAGNOSTIC by Amp Det *NA* /2015 [place] (APTIMA) (09/08/15 2:19 PM) URINE AND UA Color Yellow Yellow 09/07 STOOL *NA* /2015 [place] (09/08/15 2:19 PM) URINE AND UA Leuk Est Negative Negative 09/07 [place] (09/08/15 2:19 PM) /[place] URINE AND UA Protein Negative Negative 09/07 [facility] (09/08/15 2:19 PM) /2015 [place] URINE AND UA pH 6.0 5.0 - 8.0 09/07 [facility] /2015 [place] URINE AND UA 0.2 0.1 - 1.0 09/07 [facility] Urobilinogen /2015 [place] URINE AND UA Glucose Negative Negative 09/07 [place] (09/08/15 2:19 PM) [place] URINE AND UA Spec Grav >=1.030 <=1.030 09/07 [facility] *ABN* /2015 [place] (09/08/15 2:19 PM) URINE AND UA Turbidity Clear Clear 09/07 [place] (09/08/15 2:19 PM) [place] URINE AND UA Nitrite Negative Negative 09/07 [place] (09/08/15 2:19 PM) [place] URINE AND UA Blood Small Negative 09/07 [facility] *ABN* /2015 [place] (09/08/15 2:19 PM) URINE AND UA Bili Negative Negative 09/07 [place] *NA* /2015 [place] (09/08/15 2:19 PM) URINE AND UA Ketones Trace Negative 09/07 [facility] *ABN* /2015 [place] (09/08/15 2:19 PM) URINE AND UA WBC None Seen None Seen 09/07 [place] (09/08/15 2:19 PM) [place] URINE AND UA Sq Epi Few /LPF Few /LPF 09/07 [facility] /2015 [place] URINE AND UA RBC 0-2 /HPF 0 - 2 09/07 [place] /2015 [place] URINE AND UA Bacteria None Seen None Seen 09/07 [place] (09/08/15 2:19 PM) [place] URINE CHEM U Preg Negative Negative 09/07 (09/08/15 2:19 PM) [place] Pathology Reports No Data Provided for This Section Diagnostic Reports Report Value Date Source Knee 1-2 Views Clinical Indication: - m25.561 chronic pain of right knee; 03/27/2018 [facility] [place] Bilateral DX Comparison: None FINDINGS: The 4 [...] significance and considered a normal variant. SL: [id number] Shoulder series DX Exam: Right Shoulder series [...] for further evaluation, as clinically indicated. SL: [id number] Consultation Notes No Data Provided for This Section Discharge Summaries No Data Provided for This Section History and Physicals No Data Provided for This Section Vital Signs Vital Sign Value Date Comments Source Respitory Rate 18 02/25/2018 [facility] Heart Rate 88 02/25/2018 [facility] Temperature Oral (F) 98.7 F 02/25/2018 [facility] Systolic (mm Hg) 105 02/25/2018 [facility] Diastolic (mm Hg) 71 02/25/2018 [facility] Respitory Rate 18 02/25/2018 [facility] Systolic (mm Hg) 112 02/25/2018 [facility] Diastolic (mm Hg) 78 02/25/2018 [facility] [place] [facility] Temperature Oral (F) 98.0 F 02/25/2018 [facility] Heart Rate 75 02/25/2018 [facility] Systolic (mm Hg) 122 02/25/2018 [facility] d[facility] Center Diastolic (mm Hg) 83 02/25/2018 [facility] Temperature Oral (F) 97.7 F 02/25/2018 [facility] Respitory Rate 18 02/25/2018 [facility] Center Heart Rate 88 02/25/2018 [facility] Height 172.72 cm 02/20/2018 [facility] BMI Calculated 53.48 02/20/2018 [facility] Center Weight 159.545 02/20/2018 [facility] Respitory Rate 20 12/16/2017 [facility]ise Center Systolic (mm Hg) 133 12/16/2017 [facility] dical Center Diastolic (mm Hg) 89 12/16/2017 [facility] Temperature Oral (F) 98 F 12/16/2017 [facility] BMI Calculated 53.52 12/15/2017 [facility] Weight 155 12/15/2017 [facility] Height 170.18 cm 12/15/2017 [facility] Respitory Rate 20 12/15/2017 [facility] Center Systolic (mm Hg) 123 12/15/2017 [facility] dical Center Diastolic (mm Hg) 80 12/15/2017 [facility] Temperature Oral (F) 99.0 F 12/15/2017 [facility] Respitory Rate 20 12/15/2017 [facility] alise Center Systolic (mm Hg) 115 12/15/2017 [facility] dical Center Diastolic (mm Hg) 80 12/15/2017 [facility] edical Center Height 170.18 cm 12/15/2017 [facility] BMI Calculated 53.52 12/15/2017 [facility] Center Weight 155 12/15/2017 [facility] Systolic (mm Hg) 148 09/08/2015 [facility] Diastolic (mm Hg) 88 09/08/2015 [place] Respitory Rate 18 09/08/2015 [place] Heart Rate 72 09/08/2015 [place] Temperature Oral (F) 98.2 F 09/08/2015 [facility] [place] Systolic (mm Hg) 154 09/08/2015 [facility] Diastolic (mm Hg) 90 09/08/2015 [place] Heart Rate 74 09/08/2015 [facility] Respitory Rate 18 09/08/2015 [facility] Temperature Oral (F) 98.0 F 09/08/2015 [facility] Height 167.64 cm 09/08/2015 [facility] Weight 127.273 09/08/2015 [facility] BMI Calculated 45.29 09/08/2015 [place] Systolic (mm Hg) 132 08/21/2014 [place] Diastolic (mm Hg) 74 08/21/[address] Heart Rate 70 08/21/2014 [place] Respitory Rate 14 08/21/2014 [facility] Temperature Oral (F) 98.4 F 08/21/2014 [place] Systolic (mm Hg) 141 08/21/2014 [place] Diastolic (mm Hg) 86 08/21/[address] Respitory Rate 16 08/21/2014 [facility] Heart Rate 87 08/21/2014 [facility] Temperature Oral (F) 98.4 F 08/21/2014 [place] Weight 124.091 08/21/2014 [facility] Encounters Location Location Encounter Encounter Reason Attending ADM DC Stat us Source Details Type Number For Provider Date Date Visit [facility] [place] [id number] Dick Odell 08/21 08/21 [facility] Emergency /2014 [place] as [facility] [place] [id number] Abiodun Scientology 09/07 09/07 [facility] Emergency /2015 Geoff curiel [facility] Emergency [id number] Karina Ocasio 12/15 12/16 [facility] /2017 [facility] Inpatient [id number] Justine 02/20 02/26 [facility] [place] /2017 [facility] Out[facility] [id number] [facility] 03/27 03/28 [facility] [place] /2017 [facility] Outpt Diag [id number] [facility] 05/11 05/12 [facility] [place] /2018 [facility] Procedures Procedure Code Date Perfomer Comments Source Breast reduction [id number] [facility], [facility], [facility] Root canal [id number] [facility], [facility] Assessment and Plan Assessment and Plan Date Source Extracted from:Title: OB Inpatient Progress Note * 02/26/2018 [facility] Author: Claribel Wetzel MD Date: 02/25/18 Impression [...] TXA, methergine 0.2 mg, misoprostol 1000 mcg MI - s/p Bakri balloon, minimal lochia 3.Rh+ / Rb imm /Br Urban/ BCM: considering Mirena IUD, s/p counseling/ Male infant desires circ 4. gHTN - 1 mild [...] management. Histories Past Medical History: Resolved Asthma ([id number]): Resolved. Morbid obesity (388367282): Resolved. Root canal space perforation (7379229689): Resolved. Family History: Hypertension Grandparent Type 2 diabetes mellitus Grandparent Procedure history: Breast reduction ([id number]). Root canal procedure (074469990). Social History Social and Psychosocial Habits Tobacco [...] mL: 100 ml/hr, IV, Stop: 03/24/18 12:00:00 [employer] M-M-R II: 0.5 mL, SUB-Q, ONCALL Methergine: 0.2 mg, 1 mL, IM, ONCALL Pepcid: 10 mg, 1 mL, IVP, Q12H, PRN: Heartburn Multivitamins oral tablet: 1 tab, PO, Daily acetaminophen: 650 mg, 2 tab, PO, Q4H, PRN: Other -See Comme nt benzocaine-menthol topical: 1 lozenge, PO, PRN, PRN: Sore Th roat bisacodyl: 10 mg, 1 supp, MI, PRN, PRN: Other -See Comment docusate: 100 mg, 1 cap, PO, BID, PRN: Constipation ibuprofen: 600 mg, 1 tab, PO, Q6Hnow lanolin topical cream: 1 appl, TOP, PRN, PRN: Other -See Com ment naloxone: 0.04 mg, 0.1 mL, IVP, Q2MIN, PRN: Narcotic Reversa l oxytocin 30 units in NS 500ml (Titrate) IV 30 unit: 42 ml/hr, IV, Stop: 02/24/18 12:00:00 [employer] simethicone: 160 mg, 2 tab, PO, Q8H, [...] TAB 600 mg 1 tab, PO, Q6Hnow [id number] virus vaccine 0.5 ml INJ 0.5 mL, [...] mg rect SUPP 10 mg 1 supp, MI, PRN docusate sodium 100 mg CAP 100 [...] Problem list: All Problems / SNOMED CT [id number] / Confirmed, Active Problems (1) Review of [...] range of motion. Normal strength. Integumentary: Warm, [place]. Neurologic: Alert, Oriented, Normal sen jessica, Normal [...] sign off at this time Please call [phone] with questions/concerns. Addendum by Eyal Peralta MD [...] IOL 2/2 elevated BP at term. PNC: DCWC since PNLs: O+/neg, H/H 11.4/33.1, Rub Imm, [...] SVE: fi/th/hi FHTs: 130/ mod shawn/+ accels/-decels [place]: q2-3 min BSUS: c/ right lat/ 3170g [...] Circ- Ye s Pedro Beyer PGY1 OBGYN DC MFM FELLOW ADDENDUM I agree with the [...] Attending Note Pt seen and discussed with [facility] Fellow Dr Ashleigh Garay, agree with [...] entered on: 02/20/18 Social History TypeResponse 02/20/2018 [facility] Smoking Status Never smoker; Exposure to Tobacco Smoke None; Cigarette Smoking Last 365 Days No; Reg Smoking Cessation Counseling No entered on: 02/20/18 Social History TypeResponse 09/08/2015 [facility] Smoking Status Never smoker; Exposure to Tobacco Smoke None; Cigarette Smoking Last 365 Days No; Reg Smoking Cessation Counseling No Social History TypeResponse 08/21/2014 [facility] Smoking Status Never smoker; Exposure to Tobacco Smoke None; Cigarette Smoking Last 365 Days No; Reg Smoking Cessation Counseling No Family History No Data Provided for This Section Advance Directives No Data Provided for This Section Functional Status No Data Provided for This Section
--- OUTSIDE RECORDS SUMMARY | 2020-01-27 16:55 | XMS REPORT | Continuity of Care Document ---
:1995 Author Organization [facility] t Address [address] [place] [address] Care Team Providers Name Role Phone Asked, Pcp Primary Care Physician Unavailable MARIAN Attending Clinician Unavailable Marian Attending Clinician NITHIN Attending Clinician Unavailable EDUCATION Attending Clinician Unavailable Eneida Manrique Attending Clinician MALGORZATA Attending Clinician Unavailable NEIGHBORHOOD SERVICE CENTER DIRECTOR Attending Clinician Unavailable NEIGHBORHOOD SERVICE CENTER DIRECTOR Attending Clinician Unavailable NEIGHBORHOOD SERVICE CENTER DIRECTOR Attending Clinician Unavailable Attending Clinician Unavailable RAMIREZ [...] l 00:00: Sonu INDUCTION 00 Active 02/20/2018 [facility] ELEVATED Diagnosis Active 2018-07-05 Speedy tsai BLOOD 12-15 15:44:00 l PRESSURES ELEVATED 00:00: Her perez BLOOD 00 PRESSURES Active 12/15/2017 [facility] LABOR Diagnosis Active 2018-02-18 Mem oria 10-09 23:12:00 l LABOR 00:00: Gilbert 00 Active 10/09/2017 [facility] OTHER Diagnosis Active 2015-09-08 Mem oria 09-07 14:25:00 l OTHER 00:00: Gilbert 00 Active 09/08/2015 [facility] Gilbert SOB, Diagnosis Active 2014-08-21 Mem oria COUGHING 08-17 18:25:00 l SOB, 19:00: [place] COUGHING 00 Active 08/17/2014 [place] Problem Active [facility] [place] [facility] Abnormal Abnormal Problem Active Unive rs glucose glucose [place] tolerance tolerance [place] Chronic Chronic Problem Active Univers headache headache [facility] [place] [facility] Chronic Chronic Problem Active Univers pain of pain of [place] of right knee right knee [place] [facility] [place] Swelling Swelling Problem Active Unive rs of knee of knee [facility] [place] [facility] Obese Obese Problem Active Univers [...] it y of of right of right [place] shoulder shoulder Physic i ans Chronic Chronic [...] Univers d it y of exam exam [place] [facility] Post-opera Post-opera Problem Active U nivers tive state tive state it [facility] [place] [facility] Depression Depression Problem Active [facility] [place] [facility] Endometrio Endometrio Problem Active U nivers sis sis [facility] [place] [facility] Anemia Anemia Problem Active [facility] [place] [facility] Follow up Follow up Problem Active [facility] [place] [facility] Pain in Problem 2018-10-15 Papi ata right knee 11:13:33 l Pain in Sonu right [facility] Bicipital Problem 2018-10-15 Me moria tendinitis 11:13:33 l , right Sonu shoulder Bicipital tendinitis , right shoulder 10/15/2018 [facility] [place] Pain in Problem 2018-10-15 Papi ata right 11:13:33 l shoulder Pain in Sandra nn right shoulder 10/15/2018 [facility] Impingemen Problem 2018-10-15 M emoria t syndrome 11:13:33 l of right Sonu shoulder Impingemen t syndrome of right shoulder 10/15/2018 [facility] [place] Other Problem 2018-10-15 Memor ia chronic 11:13:33 l pain Other Sonu chronic pain 9 MARYANKeyon Rao Abnormal Problem 2018-10-15 Mem oria findings 11:13:33 l on Abnormal Tal n diagnostic findings imaging of on limbs diagnostic imaging of limbs 10/15/2018 [facility] [place] Weeks of Problem 2018-10-15 Mem oria gestation 11:13:33 l of Weeks of Tal n gestation not of specified not specified 10/15/2018 [facility] [place] Maternal Problem 2018-07-04 Mem oria care for 15:45:36 l transverse Maternal He rmann and care for oblique transverse lie, not and applicable oblique or lie, not unspecifie applicable d or unspecifie d 07/04/2018 [facility] Diseases Problem 2018-07-04 Mem oria of the 15:45:36 l respirator Diseases He rmann y system of the complicati respirator ng y system , complicati third ng trimester , third trimester 07/04/2018 [facility] 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:36 l asthma, Mild Sonu uncomplica persistent henrietta asthma, uncomplica henrietta 07/04/2018 [facility] Obesity Problem 2018-07-04 Papi ata complicati 15:45:36 l ng Obesity Sonu , complicati third ng trimester , third trimester 07/04/2018 [facility] Morbid Problem 2018-09-14 Memor ia (severe) 14:08:49 l obesity Morbid Gilbert due to (severe) excess obesity calories due to excess calories 09/14/2018 [facility] Body mass Problem 2018-07-04 Me moria index 15:45:36 l (BMI) Body Gilbert 50-59.9 , mass index adult (BMI) 50-59.9 , adult 07/04/2018 [facility] Personal Problem 2018-09-14 Mem oria history of 14:08:49 l nicotine Personal Herm feliberto dependence history of nicotine dependence 09/14/2018 [facility] 28 weeks Problem 2018-07-04 Mem oria gestation 15:45:36 l of 28 weeks Tal n gestation of 07/04/2018 [facility] 38 weeks Problem 2018-09-14 Mem oria gestation 14:08:49 l of 38 weeks Tal n gestation of 09/14/2018 [facility] Single Problem 2018-09-14 Memor ia live 14:08:49 l Single Sonu live 09/14/2018 [facility] Obesity Problem 2018-09-14 Papi ata complicati 14:08:49 l ng Obesity Sonu childbirth complicati ng childbirth 09/14/2018 [facility] Other Problem 2018-09-14 Memor ia mental 14:08:49 l disorders Other Tal n complicati mental ng disorders childbirth complicati ng childbirth 09/14/2018 [facility] Major Problem 2018-09-14 Memor ia depressive 14:08:49 l disorder, Major Tal n single depressive episode, disorder, unspecifie single d episode, unspecifie d 09/14/2018 [facility] Abnormalit Problem 2018-09-14 M emoria y in 14:08:49 l heart rate Tal n and rhythm Abnormalit complicati y in ng labor heart rate and and rhythm delivery complicati ng labor and delivery 09/14/2018 [facility] Mild Problem 2018-09-14 Memor ia intermitte 14:08:49 l nt asthma, Mild Tal n uncomplica intermitte henrietta nt asthma, uncomplica henrietta 09/14/2018 [facility] Diseases Problem 2018-09-14 Mem oria of the 14:08:49 l respirator Diseases He rmann y system of the complicati respirator ng y system childbirth complicati ng childbirth 09/14/2018 [facility] Maternal Problem 2018-09-14 Mem oria care for 14:08:49 l high head Maternal Her perez at term, care for not high head applicable at term, or not unspecifie applicable d or unspecifie d 09/14/2018 [facility] Maternal Problem 2018-09-14 Mem oria exhaustion 14:08:49 l complicati Maternal He rmann ng labor exhaustion and complicati delivery ng labor and delivery 09/14/2018 [facility] Other Problem 2018-09-14 Memor ia immediate 14:08:49 l Other Sandra nn hemorrhage immediate hemorrhage 09/14/2018 [facility] Maternal Problem 2018-09-14 Mem oria care for 14:08:49 l other Maternal Tal n abnormalit care for ies of other pelvic abnormalit organs, ies of third pelvic trimester organs, third trimester 09/14/2018 [facility] Endometrio Problem 2018-09-14 M emoria sis of 14:08:49 l ovary Gilbert Endometrio sis of ovary 09/14/2018 [facility] Asthma Problem Resolve 2018-11-29 Papi ata (disorder) d 11:49:16 l Asthma Sonu (disorder) Resolved Problem 11/29/2018 [facility] Speedy [place] Disease of Problem Resolve 2018-11-29 Memoria periapical d 11:49:16 l tissues of Disease Her perez tooth of (disorder) periapical tissues of tooth (disorder) Resolved Problem 11/29/2018 [facility] [place] Morbid Problem Resolve 2018-11-29 Papi ata obesity d 11:49:16 l (disorder) Morbid Herm feliberto obesity (disorder) Resolved Problem 11/29/2018 [facility], Speedy [place] H [facility] Other Problem [...] childbirth a, complicati ng childbirth 03/04/2018 09/14/2018 [facility] Other Problem 2018-07-04 2018-07-04 M emoria specified 12-21 15:45:36 15:45:36 l Other 03:23: Tal n related specified 36 conditions , third related trimester conditions , third trimester 12/21/2017 07/04/2018 [facility] Elevated Problem 2018-07-04 2018-07-04 Memoria blood-pres 12-15 15:45:36 15:45:36 l sure Elevated 05:00: Tal n reading, blood-pres 00 without sure diagnosis reading, of without hypertensi diagnosis on of hypertensi on 12/15/2017 07/04/2018 [facility] Discharge Problem 2015-09-11 2015-09-11 Memoria Diagnosis: 09-07 00:35:57 00:35:57 l Acute 05:00: Gilbert vaginitis Discharge 00 Diagnosis: Acute vaginitis 09/08/2015 09/11/2015 [facility] Discharge Problem 2014-08-24 2014-08-24 Memoria Diagnosis: 08-21 05:56:49 05:56:49 l Cough 05:00: Sonu Discharge 00 Diagnosis: Cough 08/21/2014 08/24/2014 [facility] Discharge Problem 2014-08-24 2014-08-24 Memoria Diagnosis: 08-21 05:56:49 05:56:49 l Fever 05:00: Gilbert Discharge 00 Diagnosis: Fever 08/21/2014 08/24/2014 [facility] Allergies, Adverse Reactions, Alerts Allergy Allergy Status Severity Reaction(s) Onset Inactive Treating Comm ents Source Name Type Date Date Clinician Penicill DA Active SV 2017-04 [facility] [place] Penicill Propensi Active Shortness Of [place] ins ty to Breath 04 Methodi adverse 00:00: st reaction 00 s to drug No Known DA Active U [facility] Allergie 6 [facility] 00:[facility]: [facility] [place] Penicill drug Active [facility] ins allergy [facility] [place] [facility] penicill penicill Active Memori a ins<sup> ins<sup> l 1</sup> 1</sup> [place] penicill penicill Active Memori a ins ins l [place] Family History Family Member Diagnosis Comments Start Date Stop Date Source Grandfather Family history of Univer sity of cerebrovascular [place] [facility] accident (CVA) Grandfather Family history of Univer sity of diabetes mellitus [place] [facility]ys[facility] Grandfather Family history of Univer sity of hypertension [place] [facility] Grandmother Family history of Univer sity of hypertension [place] [facility] Social History Social Habit Start Date Stop Date Quantity Comments Source History of tobacco Cigarette Smoker [place] use Hindu Sex Assigned At [place] Hindu Cigarettes smoked 2016-08-12 2016-08-12 [place] current (pack per 00:00:00 00:00:[address] ) - Reported Alcohol intake 2016-08-12 2016-08-12 [facility] 00:00:00 00:00:00 non-drinker of Hindu alcohol (finding) Smoking Status Start Date Stop Date Source Current every day smoker 2016-08-12 00:00:00 Alex hein Hindu Social History [facility] Medications Ordered Filled Start Stop Current Ordering [...] 10 MG e 10 MG 00:00: DAILY. [place] Oral Tablet Oral Tablet 00 P hysici ans 2017-04 Yes YARELY 1 QD TAKE 1 Univers Plus Iron Plus Iron 2-03 SUE M.D. TABLET ity of 29-1 MG 29-1 MG 00:00: DAILY. [place] Oral Tablet Oral Tablet 00 P hysici [...] 159.545, kg, Daily, Start date: 02/23/18 9:00:00 [employer], Duration: 30 day, Stop date: 03/24/18 9:00:00 [employer] Ancef 2017-04 No 3 gm, 150 Memoria 1-15 mL, Route: l 01:30: IV, Drug Gilbert 00 form: INJ, ABXQ8H, Dosing Weight 159.545, kg, Start date: 02/22/18 19:30:00 [employer], Duration: 3 doses or times, Stop date: 02/23/18 11:30:00 [employer], ABX Indication : Surgical Prophylaxi s sugammadex 2017-04 No Route: IV, M emoria (ANES) -14 Drug form: l 19:02: SOLN, Gilbert 00 ONCE, Stop date: 02/22/18 13:02:00 [employer] M-M-R II 2017-04 No Notes: Memoria 1-14 (Same as: l 19:00: M-M-R II) Sonu 00 (measles-m umps-rubel la virus vaccine 0.5 ml INJ VL) WASTE: F/P - Red; E -Red GIVE PRIOR TO DISCHARGE Ibuprofen 2017-04 No Notes: Memori a -14 (Same as: l 19:00: Motrin) Gilbert 00 "Do Not Crush" Take with food. Methergine 2017-04 No Notes: Memor ia -14 (Same l 19:00: as:Metherg Sonu 00 ine) acetaminoph 2017-04 No Route: IV, Memoria en (ANES) -14 Drug form: l 18:34: INJ, ONCE, Gilbert 00 Stop date: 02/22/18 12:34:00 [employer] hydromorpho 2017-04 No Route: IV, Memoria ne (ANES) + -14 Drug form: l sodium 18:34: INJ, ONCE, Sandra nn chloride 00 Stop date: (ANES) 10 02/22/18 mL 12:34:00 [employer] fentaNYL 2017-04 No Route: IV, Mem oria (ANES) -14 Drug form: l 18:24: INJ, ONCE, Sonu 00 Stop date: 02/22/18 12:24:00 [employer] sodium 2017-04 No Route: PO, Memor ia citrate -14 Drug Form: l (ANES) 18:24: INJ, ONCE, Sandra Stop date: 02/22/18 12:24:00 [employer] famotidine 2017-04 No Route: IV, M emoria (ANES) 1-14 Drug form: l 18:24: INJ, ONCE, Gilbert 00 Stop date: 02/22/18 12:24:00 [employer] metoclopram 2017-04 No Route: IV, Memoria kylie (ANES) -14 Drug form: l 18:24: INJ, ONCE, Sonu 00 Stop date: 02/22/18 12:24:00 [employer] ondansetron 2017-04 No Route: IV, Memoria (ANES) -14 Drug form: l 18:24: INJ, ONCE, Stop date: 02/22/18 12:24:00 [employer] midazolam 2017-04 No Route: IV, Me moria (ANES) -14 Drug form: l 18:24: SOLN, ONCE, Stop date: 02/22/18 12:24:00 [employer] rocuronium 2017-04 No Route: IV, M emoria (ANES) 1-14 Drug form: l 18:19: INJ, ONCE, Stop date: 02/22/18 12:19:00 [employer] albuterol 2017-04 No Route: Memori a (ANES) -14 INHALATION l 18:19: , Drug form: AERO/A, ONCE, Stop date: 02/22/18 12:19:00 [employer] Cytotec 2017-04 No Notes: Memoria -14 (Same l 18:12: as:Cytotec Gilbert 00 ) Take with food tranexamic 2017-04 No Route: IV, M emoria acid (ANES) 1-14 Drug form: l 100 mg 18:11: INJ, Start Sandra date: 02/22/18 12:11:00 [employer], Stop date: 02/22/18 13:11:00 [employer] Naloxone 2017-04 No Notes: Memoria 1-14 Same as l 18:08: Narcan Hydromorpho 2017-04 No Notes: Papi ata ne -14 (Same as: l 18:08: Dilaudid) conc = 0.5 mg/ml Hydromorph one HAT FINISHER Dose: ;Delay: ;Basal: zolpidem 2017-04 No Notes: Memoria -14 (Same As: l 18:01: Ambien) Tramadol 2017-04 No Notes: Not Mem oria 04-24 to exceed l 18:01: 400mg/day. Gilbert 00 (Same As: Ultram) Docusate 2017-04 No Notes: Memoria 14 (Same as: l 18:01: Colace) (Do Not Crush) Bisacodyl 2017-04 No Notes: Memori a -14 (Same As: l 18:01: Dulcolax, Bisco-Lax) Oxytocin 2017-04 No 30 unit, Memor ia -14 500 mL, l 18:01: Rate: 42 Gilbert 00 ml/hr, Infuse over: 11.9 hr, Dosing Weight 159.545, kg, Route: IV, Total Volume: 500 mL, Start date: 02/22/18 12:01:00 [employer], Duration: 2 day, Stop date: 02/24/18 12:00:00 [employer], Replace Every: 11.9 hr Benzocaine 2017-04 No [...] Total Volume: 1,000, Start date: 02/22/18 12:01:00 [employer], Duration: 30 day, Stop date: 03/24/18 12:00:00 [employer], 2.82, m2 succinylcho 2017-04 No Route: IV, Memoria line (ANES) - Drug form: l 17:49: INJ, ONCE, Stop date: 02/22/18 11:49:00 [employer] lidocaine 2017-04 No Route: IV, Me moria (ANES) 1-14 Drug form: l 17:49: INJ, ONCE, Stop date: 02/22/18 11:49:00 [employer] propofol 2017-04 No Route: IV, Mem oria (ANES) 1-14 Drug form: l 17:49: INJ, ONCE, Stop date: 02/22/18 11:49:00 [employer] azithromyci 2017-04 No Route: IV, Memoria n (ANES) - Drug form: l 500 mg 17:46: INJ, Start date: 02/22/18 11:46:00 [employer], Stop date: 02/22/18 12:46:00 [employer] tranexamic 2017-04 No Route: IV, M emoria acid (ANES) 1-14 Drug form: l 17:44: INJ, ONCE, Stop date: 02/22/18 11:44:00 [employer] dexamethaso 2017-04 No Route: IV, Memoria ne (ANES) 1-14 Drug form: l 17:44: INJ, ONCE, Stop date: 02/22/18 11:44:00 [employer] phenylephri 2017-04 No Route: IV, Memoria ne (ANES) 1-14 Drug form: l 17:44: INJ, ONCE, Stop date: 02/22/18 11:44:00 [employer] ceFAZolin 2017-04 No Route: IV, Me moria (ANES) 1-14 Drug form: l 17:23: INJ, ONCE, Stop date: 02/22/18 11:23:00 [employer] methylergon 2017-04 No Route: IM, Memoria ovine 1-14 Drug form: l (ANES) 17:03: INJ, ONCE, Sandra nn 00 Stop date: 02/22/18 11:03:00 [employer] carboprost 2017-04 No Route: IM, M emoria (ANES) 1-14 Drug form: l 17:03: INJ, ONCE, Sonu 00 Stop date: 02/22/18 11:03:00 [employer] Lactated 2017-04 No Route: IV, Mem oria Ringers 1-14 Total l Injection 16:29: Volume: Sandra nn IV (ANES) 00 1,000, 1000 mL Start date: 02/22/18 10:29:00 [employer], Stop date: 02/22/18 11:29:00 [employer] Cefazolin 2017-04 No 3 gm, 150 Mem oria 1-14 mL, Route: l 16:00: IVPB, Drug Sonu form: INJ, ONCALL, Dosing Weight 159.545, kg, Start date: 02/22/18 10:00:00 [employer], Duration: 1 doses or times, ABX Indication : Surgical Prophylaxi s Azithromyci 2017-04 No Notes: Papi ata n -14 (Same As: l 16:00: Zithromax Gilbert 00 IV) Morphine 2017-04 No Notes: Memoria 1-14 (Same l 15:53: as:MORPhin Gilbert 00 e Sulfate) Ondansetron 2017-04 No Notes: Papi ata 1-14 (Same as: l 15:53: Zofran) Sonu 00 MEDICATION WASTE Product Size: 4 mg Product Wasted: ___ mg Pepcid 2017-04 No Notes: Memoria 1-14 (Same as: l 06:43: Pepcid) Sonu 00 Can be dilute in 5-10cc NS IVP: Slow IV push over at least 2 minutes. Acetaminoph 2017-04 No 650 mg, Mem oria en 1-14 Route: PO, l 02:23: ONCE, Gilbert 00 Dosing Weight 159.545, kg, Priority: STAT, Start date: 02/21/18 20:23:00 [employer], Stop date: 02/21/18 20:23:00 [employer], .. Oxytocin 2017-04 No 30 unit, Memor ia 1-13 500 mL, l 15:26: Rate: Sonu 00 Titrate, Dosing Weight 159.545, kg, Route: IV, Total Volume: 500 mL, Start date: 02/21/18 9:26:00 [employer], Duration: 2 day, Stop date: 02/23/18 9:25:00 [employer], Replace Every: 24 hr Remove - 2017-04 No Notes: Memoria dinoproston 1-13 Vaginal l e 14:00: insert: to Gilbert (Cervidil) 00 be removed insert 1 hour [...] 1-12 DO NOT l 23:18: USE IN NEIGHBORHOOD SERVICE C[facility] DIRECTOR AREA (Same As: Bre[place]) Ondansetron 2017-04 No [...] Chloride -12 1,000 l 0.0014 23:18: ml/hr, Sonu MEQ/ML / 00 Infuse Potassium Over: 1 Chloride hr, Route: 0.004 IV, 1,000, MEQ/ML / Drug form: Sodium INJ, ONCE, Chloride Dosing 0.103 Weight MEQ/ML / 159.545 Sodium kg, Start Lactate date: 0.028 02/20/18 MEQ/ML 17:18:00 Injectable [employer], Stop Solution date: 02/20/18 17:18:00 [employer], Bolus for regional anesthesia per unit routine Lactated 2017-04 No 1,000 mL, Papi ata Ringers IV 12 Rate: 125 l 1,000 mL 23:18: ml/hr, Gilbert 00 Infuse over: 8 hr, Route: IV, Dosing Weight 159.545 kg, Total Volume: 1,000, Start date: 02/20/18 17:18:00 [employer], Duration: 30 day, Stop date: 03/22/18 17:17:00 [employer], 2.82, m2 Oxytocin 2017-04 No 30 unit, Memor ia 1-12 500 mL, l 23:18: Rate: 42 Gilbert 00 ml/hr, Infuse over: 11.9 hr, Dosing Weight 159.545, kg, Route: IV, Total Volume: 500 mL, Start date: 02/20/18 17:18:00 [employer], Duration: 2 day, Stop date: 02/22/18 17:17:00 [employer], Replace Every: 11.9 hr Acetaminoph No Notes: [...] Memoria 5-30 (Same As: l 19:36: Rocephin) Gilbert 00 Tramadol No Notes: Not Mem oria 5-30 to exceed l 19:30: 400mg/day. Gilbert 00 (Same As: Ultram) Morphine No Notes: [...] Name Immunization Name Tdap (Boostrix) 2017-12-15 Completed [facility] y of 16:47:00 [place] [facility] Fluzone Unknown Completed [facility] Quadrivalent 0.5 ML [place] [facility] Intramuscular Suspension Vital Signs Vital Name Observation Time Observation Value Comments Source BP Systolic 2018-05-02 125 mm[Hg] Location: [facility] :36:00 Position: [place] [facility] Sitting BP Diastolic 2018-05-02 84 mm[Hg] Location: [facility] :36:00 Position: [place] [facility] Sitting Weight 2018-05-02 326 [lb_av] :36:00 [place] [facility] Temperature 2018-05-02 98.2 [degF] Method: Oral of :36:00 [place] [facility] Heart Rate 2018-05-02 91 /min [facility] 09:36:00 [place] [facility] Respiration Rate 2018-05-02 16 /min [facility] 09:36:00 [place] [facility] BP Systolic 2018-04-27 132 mm[Hg] Location: [facility] 14:40:00 Position: [place] [facility] Sitting BP Diastolic 2018-04-27 93 mm[Hg] Location: [facility] 14:40:00 Position: [place] [facility] Sitting Heart Rate 2018-04-27 96 /min [facility] 14:40:00 [place] [facility] Height 2018-04-27 67 [in_us] University 14:40:00 [place] [facility] Weight 2018-04-27 324 [lb_av] University of 14:40:00 [place] [facility] Body Mass Index 2018-04-27 50.75 kg/m2 University o f Calculated 14:40:00 [place] [facility] Temperature 2018-04-27 98.6 [degF] Method: Oral University 14:40:00 [place] [facility] BP Systolic 2018-03-13 129 mm[Hg] Location: [facility]; [facility] 11:41:00 Position: [place] [facility] Sitting BP Diastolic 2018-03-13 86 mm[Hg] Location: [facility]; [facility] 11:41:00 Position: [place] [facility] Sitting Height [...] 22:05:00 BP Systolic 2018-02-20 105 mm[Hg] Location: [facility]; [facility] 14:01:00 Position: [place] [facility] Sitting BP Diastolic 2018-02-20 61 mm[Hg] Location: [facility]; [facility] 14:01:00 Position: [place] [facility] Sitting Height 2018-02-20 67 [in_us] University of 14:01:00 [place] [facility] Weight 2018-02-20 351 [lb_av] University of 14:01:00 [place] [facility] Body Mass Index 2018-02-20 54.97 kg/m2 University o f Calculated 14:01:00 [place] [facility] Heart Rate 2018-02-20 96 /min University of 14:01:00 [place] [facility] BP Systolic 2018-02-13 94 mm[Hg] Location: [facility]; [place] of 13:15:00 Position: [place] [facility] Sitting BP Diastolic 2018-02-13 62 mm[Hg] Location: [facility]; [facility] 13:15:00 Position: [place] [facility] Sitting Height [...] s BP Systolic 2018-01-18 107 mm[Hg] Location: [facility]; [facility] :17:00 Position: [place] [facility] Sitting BP Diastolic 2018-01-18 72 mm[Hg] Location: [facility]; [facility] 14:17:00 Position: [place] [facility] Sitting Height 2018-01-18 67 [in_us] University of 14:17:00 [place] [facility] Weight 2018-01-18 340.25 [lb_av] University of 14:17:00 [place] [facility] Body Mass Index 2018-01-18 53.29 kg/m2 University o f Calculated 14:17:00 [place] [facility] Heart Rate 2018-01-18 108 /min [place] of 14:17:00 [place] [facility] BP Systolic 2018-01-10 124 mm[Hg] Location: [facility]; [facility] 09:53:00 Position: [place] [facility] Sitting BP Diastolic 2018-01-10 75 mm[Hg] Location: [facility]; [facility] 09:53:00 Position: [place] [facility] Sitting Height 2018-01-10 67 [in_us] University of 09:53:00 [place] [facility] Weight 2018-01-10 345.0 [lb_av] University of 09:53:00 [place] [facility] Body Mass Index 2018-01-10 54.03 kg/m2 University o f Calculated 09:53:00 [place] [facility] Heart Rate 2018-01-10 103 /min Location: [facility] 09:53:00 Carotid; [place] [facility] BP Systolic 2018-01-06 124 mm[Hg] [facility] 13:55:00 [place] [facility] BP Diastolic 2018-01-06 [...] s BP Systolic 2018-01-03 122 mm[Hg] Location: [facility]; [facility] 09:53:00 Position: [place] [facility] Sitting BP Diastolic 2018-01-03 80 mm[Hg] Location: [facility]; [facility] 09:53:00 Position: [place] [facility] Sitting Height 2018-01-03 67 [in_us] [facility] 09:53:00 [place] [facility] Weight 2018-01-03 345.3 [lb_av] [facility] 09:53:00 [place] [facility] Body Mass Index 2018-01-03 54.08 kg/m2 University o f Calculated 09:53:00 [place] [facility] Heart Rate 2018-01-03 102 /min Location: [facility] 09:53:00 Carotid; [place] [facility] BP Systolic 2017-12-26 135 mm[Hg] Location: [facility]; [facility] 13:06:00 Position: [place] [facility] Sitting BP Diastolic 2017-12-26 76 mm[Hg] [place] [facility] [facility] 13:06:00 Position: [place] [facility] Sitting Weight 2017-12-26 347 [lb_av] [facility] 13:06:00 [place] [facility] Temperature 2017-12-26 97.9 [degF] Method: Oral [facility] 13:06:00 [place] [facility] Heart Rate 2017-12-26 93 /min [facility] 13:06:00 [place] [facility] Respiration Rate 2017-12-26 21 /min [facility] 13:06:00 [place] [facility] BP Systolic 2017-12-23 121 mm[Hg] Location: [facility]; [facility] 13:10:00 Position: [place] [facility] Sitting BP Diastolic 2017-12-23 81 mm[Hg] Location: [facility]; [facility] 13:10:00 Position: [place] [facility] Sitting Height 2017-12-23 67 [in_us] [facility] 13:10:00 [place] [facility] Weight 2017-12-23 339 [lb_av] [facility] 13:10:00 [place] [facility] Body Mass Index 2017-12-23 53.1 kg/m2 University o f Calculated 13:10:00 [place] [facility] Heart Rate 2017-12-23 114 /min [facility] 13:10:00 [place] [facility] Respitory Rate 2017-12-16 [...] 22:29:00 BP Systolic 2017-12-15 133 mm[Hg] Location: [facility] 15:25:00 Position: [place] [facility] Sitting BP Diastolic 2017-12-15 82 mm[Hg] Location: [facility] 15:25:00 Position: [place] [facility] Sitting Height 2017-12-15 67 [in_us] [facility] 15:25:00 [place] [facility] Weight 2017-12-15 343 [lb_av] [facility] 15:25:00 [place] [facility] Body Mass Index 2017-12-15 53.72 kg/m2 University o f Calculated 15:25:00 [place] [facility] Heart Rate 2017-12-15 103 /min [facility] 15:25:00 [place] [facility] BP Systolic 2017-11-23 132 mm[Hg] Location: [facility] 14:19:00 Position: [place] [facility] Sitting BP Diastolic 2017-11-23 81 mm[Hg] Location: [facility] 14:19:00 Position: [place] [facility] Sitting Height 2017-11-23 67 [in_us] [facility] 14:19:00 [place] [facility] Weight 2017-11-23 337 [lb_av] [facility] :19:00 [place] [facility] Body Mass Index 2017-11-23 52.78 kg/m2 University o f Calculated 14:19:00 [place] [facility] Heart Rate 2017-11-23 109 /min [facility] 14:19:00 [place] [facility] BP Systolic 2017-11-02 110 mm[Hg] [facility] :11:00 [place] [facility] BP Diastolic 2017-11-02 69 mm[Hg] [facility] :11:00 [place] [facility] Height 2017-11-02 67 [in_us] [facility] :11:00 [place] [facility] Weight 2017-11-02 332 [lb_av] [facility] :11:00 [place] [facility] Body Mass Index 2017-11-02 52 kg/m2 University o f Calculated 14:11:00 [place] [facility] Heart Rate 2017-11-02 89 /min [facility] :11:00 [place] [facility] Systolic (mm Hg) 2015-09-08 [facility] [...] Source Performed [QLH] CBC (INCLUDES 2018-05-02 00:00:00 [facility] DIFF/PLT) Physicians MR Knee wo contrast 2018-05-02 00:00:00 [facility] [address] Physicians MR Shoulder wo contrast 2018-05-02 00:00:00 [facility] [address] Physicians XRAY Shoulder series 2018-03-24 00:00:00 [facility] [address] Physicians [QH] HIV AB, HIV 1/2, 2018-02-01 00:00:00 [facility] EIA, WITH REFLEXES Physicians [QH] STREPTOCOCCUS, 2018-02-01 00:00:00 [facility] GROUP B CULTURE (Genital Physici ans Strep Screen) [QLH] CBC (INCLUDES 2018-02-01 00:00:00 [facility] DIFF/PLT) Physicians [QLH] RPR 2018-02-01 00:00:00 [facility] [place] Physicians [QLH] THYROID PEROXIDASE 2017-12-28 00:00:00 [facility] ANTIBODIES Physicians [QLH] COMPLEMENT 2017-12-28 00:00:00 [facility] COMPONENT C4C Physicians [QLH] COMPLEMENT 2017-12-28 00:00:00 [facility] COMPONENT C3C Physicians [QLH] RAVI PANEL, 2017-12-26 00:00:00 [facility] COMPREHENSIVE Physicians [QLH] RHEUMATOID FACTOR 2017-12-26 00:00:00 [facility] Physicians [QH] CYCLIC 2017-12-26 00:00:00 [facility] [place] CITRULLINATED PEPTIDE Physicians (CCP) AB (IGG) [QLH] CBC (INCLUDES 2017-12-26 00:00:00 [facility] DIFF/PLT) Physicians [QLH] C-REACTIVE PROTEIN 2017-12-26 00:00:00 [facility] Physicians [QLH] SED RATE BY 2017-12-26 00:00:00 [facility] MODIFIED WESTERGREN Physicians [QLH] URIC ACID 2017-12-26 00:00:00 [facility] Physicians [QLH] HEPATITIS C 2017-12-26 00:00:00 [facility] ANTIBODY Physicians [QH] HEPATITIS B SURFACE 2017-12-26 00:00:00 [facility] ANTIGEN W/REFL CONFIRM Physician s XRAY Knee 1-2 Views 2017-12-26 00:00:00 [facility] Bilateral 62831 Physicians [QLH] URINALYSIS, 2017-12-23 00:00:00 [facility] COMPLETE Physicians [QLH] CULTURE, URINE, 2017-12-23 00:00:00 [facility] ROUTINE Physicians [QLH] CBC (INCLUDES 2017-12-15 00:00:00 [facility] DIFF/PLT) Physicians [QLH] GLUCOSE, 2017-12-15 00:00:00 [facility] GESTATIONAL SCREEN Physicians (50G)-130 CUTOFF [QH] PROTEIN, TOTAL 2017-12-15 00:00:00 [facility] W/CREAT, RANDOM URINE Physicians [QLH] CMP W/EGFR 2017-12-15 00:00:00 [facility] Physicians [QLH] GLUCOSE TOLERANCE 2017-11-07 00:00:00 [facility] TEST, 4 SPECIMENS Physicians [QLH] GLUCOSE, 2017-11-02 00:00:00 [facility] GESTATIONAL SCREEN Physicians (50G)-130 CUTOFF . [facility] - PAP w/reflex 2017-11-02 00:00:00 [facility] HPV Physicians . [facility] - Affirm VPIII 2017-11-02 00:00:00 [facility] (BV Panel) Physicians [H] Obstetrics Panel 2017-11-02 00:00:00 [facility] (includes CBCw/Diff,RPR, Physici ans HbsAg,RubIgG,Type and Screen) [QH] HIV AB, HIV 1/2, 2017-11-02 00:00:00 [facility] EIA, WITH REFLEXES Physicians [QLH] CULTURE, URINE, 2017-11-02 00:00:00 [facility] ROUTINE Physicians [QLH] URINALYSIS, 2017-11-02 00:00:00 [facility] COMPLETE Physicians History of Breast [facility] [place] reduction Physicians Root canal procedure [facility] Plan of Care Planned Activity Planned Date Details Comments Source Diagnostic Test 2018-05-02 MR Knee wo contrast Unive [facility] Pending 00:00:00 60352 [code = Physicians 86174] Diagnostic Test 2018-05-02 MR Shoulder wo [facility] Pending 00:00:00 contrast 03511 Physicians [code = 70110] Diagnostic Test 2018-05-02 MR Knee wo contrast Unive [facility] Pending 00:00:00 86340 [code = Physicians 39262] Diagnostic Test 2018-05-02 MR Shoulder wo [facility] Pending 00:00:00 contrast 55520 Physicians [code = 78518] Diagnostic Test 2017-11-09 [[facility]] GLUCOSE [facility] Pending 00:00:00 TOLERANCE TEST, 4 Physicians SPECIMENS [code = [QL] GLUCOSE TOLERANCE TEST, 4 SPECIMENS] Encounters Start End Encounter Admission Attending Care Care Encounter Source Date/Time Date/Time Type Type Clinicians Facility Department ID 2018-06-01 2018-06-01 AppointSIMON Herrera [facility] [id number] Univers 15:00:00 15:00:00 t; Zuly OTERO M.D., FAROKH, Physic i M.D. ans 2018-05-11 2018-05-11 Outpatient Jamalyaria, [id number]. [id number]. 1. [id number] 17:00:00 23:59:00 Branden [id number] 5.35 2018-05-11 2018-05-11 Outpatient Jamalyaria, 2.16.840. 2.16.840. 1. [id number] 17:00:00 23:59:00 Branden [id number] 01 [id number] 5.35 2018-05-02 2018-05-02 AppointSIMON Herrera [place] [id number] Univers 09:30:00 09:30:00 t; Kayla OTERO M.D. Specialty Andrea as , Ze OTERO i MAngel ans 2018-04-27 2018-04-27 Appointmen SIMON WELLERaire [id number] Univers 15:00:00 15:00:00 t; ELDON WELLER, Women's ity Blanca COLÓN [place] Tess Rios Physici ans 2018-04-26 2018-04-26 Appointmen MARIAN, SIMON UTP [id number] Univers 14:30:00 14:30:00 t; Zuly OTERO M.D., FAROKH, Physic i M.D. ans 2018-03-27 2018-03-27 Outpatient Marian, MHOIP OIP [id number] 14:37:00 23:59:00 [facility] 00 2018-03-13 2018-03-13 Appointmen SIMON GREENE Student Nurse [id number] Univers 11:00:00 11:00:00 t; POST ity of EDUCATION, [place] POST Physici ans 2018-02-20 2018-02-25 Outpatient [place], [facility] [id number] 14:55:00 19:00:00 Justine Monique 13 2018-02-20 2018-02-20 Appointmen SIMON MCGARRY Student Nurse [id number] Univers 15:45:00 15:45:00 t; jassi SMITH M.D. [place] Shara SMITH M.D. [facility] 2018-02-20 2018-02-20 Appointmen [facility], SIMON MONTES [id number] Univers 13:45:00 13:45:00 t; [facility] DIRECTOR, ROOM1 ity of ROOM1 [place] Physici ans 2018-02-13 2018-02-13 AppointSIMON Myles Student Nurse [id number] Univers 13:30:00 13:30:00 t; jassi SMITH M.D. [place] Shara SMITH M.D. ans 2018-02-13 2018-02-13 Appointjacob [facility] DIRECTOR, SIMON MONTES [id number] Univers 11:30:00 11:30:00 t; [facility] DIRECTOR, ROOM4 ity of ROOM4 [place] Physici ans 2018-02-06 2018-02-06 Appointmen [facility] DIRECTOR, SIMON MONTES [id number] Univers 13:30:00 13:30:00 t; [facility] DIRECTOR, ROOM3 ity of ROOM3 [place] Physici ans 2018-02-01 2018-02-01 Appointmen SIMON WELLER Student Nurse [id number] Univers 14:30:00 14:30:00 t; ELDON WELLER ity of RACHEL, M.D. [facility].Bipin Physici ans 2018-01-18 2018-01-18 Appointmen SIMON WELLER Student Nurse [id number] Univers 14:00:00 14:00:00 t; ELDON WELLER ity of RACHEL, M.D. [facility].D. Physici ans 2018-01-18 2018-01-18 Appointmen , [facility] Women's [id number] Univers 13:00:00 13:00:00 t; PROVIDER Center jassi lujan , [facility] Physici ans 2018-01-10 2018-01-10 Appointmen SIMON RAMIREZ Rheumatolog [id number] Univers 09:30:00 09:30:00 t; FEDERICO RAMIREZ y ity o f FILEMON, M.D. [place] Blanca Physici ans 2018-01-06 2018-01-06 Appointmen SIMON BAXTER Student Nurse [id number] Univers 13:30:00 13:30:00 t; Blanca CASTRO y of Tess BAXTER Physici M.D. ans 2018-01-06 2018-01-06 Appointmen [facility] DIRECTOR [facility] [id number] Univers 13:00:00 13:00:00 t; [facility] DIRECTOR, ROOM3 ity of ROOM3 [place] Physici ans 2018-01-03 2018-01-03 Appointmen SIMON RAMIREZ Rheumatolog [id number] Univers 09:30:00 09:30:00 t; FEDERICO RAMIREZ y ity o f FILEMON, M.D. [facility] ans 2017-12-26 2017-12-26 Appointmen SIMON COLLINS [place] [id number] Univers 13:00:00 13:00:00 t; Kayla OTERO-Speci it y of MARIAN [address] BRANDEN velasquez Physic i M.D. ans 2017-12-23 2017-12-23 Appointmen [facility] Womens [id number] Univers 13:00:00 13:00:00 t; Blanca CASTRO [place], [place] Shara CASTRO M.D. ans 2017-12-15 2017-12-15 [id number] 17:26:00 20:42:00 Karina 02 Tynese 2017-12-15 2017-12-15 Appointmen , [facility] [id number] Univers 15:30:00 15:30:00 t; PROVIDER Women's ity o f , [facility] PROVIDER Physic ans 2017-12-15 2017-12-15 Appointmen FOSTER-RETT [facility] Student Nurse [id number] Univers 14:30:00 14:30:00 t; , ity of FOSTER-RET Taylor SIMMONS M.D. Physici CHIKARA, ans M.D. 2017-12-15 2017-12-15 Appointmen EDUCATION, [facility] Student Nurse [id number] Univers 13:30:00 13:30:00 t; [facility] DIRECTOR ity of [place], [place] [facility] 2017-11-23 2017-11-23 Appointmen MERYL PAN [facility] Student Nurse [id number] Univers 14:00:00 14:00:00 t; Blanca PAN Blanca SHETH [facility] 2017-11-23 2017-11-23 Appointmen [facility] DIRECTOR, [facility] [id number] Univers 13:00:00 13:00:00 t; [facility] DIRECTOR, ROOM3 ity of ROOM3 [facility] 2017-11-02 2017-11-02 Appointmen SHAKILA THOMPSON [facility] Student Nurse [id number] Univers 14:00:00 14:00:00 t; Blanca THOMPSON Tess JHAVERI M.D. [facility] 2015-09-08 2015-09-08 Outpatient ZOILA SnowPL [id number] 12:29:00 17:00:00 Abiodun Berry 2014-08-21 2014-08-21 Outpatient Dick Odell [place] [id number] 17:33:00 18:59:00 [place] 00 Results Test Description Test Time Test Comments Results Result Comments Source [[facility]] CBC (INCLUDES DIFF/PLT) 2018-05-02 10:20:01 Test Item Value Reference Range Interpretation Comme nts WBC (test code = 6690-2) 7.6 {K/CMM} 3.7-10.4 RBC (test code = 789-8) 4.70 {M/CMM} 4.20-5.40 Hgb (test code = 718-7) 12.4 g/dl 12.0-16.0 Hct (test code = 48925-6) 38.3 % 36.0-48.0 MCV (test code = 787-2) 81.4 fL 80.0-98.0 MCH; Below Low Threshold (test code = 785-6) 26.4 pg 27.0-31.0 MCHC (test code = 786-4) 32.4 g/dl 32.0-36.0 RDW; Above High Threshold (test code = 788-0) 15.9 % 11.5-14. 5 Platelet (test code = 98624-6) 341 {K/CMM} 133-450 Mean Platelet Volume (test code = 81192-7) 9.5 fL 7.4-10.4 [facility] Physicians[[facility]] Gewldsflendm7655-24-13 10:20:01 Test Item Value Reference Range Interpretation Comments Segmented Neutrophils (test code 62.5 % 45.0-75.0 = 26101-6) Monocytes (test code = 65985-6) 6.5 % 2.0-12.0 Lymphocytes (test code = 12229-7) 29.5 % 20.0-40.0 Eosinophils (test code = 27319-8) 1.3 % 0.0-4.0 Basophils (test code = 706-2) 0.2 % 0.0-1.0 Segs-Bands # (test code = 4.7 {K/CMM} 1.5-8.1 45857-3) Lymphocytes # (test code = 2.2 {K/CMM} 1.0-5.5 32906-5) Monocytes # (test code = 35085-8) 0.5 {K/CMM} 0.0-0.8 Eosinophils # (test code = 0.1 {K/CMM} 0.0-0.5 05853-6) [facility] PhysiciansXRAY Shoulder series [id number] 14:54:00Exam: Right Shoulder series DXClinical Indication: - [...] shoulder for further evaluation, as clinically indicated.SL: [id number]--Hpwy by: Michael Camacho DODictated Date/time: 03/27/18 15:25Electronically Signed by: Michael Camacho DO 03/27/1815:30FINAL REPORTUnAlta View Hospital PhysiciansXRAY Knee 1-2 Views Bilateral [id number] 14:54:00Clinical Indication: - m25.561 chronic pain of [...] clinical significance and considered a normal variant.SL: [id number]--Ggar by: Michael Camacho DODictated Date/time: 03/27/18 15:31Electronically Signed by: Michael Camacho DO 03/27/1815:36FINAL REPORTUnAlta View Hospital ApebxjnoxtGWZCWZMGJT3514-14-31 21:49:0026.8[facility] VgjdrzjOHUAYNDUAH7568-62-91 21:49:0079.3[facility] PhkzdlcYZKAICDVVA7740-92-46 21:49:009.2[facility] AOVOQBEGIT3741-02-12 21:49:00 Test Item Value Reference Range Interpretation Comments MCH (test code = MCH) 26.1 pg 27.0-31.0 [facility] EirfbccPVXBRWBAUR1237-26-55 21:49:77788Qostsqlm HermannHEMATOLOGY 2018-02-24 21:49:0033.0[facility] IftyuyfMCIVAFZMWR7398-34-96 21:49:0016.2[facility] ZnuirzzXGUFMDJCLF8036-11-76 21:49:008.8[facility] HbzxlgvUCHYEPHHKA7569-39-97 21:49:0012.5[facility] IfqyqjnKNPBOSSVLR4882-54-72 21:49:003.38[facility] Sonu HWYSONRWQS3396-07-99 21:49:009.5[facility] KyogruqPEJROTBPXE7207-52-17 21:49:001.4 [facility] UgntcehEMBACESTEJ0351-51-49 21:49:002.1[facility] HermannHEMATOLOGY 2018-02-24 21:49:000.6[facility] YgxkcjqMNEDGASWBD6217-15-15 21:49:000.2[facility] QqkgzdeIKPXEFWWCL6923-60-60 21:49:000.4[facility] VuyqerwSYLSDWVVGC0644-34-85 21:49:004.6[facility] TfkcsdoAQEEEQOTCE6234-40-85 21:49:0076.4[facility] Sonu FJGMDCRIDF6316-17-57 21:49:0017.2[facility] PosckuhZEOTHXOXUA7064-92-57 11:23:00 9.4[facility] HpijzewJEIRIKDWAH3390-95-23 11:23:0019.7[facility] HermannHEMATOLOGY 2018-02-23 11:23:003.73[facility] AmuqilqZKORKUXRJW9865-10-30 11:23:0031.8[facility] VfjxmlnVZECQNGCJL6192-34-06 11:23:53615Ycatfwrn CdvuzpdZTPGHFOSFW4793-19-24 11:23:0016.0[facility] YnwftgcZLZIJJDPBB8086-85-54 11:23:009.9[facility] VKOIWQJYSI6759-58-96 11:23:0029.5[facility] RmhjkumQNFFEEKTRD0644-58-27 11:23:00 79.2[facility] EwyvkyaAFNVNAZDRC5670-56-66 11:23:00 Test Item Value Reference Range Interpretation Comments MCH (test code = MCH) 25.2 pg 27.0-31.0 [facility] DzgyiqxSPFNASHGNZ2516-92-14 11:23:002.3[facility] HermannHEMATOLOGY 2018-02-23 11:23:000.1[facility] CzbyabbFUVGRKTTSK4945-69-19 11:23:0016.0[facility] XnravfgJBGTQYPDMS5268-62-91 11:23:001.4[facility] KgkqgunSSWLFUABUG4187-22-25 11:23:0081.5[facility] VwysbilWCFGZRMHXD8002-17-54 11:23:0011.4[facility] Sonu KSWIUUIILM0821-35-32 11:23:00Normal (02/23/18 5:23 AM)[facility] HermannHEMATOLOGY 2018-02-23 11:23:007.0[facility] IjqpomqFZSGNYNUNC7348-51-42 22:04:001+ (02/22/18 4:04 PM)[facility] MrztwekNWGRCKDEEF4566-59-57 22:04:0093.1[facility] Sonu XMPODWVEKK2945-30-29 22:04:003.4[facility] EbypvwdIEEYZZQMMP1357-74-06 22:04:003.4 [facility] TxadkjcJDJLGPTUKJ7114-11-61 22:04:000.1[facility] HermannHEMATOLOGY 2018-02-22 22:04:000.9[facility] MxwwzapJYNVQCJSQB6126-20-15 22:04:000.9[facility] IohngkoTXGHNURXDE7269-96-01 22:04:0023.7[facility] TjyaozrZPRWXZYNJG6425-12-98 22:04:00Normal (02/22/18 4:04 PM)[facility] HtubkmzYZZWGQUMRB5986-38-80 22:04:00 9.9[facility] OgyeaerSDQZIQALWK2441-70-55 22:04:0032.3[facility] HermannHEMATOLOGY 2018-02-22 22:04:0015.8[facility] XhurypgPTOYDLIBSH1139-29-28 22:04:58207Ayoohxmh XgdutytPFUIAXAZKK0476-62-73 22:04:00 Test Item Value Reference Range Interpretation Comments MCH (test code = MCH) 25.7 pg 27.0-31.0 [facility] ChcfuemZAMTQZBHIG7808-52-18 22:04:0079.3[facility] HermannHEMATOLOGY 2018-02-22 22:04:0034.1[facility] CzwsmwgXEQSVHMKUO2878-90-95 22:04:0025.4[facility] LcqaepmVYEUBOWYHX5597-22-52 22:04:0011.0[facility] NauhwsiMUFIBKCKJB6109-08-15 22:04:004.30[facility] HermannURINE WURH9590-55-65 00:23:00 Test Item Value Reference Range Interpretation Comments U Prot/Creat (test code = U 0.18 1 Prot/Creat) [facility]annURINE MDGX6652-12-59 00:23:0017.6[facility] HermannURINE CHEM 2018-02-21 00:23:0098.00[facility] HermannCHEM UVFZF8355-79-25 23:44:22738Jntqxuwx HermannCHEM OORJY9549-48-39 23:44:00 Test Item Value Reference Range Interpretation Comments B/C Ratio (test code = B/C Ratio) 15 1 6-25 [facility] HermannCHEM LQLBV9187-39-44 23:44:003.9[facility] HermannCHEM PANEL 2018-02-20 23:44:00 Test Item Value Reference Range Interpretation Comments A/G Ratio (test code = A/G Ratio) 0.8 1 0.7-1.6 [facility] HermannCHEM AXZRG9751-51-84 23:44:000.53[facility] HermannCHEM PANEL 2018-02-20 23:44:004.1[facility] HermannCHEM KTYKX6218-49-04 23:44:86400Sbhcfmqj HermannCHEM ZCUQC1517-54-28 23:44:0017[facility] HermannCHEM IMCAU6688-39-88 23:44:50614Hqchaevd HermannCHEM EEFOM2324-93-23 23:44:0021[facility] HermannCHEM QIDHG4135-39-90 23:44:0015.1[facility] HermannCHEM HRFKI8920-60-14 23:44:000.2 [facility] HermannCHEM LCTRX0546-53-70 23:44:008.6[facility] HermannCHEM PANEL 2018-02-20 23:44:0021Mem[facility] HermannCHEM COTWH2419-06-61 23:44:003.0[facility] HermannCHEM JJHKY3142-17-40 23:44:006.9[facility] HermannCHEM MWVNC3673-54-31 23:44:11361Bxcexkah HermannCHEM WUDVS2257-40-16 23:44:0064Mem[facility] HermannCHEM WAVLA0372-12-68 23:44:008[facility] HermannBLOOD BANK NTCWJPR8064-34-76 23:43:00 Negative (02/20/18 5:43 PM)[facility] JfmxyuyZKXQYAAKZA7128-39-13 23:43:000.2 Memorial EyevocmIRJJMJWHVA7027-93-88 23:43:00Negative *NA*(02/20/18 5:43 PM) [facility] QilwttkGHJENPLCCK0909-04-06 23:43:00Non-Reactive *NA*(02/20/18 5:43 PM) [facility] FlsgqvpHCRGMAYUNB8350-90-51 23:43:00Negative *NA*(02/20/18 5:43 PM) [facility]] CBC (INCLUDES DIFF/PLT)2018-02-01 15:17:01 Test Item Value Reference Range Interpretation Comments WBC; Above High Threshold (test 10.6 {K/CMM} 3.7-10.4 code = 6690-2) RBC; Below Low Threshold (test 4.11 {M/CMM} 4.20-5.40 code = 789-8) Hgb; Below Low Threshold (test 11.0 g/dl 12.0-16.0 code = 718-7) Hct; Below Low Threshold (test 33.0 % 36.0-48.0 code = 20142-1) MCV (test code = 787-2) 80.3 fL 80.0-98.0 MCH; Below Low Threshold (test 26.8 pg 27.0-31.0 code = 785-6) MCHC (test code = 786-4) 33.4 g/dl 32.0-36.0 RDW; Above High Threshold (test 15.5 % 11.5-14.5 code = 788-0) Platelet (test code = 03662-5) 237 {K/CMM} 133-450 Mean Platelet Volume (test code 9.9 fL 7.4-10.4 = 34801-6) [facility] Physicians[] HIV AB, HIV 1/2, EIA, WITH YZUCYGVE4054-34-58 15:17:01 Test Item Value Reference Range Interpretation Comments HIV Ag/Ab 4th Gen Negative Negative HIV test r esults should be (test code = considered posi tive only 54225-9) when both the s creening andthe confirma tory tests are positive. A negative confirmatory te st in patientswith a positive screening test does not exclude HIV inf ection. If clincallywarran henrietta, an HIV RNA quantitativ e test should be order ed. [facility] Physicians[[facility]] [id number] 15:17:01 Test Item Value Reference Range Interpretation Comments RPR (test code = 94640-5) Non-Reactive Non-Reactive [facility] Physicians[] STREPTOCOCCUS, GROUP B CULTURE (Genital Strep Screen)2018-02-01 15:17:01 Test Item Value Reference Range Interpretation Comments FINAL REPORT (test No Beta-Hemolytic code = FINAL REPORT) Streptococci Isolated [facility] Physicians[[facility]] Erthnvdzvoiw3729-57-93 15:17:01 Test Item Value Reference Range Interpretation Comments Segmented Neutrophils; Above High 77.8 % 45.0-75.0 Threshold (test code = 61526-0) Monocytes (test code = 37553-6) 5.8 % 2.0-12.0 Lymphocytes; Below Low Threshold 15.6 % 20.0-40.0 (test code = 81926-1) Eosinophils (test code = 63930-4) 0.6 % 0.0-4.0 Basophils (test code = 706-2) 0.2 % 0.0-1.0 Segs-Bands #; Above High 8.2 {K/CMM} 1.5-8.1 Threshold (test code = 29309-6) Lymphocytes # (test code = 1.7 {K/CMM} 1.0-5.5 98191-4) Monocytes # (test code = 70461-7) 0.6 {K/CMM} 0.0-0.8 Eosinophils # (test code = 0.1 {K/CMM} 0.0-0.5 97338-9) [facility]] CBC (INCLUDES DIFF/PLT)2017-12-26 14:43:01 Test Item Value Reference Range Interpretation Comments WBC; Above High Threshold (test 14.3 {K/CMM} 3.7-10.4 code = 6690-2) RBC; Below Low Threshold (test 4.10 {M/CMM} 4.20-5.40 code = 789-8) Hgb; Below Low Threshold (test 11.0 g/dl 12.0-16.0 code = 718-7) Hct; Below Low Threshold (test 33.4 % 36.0-48.0 code = 49577-3) MCV (test code = 787-2) 81.3 fL 80.0-98.0 MCH; Below Low Threshold (test 26.8 pg 27.0-31.0 code = 785-6) MCHC (test code = 786-4) 33.0 g/dl 32.0-36.0 RDW; Above High Threshold (test 15.1 % 11.5-14.5 code = 788-0) Platelet (test code = 29272-3) 267 {K/CMM} 133-450 Mean Platelet Volume (test code 9.7 fL 7.4-10.4 = 75138-0) [facility]] [id number] 14:43:01 Test Item Value Reference Range Interpretation Comments Segmented Neutrophils (test code 75.0 % 45.0-75.0 = 32325-4) Monocytes (test code = 80190-1) 7.4 % 2.0-12.0 Lymphocytes; Below Low Threshold 16.8 % 20.0-40.0 (test code = 37739-5) Eosinophils (test code = 0.6 % 0.0-4.0 18205-3) Basophils (test code = 706-2) 0.2 % 0.0-1.0 Segs-Bands #; Above High 10.7 {K/CMM} 1.5-8.1 Threshold (test code = 87372-4) Lymphocytes # (test code = 2.4 {K/CMM} 1.0-5.5 19861-6) Monocytes #; Above High 1.1 {K/CMM} 0.0-0.8 Threshold (test code = 83864-6) Eosinophils # (test code = 0.1 {K/CMM} 0.0-0.5 73281-7) [facility]] SED RATE BY MODIFIED [id number] 14:43:01 Test Item Value Reference Range Interpretation Comments Sedimentation Rate; Above High 28 {mm/hr} 0-20 Threshold (test code = 34627-3) [facility][] HEPATITIS B SURFACE ANTIGEN W/REFL CONFIRM 2017-12-26 14:43:01 Test Item Value Reference Range Interpretation Comments Hepatitis B Surface Antigen (test Negative Negative code = 5195-3) [facility]] HEPATITIS C [id number] 14:43:01 Test Item Value Reference Range Interpretation Comments Hepatitis C Antibody (test code = Negative 34225-2) [facility]] RHEUMATOID [id number] 14:43:01 Test Item Value Reference Range Interpretation Comments Rheumatoid Factor Quantitative (test <10 0-20 code = 43900-1) [facility]] URIC [id number] 14:43:01 Test Item Value Reference Range Interpretation Comments Uric Acid (test code = 3084-1) 2.6 mg/dl 2.5-7.0 [facility]] C-REACTIVE [id number] 14:43:01 Test Item Value Reference Range Interpretation Comments CRP (test code = CRP) 19.6 mg/L <=2.9 [facility][] CYCLIC CITRULLINATED PEPTIDE (CCP) AB (IGG) 2017-12-26 14:43:01 Test Item Value Reference Range Interpretation Comments Cyclic Citrulline Peptide Antibody <0.5 <=2.9 (test code = 88177-0) [facility]] RAVI PANEL, [id number] 14:43:01 Test Item Value Reference Range Interpretation Comments Antinuclear Antibody Screen; Positive Negative A Abnormal (test code = 28343-9) [facility][] Antinuclear Antibody [id number] 14:43:01 Test Item Value Reference Range Interpretation Comments RAVI Titer; Abnormal (test code = 1:40 Negative A 5048-4) [facility]] SJOGRENS ANTIBODIES (SS-A,SS-B)2017-12-26 14:43:01 Test Item Value Reference Range Interpretation Comments SS-A (Ro) Antibody (test code = 5351-2) <0.2 <=0.9 SS-b (La) Antibody (test code = 5353-8) <0.2 <=0.9 [facility][] SPINNING FRAME CHANGER [id number] 14:43:01 Test Item Value Reference Range Interpretation Comments SPINNING FRAME CHANGER Ab (test code = SPINNING FRAME CHANGER Ab) <0.2 <=0.9 [facility]] SM [id number] 14:43:01 Test Item Value Reference Range Interpretation Comments Sm Ab (test code = 76281-3) <0.2 <=0.9 [facility]] DNA (DS) [id number] 14:43:01 Test Item Value Reference Range Interpretation Comments DNA Antibody (Double-stranded) (test Negative Negative code = 5131-8) [facility] THYROID PEROXIDASE [id number] 14:43:01 Test Item Value Reference Range Interpretation Comments Thyroid Peroxidase (TPO) Antibody (test <28 <=60 code = 09859-0) [facility]] COMPLEMENT COMPONENT [id number] 14:43:01 Test Item Value Reference Range Interpretation Comments C3 Complement (test code = 4485-9) 155 mg/dl 88-201 [facility]] COMPLEMENT COMPONENT [id number] 14:43:01 Test Item Value Reference Range Interpretation Comments C4 Complement (test code = 4498-2) 29 mg/dl 16-47 [facility][] Antinuclear Antibody Ojvtqpmkvkxbqn5576-73-68 14:43:01Pattern appears Mixed [facility]] URINALYSIS, [id number] 14:17:01 Test Item Value Reference Range Interpretation Comments UA Turbidity; Abnormal (test code Slight Clear A = 82678-1) UA Spec Grav (test code = 5810-7) 1.012 <=1.030 UA pH (test code = 5803-2) 6.0 5.0-8.0 UA Protein (test code = 45546-0) Negative Negative UA Glucose (test code = 08951-5) Negative Negative UA Ketones (test code = 30659-7) Negative Negative UA Bili (test code = 5770-3) Negative Negative UA Blood (test code = 5794-3) Negative Negative UA Nitrite (test code = 5802-4) Negative Negative UA Leuk Est; Abnormal (test code = Trace Negative A 5799-2) UA RBC (test code = 47625-8) <1 0-2 UA WBC (test code = 67775-7) 1 {/HPF} 0-5 UA Bacteria (test code = 22663-1) Occasional None Seen UA Mucus (test code = 8247-9) Few None Seen UA Sq Epi; Abnormal (test code = Many Few A 33549-0) UA Color (test code = 5778-6) Yellow UROBILINOGEN (test code = 03600-1) <=1.0 0.1-1.0 [facility]] CULTURE, URINE, [id number] 14:17:01 Test Item Value Reference Range Interpretation Comments FINAL REPORT (test code <10,000 CFU/mL Skin = FINAL REPORT) [facility] [id number] 23:38:00<1[facility] [id number] 23:38:002[facility] STOOL 2017-12-15 23:38:00Negative (12/15/17 6:38 PM)[facility] 2017-12-15 23:38:00Negative (12/15/17 6:38 PM)[facility] 2017-12-15 23:38:00Negative (12/15/17 6:38 PM)[facility] 2017-12-15 23:38:00Negative *NA*(12/15/17 6:38 PM)[facility] 2017-12-15 23:38:00 Test Item Value Reference Range Interpretation Comments UA Spec Grav (test code = UA Spec 1.010 1 Grav) [facility] [id number] 23:38:00 Test Item Value Reference Range Interpretation Comments UA pH (test code = UA pH) 6.0 1 5.0-8.0 [facility] [id number] 23:38:00Yellow *NA*(12/15/17 6:38 PM) [facility] [id number] 23:38:00Slight *ABN*(12/15/17 6:38 PM) [facility] [id number] 23:38:00 Test Item Value Reference Range Interpretation Comments U Prot/Creat (test code = U 0.14 1 Prot/Creat) [facility] [id number] 23:38:009.6[facility] CHEM 2017-12-15 23:38:0070.90[facility]annCHEM [id number] 23:26:04574Zvfxkjnm HermannCHEM [id number] 23:26:003.7[facility]annCHEM [id number] 23:26:04405Bbuknsxd HermannCHEM [id number] 23:26:0022[facility]annCHEM [id number] 23:26:14376Bsvkagnv HermannCHEM [id number] 23:26:000.2 [facility] [id number] 23:26:009[facility]annCHE[facility] PANEL 2017-12-15 23:26:0078[facility]annCHEM [id number] 23:26:006.6[facility]annCHE[facility] [id number] 23:26:002.8[facility]annCHE[facility] [id number] 23:26:008.4[facility]annCHEM [id number] 23:26:0016[facility]annCHEM [id number] 23:26:006[facility]annCHEM [id number] 23:26:000.37 [facility] HermannCHEM [id number] 23:26:0066[facility]annCHEM PANEL 2017-12-15 23:26:003.8[facility]annCHE[facility] [id number] 23:26:00 Test Item Value Reference Range Interpretation Comments A/G Ratio (test code = A/G Ratio) 0.7 1 0.7-1.6 [facility] HermannCHEM [id number] 23:26:0014.7[facility]annCHE[facility] PANEL 2017-12-15 23:26:00 Test Item Value Reference Range Interpretation Comments B/C Ratio (test code = B/C Ratio) 16 1 6-25 [facility] YmwzspkLRLMOUWSUT1753-36-66 23:26:61567Invcdtbq HermannHEMATOLOGY 2017-12-15 23:26:009.7[facility] TzqfiipNTKURFKFAJ1277-77-97 23:26:0034.8[facility] WeywjqjCTEQLSJBKR8091-12-52 23:26:00 Test Item Value Reference Range Interpretation Comments MCH (test code = MCH) 26.6 pg 27.0-31.0 [facility] UarhcfhKVNBZTZYOV8244-72-72 23:26:0081.5[facility]annHEMATOLOGY 2017-12-15 23:26:0014.4[facility] WnncmhtDPCWKZVRHX5293-76-83 23:26:0011.4[facility] IudybgcFOOBLGGOZI7928-13-83 23:26:004.27[facility] EqauxkvLHXYFESLFH0800-95-89 23:26:0015.2[facility] IwsehihYZTZJRBQIF2350-42-34 23:26:0032.7[facility] DWQNTLZCRK5072-36-96 23:26:0010.7[facility] QjnwxuzRVWOLEERLZ8102-97-55 23:26:00 74.7[facility] DwzawfyUJGTELKQPT4179-69-62 23:26:006.7[facility]annHEMATOLOGY 2017-12-15 23:26:000.6[facility] CliwmawQUDKZWDUYS9121-09-68 23:26:0017.5[facility] NlbqumtRSABAMGXGY4186-18-74 23:26:000.5[facility] CtyrsfcMWEBXDPWUX1963-12-60 23:26:000.1[facility] DjhigwtPEZUWQSXCK7999-93-58 23:26:000.1[facility] Sonu VPXQMCKYVQ4277-91-33 23:26:002.5[facility] EifbplyZOMABONGPH1874-34-84 23:26:001.0 [facility]] CBC (INCLUDES DIFF/PLT)2017-12-15 17:02:01 Test Item Value Reference Range Interpretation Comments WBC; Above High Threshold (test 14.8 {K/CMM} 3.7-10.4 code = 6690-2) RBC (test code = 789-8) 4.22 {M/CMM} 4.20-5.40 Hgb; Below Low Threshold (test 11.2 g/dl 12.0-16.0 code = 718-7) Hct; Below Low Threshold (test 34.3 % 36.0-48.0 code = 29039-7) MCV (test code = 787-2) 81.3 fL 80.0-98.0 MCH; Below Low Threshold (test 26.6 pg 27.0-31.0 code = 785-6) MCHC (test code = 786-4) 32.7 g/dl 32.0-36.0 RDW; Above High Threshold (test 14.6 % 11.5-14.5 code = 788-0) Platelet (test code = 70445-9) 327 {K/CMM} 133-450 Mean Platelet Volume (test code 9.6 fL 7.4-10.4 = 44215-4) [facility]] CMP [id number] 17:02:01 Test Item Value Reference Range Interpretation Comments Glucose Lvl; 111 mg/dl 70-99 Adult reference range Above High values reflect the Threshold (test clinical neo delinesof the code = 2345-7) [employer]. Sodium Level 138 {mEq/l} 135-145 (test code = 2951-2) Potassium Level 3.9 {mEq/l} 3.5-5.1 (test code = 2823-3) Chloride Level 105 {mEq/l} 95-109 (test code = 2075-0) Carbon Dioxide; 21 {mEq/l} 24-32 Below Low Threshold (test code = 8-9) AGAP (test code = 15.9 {mEq/l} 10.0-20.0 56772-0) Creatinine Lvl; 0.40 mg/dl 0.50-1.40 Below Low Threshold (test code = 2160-0) Blood Urea 8 mg/dl 7-22 Nitrogen (test code = 3094-0) BUN/Creatinine 20 6-25 Ratio (test code = 3097-3) Total Protein; 6.2 g/dl 6.4-8.4 Below Low Threshold (test code = 2885-2) Albumin Lvl; 3.0 g/dl 3.5-5.0 Below Low Threshold (test code = 1751-7) Globulin (test 3.2 g/dl 2.7-4.2 code = 52870-7) A/G Ratio (test 0.9 0.7-1.6 code = 1759-0) Calcium Level 8.7 mg/dl 8.5-10.5 Total (test code = 78271-6) ALT (test code = 17 u/l 0-65 3-4) AST (test code = 10 u/l 0-37 22315-4) Bili Total (test 0.2 mg/dl 0.2-1.3 code = 1974-2) Alk Phos (test 82 u/l 39-136 code = 1783-0) eGFR (test code = 147 The eGFR i s calculated 16118-6) {ML/MIN/1.7} using the CKD-E PI formula. In [...] be multiplied by t he estimated BMI. [facility]] GLUCOSE, GESTATIONAL SCREEN (50G)-130 CUTOFF 2017-12-15 17:02:01 Test Item Value Reference Range Interpretation Comments Glucose Challenge (test code = 111.0 mg/dl <=140.0 1504-0) [facility]] Ulkhxomjfjfl6485-03-29 17:02:01 Test Item Value Reference Range Interpretation Comments Segmented Neutrophils; Above 76.9 % 45.0-75.0 High Threshold (test code = 42322-9) Monocytes (test code = 59885-3) 6.7 % 2.0-12.0 Lymphocytes; Below Low Threshold 15.7 % 20.0-40.0 (test code = 60032-2) Eosinophils (test code = 0.6 % 0.0-4.0 40719-8) Basophils (test code = 706-2) 0.1 % 0.0-1.0 Segs-Bands #; Above High 11.4 {K/CMM} 1.5-8.1 Threshold (test code = 31450-2) Lymphocytes # (test code = 2.3 {K/CMM} 1.0-5.5 61500-8) Monocytes #; Above High 1.0 {K/CMM} 0.0-0.8 Threshold (test code = 19595-0) Eosinophils # (test code = 0.1 {K/CMM} 0.0-0.5 36040-9) [facility][H] Obstetrics Panel (includes CBCw/Diff,RPR, HbsAg,RubIgG,Type and Screen)2017-11-02 15:52:01 Test Item Value Reference Range Interpretation Comments WBC; Above High 11.4 {K/CMM} 3.7-10.4 Threshold (test code = 6690-2) RBC; Below Low 4.08 {M/CMM} 4.20-5.40 Threshold (test code = 789-8) Hgb; Below Low 11.4 g/dl 12.0-16.0 Threshold (test code = 717-9) Hct; Below Low 33.1 % 36.0-48.0 Threshold (test code = 25035-1) MCV (test code = 81.2 fL 80.0-98.0 787-2) MCH (test code = 28.1 pg 27.0-31.0 46754-4) MCHC (test code = 34.5 g/dl 32.0-36.0 786-4) RDW; Above High 14.6 % 11.5-14.5 Threshold (test code = 788-0) Platelet (test code = 293 {K/CMM} 133-450 777-3) MPV (test code = 9.2 fL 7.4-10.4 50271-6) Segs; Above High 77.0 % 45.0-75.0 Threshold (test code = 36566-5) Monocytes # (test 0.5 {K/CMM} 0.0-0.8 code = 11348-3) Lymphocytes (test 17.9 % 20.0-40.0 code = Lymphocytes) Eosinophils (test 0.6 % 0.0-4.0 code = Eosinophils) Basophils (test code 0.2 % 0.0-1.0 = 49766-5) Segs-Bands #; Above 8.8 {K/CMM} 1.5-8.1 High Threshold (test code = 41133-1) Lymphocytes # (test 2.0 {K/CMM} 1.0-5.5 code = 98982-2) Eosinophils # (test 0.1 {K/CMM} 0.0-0.5 code = 81070-0) ABORH (test code = O POS 882-1) AB Screen (test code Negative = 890-4) Hep Bs Ag (test code Negative Negative = 5195-3) Rubella IgG (test 133.2 {IU/ml} >=10.0 Reference Range: code = 89721-1) Immune >= 10 IU/mL RPR (test code = Non-Reactive Non-Reactive 46187-9) [facility]] GLUCOSE, GESTATIONAL SCREEN (50G)-130 CUTOFF 2017-11-02 15:52:01 Test Item Value Reference Range Interpretation Comments Glucose Challenge (test code = 131.0 mg/dl <=140.0 1504-0) [facility][] HIV AB, HIV 1/2, EIA, WITH [id number] 15:52:01 Test Item Value Reference Range Interpretation Comments HIV Ag/Ab 4th Gen Negative Negative HIV test r esults should be (test code = considered posi tive only 58878-3) when both the s creening andthe confirma tory tests are positive. A negative confirmatory te st in patientswith a positive screening test does not exclude HIV inf ection. If clincallywarran henrietta, an HIV RNA quantitativ e test should be order ed. [facility]] URINALYSIS, [id number] 15:52:01 Test Item Value Reference Range Interpretation Comments UA Turbidity (test code = 32504-8) Clear Clear UA Spec Grav (test code = 5810-7) 1.010 <=1.030 UA pH (test code = 5803-2) 8.0 5.0-8.0 UA Protein (test code = 17053-4) Negative Negative UA Glucose (test code = 12181-8) Negative Negative UA Ketones (test code = 23518-4) Negative Negative UA Bili (test code = 5770-3) Negative Negative UA Blood (test code = 5794-3) Negative Negative UA Nitrite (test code = 5802-4) Negative Negative UA Leuk Est; Abnormal (test code = Small Negative A 5799-2) UA WBC (test code = 83389-5) <1 0-5 UA Bacteria (test code = 06770-5) Occasional None Seen UA Mucus (test code = 8247-9) Few None Seen UA Sq Epi; Abnormal (test code = Many Few A 67926-0) UA Color (test code = 5778-6) Ltyellow UROBILINOGEN (test code = 25500-8) <=1.0 0.1-1.0 [facility]] CULTURE, URINE, [id number] 15:52:01 Test Item Value Reference Range Interpretation Comments FINAL REPORT (test code 50,000 - 100,000 = FINAL REPORT) CFU/mL Skin Kira [facility]. [facility] - PAP w/reflex [id number] 00:00:00 Test Item Value Reference Range Interpretation Comments PAP w/reflex HPV REPORT (test See Comment code = PAP w/reflex HPV REPORT) [facility]iciansMOLECULAR [id number] 19:19:00Negative *NA*(09/08/15 2:19 PM)[facility] RYFWVGUZEB8981-18-82 19:19:00 Endocervix *NA*(09/08/15 2:19 PM)[facility] VKJWRJILDZ0473-88-65 19:19:00Endocervix *NA*(09/08/15 2:19 PM)[facility] DIAGNOSTIC 2015-09-08 19:19:00Negative *NA*(09/08/15 2:19 PM)[facility] STOOL 2015-09-08 19:19:00Yellow *NA*(09/08/15 2:19 PM)[facility] ST[facility] 2015-09-08 19:19:00Negative (09/08/15 2:19 PM)[facility] 2015-09-08 19:19:00Negative (09/08/15 2:19 PM)[facility] ST[facility] 2015-09-08 19:19:00 Test Item Value Reference Range Interpretation Comments UA pH (test code = UA pH) 6.0 1 5.0-8.0 [facility] [id number] 19:19:000.2[facility] [id number] 19:19:00Negative (09/08/15 2:19 PM)[facility] [id number] 19:19:00>=1.030 *ABN*(09/08/15 2:19 PM)[facility] [id number] 19:19:00Clear (09/08/15 2:19 PM)[facility] [id number] 19:19:00Negative (09/08/15 2:19 PM)[facility] [id number] 19:19:00Small *ABN*(09/08/15 2:19 PM)[facility] [id number] 19:19:00Negative *NA*(09/08/15 2:19 PM)[facility] [id number] 19:19:00Trace *ABN*(09/08/15 2:19 PM)[facility] [id number] 19:19:00None Seen (09/08/15 2:19 PM)[facility] [id number] 19:19:00None Seen (09/08/15 2:19 PM)[facility] 2015-09-08 19:19:00Negative (09/08/15 2:19 PM)[facility]
[2020-01-27] MEDS ORDERED: KETOROLAC 30 MG/ML INJ ONE (17:27)
[2020-01-27] MEDS ORDERED: dexAMETHasone 4 MG/ML VIAL ONE (17:27)
--- NOTE | 2020-01-27 17:48 | RAD REPORT ---
EXAM DESCRIPTION: CT - Head Brain Wo Cont - 01/27/2020 5:38 pm CLINICAL HISTORY: headache, blurred vision Headache, drowsiness COMPARISON: Facial Bones W Con Mpr dated 01/27/2020 TECHNIQUE: All CT scans are performed using dose optimization technique as appropriate and may inclu de automated exposure control or mA/KV adjustment according to patient size. FINDINGS: No intracranial hemorrhage, hydrocephalus or extra-axial fluid collection.No areas of brai n edema or evidence of midline shift. The paranasal sinuses and mastoids are clear. The calvarium is intact. IMPRESSION: No acute intracranial abnormality.
--- NOTE | 2020-01-27 17:51 | RAD REPORT ---
EXAM DESCRIPTION: CT - CTFBWCON CLINICAL HISTORY: dental pain, left side;Facial pain Left-sided dental pain and swelling. COMPARISON: No comparisons TECHNIQUE: Axial 2 mm thick images of the face were obtained with sagittal and coronal reconstructio n images. All CT scans are performed using dose optimization technique as appropriate and may include automated exposure control or mA/KV adjustment according to patient size. FINDINGS: No acute facial bone fracture is seen.The mandible is intact. Left posterior most mandibular molar demonstrates mild periapical lucency measuring about 8 mm suspic ious for a periapical abscess. No soft tissue abscess seen. The globes and orbital contents are grossly unremarkable.The paranasal sinuses and mastoids are clear . IMPRESSION: 8 mm left posterior mandibular periapical lucency noted probably representing periapical abscess. No soft tissue abscess seen.
--- NOTE | 2020-01-27 18:21 | ER ---
Nurse's Notes [facility] Name: Lindsey Aguilar Age: 24 yrs Sex: Female : 1995 Arrival Date: 01/27/2020 Time: 16:49 Bed 7 Private MD: Diagnosis: Periapical dental abscess Presentation: 01/26 17:09 Chief complaint: Patient states: "I have had a bad tooth infection for awhile now and I jd3 was given Amoxicillin then clindamycin, but I am still having a lot of pain all throughout my head and last night I started to having vision loss in my left eye.". Coronavirus screen: At this time, the client does not indicate any symptoms associated with coronavirus-19. Ebola Screen: Patient negative for fever greater than or equal to 101.5 degrees Fahrenheit, and additional compatible Ebola Virus Disease symptoms. Initial Sepsis Screen: Does the patient meet any 2 criteria? No. Patient's initial sepsis screen is negative. Does the patient have a suspected source of infection? No. Patient's initial sepsis screen is negative. Risk Assessment: Do you want to hurt yourself or someone else? Patient reports no desire to harm self or others. Onset of symptoms was January 26, 2020. 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 - Social history:: Smoking status: Patient/guardian denies using tobacco, the patient reports quitting approximately 3 years ago. - Family history:: not pertinent. - Hospitalizations: : No recent hospitalization is reported. Screenin:55 Abuse screen: Denies threats or abuse. Nutritional screening: No deficits noted. rb1 Tuberculosis screening: No symptoms or risk factors identified. Fall Risk None identified. Assessment: 16:55 General: Appears in no apparent distress. comfortable, Behavior is calm, cooperative, rb1 Denies fever, Reports hot flashes. Pain: Complains of pain in left upper and lower jaw Pain currently is 7 out of 10 on a pain scale. Neuro: Level of Consciousness is awake, alert, obeys commands, Oriented to person, place, time, situation. Cardiovascular: Patient's skin is warm and dry. Respiratory: Airway is patent Respiratory effort is even, unlabored, Respiratory pattern is regular, symmetrical. GI: Reports nausea. : No signs and/or symptoms were reported regarding the genitourinary system. EENT: Reports pain since teeth on the left upper and lower jaw. Derm:. 18:11 Reassessment: Patient appears in no apparent distress at this time. Patient and/or rb1 family updated on plan of care and expected duration. Pain level reassessed. Patient is alert, oriented x 3, equal unlabored respirations, skin warm/dry/pink. Dr. Carpio at the bedside going over test results with the pt. Vital Signs: 17:12 BP 163 / 119; Pulse 90; Resp 17 S; Temp 97.7(TE); Pulse Ox 98% on R/A; Weight 165.11 kg jd3 (R); Height 5 ft. 5 in. (165.10 cm) (R); Pain 4/10; 18:11 BP 150 / 95; Pulse 88; Resp 19; Pulse Ox 98% on R/A; rb1 17:12 Body Mass Index 60.57 (165.11 kg, 165.10 cm) jd3 ED Course: 16:49 Patient arrived in ED. ag5 16:51 Cedrick Carpio MD is Attending Physician. rn 16:53 Tamiko Cedeño RN is Primary Nurse. iw 16:55 Patient has correct armband on for positive identification. Bed in low position. Call rb1 light in reach. Side rails up X 1. Pulse ox on. NIBP on. 17:11 Triage completed. jd3 17:13 Arm band placed on. jd3 17:25 Inserted saline lock: 22 gauge in right antecubital area, using aseptic technique. rb1 17:39 CT Head Brain wo Cont In Process Unspecified. EDMS 17:39 CT Facial Bones W/ Con \\T\\ Mpr In Process Unspecified. EDMS 18:30 No provider procedures requiring assistance completed. IV discontinued, intact, rb1 bleeding controlled, No redness/swelling at site. Pressure dressing applied. Administered Medications: 17:25 Drug: TORadol - Ketorolac 15 mg Route: IVP; Site: right antecubital; rb1 17:50 Follow up: Response: No adverse reaction; Pain is decreased rb1 17:25 Drug: Decadron - Dexamethasone 10 mg Route: IVP; Site: right antecubital; rb1 17:50 Follow up: Response: No adverse reaction rb1 Outcome: 18:21 Discharge ordered by MD. rn 18:30 Discharged to home ambulatory, with family. rb1 18:30 Condition: stable 18:30 Discharge instructions given to patient, Instructed on discharge instructions, follow up and referral plans. medication usage, Demonstrated understanding of instructions, follow-up care, medications, Prescriptions given X 1. 18:31 Patient left the ED. rb1 Signatures: Dispatcher [employer] EDTamiko Ocasio, RN Cedrick Worthington MD MD rn Barber, Rebecca, RN RN Ifeanyi Boyd RN RN jd3 Gaskin, Ajare 5
--- NOTE | 2020-01-27 18:21 | EDPHYS ---
Physician Documentation [facility] Name: Lindsey Aguilar Age: 24 yrs Sex: Female : 1995 Arrival Date: 01/27/2020 Time: 16:49 Bed 7 Private MD: ED Physician Cedrick Carpio HPI: 01/26 17:21 This 24 yrs old Female presents to ER via Ambulatory with complaints of Mouth rn Problem, headache. 17:21 The patient presents with pain. The problem is located in the left lower and upper rn teeth. 17:22 Duration: The symptoms are intermittent. Modifying factors: The symptoms are alleviated rn by nothing, the symptoms are aggravated by chewing, talking. Severity of symptoms: At their worst the symptoms were moderate, in the emergency department the symptoms are unchanged. The patient has experienced similar episodes in the past. Reports on 2nd round of abx for dental infection, told by dentist infection is "under the partial crowns". Doing well on amoxicillin then switched to clindamycin and pain returned. No swelling. Reports having headaches as well, thinks is from pain from teeth, no trauma, no focal neurological problem other than small area of blurred vision left upper outer eye, not helped by cleaning contact. No eye injury. No focal weakness/numbness. Called her pcp who told her to come to ER immediately to rule out brain extension of the infection. . 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 - Social history:: Smoking status: Patient/guardian denies using tobacco, the patient reports quitting approximately 3 years ago. - Family history:: not pertinent. - Hospitalizations: : No recent hospitalization is reported. ROS: 17:22 Constitutional: Negative for fever, chills, and weight loss, Eyes: Negative for injury, rn pain, redness, and discharge, ENT: + dental pain Cardiovascular: Negative for chest pain, palpitations, and edema, Respiratory: Negative for shortness of breath, cough, wheezing, and pleuritic chest pain, Abdomen/GI: Negative for abdominal pain, nausea, vomiting, diarrhea, and constipation, MS/Extremity: Negative for injury and deformity, Skin: Negative for injury, rash, and discoloration, Neuro: + headache, negative for seizure/weakness/numbness Exam: 17:22 Constitutional: Overweight female, no acute distress. Head/Face: Normocephalic, rn atraumatic. Eyes: Pupils equal round and reactive to light, extra-ocular motions intact. Lids and lashes normal. Conjunctiva and sclera are non-icteric and not injected. Cornea within normal limits. Periorbital areas with no swelling, redness, or edema. Contacts in place. ENT: Poor dentition, but no focal swelling/erythema/fluctuance. Neck: Trachea midline, no masses palpated, and no cervical lymphadenopathy. Supple, full range of motion without nuchal rigidity, or vertebral point tenderness. No Meningismus. Cardiovascular: Regular rate and rhythm. No pulse deficits. Skin: Warm, dry, no evidence of cellulitis MS/ Extremity: Pulses equal, no cyanosis. Neurovascular intact. Full, normal range of motion. Equal circumference. Neuro: Awake and alert, GCS 15, oriented to person, place, time, and situation. Cranial nerves II-XII grossly intact. Motor strength 5/5 in all extremities. Sensory grossly intact. Cerebellar exam normal. Normal gait. No visual field deficit appreciated. Vital Signs: 17:12 BP 163 / 119; Pulse 90; Resp 17 S; Temp 97.7(TE); Pulse Ox 98% on R/A; Weight 165.11 kg jd3 (R); Height 5 ft. 5 in. (165.10 cm) (R); Pain 4/10; 18:11 BP 150 / 95; Pulse 88; Resp 19; Pulse Ox 98% on R/A; rb1 17:12 Body Mass Index 60.57 (165.11 kg, 165.10 cm) jd3 MDM: 16:51 Patient medically screened. rn 18:18 Differential diagnosis: dental caries, dental abscess. Data reviewed: vital signs, rn nurses notes, radiologic studies, CT scan, and as a result, I will discharge patient. Counseling: I had a detailed discussion with the patient and/or guardian regarding: the historical points, exam findings, and any diagnostic results supporting the discharge/admit diagnosis, radiology results, the need for outpatient follow up, to return to the emergency department if symptoms worsen or persist or if there are any questions or concerns that arise at home. Response to treatment: the patient's symptoms have markedly improved after treatment, and as a result, I will discharge patient. Special discussion: I discussed with the patient/guardian in detail that at this point there is no indication for admission to the hospital. It is understood, however, that if the symptoms persist or worsen the patient needs to return immediately for re-evaluation. Based on the history and exam findings, there is no indication for further emergent testing or inpatient evaluation. I discussed with the patient/guardian the need to see a dentist for further evaluation of the symptoms. ED course: + small periapical abscess left posterior molar, no extension to other tissues, ct head neg. Will dc home with augmentin and dental f/u. At this point, recommend tooth extraction. . 01/26 17:07 Order name: CT Head Brain wo Cont; Complete Time: 17:55 rn 01/26 17:07 Order name: CT Facial Bones W/ Con \\T\\ Mpr; Complete Time: 17:55 rn 01/26 17:07 Order name: IV Start; Complete Time: 17:28 rn Administered Medications: 17:25 Drug: TORadol - Ketorolac 15 mg Route: IVP; Site: right antecubital; rb1 17:50 Follow up: Response: No adverse reaction; Pain is decreased rb1 17:25 Drug: Decadron - Dexamethasone 10 mg Route: IVP; Site: right antecubital; rb1 17:50 Follow up: Response: No adverse reaction rb1 Disposition: 01/27/20 18:21 Discharged to Home. Impression: Periapical dental abscess. - Condition is Stable. - Discharge Instructions: Dental Abscess. - Prescriptions for Augmentin 875- 125 mg Oral Tablet - take 1 tablet by ORAL route every 12 hours for 10 days; 20 tablet. - Medication Reconciliation Form, Thank You Letter, Antibiotic Education, Prescription Opioid Use form. - Follow up: Private Physician; When: As needed; Reason: Recheck today's complaints, Re-evaluation by your physician. - Problem is new. - Symptoms have improved. Signatures: Dispatcher [employer] EDMS Cedrick Carpio MD MD rn Barber, Rebecca, RN RN rb1 Ifeanyi Nice RN RN jd3 Corrections: (The following items were deleted from the chart) 18:31 18:21 01/27/2020 18:21 Discharged to Home. Impression: Periapical dental abscess. rb1 Condition is Stable. Forms are Medication Reconciliation Form, Thank You Letter, Antibiotic Education, Prescription Opioid Use. Follow up: Private Physician; When: As needed; Reason: Recheck today's complaints, Re-evaluation by your physician. Problem is new. Symptoms have improved. rn
[2020-01-27 18:38] VITALS: TEMP 97.7; O2SAT 98
[2020-01-27 18:40] VITALS: BP 150/95
== END 2020-01-27 18:31 | disposition home or self-care (01) ==
LOC: ER 16:47
DX: K04.7 Periapical abscess without sinus (principal); Z88.0 Allergy status to penicillin
CPT/HCPCS: 70450; 70487; 76377; 96374; 96375; 99284; J1100; Q9967

== ENCOUNTER 2023-02-13 20:49 | Emergency (ER) | payer OTHER ==
[2023-02-13] MEDS ORDERED: LORazepam 2 MG/ML VIAL ONE (22:03)
[2023-02-13] MEDS ORDERED: NA CHLORIDE 0.9% 2,000 ML ONE (22:04)
[2023-02-13 22:28] LABS: Absolute Lymphocytes (CBC) 3.7 K/uL (0.7-4.9); Hematocrit 42.2 % (36.0-45.0); Lymphocytes % 35.4 % (15.3-44.8); MCV 82.9 fL (80-100); MPV 8.8 fL (7.6-11.3); Platelets 334 thou/uL (152-406); RBC Red Blood Cell Count 5.09 M/uL (3.86-4.86)
[2023-02-13 22:29] LABS: Protime INR 1.05
[2023-02-13 22:32] LABS: ALT/SGPT 25 U/L (13-56); AST/SGOT 14 U/L (15-37); Albumin 3.7 g/dL (3.4-5.0); Alkaline Phosphatase 69 U/L (45-117); BUN Blood Urea Nitrogen 15 mg/dL (7-18); Bicarbonate 27 mEq/L (21-32); Bilirubin Total 0.4 mg/dL (0.2-1.0); Glomerular Filtration Rate 104 ml/min (=/>90); Glucose Level 112 mg/dL (74-106); Magnesium 1.9 mg/dL (1.6-2.4); NT PRO-BNP 159 pg/mL (<125); Potassium 3.4 mEq/L (3.5-5.1); Protein, Total 7.2 g/dL (6.4-8.2); Sodium Level 137 mEq/L (136-145); Troponin High Sensitivity 4.7 pg/mL (<58.9)
[2023-02-13 22:35] LABS: Bilirubin Direct < 0.1 mg/dL (0-0.2)
[2023-02-13 22:36] LABS: Bilirubin Indirect, Calculated ND mg/dL (0.2-0.8)
--- NOTE | 2023-02-13 22:40 | RAD REPORT ---
[facility]23 [facility] CLINICAL HISTORY: CHEST PAIN COMPARISON: Chest Single View dated 09/25/2019; Chest Single View dated 04/26/2017; CHEST PA AND LAT 2 VIEW dated 07/16/2014; CHEST PA AND LAT 2 VIEW dated 03/18/2010 TECHNIQUE: Portable AP view of the chest. FINDINGS: The lungs are clear. Decreased penetration somewhat limits evaluation. No pneumothorax or effusion. The cardiomediastinal contours are unremarkable. IMPRESSION: No acute cardiopulmonary process.
[2023-02-14 00:19] LABS: Barbiturates NEGATIVE (NEGATIVE); Benzodiazepines NEGATIVE (NEGATIVE); Cocaine NEGATIVE (NEGATIVE); METHAMPHETAM NEGATIVE (NEGATIVE); Methadone X-NORESULT (NEGATIVE); Opiates NEGATIVE (NEGATIVE); Phencyclidine NEGATIVE (NEGATIVE); THC Cannibis POSITIVE (NEGATIVE)
[2023-02-14 00:22] LABS: Specific Gravity 1.012 (1.005-1.030)
--- NOTE | 2023-02-14 00:26 | EDPHYS ---
Physician Documentation [facility] Name: Lindsey Aguilar Age: 27 yrs Sex: Female : 1995 Arrival Date: 02/13/2023 Time: 20:49 Bed 7 Private MD: ED Physician Daniel Casillas HPI: 02/13 21:27 This 27 yrs old Female presents to ER via Wheelchair with complaints of sp4 Possible Overdose. 21:27 PMH - Historical: Allergies: PENICILLINS Home Meds: Albuterol Inhl; control PMHx: sp4 "Liver Problems"; Depression; Endometriosis; Hyperlipidemia; HYPOGLYCEMIA; Thyroid problem; Asthma PSHx: ; Breast reduction; Appendectomy; . 02/14 00:21 Patient presents with sudden onset of numbness tingling feeling unwell. . Patient sp4 states she takes Zoloft for depression and she also recently completed Z-Marques for upper respiratory infection. On arrival patient is very upset tearful crying on exam appears to have generalized weakness. . Historical: - Allergies: 02/13 21:17 PENICILLINS; hb - PMHx: 21:17 HYPOGLYCEMIA; Hyperlipidemia; Thyroid problem; Endometriosis; Depression; Asthma; hb - Immunization history:: Adult Immunizations up to date. - Social history:: Smoking status: Patient denies any tobacco usage or history of. - Family history:: not pertinent. ROS: 02/14 00:22 Constitutional: Negative for fever, chills, and weight loss, positive generalized sp4 weakness malaise anxiety tearfulness Cardiovascular: Positive for Positive for numbness and tingling in the left, All other systems are negative, Exam: 00:22 Constitutional: This is a well developed, well nourished patient who is awake, alert, sp4 morbidly overweight female with acute emotional upset, anxiety, tearfulness and generalized weakness Head/Face: Normocephalic, atraumatic. Eyes: Pupils equal round and reactive to light, extra-ocular motions intact. Lids and lashes normal. Conjunctiva and sclera are not injected. Cornea within normal limits. Periorbital areas with no swelling, redness, or edema. ENT: Nares patent. No nasal discharge, no septal abnormalities noted. Tympanic membranes are normal and external auditory canals are clear. Oropharynx with no redness, swelling, or masses, exudates, or evidence of obstruction, uvula midline. Mucous membranes moist. Neck: Trachea midline, no thyromegaly or masses palpated, and no cervical lymphadenopathy. Supple, full range of motion without nuchal rigidity, or vertebral point tenderness. Chest/axilla: Normal chest wall appearance and motion. Nontender with no deformity. No lesions are appreciated. Cardiovascular: Regular rate and rhythm with a normal S1 and S2. No gallops, murmurs, or rubs. Normal PMI, no JVD. No pulse deficits. Respiratory: Lungs have equal breath sounds bilaterally, clear to auscultation and percussion. No rales, rhonchi or wheezes noted. No increased work of breathing, no retractions or nasal flaring. Abdomen/GI: Soft, non-tender, with normal bowel sounds. No distension or tympany. No guarding or rebound. No evidence of tenderness throughout. Back: No spinal tenderness. No costovertebral tenderness. Skin: Warm, dry with normal turgor. Normal color with no rashes, no lesions, and no evidence of cellulitis. MS/ Extremity: Pulses equal, no cyanosis. Neurovascular intact. Full, normal range of motion. Neuro: Awake and alert, GCS 15, oriented to person, place, time, and situation. Cranial nerves II-XII grossly intact. Motor strength 5/5 in all extremities. Sensory grossly intact. Psych: Awake, alert, with orientation to person, place and time. Positive emotional upset positive anxiety positive tearfulness 00:22 ECG was reviewed by the Attending Physician. That her EEG is normal sinus rhythm at the rate of 70, no ST elevation or depression, no ectopy, EKG time 2305 Vital Signs: 02/13 21:11 BP 154 / 112; Pulse 89; Resp 20; Temp 98.2; Pulse Ox 100% on R/A; Weight 154.22 kg; hb Height 5 ft. 7 in. ; Pain 11/18; 22:00 BP 154 / 114; Pulse 83; Resp 18; Pulse Ox 93% on R/A; km8 02/14 00:00 BP 154 / 101; Pulse 82; Resp 16 S; Pulse Ox 97% on R/A; km8 00:33 BP 155 / 98; Pulse 70; Resp 16 S; Pulse Ox 98% on R/A; km8 02/13 21:11 Body Mass Index 53.25 (154.22 kg, 170.18 cm) hb 02/13 21:11 Pain Scale: Adult hb MDM: 02/13 21:25 Patient medically screened. [facility] 02/14 00:49 Differential diagnosis: polypharmacy, over medication, hypoglycemia, closed head sp4 injury. Data reviewed: vital signs, nurses notes, old medical records, lab test result(s), EKG, radiologic studies, plain films. Consideration of Admission/Observation Escalation of care including admission/observation considered. ED course: Patient was positive for cannabis otherwise normal work-up. ED course: Symptoms likely from acute anxiety attack. . 02/13 21:24 Order name: Basic Metabolic Panel; Complete Time: 00:05 [facility] 02/13 21:24 Order name: CBC with Diff; Complete Time: 00: [facility] 02/13 21:24 Order name: LFT's; Complete Time: 00:05 [facility] 02/13 21:24 Order name: Magnesium; Complete Time: 00:05 [facility] 02/13 21:24 Order name: NT PRO-BNP; Complete Time: 00:05 [facility] 02/13 21:24 Order name: PT-INR; Complete Time: 00:05 [facility] 02/13 21:24 Order name: Troponin HS; Complete Time: 00:05 [facility] 02/13 21:26 Order name: Test, Urine; Complete Time: 00:25 [facility] 02/13 21:26 Order name: Urinalysis W/Microscopic [facility] 02/13 21:26 Order name: Urine Drug Screen; Complete Time: 00:25 [facility] 02/13 21:26 Order name: Alcohol Level; Complete Time: 00:05 [facility] 02/13 21:24 Order name: XRAY Chest (1 view); Complete Time: 00:05 [facility] 02/13 21:24 Order name: EKG; Complete Time: 21:25 [facility] 02/13 21:24 Order name: Cardiac monitoring; Complete Time: 22:06 [facility] 02/13 21:24 Order name: EKG - Nurse/Tech; Complete Time: 22:06 [facility] 02/13 21:24 Order name: IV Saline Lock; Complete Time: 22:06 [facility] 02/13 21:24 Order name: Labs collected and sent; Complete Time: 22:06 sp4 02/13 21:24 Order name: O2 Per Protocol; Complete Time: : sp4 02/13 21:24 Order name: O2 Sat Monitoring; Complete Time: : sp4 EC:22 Rate is 70 beats/min. Rhythm is regular, Normal Sinus Rhythm. QRS [place] is Normal. MA sp4 interval is normal. QRS interval is normal. QT interval is normal. No Q waves. T waves are Normal. No ST changes noted. Clinical impression: Normal ECG. Interpreted by me. Reviewed by me. Administered Medications: 02/13 22:00 Drug: Ativan IVP 1 mg IVP once Route: IVP; Site: right antecubital; la4 22:58 Follow up: Response: No adverse reaction; Anxiety decreased km8 22:00 Drug: NS 0.9% IV 1000 ml IV at 1 bolus Per protocol; 1000 mL bolus Route: IV; Rate: 1 la4 bolus; Site: right antecubital; 02/14 00:50 Follow up: Response: No adverse reaction; IV Status: Completed infusion; IV Intake: km8 1000ml 02/13 22:00 Drug: NS 0.9% IV 1000 ml IV at 1 bolus Per protocol; 1000 mL bolus Route: IV; Rate: 1 la4 bolus; Site: right antecubital; 02/14 00:49 Follow up: Response: No adverse reaction; IV Status: Completed infusion; IV Intake: km8 1000ml Disposition Summary: 02/14/23 00:26 Discharge Ordered Notes: Location: Home sp4 Problem: new sp4 Symptoms: have improved sp4 Condition: Stable sp4 Diagnosis - Anxiety disorder, unspecified sp4 - Acute anxiety attack, numbness and tingling, hyperventilation sp4 - Cannabis abuse with cannabis-induced anxiety disorder sp4 Followup: sp4 - With: Private Physician - When: 7 - 10 days - Reason: Recheck today's complaints Discharge Instructions: - Discharge Summary Sheet sp4 - Managing Anxiety, Adult sp4 Forms: - Patient Portal Instructions sp4 Prescriptions: - Ativan 1 mg Oral tablet - take 1 tablet ORAL route once daily As needed As needed for anxiety attacks; 10 sp4 tablet; Refills: 0, Product Selection Permitted Signatures: Dispatcher [facility] EDLeonarda Bagley RN RN Daniel Casillas MD MD sp4 Ki Cantor RN RN la4 Kaylee Bender RN km8
--- NOTE | 2023-02-14 00:26 | ER ---
Nurse's Notes [facility] Name: Lindsey Aguilar Age: 27 yrs Sex: Female : 1995 Arrival Date: 02/13/2023 Time: 20:49 Bed 7 Private MD: Diagnosis: Anxiety disorder, unspecified;Acute anxiety attack, numbness and tingling, hyperventilation;Cannabis abuse with cannabis-induced anxiety disorder Presentation: 02/13 21:11 Chief complaint: Diagnosed with flu 2 weeks ago, then URI, completed Z pack and hb steroids, Zoloft increased from 150 mg to 200 mg 1 week ago, has not taken her hydroxyzine or Zoloft today due to fear of mixing medications, today c/o malaise, chest tightness, anxiety, and tingling in face. Coronavirus screen: At this time, the client does not indicate any symptoms associated with coronavirus-19. Ebola Screen: No symptoms or risks identified at this time. Initial Sepsis Screen: Does the patient meet any 2 criteria? No. Patient's initial sepsis screen is negative. Does the patient have a suspected source of infection? No. Patient's initial sepsis screen is negative. Risk Assessment: Do you want to hurt yourself or someone else? Patient reports no desire to harm self or others. Onset of symptoms was January 30, 2023. 21:11 Method Of Arrival: Wheelchair hb 21:11 Acuity: GILBERTO 3 hb Historical: - Allergies: 21:17 PENICILLINS; hb - PMHx: 21:17 HYPOGLYCEMIA; Hyperlipidemia; Thyroid problem; Endometriosis; Depression; Asthma; hb - Immunization history:: Adult Immunizations up to date. - Social history:: Smoking status: Patient denies any tobacco usage or history of. - Family history:: not pertinent. Screenin:08 [facility] ED Fall Risk Assessment (Adult) History of falling in the last 3 months, la4 including since admission No falls in past 3 months (0 pts) Confusion or Disorientation No (0 pts) Intoxicated or Sedated Impaired Gait Yes (1 pt) Mobility Assist Device Used No (0 pt) Altered Elimination No (0 pt) Score/Fall Risk Level 0 - 2 = Low Risk Oriented to surroundings, Maintained a safe environment, Provided non-skid footwear. Abuse screen: Denies threats or abuse. Denies injuries from another. Nutritional screening: No deficits noted. Tuberculosis screening: No symptoms or risk factors identified. Assessment: 22:07 General: Appears obese, Behavior is cooperative, anxious. Neuro: No deficits noted. la4 Mccarthy Agitation-Sedation Scale (RASS): 0 - Alert and Calm Level of Consciousness is awake, alert, obeys commands, Oriented to person, place, time, situation, [place] are equal bilaterally Moves all extremities. Respiratory: Airway is patent Trachea midline Respiratory effort is even, unlabored, Respiratory pattern is regular, symmetrical, Breath sounds are clear bilaterally. GI: No deficits noted. Abdomen is obese, Bruits noted in abdomen diffusely. : No deficits noted. 23:08 Reassessment: Patient appears in no apparent distress at this time. No changes from [facility] previously documented assessment. Patient and/or family updated on plan of care and expected duration. Pain level reassessed. Patient is alert, oriented x 3, equal unlabored respirations, skin warm/dry/pink. Patient states symptoms have improved. 02/14 00:19 Reassessment: Patient appears in no apparent distress at this time. No changes from [facility] previously documented assessment. Patient and/or family updated on plan of care and expected duration. Pain level reassessed. Patient is alert, oriented x 3, equal unlabored respirations, skin warm/dry/pink. Dr. Casillsa at bedside discussing plan of care. Overdose: 00:50 [place] Suicide Severity Screening: "In the past month, have you wished you were km8 or wished you could go to sleep and not wake up?" Patient responds "no." "In the past month, have you actually had any thoughts of killing yourself?" Patient responds "no." "In your lifetime, have you ever done anything, started to do anything, or prepared to do anything to end your life?" Patient responds "no.". Vital Signs: 02/13 21:11 BP 154 / 112; Pulse 89; Resp 20; Temp 98.2; Pulse Ox 100% on R/A; Weight 154.22 kg; hb Height 5 ft. 7 in. ; Pain 8/10; 22:00 BP 154 / 114; Pulse 83; Resp 18; Pulse Ox 93% on R/A; km8 02/14 00:00 BP 154 / 101; Pulse 82; Resp 16 S; Pulse Ox 97% on R/A; km8 00:33 BP 155 / 98; Pulse 70; Resp 16 S; Pulse Ox 98% on R/A; km8 02/13 21:11 Body Mass Index 53.25 (154.22 kg, 170.18 cm) hb 02/13 21:11 Pain Scale: Adult hb ED Course: 02/13 20:50 Patient arrived in ED. ag3 21:17 Triage completed. hb 21:17 Arm band placed on. hb 21:24 Daniel Casillas MD is Attending Physician. sp4 21:42 Ki Cantor, CESIA is Primary Nurse. la4 22:08 No apparent distress. Awaiting lab results. la4 22:08 Patient has correct armband on for positive identification. Bed in low position. Call la4 light in reach. Side rails up X2. Provided Education on: plan of care. 22:08 No provider procedures requiring assistance completed. Inserted saline lock: 20 gauge la4 in right antecubital area, using aseptic technique. Blood collected. 22:25 XRAY Chest (1 view) In Process Unspecified. EDMS 22:57 Urinalysis W/Microscopic Sent. km8 22:57 Test, Urine Sent. km8 02/14 00:49 IV discontinued, intact, bleeding controlled, No redness/swelling at site. Pressure km8 dressing applied. Administered Medications: 02/13 22:00 Drug: Ativan IVP 1 mg IVP once Route: IVP; Site: right antecubital; la4 22:58 Follow up: Response: No adverse reaction; Anxiety decreased km8 22:00 Drug: NS 0.9% IV 1000 ml IV at 1 bolus Per protocol; 1000 mL bolus Route: IV; Rate: 1 la4 bolus; Site: right antecubital; 02/14 00:50 Follow up: Response: No adverse reaction; IV Status: Completed infusion; IV Intake: km8 1000ml 02/13 22:00 Drug: NS 0.9% IV 1000 ml IV at 1 bolus Per protocol; 1000 mL bolus Route: IV; Rate: 1 la4 bolus; Site: right antecubital; 02/14 00:49 Follow up: Response: No adverse reaction; IV Status: Completed infusion; IV Intake: km8 1000ml Medication: 00:49 VIS not applicable for this client. km8 Intake: 00:49 IV: 1000ml; Total: 1000ml. km8 00:50 IV: 1000ml; Total: 2000ml. km8 Outcome: 00:26 Discharge ordered by . sp4 00:49 Discharged to home via wheelchair, with significant other, km8 00:49 Condition: good 00:49 Discharge instructions given to patient, significant other, Instructed on discharge instructions, follow up and referral plans. medication usage, Demonstrated understanding of instructions, follow-up care, medications, Prescriptions given X 1, 00:51 Patient left the ED. km8 Signatures: Dispatcher [employer] EDMS Leonarda Ellison, RN RN Verona León Sergey, MD MD sp4 Kaylee Bender RN RN km8 Ki Cantor RN RN la4
[2023-02-14 00:30] LABS: Specific Gravity 1.012 (1.005-1.030); Urine Bacteria None Seen /HPF (<20); Urine Bilirubin NEGATIVE (Negative); Urine Blood Negative (Negative); Urine Clarity Clear (Clear); Urine Color Colorless (Yellow); Urine Glucose NEGATIVE (Negative); Urine Protein NEGATIVE (Negative); Urine RBC <5 /HPF (None Seen); Urine Urobilinogen Normal (Normal)
[2023-02-14 01:00] VITALS: TEMP 98.2
[2023-02-14 01:04] VITALS: BP 155/98; O2SAT 98
--- NOTE | 2023-02-19 14:34 | EKG ---
Test Date: 2023-02-13 Test Time: 23:05:09 Percussion Tuner: NGHIA MEASUREMENT RESULTS: Intervals: Rate: 70 OK: 176 QRSD: 100 QT: 418 QTc: 451 [place]: P: 47 OK: 176 QRS: 29 T: 22 INTERPRETIVE STATEMENTS: Normal sinus rhythm Normal ECG Compared to ECG 09/25/2019 23:08:11 No significant changes Electronically Signed On 02-19-23 14:18:21 [employer]INING [employer] by Ravi Anderson
== END 2023-02-14 00:51 | disposition home or self-care (01) ==
LOC: ER 20:49
DX: F41.0 Panic disorder [episodic paroxysmal anxiety] (principal); R06.4 Hyperventilation; F12.180 Cannabis abuse with cannabis-induced anxiety disorder; Z88.0 Allergy status to penicillin
CPT/HCPCS: 96361; 93005; 85025; 81001; 80048; 36415; 83735; 81025; 85610; 80076; 84484; 83880; 80307; 71045; 96374; 99284; 82077; J7030